=== PATIENT | male | born 1955 | race Caucasian/White ===

== ENCOUNTER 2019-06-20 09:37 | Outpatient (CLI) | payer MEDICARE, SELFPAY ==
--- NOTE | 2019-06-20 | ECG_ITS ---
Measurements Intervals [place] Rate: 71 P: 79 GA: 168 QRS: 39 QRSD: 111 T: 60 QT: 314 QTc: 342 Interpretive Statements SINUS RHYTHM INTRAVENTRICULAR CONDUCTION DELAY BASELINE ARTIFACT- I, II BORDERLINE ECG Electronically Signed On 06-20-2019 11:06:35 JEWELRY ESTIMATOR by Harvey Addison D.O.
--- NOTE | ~2019-06-20 | XR_ITS ---
XR chest 2V DATE: 06/20/2019 13:40 INDICATION: Chest pain, dyspnea TECHNIQUE: PA and lateral views COMPARISON: 03/24/2019 PA and lateral chest FINDINGS: Normal heart size. Aortic arch calcification. Chronic discoid scarring in the right lower l cecilia. No pulmonary infiltrate or consolidation, pleural effusion or pulmonary vascular congestion or pneumo thorax is detected. Normal heart size. Aortic arch calcification. Status post anterior lower cervical spine surgical fusion. IMPRESSION: Chronic discoid scarring in the right lower lung; no active cardiac pulmonary disease or significant change since 03/24/2019 Reviewed, dictated and finalized at location A. R [facility]
[2019-06-20 10:08] LABS: Basophils Absolute Auto 0.1 K/mm3 (0.0-0.1); Eosinophils Absolute Auto 0.3 K/mm3 (0-0.3); Eosinophils Percent Auto 3.4 % (0-4.4); Hematocrit 44.9 % (42.0-52.0); Immature Granulocyte Absolute 0.06 K/mm3 (0.00-0.031); Immature Granulocyte Percent A 0.7 % (0-0.5); Lymphocytes Absolute Auto 2.34 K/mm3 (0.9-3.2); Lymphocytes Percent Auto 28.2 % (18.3-44.2); Mean Corpuscular HGB Conc 33.4 g/dl (32-36); Mean Corpuscular Hemoglobin 29.1 pg (26-34); Mean Platelet Volume 9.3 fl (7.4-10.4); Monocytes Absolute Auto 0.6 K/mm3 (0.1-0.6); Monocytes Percent Auto 7.6 % (2.6-8.5); Neutrophils Absolute Auto 4.9 K/mm3 (1.3-6.7); Neutrophils Percent Auto 59.1 % (45.5-73.1); Platelet Count Result 245 k/mm3 (150-375); Red Blood Count 5.16 M/mm3 (4.6-6.20); Red Cell Distribution Width 13.1 % (11.5-14.5); White Blood Count 8.3 K/mm3 (4.5-10.0)
[2019-06-20 10:20] LABS: Alanine Aminotransferase 19 U/L (4-50); Alkaline Phosphatase 100 U/L (38-126); Aspartate Amino Transferase 18 U/L (17-59); Bilirubin,Total 0.6 mg/dL (0.2-1.3); Blood Urea Nitrogen 19 mg/dL (9-20); Calcium 9.3 mg/dL (8.4-10.2); Carbon Dioxide 32 mmol/L (22-30); Chloride 91 mmol/L (98-107); Estimated Glomerular Filt Rate > 60; Glucose 345 mg/dL (75-110); Potassium 3.3 mmol/L (3.4-5.0); Sodium 132 mmol/L (137-145)
== END 2019-06-20 09:38 | disposition home or self-care (01) ==
LOC: ANHLAB 09:43
PROVIDERS: PCP Family Medicine; Visit Provider Family Medicine
DX: R07.9 Chest pain, unspecified (principal); R91.8 Other nonspecific abnormal finding of lung field; R00.2 Palpitations; R06.00 Dyspnea, unspecified
CPT/HCPCS: 36415; 71046; 80053; 84443; 85025; 85380; 93005

== ENCOUNTER 2019-07-09 18:57 | Emergency (ER) | payer MEDICARE, SELFPAY ==
[2019-07-09 18:59] VITALS: BP 162/89; PULSE 97; RESP 20; TEMP 36.9; O2SAT 94
--- NOTE | 2019-07-09 18:59 | ED.GENADULT ---
HPI - General Adult General Chief complaint: Skin/Abscess/Foreign Body Stated complaint: rash Time Seen by Provider: 07/09/19 19:10 Source: patient Mode of arrival: ambulatory Limitations: no limitations History of Present Illness HPI narrative: 64-year-old male patient presents to the [facility] with complaints of a rash to the left side of the groin for the past month. Patient states he presents today because it has not gone away and it continues to burn and itch. Patient states he also has a rash to the tip of the penis as well. Patient has seen his primary doctor for this and was put on 2 antifungal creams. Patient states it is not helping. Patient states he puts on the cream along with some regular lotion. Patient denies any fevers. Related Data Home Medications Medication Instructions Recorded Confirmed aspirin [Aspirin Low Dose] 81 mg PO DAILY 03/24/19 03/24/19 clopidogrel 75 mg PO DAILY 03/24/19 03/24/19 losartan-hydrochlorothiazide 1 tablet PO DAILY 03/24/19 03/24/19 metformin 1,000 mg PO BID 03/24/19 03/24/19 metoprolol succinate 50 mg PO DAILY 03/24/19 03/24/19 sitagliptin [Januvia] 100 mg PO DAILY 03/24/19 03/24/19 albuterol sulfate 0.63 mg INHALATION Q4H 07/09/19 07/09/19 clotrimazole-betamethasone applic TOPICAL 07/09/19 nystatin TOPICAL 07/09/19 Allergies Allergy/AdvReac Type Severity Reaction Status Date / Time atropine Allergy Unknown Verified 03/19/15 15:51 codeine Allergy Unknown Verified 03/19/15 15:51 hydrocodone Allergy Unknown Verified 03/19/15 15:51 morphine Allergy Unknown Verified 03/19/15 15:52 olmesartan Allergy Unknown Verified 03/19/15 15:51 Tetanus Vaccines and Toxoid Allergy Unknown Verified 03/19/15 15:52 Review of Systems Review of Systems: Narrative: CONSTITUTIONAL: Denies fever, chills, or sweats. EYES: Denies visual changes, redness, or discharge. ENT: Denies rhinorrhea, congestion, sore throat, or otalgia. CARDIOVASCULAR: Denies chest pain, palpitations, or edema. RESPIRATORY: Denies cough or dyspnea. GASTROINTESTINAL: Denies abdominal pain, nausea, vomiting, or diarrhea. GENITOURINARY: Denies dysuria or hematuria. SKIN: Positive rash with itching and burning pain to the left side of groin x1 month MUSCULOSKELETAL: Denies back pain, joint pain, or myalgia. NEUROLOGIC: Denies headache, numbness, or weakness. PSYCHIATRIC: Denies anxiety or depression. [facility] Past Medical History Medical History (Updated 07/09/19 @ 19:19 by BRODY Yarbrough) Anxiety Asthma COPD (chronic obstructive pulmonary disease) Depression Diabetes Diverticulitis Hypercholesterolemia Hypertension Musculoskeletal disorder Cervical fusion, amputation left ring finger, arthritis Pneumonia Sleep apnea Surgical History Surgical History (Updated 07/09/19 @ 19:04 by BRODY Yarbrough) History of cardiac cath 2017 with heart stents History of cholecystectomy Family History Family History Sibling Cerebrovascular accident Patient's sister is Mother Family history of diabetes mellitus in first degree relative Patient's mother is Father Patient's father is Social History Social History Alcohol intake: never Comments At the time of my signature I agree with nursing past medical history, surgical, social, and family history. There is no relevant family history pertinent to the presenting complaint. Exam Narrative: Exam Narrative: GENERAL: Well-appearing, well-nourished, and in no acute distress. HEAD: Normocephalic, atraumatic. EYES: PERRLA and EOMI. ENT: Nares clear, no rhinorrhea or epistaxis. Mucous membranes moist. NECK: Supple. No lymphadenopathy CHEST: Clear to auscultation. No respiratory distress. HEART: Regular rate and rhythm. No murmur heard. Normal peripheral pulses. ABDOMEN: Soft, nontender,
== END 2019-07-09 19:21 | disposition home or self-care (01) ==
PROVIDERS: Emergency Provider Nurse Practitioner Family; PCP Family Medicine
DX: B35.6 Tinea cruris (principal); J44.9 Chronic obstructive pulmonary disease, unspecified; E11.9 Type 2 diabetes mellitus without complications; E78.00 Pure hypercholesterolemia, unspecified; I10 Essential (primary) hypertension; G47.30 Sleep apnea, unspecified
CPT/HCPCS: 99213; G0463

== ENCOUNTER 2020-04-19 09:04 | Emergency (ER) | payer MEDICARE, SELFPAY ==
--- NOTE | ~2020-04-19 | XR_ITS ---
XR chest 2V DATE: 04/19/2020 09:30 INDICATION: Shortness of breath TECHNIQUE: PA and lateral views COMPARISON: 06/20/2019 2 view chest FINDINGS: Normal heart size. There is aortic arch calcification. Moderate hyperinflation of the lungs. No pulmonary infiltrate or consolidation, pleural effusion or p ulmonary vascular congestion or pneumothorax. Status post lower anterior cervical spine surgical fusion IMPRESSION: Moderate hyperinflation; no active cardiac pulmonary disease Aortic atherosclerosis No significant change since 06/20/2019 Reviewed, dictated and finalized at location A. ER
[2020-04-19 09:13] VITALS: BP 109/71; PULSE 77; RESP 16; TEMP 36.2; O2SAT 91
--- NOTE | 2020-04-19 09:14 | ED.GENADULT ---
HPI - General Adult General Chief complaint: Upper Respiratory Infection Stated complaint: difficulty breathing Time Seen by Provider: 04/19/20 09:15 Source: patient and RN notes reviewed Mode of arrival: ambulatory Limitations: no limitations History of Present Illness HPI narrative: 64-year-old male presents with complains of shortness of breath upon awaken this morning. Delta reports he stopped taking mediations for COPD and Asthma over a year ago due to inability to afford them. No treatment. Denies cough and chest congestion. No rhinorrhea and nasal congestion. No high fevers, drooling, neck or throat swelling. No chest pain, wheezing, or shortness of breath. No exacerbation factors. Denies nausea, vomiting, and abdominal pain. Tolerating liquids well. The patient reports he have not been diagnosed with COVID-19. The patient reports he is not waiting for the results of a COVID-19 lab test. The patient reports he do not have fever, chills, weakness, or fatigue. The patient reports he do not have a new or worsening cough or shortness of breath. The patient reports he do not have any loss of taste, sore throat, nausea, vomiting, abdominal pain, and diarrhea. Denies recent traveling. Denies concerns for COVID-19 or exposures been home with limited outdoor exposure except for essential household needs and return home. At this time, patient is not suspected of having COVID-19. Some parts of this dictation were generated by voice recognition software and may contain typographical and/or grammatical inaccuracies. Related Data Home Medications Medication Instructions Recorded Confirmed aspirin [Aspirin Low Dose] 81 mg PO DAILY 03/24/19 03/24/19 clopidogrel 75 mg PO DAILY 03/24/19 03/24/19 losartan-hydrochlorothiazide 1 tablet PO DAILY 03/24/19 03/24/19 metformin 1,000 mg PO BID 03/24/19 03/24/19 metoprolol succinate 50 mg PO DAILY 03/24/19 03/24/19 sitagliptin [Januvia] 100 mg PO DAILY 03/24/19 03/24/19 albuterol sulfate 0.63 mg INHALATION Q4H 07/09/19 07/09/19 clotrimazole-betamethasone applic TOPICAL 07/09/19 nystatin TOPICAL 07/09/19 Allergies Allergy/AdvReac Type Severity Reaction Status Date / Time atropine Allergy Unknown Verified 03/19/15 15:51 codeine Allergy Unknown Verified 03/19/15 15:51 hydrocodone Allergy Unknown Verified 03/19/15 15:51 morphine Allergy Unknown Verified 03/19/15 15:52 olmesartan Allergy Unknown Verified 03/19/15 15:51 Tetanus Vaccines and Toxoid Allergy Unknown Verified 03/19/15 15:52 Review of Systems Review of Systems: Narrative: CONSTITUTIONAL: Denies fever, chills, sweats. EYES: Denies visual changes, redness, discharge. ENT: Denies rhinorrhea, congestion, sore throat, otalgia. CARDIOVASCULAR: Denies chest pain, palpitations, edema. RESPIRATORY: Denies wheezing, cough. Complains of dyspnea. GASTROINTESTINAL: Denies abdominal pain, nausea, vomiting, diarrhea. GENITOURINARY: Denies dysuria, hematuria, abnormal discharge. SKIN: Denies rash or itching. MUSCULOSKELETAL: Denies acute back pain, joint pain, or myalgia. NEUROLOGIC: Denies numbness or focal weakness. PSYCHIATRIC: Denies anxiety or depression. All systems reviewed & are unremarkable except as noted in HPI and below PMFSH Past Medical History Medical History (Updated 04/20/20 @ 00:00 by Background Daemon) Amputation of finger of left hand Anxiety Asthma Cervical vertebral fusion COPD (chronic obstructive pulmonary disease) Depression Diabetes Diverticulitis Hypercholesterolemia Hypertension Musculoskeletal disorder Cervical fusion, amputation left ring finger, arthritis Pneumonia Sleep apnea Surgical History Surgical History (Updated 04/19/20 @ 09:25 by BRODY Whaley) H/O surgical amputation of finger History of cardiac cath 2017 with heart stents History of cholecystectomy Family History Family History Sibling Cer
--- NOTE | 2020-04-19 09:15 | ECG_ITS ---
Measurements Intervals [place] Rate: 75 P: 54 AL: 144 QRS: 59 QRSD: 97 T: 64 QT: 356 QTc: 398 Interpretive Statements SINUS RHYTHM NORMAL ECG Electronically Signed On 04-19-2020 15:42:34 SENIOR CENTER DIRECTOR by Harvey Addison D.O.
[2020-04-19] MEDS: ALBUTEROL SULFATE NEB 2.5 MG/3 ML INH INHALATION (09:59)
--- NOTE | 2020-04-19 10:03 | PC.NURSE ---
At 0950 patient was ambulated about express care and O2 sats went from 89% to 92%.
[2020-04-19 10:11] VITALS: PULSE 83; RESP 22; O2SAT 94
--- NOTE | 2020-04-19 10:40 | PC.NURSE ---
At 1030 Ptient continues to be 94% sat on room air. Sats at 92% with ambulation.
== END 2020-04-19 10:35 | disposition home or self-care (01) ==
PROVIDERS: Emergency Provider Nurse Practitioner Family; PCP Family Medicine
DX: J44.9 Chronic obstructive pulmonary disease, unspecified (principal); R91.8 Other nonspecific abnormal finding of lung field; I70.0 Atherosclerosis of aorta; Z79.82 Long term (current) use of aspirin; E78.00 Pure hypercholesterolemia, unspecified; I10 Essential (primary) hypertension; G47.30 Sleep apnea, unspecified; Z95.5 Presence of coronary angioplasty implant and graft; Z87.891 Personal history of nicotine dependence
CPT/HCPCS: 71046; 93005; 94640; 96372; 99213; G0463; J1100

== ENCOUNTER 2020-11-24 18:49 | Emergency (ER) | payer MEDICARE, SELFPAY ==
[2020-11-24 18:53] VITALS: BP 180/82; PULSE 106; RESP 20; TEMP 37.6; O2SAT 92
--- NOTE | 2020-11-24 19:01 | ED.DENTAL ---
HPI - Dental/Oral General Chief complaint: Dental/Oral Stated complaint: toothache/eye irritation Source: patient Mode of arrival: ambulatory Limitations: no limitations History of Present Illness HPI Narrative: 65-year-old male presents to [facility] with complaints of right upper tooth pain for the past 3 days. Patient has been taking [id number] ibuprofen with minimal relief. Patient reports he has not seen a dentist in the past 10 years. Patient denies nausea, vomiting, diarrhea, body aches or chills. Patient reports he thought he was running a fever yesterday. MD Complaint: tooth pain Location: Tooth # (5 and 6) Onset (ago): day(s) (3) Duration: constant Severity: mild Relieving factors: nothing Treatment prior to arrival: none Related Data Home Medications Medication Instructions Recorded Confirmed aspirin [Aspirin Low Dose] 81 mg PO DAILY 03/24/19 03/24/19 clopidogrel 75 mg PO DAILY 03/24/19 03/24/19 losartan-hydrochlorothiazide 1 tablet PO DAILY 03/24/19 03/24/19 metformin 1,000 mg PO BID 03/24/19 03/24/19 metoprolol succinate 50 mg PO DAILY 03/24/19 03/24/19 sitagliptin [Januvia] 100 mg PO DAILY 03/24/19 03/24/19 clotrimazole-betamethasone applic TOPICAL 07/09/19 Allergies Allergy/AdvReac Type Severity Reaction Status Date / Time atropine Allergy Unknown Verified 03/19/15 15:51 codeine Allergy Unknown Verified 03/19/15 15:51 hydrocodone Allergy Unknown Verified 03/19/15 15:51 morphine Allergy Unknown Verified 03/19/15 15:52 olmesartan Allergy Unknown Verified 03/19/15 15:51 Tetanus Vaccines and Toxoid Allergy Unknown Verified 03/19/15 15:52 Review of Systems Constitutional: Constitutional: Denies chills, Denies fatigue, Reports fever(s) and Denies weakness ENT: Denies dysphagia, Denies dizziness, Denies epistaxis and Denies sore throat Comments: Right upper tooth pain Cardiovascular: Cardiovascular: Denies chest pain, Denies rapid heart rate and Denies slow heart rate Respiratory: Respiratory: Denies cough, Denies dyspnea and Denies wheezing Gastrointestinal: Gastrointestinal: Denies abdominal pain, Denies diarrhea, Denies nausea and Denies vomiting Integumentary/Breasts: Skin/Breast: Denies rash Neurologic: Denies dizziness PMFSH Past Medical History Medical History Amputation of finger of left hand Anxiety Asthma Cervical vertebral fusion COPD (chronic obstructive pulmonary disease) Depression Diabetes Diverticulitis Hypercholesterolemia Hypertension Musculoskeletal disorder Cervical fusion, amputation left ring finger, arthritis Pneumonia Sleep apnea Surgical History Surgical History H/O surgical amputation of finger History of cardiac cath 2017 with heart stents History of cholecystectomy Family History Family History Sibling Cerebrovascular accident Patient's sister is Mother Family history of diabetes mellitus in first degree relative Patient's mother is Father Patient's father is Social History Social History Smoking status: Former smoker Tobacco type: cigarettes Second hand tobacco smoke exposure: No Smoking end date: 05/22/89 Alcohol intake: never Substance use: never Additional living arrangements comments: spouse Gender identity (if verbalized by the patient): Male Comments At time of signature, I agree with nursing past medical, surgical, social and family history. There is no relevant family history pertinent to the presenting complaint. Exam Const: General: no acute distress Nutritional Appearance: well nourished Orientation/consciousness: patient oriented x3 HENMT: General nose exam: Normal nares present Mouth: Yes lip normal and Yes moist muc
== END 2020-11-24 19:18 | disposition home or self-care (01) ==
PROVIDERS: Emergency Provider Nurse Practitioner Family; PCP Family Medicine
DX: K08.89 Other specified disorders of teeth and supporting structures (principal); J45.909 Unspecified asthma, uncomplicated; J44.9 Chronic obstructive pulmonary disease, unspecified; E11.9 Type 2 diabetes mellitus without complications; E78.00 Pure hypercholesterolemia, unspecified; I10 Essential (primary) hypertension; G47.30 Sleep apnea, unspecified; Z89.022 Acquired absence of left finger(s); Z79.82 Long term (current) use of aspirin
CPT/HCPCS: 99213; G0463

== ENCOUNTER 2020-11-25 02:59 | Emergency (ER) | payer MEDICARE, SELFPAY ==
[2020-11-25 03:07] VITALS: BP 190/97; PULSE 85; RESP 16; TEMP 37.3; O2SAT 92
--- NOTE | 2020-11-25 03:32 | PC.NURSE ---
Pt. amb out of triage w/ steady gait. pt. NAD.
== END 2020-11-25 04:45 | disposition left against medical advice (07) ==
PROVIDERS: PCP Family Medicine
DX: K08.89 Other specified disorders of teeth and supporting structures (principal)
CPT/HCPCS: 99199

== ENCOUNTER 2020-12-19 15:13 | Emergency (ER) | payer MEDICARE, SELFPAY ==
--- NOTE | ~2020-12-19 | XR_ITS ---
EXAMINATION: [id number] INDICATION: Bilateral rib pain after fall TECHNIQUE: A frontal view of the chest and 3 views of the bilateral ribs were obtained. COMPARISON: 04/19/2020 FINDINGS: The lungs are free of acute opacities. There is chronic atelectasis or scarring of the left lung base. There is no pleural effusion or pneumothorax. The cardiomediastinal silhouette is normal. No displaced rib fracture is identified. There are changes of anterior fusion procedure in the lower cervical spine. IMPRESSION: 1. No acute cardiopulmonary abnormality or evidence of displaced rib fracture. Reviewed, dictated and finalized at location A.
[2020-12-19 15:17] VITALS: BP 143/68; PULSE 85; RESP 20; TEMP 37; O2SAT 93
--- NOTE | 2020-12-19 16:43 | ED.FALL ---
HPI - Fall General Chief Complaint: Fall Stated Complaint: fall Source: patient and RN notes reviewed Limitations: no limitations History of Present Illness HPI Narrative: The patient, ex-smoker/nondrinker on several meds including Plavix, presents with rib discomfort after fall. Patient states he was outside slipped down and off 1 or 2 steps of a trailer striking his right lateral ribs. He complains of mild pain and bruising from her injury 4 hours ago that is worse with movement, better with rest or elevation. No other injury, bleeding, deformity, shortness of breath , hematuria, kidney pain or abdominal pains Related Data Home Medications Medication Instructions Recorded Confirmed aspirin [Aspirin Low Dose] 81 mg PO DAILY 03/24/19 03/24/19 clopidogrel 75 mg PO DAILY 03/24/19 03/24/19 losartan-hydrochlorothiazide 1 tablet PO DAILY 03/24/19 03/24/19 metformin 1,000 mg PO BID 03/24/19 03/24/19 metoprolol succinate 50 mg PO DAILY 03/24/19 03/24/19 sitagliptin [Januvia] 100 mg PO DAILY 03/24/19 03/24/19 clotrimazole-betamethasone applic TOPICAL 07/09/19 Allergies Allergy/AdvReac Type Severity Reaction Status Date / Time atropine Allergy Unknown Verified 03/19/15 15:51 codeine Allergy Unknown Verified 03/19/15 15:51 hydrocodone Allergy Unknown Verified 03/19/15 15:51 morphine Allergy Unknown Verified 03/19/15 15:52 olmesartan Allergy Unknown Verified 03/19/15 15:51 Tetanus Vaccines and Toxoid Allergy Unknown Verified 03/19/15 15:52 Review of Systems Review of Systems: General/Constitutional: No weight loss,fever Eyes: N0: Redness,discharge Ears/Nose/Throat: No: Epistaxis,ear discharge Respiratory: Denies: Hemoptysis Gastrointestinal: No Vomiting, Bleeding-rectal Skin: No Lumps, eruption Neurologic: No Focal Weakness,Sz Hematologic: Denies: Petechiae/Purpura Psychiatric: No: Suicida ideationl All Other Systems: Reviewed and Negative [facility] Past Medical History Medical History Amputation of finger of left hand Anxiety Asthma Cervical vertebral fusion COPD (chronic obstructive pulmonary disease) Depression Diabetes Diverticulitis Hypercholesterolemia Hypertension Musculoskeletal disorder Cervical fusion, amputation left ring finger, arthritis Pneumonia Sleep apnea Surgical History Surgical History H/O surgical amputation of finger History of cardiac cath 2017 with heart stents History of cholecystectomy Family History Family History Sibling Cerebrovascular accident Patient's sister is Mother Family history of diabetes mellitus in first degree relative Patient's mother is Father Patient's father is Social History Social History Smoking status: Former smoker Tobacco type: cigarettes Second hand tobacco smoke exposure: No Smoking end date: 05/22/89 Alcohol intake: never Substance use: never Additional living arrangements comments: spouse Gender identity (if verbalized by the patient): Male Comments At time of signature, agree with nursing past medical, surgical, social and family history. There is no relevant family history pertinent to the presenting complaint Exam Narrative: General Appearance: Well appearing, No distress Conjunctiva clear mouth/Throat: Normal appearing, Normal lips, Supple Respiratory: Airway patent, No respiratory distress Cardiovascular: RRR Skin: Warm, Dry; radiated right ribs T9-T11 along axillary line Abdomen: Soft, Non-tender, including right upper quadrant Musculoskeletal: Full ROM Neurological: A&O x3, CN II-X intact Psychiatric: Normal mood, Normal affect Course Vital Signs Vital signs: Vital Signs Temperature 98.6 F 12/19/20 15:17 Pulse
== END 2020-12-19 16:50 | disposition home or self-care (01) ==
PROVIDERS: Emergency Provider Emergency Medicine; PCP Family Medicine
DX: S20.311A Abrasion of right front wall of thorax, initial encounter (principal); W10.9XXA Fall (on) (from) unspecified stairs and steps, initial encounter; Z87.891 Personal history of nicotine dependence; J45.909 Unspecified asthma, uncomplicated; J44.9 Chronic obstructive pulmonary disease, unspecified; E11.9 Type 2 diabetes mellitus without complications; E78.00 Pure hypercholesterolemia, unspecified; I10 Essential (primary) hypertension; G47.30 Sleep apnea, unspecified; Z89.022 Acquired absence of left finger(s); Z79.82 Long term (current) use of aspirin
CPT/HCPCS: 71111; 99213; G0463

== ENCOUNTER 2021-02-21 10:03 | Emergency (ER) | payer MEDICARE, SELFPAY ==
--- NOTE | ~2021-02-21 | XR_ITS ---
XR chest 2V 02/21/2021 10:31 Indication: Cough with shortness of breath Procedure: 2 view chest Comparison: Comparison to multiple prior studies sequentially, with oldest reviewed study dated 02/19. Findings: There is chronic bibasilar atelectasis/scarring. Stable cardiomediastinal silhouette. No ac jass focal pneumonia, edema or effusion. No acute osseous abnormality. Impression: 1: Chronic bibasilar atelectasis/scarring. Reviewed, dictated and finalized at location A. Impression: 1: Chronic bibasilar atelectasis/scarring.
--- NOTE | 2021-02-21 10:07 | ED.URI ---
HPI - URI/Sore Throat General Chief Complaint: Upper Respiratory Infection Stated Complaint: ear pain/neil/fatigue/difficulty breathing Time Seen by Provider: 02/21/21 10:08 Source: patient and RN notes reviewed History of Present Illness HPI Narrative: Patient is 65-year-old male who presents the urgent care with complaints of bilateral ear fullness, shortness of breath and fatigue. Patient states that started 3 days ago. States that he has been using his 4 L of oxygen at home as normal but denies of any ambulatory oxygen. Patient states his levels normally remain around 90%. Reports of using his inhaler as well. Denies of fever, chills, nausea, vomiting. Denies of any other illness in the home. States that he has had a Covid vaccine. No other acute complaints. No acute distress noted. Patient aware of the plan of care. Some parts of this dictation were generated by voice recognition software and may contain typographical and/or grammatical inaccuracies. Related Data Home Medications Medication Instructions Recorded Confirmed aspirin [Aspirin Low Dose] 81 mg PO DAILY 03/24/19 03/24/19 clopidogrel 75 mg PO DAILY 03/24/19 03/24/19 losartan-hydrochlorothiazide 1 tablet PO DAILY 03/24/19 03/24/19 metformin 1,000 mg PO BID 03/24/19 03/24/19 metoprolol succinate 50 mg PO DAILY 03/24/19 03/24/19 sitagliptin [Januvia] 100 mg PO DAILY 03/24/19 03/24/19 clotrimazole-betamethasone applic TOPICAL 07/09/19 Allergies Allergy/AdvReac Type Severity Reaction Status Date / Time atropine Allergy Unknown Nausea and Verified 02/21/21 10:09 Vomiting codeine Allergy Unknown Palpitation Verified 02/21/21 10:09 s hydrocodone Allergy Unknown Nausea and Verified 02/21/21 10:09 Vomiting morphine Allergy Unknown Nausea and Verified 02/21/21 10:09 Vomiting olmesartan Allergy Unknown Other Verified 02/21/21 10:09 Tetanus Vaccines and Toxoid Allergy Unknown Other Verified 02/21/21 10:09 Review of Systems Review of Systems: CONSTITUTIONAL: Denies fever, chills, or sweats. Patient reports of fatigue EYES: Denies visual changes, redness, or discharge. ENT: Denies rhinorrhea, congestion, sore throat. Patient reports of bilateral ear pain CARDIOVASCULAR: Denies chest pain, palpitations, or edema. RESPIRATORY: Reports of dyspnea without cough GASTROINTESTINAL: Denies abdominal pain, nausea, vomiting, or diarrhea. GENITOURINARY: Denies dysuria or hematuria. SKIN: Denies rash or itching. MUSCULOSKELETAL: Denies back pain, joint pain, or myalgia. NEUROLOGIC: Denies headache, numbness, or weakness. All other systems reviewed are negative, except as documented in HPI. [facility] Past Medical History Medical History Amputation of finger of left hand Anxiety Asthma Cervical vertebral fusion COPD (chronic obstructive pulmonary disease) Depression Diabetes Diverticulitis Hypercholesterolemia Hypertension Musculoskeletal disorder Cervical fusion, amputation left ring finger, arthritis Pneumonia Sleep apnea Surgical History Surgical History H/O surgical amputation of finger History of cardiac cath 2017 with heart stents History of cholecystectomy Family History Family History Sibling Cerebrovascular accident Patient's sister is Mother Family history of diabetes mellitus in first degree relative Patient's mother is Father Patient's father is Social History Social History Smoking status: Former smoker Tobacco type: cigarettes Second hand tobacco smoke exposure: No Smoking end date: 05/22/89 Alcohol intake: never Substance use: never Additional living arrangements comments: spouse Gender identity (if verbalized by the patient): Male
[2021-02-21 10:13] VITALS: BP 164/82; PULSE 86; RESP 16; TEMP 36.8; O2SAT 84
--- NOTE | 2021-02-21 12:59 | PC.NURSE ---
Patient is unable to verify medication list at this time.
== END 2021-02-21 11:00 | disposition home or self-care (01) ==
PROVIDERS: Emergency Provider Nurse Practitioner Family; PCP Family Medicine
DX: J44.9 Chronic obstructive pulmonary disease, unspecified (principal); Z87.891 Personal history of nicotine dependence; E11.9 Type 2 diabetes mellitus without complications; E78.00 Pure hypercholesterolemia, unspecified; I10 Essential (primary) hypertension; G47.30 Sleep apnea, unspecified; M19.90 Unspecified osteoarthritis, unspecified site; Z95.5 Presence of coronary angioplasty implant and graft; Z89.022 Acquired absence of left finger(s); Z79.82 Long term (current) use of aspirin
CPT/HCPCS: 71046; 99213; G0463

== ENCOUNTER 2021-03-08 09:18 | Inpatient (IN) | payer MEDICARE, SELFPAY ==
[2021-03-08] VITALS (28 sets, daily range): BP systolic 150–195; BP diastolic 69–107; PULSE 77–99; RESP 16–36; TEMP 36.7–37.3; O2SAT 86–99; BMI 38.9
--- NOTE | ~2021-03-08 | CT_ITS ---
EXAMINATION: CTA chest PE protocol DATE: 03/11/2021 11:26 INDICATION: Hypoxia. TECHNIQUE: Computed tomography angiography (CTA) of the chest was performed with 100 mL Omnipaque-350 intravenous contrast timed to evaluate the pulmonary arteries. Coronal maximum intensity projection 3D-reconstructions were created by the technologist. Automated exposure control and iterative reconst ruction technique were employed. The dose-length product was 744.56 mGy-cm. COMPARISON: Chest CT 03/10/2019 FINDINGS: There is moderate emphysema. There is mild atelectasis bilaterally with a dependent and low er lung predominance. There is a 3 mm nodule in left upper lobe, likely benign. No pleural effusion. The heart size is normal. There are coronary artery calcifications. No pericardial effusion. The cent ral pulmonary arteries are enlarged, consistent with pulmonary artery hypertension. There is no pulmo nary embolus. There is mild right hilar lymphadenopathy, likely reactive. There is mild thoracic spon dylosis. There are bridging endplate osteophytes at multiple levels in the spine, consistent with dif fuse idiopathic skeletal hyperostosis (DISH). There are changes of anterior fusion procedure in cervi page spine. IMPRESSION: 1. No pulmonary embolus. 2. Moderate emphysema. Reviewed, dictated and finalized at location A.
--- NOTE | ~2021-03-08 | US_ITS ---
EXAMINATION: US venous doppler [facility] DATE: 03/08/2021 17:38 INDICATION: Bilateral lower limb edema TECHNIQUE: Choudhury scale images without and with compression and Doppler images of the bilateral lower e xtremity veins were obtained. COMPARISON: 12/04/2009 FINDINGS: The right common femoral vein, profunda femoral vein, femoral vein, popliteal vein, peroneal trunk, p osterior tibial veins, and greater saphenous vein are patent. The left common femoral vein, profunda femoral vein, femoral vein, popliteal vein, peroneal trunk, po sterior tibial veins, and greater saphenous vein are patent. IMPRESSION: 1. Patent bilateral lower extremity veins. No evidence of deep venous thrombosis. Reviewed, dictated and finalized at location A. IMPRESSION: 1. Patent bilateral lower extremity veins. No evidence of deep venous thrombosi s.
--- NOTE | ~2021-03-08 | XR_ITS ---
EXAMINATION: XR chest 1V portable DATE: 03/09/2021 09:17 INDICATION: Respiratory failure. TECHNIQUE: A single frontal view of the chest was obtained. COMPARISON: Chest single view 03/08/2021, chest CT 03/10/2019 FINDINGS: There are lucencies in the lungs, consistent with emphysema. There is mild atelectasis in t he mid and lower lung zones. No pleural effusion or pneumothorax. The heart size is normal. There is prominent extrapleural fat in left lateral costophrenic angle. There are changes of anterior fusion p rocedure in cervical spine. IMPRESSION: 1. Mild atelectasis in the mid and lower lung zones. 2. Emphysema. Reviewed, dictated and finalized at location A.
--- NOTE | ~2021-03-08 | XR_ITS ---
XR chest 1V portable 03/08/2021 09:58 Indication: Shortness of breath. Procedure: AP portable chest Comparison: Comparison to multiple prior studies sequentially, with oldest reviewed study dated 07/2018. Findings: Diffuse bilateral airspace disease. Heart size normal. Small left pleural effusion. No pneu mothorax. Impression: 1: Diffuse bilateral airspace disease may represent edema or pneumonia. Reviewed, dictated and finalized at location B. Impression: 1: Diffuse bilateral airspace disease may represent edema or pneumonia.
--- NOTE | 2021-03-08 09:39 | ECG_ITS ---
Measurements Intervals [place] Rate: 94 P: 62 GA: 149 QRS: 79 QRSD: 102 T: 70 QT: 329 QTc: 411 Interpretive Statements SINUS RHYTHM BASELINE ARTIFACT- I, II, AVR, V1 NORMAL ECG Electronically Signed On 03-08-2021 9:48:36 CDT by Harvey Addison D.O.
[2021-03-08 10:09] LABS: Alveolar/Arterial O2 Gradient 85.7 mmHg; Base Excess ABG 4.9 mEq/l (+/-2.0); Carboxyhemoglobin 1.1 % THb (0-2.0); Fractional Inspired Oxygen 40 %; HCO3 ABG 37.3 mEq/l (22.0-26.0); Methemoglobin ABG 0.6 %THb (0-1.5); Oxygen Content ABG 23.9 %vol (16.0-22.0); Oxygen Saturation ABG 95.2 % (95.0-100.0); PO2 ABG 93.2 mmHg (80.0-100.0); PO2 FiO2 Ratio Arterial Blood 2.33 %; Reduced Hemoglobin 4.3 %THb (0-5.0); Total Hemoglobin 18.1 g/dL (12.0-18.0)
[2021-03-08 10:10] LABS: pH ABG 7.224 (7.350-7.450)
[2021-03-08 10:11] LABS: Device NASAL CANNULA; Modified Allen's Test Pass; PCO2 ABG 92.4 mmHg (35.0-45.0); Site Drawn RIGHT RADIAL
[2021-03-08 10:12] LABS: Basophils Absolute Auto 0.1 K/mm3 (0.0-0.1); Basophils Percent Auto 0.7 % (0.2-1.2); Eosinophils Absolute Auto 0.2 K/mm3 (0-0.3); Eosinophils Percent Auto 2.2 % (0-4.4); Hematocrit 56.4 % (42.0-52.0); Hemoglobin 17.2 g/dL (14.0-18.0); Immature Granulocyte Absolute 0.04 K/mm3 (0.00-0.031); Immature Granulocyte Percent A 0.5 % (0-0.5); Mean Corpuscular HGB Conc 30.5 g/dl (32-36); Mean Corpuscular Hemoglobin 30.3 pg (26-34); Mean Corpuscular Volume 99.5 fl (80-100); Mean Platelet Volume 9.7 fl (7.4-10.4); Monocytes Absolute Auto 0.9 K/mm3 (0.1-0.6); Neutrophils Absolute Auto 6.9 K/mm3 (1.3-6.7); Neutrophils Percent Auto 78.6 % (45.5-73.1); Platelet Count Result 160 k/mm3 (150-375); Red Blood Count 5.67 M/mm3 (4.6-6.20); Red Cell Distribution Width 15.6 % (11.5-14.5); White Blood Count 8.7 K/mm3 (4.5-10.0)
[2021-03-08 10:34] LABS: Blood Urea Nitrogen 20 mg/dL (9-20); Calcium 9.4 mg/dL (8.4-10.2); Carbon Dioxide > 40 mmol/L (22-30); Chloride 93 mmol/L (98-107); Estimated CRCL calculation 100 ml/min; Estimated Glomerular Filt Rate > 60; Glucose 279 mg/dL (65-110); Sodium 139 mmol/L (137-145)
[2021-03-08 10:54] LABS: NT Pro B Type Natriuretic Pept 245 pg/mL (5-100)
--- NOTE | 2021-03-08 11:27 | ED.SOB ---
HPI - SOB/Dyspnea General Chief Complaint: Shortness of Breath/Dyspnea Stated Complaint: diff breathing Time Seen by Provider: 03/08/21 09:22 History of Present Illness HPI Narrative: Patient is a 65-year-old male who presents ER with shortness of breath. Ongoing for couple weeks. Initially prescribed antibiotics and steroids at an urgent care. Symptoms have persisted. Typically wears oxygen at night but he is now alert 24 hours a day. No chest pain or chest pressure. Does have orthopnea. Endorses new swelling to the lower extremities. Reports over the last 2 days he has had runny nose with sore throat and productive cough. No documented fevers, no chills. He is vaccinated against Covid. No known Covid contacts. Related Data Home Medications Medication Instructions Recorded Confirmed aspirin [Aspirin Low Dose] 81 mg PO DAILY 03/24/19 03/24/19 clopidogrel 75 mg PO DAILY 03/24/19 03/24/19 losartan-hydrochlorothiazide 1 tablet PO DAILY 03/24/19 03/24/19 metformin 1,000 mg PO BID 03/24/19 03/24/19 metoprolol succinate 50 mg PO DAILY 03/24/19 03/24/19 sitagliptin [Januvia] 100 mg PO DAILY 03/24/19 03/24/19 clotrimazole-betamethasone applic TOPICAL 07/09/19 Allergies Allergy/AdvReac Type Severity Reaction Status Date / Time atropine Allergy Unknown Nausea and Verified 03/08/21 09:35 Vomiting olmesartan Allergy Unknown Other Verified 03/08/21 09:35 Tetanus Vaccines and Toxoid Allergy Unknown Other Verified 03/08/21 09:35 codeine AdvReac Unknown Palpitation Verified 03/08/21 12:14 s hydrocodone AdvReac Unknown Nausea and Verified 03/08/21 12:14 Vomiting morphine AdvReac Unknown Nausea and Verified 03/08/21 12:14 Vomiting Review of Systems Review of Systems: All systems reviewed & are unremarkable except as noted in HPI and below Constitutional: Constitutional: Denies chills, Reports fatigue and Denies fever(s) ENT: Reports nasal congestion and Denies sore throat Cardiovascular: Cardiovascular: Denies chest pain, Denies rapid heart rate and Denies radiating jaw, neck or arm pain Respiratory: Respiratory: Reports cough, Reports dyspnea and Denies wheezing Gastrointestinal: Gastrointestinal: Denies abdominal pain, Denies nausea and Denies vomiting Musculoskeletal: Musculoskeletal: Denies back pain and Denies muscle cramps [facility] Past Medical History Medical History (Updated 03/08/21 @ 17:08 by Juan Adkins MD) Anxiety Asthma Chronic obstructive pulmonary disease Chronic respiratory failure with hypoxia, on home O2 therapy P.r.n. oxygen, mainly at nighttime. Coronary artery disease Status post stent x3. Depression Diverticulitis Hypercholesterolemia Hypertension Obstructive sleep apnea Intolerant to CPAP. Pneumonia Type 2 diabetes mellitus Surgical History Surgical History (Updated 03/08/21 @ 12:35 by Sue Mayfield PA-C) Amputation of finger of left hand (05/2008) History of cardiac catheterization (07/2017) Stent x3 [facility]. History of fusion of cervical spine History of laparoscopic cholecystectomy (02/2003) Family History Family History Sibling Cerebrovascular accident Mother No problems noted. Father No problems noted. Other Cancer Diabetes mellitus Hypertension Social History Social History (Updated 03/08/21 @ 12:35 by Sue Mayfield PA-C) Social History: Surrogate decision maker: Code status: Smoking packs per day: 1 Smoking cigarettes per day: 20.0 Years smoked: 20 Smoking pack-years: 20.00 Smoking status: Former smoker Second hand tobacco smoke exposure: No Alcohol intake: never Substance use: never Additional living arrangements comments: Shares a home with his . Additional occupation/education comments: Disabled. Spiritual care concerns: No Exam Narrative: GENER
--- NOTE | 2021-03-08 12:37 | PC.NURSE ---
made contact with [place] [facility] for a roomtray at [phone]
--- NOTE | 2021-03-08 13:00 | PM.IMHP ---
H&P: HPI History of Present Illness Date/Time: 03/08/21 13:00 Chief Complaint: Shortness of breath. Narrative: This is a 65-year-old male with chronic hypoxic respiratory failure on p.r.n. oxygen, COPD, sleep apnea, coronary artery disease, hypertension, diabetes who presented to the emergency department earlier today from home for evaluation of shortness of breath. He has not felt great for the past 2 to 3 weeks with fatigue and increasing shortness of breath. He was seen at a local [facility] on 02/21/2021 with similar complaints, was diagnosed with a COPD exacerbation, and was discharged with a prescription for prednisone. Unfortunately his symptoms have persisted and is to the point where he is now wearing his oxygen almost 24 hours a day, when typically he would only wear it at nighttime. He also endorses orthopnea, lower extremity edema, rhinorrhea, rarely productive cough, and mild sore throat. ABG done on arrival to the emergency department demonstrated hypoxia and hypercarbia and he has since been started on a BiPAP with improvement. Chest x-ray showed diffuse bilateral airspace disease and it is noted that a chest x-ray done at urgent care on the was unremarkable. He has not had fever. No chest pain or pleuritic pain. No nausea or vomiting. He did receive the COVID vaccination and has no known sick contacts. Review of Systems Review of Systems: Twelve systems were reviewed. Diabetes is fairly well controlled. Sugars have been running high since being started on prednisone. No concerns for aspiration. No history of venous thromboembolism. Except as documented, all other systems were reviewed and are negative. [facility] Past Medical History Medical History (Updated 03/08/21 @ 23:43 by Sue Mayfield PA-C) Anxiety Asthma Chronic obstructive pulmonary disease Chronic respiratory failure with hypoxia, on home O2 therapy P.r.n. oxygen, mainly at nighttime. Coronary artery disease Status post stent x3. Depression Diverticulitis Hypercholesterolemia Hypertension Obstructive sleep apnea Intolerant to CPAP. Type 2 diabetes mellitus Hemoglobin A1c was 7.4% on 03/08/2021. Surgical History Surgical History Amputation of finger of left hand (05/2008) History of cardiac catheterization (07/2017) Stent x3 [facility]. History of fusion of cervical spine History of laparoscopic cholecystectomy (02/2003) Family History Family History Sibling Cerebrovascular accident Mother No problems noted. Father No problems noted. Other Cancer Diabetes mellitus Hypertension Social History Social History (Updated 03/08/21 @ 23:36 by Sue Mayfield PA-C) Social History: Surrogate decision maker: Marcelle Pollock, . Code status: Full code. Smoking packs per day: 1 Smoking cigarettes per day: 20.0 Years smoked: 20 Smoking pack-years: 20.00 Smoking status: Former smoker Second hand tobacco smoke exposure: No Alcohol intake: never Substance use: never Additional living arrangements comments: Lives in [place] with his . Additional occupation/education comments: Disabled. Meds Home Medications and Allergies Home Medications Medication Instructions Recorded Confirmed Type aspirin [Aspirin Low Dose] 81 mg PO DAILY 03/24/19 03/08/21 History clopidogrel 75 mg PO DAILY 03/24/19 03/08/21 History losartan-hydrochlorothiazide 1 tablet PO DAILY 03/24/19 03/08/21 History metformin 1,000 mg PO BID 03/24/19 03/08/21 History metoprolol succinate 50 mg PO DAILY 03/24/19 03/08/21 History sitagliptin [Januvia] 100 mg PO DAILY 03/24/19 03/08/21 History clotrimazole-betamethasone 1 applic TOPICAL DAILY 07/09/19 03/08/21 History albuterol sulfate [ProAir HFA] 1 - 2 puff INHALATION QID #8.5 gm 04/19/20 03/08/21 Rx
--- NOTE | 2021-03-08 13:18 | PC.NURSE ---
Spoke with MD Adkins, do not need blood cultures prior to abx administration.
--- NOTE | 2021-03-08 14:21 | ADMGEN ---
This patient, Delta Pollock, was admitted to IMU Room 209-01 at 1400 on 03/08/2021. Patient/family oriented to hospital policies and general routines including ID bracelet, bed and alarms, visiting hours, pain management, procedures, bathroom and other care routines, personal items, smoking policy, room service/diet, and visiting hours. Information on how to activate the Rapid Response Team has been discussed. Patient/Family are encouraged to report perceived risks to care and to ask questions if they do not understand what they are told or what they should do.
[2021-03-08 16:09] LABS: Alveolar/Arterial O2 Gradient 89.7 mmHg; Base Excess ABG 8.8 mEq/l (+/-2.0); Carboxyhemoglobin 1.2 % THb (0-2.0); Fractional Inspired Oxygen 35 %; HCO3 ABG 40.1 mEq/l (22.0-26.0); Methemoglobin ABG 0.6 %THb (0-1.5); Oxygen Content ABG 21.9 %vol (16.0-22.0); Oxyhemoglobin 88.3 % THb (90.0-100.0); PO2 ABG 60.6 mmHg (80.0-100.0); PO2 FiO2 Ratio Arterial Blood 1.73 %; Reduced Hemoglobin 9.9 %THb (0-5.0); Total Hemoglobin 17.7 g/dL (12.0-18.0)
[2021-03-08 16:12] LABS: PCO2 ABG 85.4 mmHg (35.0-45.0)
[2021-03-08 16:13] LABS: Device NON-INVASIVE VENT; Modified Allen's Test Pass; Site Drawn LEFT RADIAL
[2021-03-08 16:14] LABS: Non-Invasive Expiratory Pressure 8 CMH2O; Non-Invasive Inspiratory Pressure 16 CMH2O; Non-Invasive Vent Rate 20 /MIN
[2021-03-08 17:20] LABS: Glucose Point of Care 190 mg/dl (65-105)
[2021-03-08 19:49] LABS: Hemoglobin A1C 7.4 % (<5.7)
[2021-03-08 19:52] LABS: D Dimer 0.69 ug/mL (<0.48)
[2021-03-08 20:19] LABS: Glucose Point of Care 112 mg/dl (65-105)
[2021-03-08 21:32] LABS: Procalcitonin 0.1 ng/mL
[2021-03-08 21:35] LABS: Alanine Aminotransferase 21 U/L (4-50); Albumin Level 3.7 g/dL (3.5-5.1); Alkaline Phosphatase 83 U/L (38-126); Aspartate Amino Transferase 19 U/L (17-59); Bilirubin,Total 0.5 mg/dL (0.2-1.3); CRP 5.2 mg/dL (<1.0); Lactate Dehydrogenase 427 U/L (313-618); Magnesium 2.4 mg/dL (1.6-2.3)
[2021-03-08 21:52] LABS: Alveolar/Arterial O2 Gradient 127.8 mmHg; Base Excess ABG 11.2 mEq/l (+/-2.0); Carboxyhemoglobin 1.1 % THb (0-2.0); Fractional Inspired Oxygen 40 %; HCO3 ABG 41.3 mEq/l (22.0-26.0); Methemoglobin ABG 0.4 %THb (0-1.5); Oxygen Content ABG 22.2 %vol (16.0-22.0); Oxygen Saturation ABG 91.9 % (95.0-100.0); PO2 ABG 68.4 mmHg (80.0-100.0); PO2 FiO2 Ratio Arterial Blood 1.71 %; Reduced Hemoglobin 6.5 %THb (0-5.0); Total Hemoglobin 17.2 g/dL (12.0-18.0); pH ABG 7.345 (7.350-7.450)
[2021-03-08 21:53] LABS: Device NON-INVASIVE VENT; Modified Allen's Test Pass; PCO2 ABG 77.4 mmHg (35.0-45.0); Site Drawn LEFT RADIAL
[2021-03-08 21:54] LABS: Non-Invasive Expiratory Pressure 6 CMH2O; Non-Invasive Inspiratory Pressure 18 CMH2O; Non-Invasive Vent Rate 20 /MIN
[2021-03-09] VITALS (22 sets, daily range): BP systolic 121–142; BP diastolic 55–84; PULSE 71–89; RESP 20–27; TEMP 36.1–37.1; O2SAT 90–97
[2021-03-09] MEDS: FUROSEMIDE INJ 40 MG/4 ML VIAL IV PUSH ×2 (00:29→18:56)
[2021-03-09 05:28] LABS: Hematocrit 53.6 % (42.0-52.0); Hemoglobin 16.9 g/dL (14.0-18.0); Mean Corpuscular HGB Conc 31.5 g/dl (32-36); Mean Corpuscular Hemoglobin 30.6 pg (26-34); Mean Corpuscular Volume 97.1 fl (80-100); Mean Platelet Volume 9.9 fl (7.4-10.4); Platelet Count Result 153 k/mm3 (150-375); Red Blood Count 5.52 M/mm3 (4.6-6.20); Red Cell Distribution Width 14.9 % (11.5-14.5); White Blood Count 9.9 K/mm3 (4.5-10.0)
[2021-03-09 05:56] LABS: Blood Urea Nitrogen 17 mg/dL (9-20); Calcium 9.2 mg/dL (8.4-10.2); Carbon Dioxide > 40 mmol/L (22-30); Chloride 91 mmol/L (98-107); Estimated CRCL calculation 89 ml/min; Estimated Glomerular Filt Rate > 60; Glucose 155 mg/dL (65-110); Potassium 3.4 mmol/L (3.4-5.0); Sodium 138 mmol/L (137-145)
[2021-03-09 06:16] LABS: Alveolar/Arterial O2 Gradient 132.9 mmHg; Base Excess ABG 13.7 mEq/l (+/-2.0); Fractional Inspired Oxygen 40 %; HCO3 ABG 42.6 mEq/l (22.0-26.0); Oxygen Content ABG 22.9 %vol (16.0-22.0); Oxygen Saturation ABG 94.4 % (95.0-100.0); PO2 ABG 73.6 mmHg (80.0-100.0); PO2 FiO2 Ratio Arterial Blood 1.84 %; Total Hemoglobin 17.5 g/dL (12.0-18.0); pH ABG 7.412 (7.350-7.450)
[2021-03-09 06:19] LABS: Modified Allen's Test Pass; PCO2 ABG 68.4 mmHg (35.0-45.0); Site Drawn LEFT RADIAL
[2021-03-09 06:21] LABS: Device NON-INVASIVE VENT; Inspiratory Pressure 20 cmH2O
[2021-03-09 09:08] LABS: Expiratory Pressure 8 cmH2O
[2021-03-09] MEDS: ASPIRIN 81 MG ENTERIC TABLET PO (09:11)
[2021-03-09] MEDS: CLOPIDOGREL BISULFATE 75 MG TABLET PO (09:12)
[2021-03-09] MEDS: hydroCHLOROthiazide 25 MG TABLET PO (09:13)
[2021-03-09] MEDS: METOPROLOL SUCCINATE EXT REL 50 MG TABCR PO (09:13)
[2021-03-09] MEDS: LOSARTAN POTASSIUM 100 MG TABLET PO (09:13)
[2021-03-09 09:32] LABS: Glucose Point of Care 186 mg/dl (65-105)
[2021-03-09] MEDS: ALBUTEROL SULFATE NEB 2.5 MG/0.5 ML INH INHALATION ×3 (11:13→20:59)
[2021-03-09 13:11] LABS: Glucose Point of Care 225 mg/dl (65-105)
[2021-03-09] MEDS: INSULIN ASPART (*BKC) 100 UNITS/ML SUB-Q ×2 (13:46→18:55)
--- NOTE | 2021-03-09 15:34 | PM.IMPN ---
Progress Note: A&P Assessment and Plan (1) Acute on chronic respiratory failure with hypoxia and hypercapnia: Code(s): J96.21 - Acute and chronic respiratory failure with hypoxia; J96.22 - Acute and chronic respiratory failure with hypercapnia Status: Acute Assessment and Plan: Patient normally was oxygen as needed mostly at night chronically. He has been vaccinated against COVID. He presents with increasing shortness of breath with ABG showing 7.22/92/93 on 5 L. he was started on BiPAP which he tolerated overnight. Blood gas this morning showing 7.41/68/74. He is been able to come off the BiPAP today. Chest x-ray on admission showed diffuse bilateral airspace disease. His BNP was 245. Lower extremity venous Doppler was negative for DVT. He had good urine output with the 1 dose of Lasix. Blood pressure stable. Renal function tolerated Lasix. Repeat chest x-ray shows improvement. Continue IV Lasix. Follow up on echo results. Continue BiPAP at night. Wean oxygen as tolerated (2) Pulmonary infiltrates on CXR: Code(s): R91.8 - Other nonspecific abnormal finding of lung field Status: Acute Assessment and Plan: As above. COVID swab is pending. Consider CHF exacerbation versus COVID versus bacterial pneumonia. Wean oxygen as tolerated. No cultures obtained. Continue abx for now. Order sputum (3) Person under investigation for COVID-19: Code(s): Z20.822 - Contact with and (suspected) exposure to COVID-19 Status: Acute Assessment and Plan: Patient has been swabbed for COVID. Continue isolation precautions. (4) Chronic obstructive pulmonary disease: Code(s): J44.9 - Chronic obstructive pulmonary disease, unspecified Status: Acute Assessment and Plan: Patient with COPD with chronic respiratory failure. Patient only on albuterol HFA listed on home medications. Will add Symbicort. (5) Obstructive sleep apnea: Code(s): G47.33 - Obstructive sleep apnea (adult) (pediatric) Status: Acute Assessment and Plan: Patient has a history of sleep apnea but is unable to tolerate noninvasive ventilation. He did tolerate BiPAP last night. Will see if he can continue to tolerate BiPAP at night and with naps (6) Type 2 diabetes mellitus: Code(s): E11.9 - Type 2 diabetes mellitus without complications Status: Acute Assessment and Plan: The patient's blood glucose was reviewed on 03/09 Glucose remains reasonably well controlled. Continue AccuCheks covering with sliding scale. Hypoglycemia protocol available as needed. Continue to monitor (7) Coronary artery disease: Code(s): I25.10 - Atherosclerotic heart disease of [place] coronary artery without angina pectoris Status: Acute Assessment and Plan: Stable. Resume aspirin, Plavix and metoprolol. Not on a statin for unclear reasons. Clarify with patient. (8) Hypertension: Code(s): I10 - Essential (primary) hypertension Status: Chronic Assessment and Plan: Patient's blood pressure was reviewed on 03/09 Blood pressure remains well controlled. Will resume some home medications. Monitor closely. (9) DVT prophylaxis: Code(s): Z29.9 - Encounter for prophylactic measures, unspecified Status: Acute Assessment and Plan: Lovenox Subjective Date/time seen: 03/09/21 15:34 Interval history: 65yo male with DM, chronic respiratory failure and COPD here for SOB. SOB much better. No CP. COugh improved today. UTD on COVID vaccine. Did wear the BiPAP last night. Exam Narrative: AF 98.1 129/67 76 20 95% 10L HFNC Gen - NARD sittiing at the side of the bed Chest - bibasilar inspiratory crackles, nml RR, no conversational dyspnea CV - RRR S1/S2. Tele showing no significant dysrhythmias Abd - Soft, NT/ND, Positive BS Ext - 2+ pedal edema Psych - Nml mood and affect Skin - Warm and dry Objecti
[2021-03-09 17:13] LABS: Glucose Point of Care 203 mg/dl (65-105)
[2021-03-09] MEDS: ENOXAPARIN 40 MG/0.4 ML SYRINGE SUB-Q (18:56)
[2021-03-09 20:38] LABS: Glucose Point of Care 224 mg/dl (65-105)
[2021-03-10] VITALS (24 sets, daily range): BP systolic 128–141; BP diastolic 49–79; PULSE 71–88; RESP 12–24; TEMP 36.7–37.2; O2SAT 92–100
[2021-03-10] MEDS: ACETAMINOPHEN 325 MG TABLET 650 MG PO ×2 (01:53→18:56)
[2021-03-10] MEDS: ALBUTEROL SULFATE NEB 2.5 MG/0.5 ML INH INHALATION ×4 (02:29→20:58)
[2021-03-10 05:05] LABS: Hematocrit 52.6 % (42.0-52.0); Mean Corpuscular HGB Conc 32.3 g/dl (32-36); Mean Corpuscular Hemoglobin 30.7 pg (26-34); Mean Corpuscular Volume 94.9 fl (80-100); Mean Platelet Volume 9.4 fl (7.4-10.4); Platelet Count Result 142 k/mm3 (150-375); Red Blood Count 5.54 M/mm3 (4.6-6.20); White Blood Count 8.2 K/mm3 (4.5-10.0)
[2021-03-10 05:36] LABS: Albumin Level 3.7 g/dL (3.5-5.1); Blood Urea Nitrogen 20 mg/dL (9-20); CRP 5.1 mg/dL (<1.0); Carbon Dioxide > 40 mmol/L (22-30); Chloride 89 mmol/L (98-107); Estimated CRCL calculation 81 ml/min; Estimated Glomerular Filt Rate > 60; Glucose 142 mg/dL (65-110); Lactate Dehydrogenase 400 U/L (313-618); Magnesium 1.6 mg/dL (1.6-2.3); Phosphorus 4.1 mg/dL (2.5-4.5); Potassium 2.8 mmol/L (3.4-5.0); Sodium 136 mmol/L (137-145)
[2021-03-10] MEDS: POTASSIUM CHLORIDE 20 MEQ TABLET 40 MEQ PO (06:34)
[2021-03-10] MEDS: MAGNESIUM SULF 2 GM/WATER 50ML 2 GM/50 ML BAG IVPB (06:34)
[2021-03-10 08:14] LABS: Glucose Point of Care 219 mg/dl (65-105)
[2021-03-10] MEDS: CLOPIDOGREL BISULFATE 75 MG TABLET PO (09:41)
[2021-03-10] MEDS: hydroCHLOROthiazide 25 MG TABLET PO (09:41)
[2021-03-10] MEDS: ASPIRIN 81 MG ENTERIC TABLET PO (09:41)
[2021-03-10] MEDS: LOSARTAN POTASSIUM 100 MG TABLET PO (09:41)
[2021-03-10] MEDS: METOPROLOL SUCCINATE EXT REL 50 MG TABCR PO (09:41)
[2021-03-10] MEDS: ENOXAPARIN 40 MG/0.4 ML SYRINGE SUB-Q (09:42)
[2021-03-10] MEDS: INSULIN ASPART (*BKC) 100 UNITS/ML SUB-Q ×2 (09:42→13:40)
[2021-03-10] MEDS: FUROSEMIDE INJ 40 MG/4 ML VIAL IV PUSH ×2 (10:17→18:53)
--- NOTE | 2021-03-10 11:12 | PM.IMPN ---
Progress Note: A&P Assessment and Plan (1) Acute on chronic respiratory failure with hypoxia and hypercapnia: Code(s): J96.21 - Acute and chronic respiratory failure with hypoxia; J96.22 - Acute and chronic respiratory failure with hypercapnia Status: Acute Assessment and Plan: Patient normally has oxygen as needed mostly at night chronically. He has been vaccinated against COVID. He presents with increasing shortness of breath with ABG showing 7.22/92/93 on 5 L. Chest x-ray on admission showed diffuse bilateral airspace disease. He was started on BiPAP and follow-up ABG 7.41/68/74. He was able to come off the BiPAP; now refusing BiPAP at night. BNP was 245. Lower extremity venous Doppler was negative for DVT. Started on lasix IV with good urine output and negative fluid balance. Blood pressure stable. Renal function stable. Repeat chest x-ray shows improvement but still with elevated oxygen requirements. Echo pending. Continue IV Lasix. Encourage BiPAP use at night. Wean oxygen as tolerated. Still awaiting COVID results (2) Pulmonary infiltrates on CXR: Code(s): R91.8 - Other nonspecific abnormal finding of lung field Status: Acute Assessment and Plan: As above. COVID swab is still pending. Consider CHF exacerbation versus COVID versus bacterial pneumonia. Wean oxygen as tolerated. No cultures obtained. Continue abx for now. (3) Person under investigation for COVID-19: Code(s): Z20.822 - Contact with and (suspected) exposure to COVID-19 Status: Acute Assessment and Plan: Patient has been swabbed for COVID. Continue isolation precautions. (4) Chronic obstructive pulmonary disease: Code(s): J44.9 - Chronic obstructive pulmonary disease, unspecified Status: Acute Assessment and Plan: Patient with COPD with chronic respiratory failure. Patient only on albuterol HFA listed on home medications. Symbicort added. No indication for IV steroids at this time. (5) Obstructive sleep apnea: Code(s): G47.33 - Obstructive sleep apnea (adult) (pediatric) Status: Acute Assessment and Plan: Patient has a history of sleep apnea but is unable to tolerate noninvasive ventilation. He did tolerate BiPAP on admission but is now refusing. Encourage BiPAP use. (6) Type 2 diabetes mellitus: Code(s): E11.9 - Type 2 diabetes mellitus without complications Status: Acute Assessment and Plan: A1c 7.4. The patient's blood glucose was reviewed on 03/10 Glucose remains elevated in the 200s although 142 when fasting. Metformin on hold. Continue AccuCheks covering with sliding scale. Hypoglycemia protocol available as needed. Continue to monitor. Resume (7) Coronary artery disease: Code(s): I25.10 - Atherosclerotic heart disease of [place] coronary artery without angina pectoris Status: Acute Assessment and Plan: Stable. Continue aspirin, Plavix and metoprolol. Not on a statin because they make him nauseous. (8) Hypertension: Code(s): I10 - Essential (primary) hypertension Status: Chronic Assessment and Plan: Patient's blood pressure was reviewed on 03/10 Blood pressure remains well controlled. Continue current medications. Monitor closely. (9) DVT prophylaxis: Code(s): Z29.9 - Encounter for prophylactic measures, unspecified Status: Acute Assessment and Plan: Lovenox Subjective Date/time seen: 03/10/21 11:12 Interval history: 65yo male with DM, chronic respiratory failure and COPD here for SOB. Lynn refused bipap last night. He feels worse today. He feels nauseous after taking the potassium pills. Still able to eat breakfast. COVID test still pending. He denies any anosmia or dysgeusia. Complains of left arm pain but this is where the IV potassium is running. Does complain of malaise Exam Narrative: AF 99.0 136/75 82
[2021-03-10 13:25] LABS: Glucose Point of Care 275 mg/dl (65-105)
--- NOTE | 2021-03-10 15:42 | ECHO_ITS ---
Patient Info Name: Delta Pollock Age: 65 years : 1955 Gender: Male Ht: 68 in Wt: 256 lbs BSA: 2.41 m2 HR: 80 bpm BP: 135 / 75 mmHg Heart Rhythm: Sinus Rhythm Exam Date: 03/10/2021 9:22 AM Exam Location: [facility] Pulmonary Patient Status: Inpatient Admit Date: 03/08/2021 Staff Ordering Physician: Sue Mayfield PA-C Student Records Specialist: Collin Michaud, SANTO, RT Attending Provider: Cherry Olmstead MD Referring Physician: Chaparro OAKLEY; Exam Type: CA echo doppler color flow Study Info Indications I50.9 - Heart failure, unspecified Complete two-dimensional, color flow and Doppler transthoracic echocardiogram is performed. Strain analysis performed. Summary 1. Complete two-dimensional, color flow and Doppler transthoracic echocardiogram is performed. 2. Left ventricular size and thickness are normal. The overall left ventricular function is borderline decreased. Visual ejection fraction was 50-55%, measured 51%. Global longitudinal strain was moderately diminished at -13% consistent with systolic dysfunction. Normal diastolic function. No segmental wall motion abnormalities. 3. No significant valve disease. 4. Right ventricular systolic pressure cannot be estimated in the study. 5. Normal sinus rhythm. 6. Technically difficult study; endocardium not seen well in all views. Left Ventricle Left ventricular chamber dimension is normal. Left ventricular systolic function is mildly reduced, estimated at 50-55%. There is no increased left ventricular wall thickness. Left ventricular septal wall motion is normal. The left ventricular diastolic function is normal. Right Ventricle Right ventricular chamber dimension is normal. Right ventricular systolic function is normal. Left Atria Left atrial chamber dimension is normal. Right Atria Right atrial chamber dimension is normal. Aortic Valve The aortic valve is trileaflet. There is no aortic valve sclerosis. There is no aortic valve stenosis. There is no aortic valve regurgitation. Pulmonic Valve The pulmonic valve is normal. There is no pulmonic valve stenosis. There is no pulmonic regurgitation. Mitral Valve The mitral valve has normal leaflets. There is no mitral valve stenosis. There is no mitral valve regurgitation. Tricuspid Valve The tricuspid valve leaflets are normal. There is no significant tricuspid valve stenosis. There is trace tricuspid valve regurgitation. No pulmonary hypertension, estimated pulmonary arterial systolic pressure is Empty. Pericardium/Pleural The pericardium appears normal. There is no pericardial effusion. Inferior Vena Cava Normal inferior vena cava with >50% collapse upon inspiration consistent with Empty right atrial pressure, Empty. Aorta The aortic root size at the sinus of Valsalva is normal. The prox ascending aorta size is normal. Left Ventricular Outflow Tract Name Value Normal LVOT 2D LVOT Diameter 2.0 cm LVOT Doppler LVOT Peak Gradient 6 mmHg LVOT Mean Gradient 2 mmHg LVOT VTI 19 cm
[2021-03-10 16:19] LABS: SARS-CoV-2 RNA PCR Negative (Negative)
[2021-03-10 16:52] LABS: Glucose Point of Care 159 mg/dl (65-105)
[2021-03-10 20:38] LABS: Glucose Point of Care 168 mg/dl (65-105)
[2021-03-11] VITALS (27 sets, daily range): BP systolic 102–119; BP diastolic 42–59; PULSE 61–99; RESP 16–26; TEMP 36.1–37.2; O2SAT 89–100
[2021-03-11] MEDS: ALBUTEROL SULFATE NEB 2.5 MG/0.5 ML INH INHALATION ×4 (02:15→20:49)
--- NOTE | 2021-03-11 04:15 | PC.NURSE ---
At 0300 this nurse noticed patients oxygen saturations were 84% on 10 Liters High Flow Nasal Cannula. This nurse went to assess patient. Oxygen titrated to 12L HFNC without improvement in oxygen saturations. Patient asked what his oxygen flow was at and I stated 12 Liters. I once again educated patient on the benefits of Bipap. Patient continuing to refuse Bipap. Patient now stating he wants to leave AMA despite my education. Patient stated If I'm not getting any better, then I want to go home, I don't want anymore treatment . Physician, Dr. Babin, notified and updated on patient condition at 0319. Patient's oxygen saturations now 82% with good pleth noted on monitor at 0330. This nurse went into patients room and continued to educate patient on need for the Bipap. Patient still resistant stating he wants to leave AMA. Patient oxygen sats now 84%. This nurse once again educated the patient on the need for Bipap, patient agrees to use the Bipap for one hour. Bipap applied at 0400 and physician updated. Bipap settings are 20/8 Rate of 20 with 35% FiO2. Oxygen saturations on monitor now showing 93% on Bipap.
[2021-03-11 05:09] LABS: Basophils Absolute Auto 0.1 K/mm3 (0.0-0.1); Basophils Percent Auto 0.7 % (0.2-1.2); Eosinophils Absolute Auto 0.1 K/mm3 (0-0.3); Eosinophils Percent Auto 1.6 % (0-4.4); Hematocrit 55.6 % (42.0-52.0); Hemoglobin 17.8 g/dL (14.0-18.0); Immature Granulocyte Absolute 0.04 K/mm3 (0.00-0.031); Immature Granulocyte Percent A 0.5 % (0-0.5); Lymphocytes Absolute Auto 0.88 K/mm3 (0.9-3.2); Lymphocytes Percent Auto 9.9 % (18.3-44.2); Mean Corpuscular Hemoglobin 30.5 pg (26-34); Mean Corpuscular Volume 95.4 fl (80-100); Mean Platelet Volume 9.5 fl (7.4-10.4); Monocytes Absolute Auto 1.1 K/mm3 (0.1-0.6); Monocytes Percent Auto 11.8 % (2.6-8.5); Neutrophils Absolute Auto 6.7 K/mm3 (1.3-6.7); Neutrophils Percent Auto 75.5 % (45.5-73.1); Platelet Count Result 147 k/mm3 (150-375); Red Blood Count 5.83 M/mm3 (4.6-6.20); Red Cell Distribution Width 15.2 % (11.5-14.5); White Blood Count 8.9 K/mm3 (4.5-10.0)
[2021-03-11 05:40] LABS: Alanine Aminotransferase 19 U/L (4-50); Albumin Level 3.8 g/dL (3.5-5.1); Alkaline Phosphatase 80 U/L (38-126); Aspartate Amino Transferase 24 U/L (17-59); Bilirubin,Total 1.3 mg/dL (0.2-1.3); Blood Urea Nitrogen 21 mg/dL (9-20); Calcium 9.1 mg/dL (8.4-10.2); Carbon Dioxide > 40 mmol/L (22-30); Chloride 85 mmol/L (98-107); Estimated CRCL calculation 72 ml/min; Estimated Glomerular Filt Rate > 60; Glucose 153 mg/dL (65-110); Sodium 135 mmol/L (137-145)
[2021-03-11] MEDS: ENOXAPARIN 40 MG/0.4 ML SYRINGE SUB-Q (08:45)
[2021-03-11] MEDS: POTASSIUM CHLORIDE 20 MEQ TABLET 40 MEQ PO (08:45)
[2021-03-11] MEDS: LOSARTAN POTASSIUM 100 MG TABLET PO (08:45)
[2021-03-11] MEDS: hydroCHLOROthiazide 25 MG TABLET PO (08:45)
[2021-03-11] MEDS: METOPROLOL SUCCINATE EXT REL 50 MG TABCR PO (08:45)
[2021-03-11] MEDS: CLOPIDOGREL BISULFATE 75 MG TABLET PO (08:46)
[2021-03-11] MEDS: ASPIRIN 81 MG ENTERIC TABLET PO (08:46)
[2021-03-11 08:52] LABS: Glucose Point of Care 187 mg/dl (65-105)
--- NOTE | 2021-03-11 12:01 | PC.NURSE ---
On 03/11/21, the student, [Guerita Keating], provided care and completed [facility] documentation on this patient. I have reviewed the student's documentation and agree with the findings.
[2021-03-11 12:11] LABS: Glucose Point of Care 222 mg/dl (65-105)
[2021-03-11] MEDS: INSULIN ASPART (*BKC) 100 UNITS/ML SUB-Q (12:40)
--- NOTE | 2021-03-11 14:01 | PC.NURSE ---
This patient, Delta Pollock, was received from [imu ] on 03/11/21 at 1355. Patient/family oriented to unit policies and routines
--- NOTE | 2021-03-11 14:09 | PM.IMPN ---
Progress Note: A&P Assessment and Plan (1) Acute on chronic respiratory failure with hypoxia and hypercapnia: Code(s): J96.21 - Acute and chronic respiratory failure with hypoxia; J96.22 - Acute and chronic respiratory failure with hypercapnia Status: Acute Assessment and Plan: Patient normally has oxygen as needed mostly at night chronically. He has been vaccinated against COVID. He presents with increasing shortness of breath with ABG showing 7.22/92/93 on 5 L. Chest x-ray on admission showed diffuse bilateral airspace disease. He was started on BiPAP and follow-up ABG 7.41/68/74. He was able to come off the BiPAP. Not using the BiPAP often here. Encouraged use. BNP was 245. Lower extremity venous Doppler was negative for DVT. Started on lasix IV with good urine output and negative fluid balance. Blood pressure stable. Renal function stable. Repeat chest x-ray shows improvement but still with elevated oxygen requirements. Echo showing EF 50-55% with normal diastolic function. CTA chest ordered but negative for PE. COVID negative. Encourage BiPAP use at night. Wean oxygen as tolerated. Will change to oral Lasix and continue to wean O2 as toelrated. (2) Pulmonary infiltrates on CXR: Code(s): R91.8 - Other nonspecific abnormal finding of lung field Status: Acute Assessment and Plan: As above. COVID negative. CXR findings consistent with CHF exacerbation. CT chest does not reveal any infiltrates to suggest bacterial pneumonia. Wean oxygen as tolerated. Will stop Rocephin (3) CHF (congestive heart failure): Code(s): I50.9 - Heart failure, unspecified Status: Acute Assessment and Plan: CHF exacerbation on admission. As above (4) Chronic obstructive pulmonary disease: Code(s): J44.9 - Chronic obstructive pulmonary disease, unspecified Status: Acute Assessment and Plan: Patient with COPD with chronic respiratory failure. Patient only on albuterol HFA listed on home medications. Symbicort added. No indication for IV steroids at this time. (5) Obstructive sleep apnea: Code(s): G47.33 - Obstructive sleep apnea (adult) (pediatric) Status: Acute Assessment and Plan: Patient has a history of sleep apnea but is unable to tolerate noninvasive ventilation. He did tolerate BiPAP on admission but is only using this intermittently. Encourage BiPAP use. (6) Type 2 diabetes mellitus: Code(s): E11.9 - Type 2 diabetes mellitus without complications Status: Acute Assessment and Plan: A1c 7.4. The patient's blood glucose was reviewed on 03/11 Glucose remains elevated in the 200s although 153 when fasting. Metformin on hold. Continue AccuCheks covering with sliding scale. Hypoglycemia protocol available as needed. Continue to monitor. Continue Januvia (7) Coronary artery disease: Code(s): I25.10 - Atherosclerotic heart disease of [place] coronary artery without angina pectoris Status: Acute Assessment and Plan: Stable. Continue aspirin, Plavix and metoprolol. Not on a statin because they make him nauseous. (8) Hypertension: Code(s): I10 - Essential (primary) hypertension Status: Chronic Assessment and Plan: Patient's blood pressure was reviewed on 03/11 Blood pressure remains well controlled. Continue current medications. Monitor closely. (9) DVT prophylaxis: Code(s): Z29.9 - Encounter for prophylactic measures, unspecified Status: Acute Assessment and Plan: Lovenox (10) Person under investigation for COVID-19: Code(s): Z20.822 - Contact with and (suspected) exposure to COVID-19 Status: Acute Assessment and Plan: COVID negative Subjective Date/time seen: 03/11/21 14:09 Interval history: 65yo male with DM, chronic respiratory failure and COPD here for SOB. No problems overnight. SOB better. Slight cough. No C
--- NOTE | 2021-03-11 14:12 | PC.NURSE ---
This patient, Delta Pollock, was transferred to [[facility] ] on 03/11/21 at 1400. Personal belongings sent with patient. Report given to [ alexandro la]. Appropriate documentation sent with patient.
[2021-03-11] MEDS: acetaZOLAMIDE SODIUM FOR INJ 500 MG VIAL 250 MG IV PUSH (15:54)
[2021-03-11 17:31] LABS: Glucose Point of Care 127 mg/dl (65-105)
[2021-03-11] MEDS: ACETAMINOPHEN 325 MG TABLET 650 MG PO (18:20)
[2021-03-11 22:19] LABS: Glucose Point of Care 139 mg/dl (65-105)
[2021-03-12] VITALS (15 sets, daily range): BP systolic 115; BP diastolic 53; PULSE 71–93; RESP 16–18; TEMP 36.4; O2SAT 86–95
[2021-03-12 06:24] LABS: Anion Gap 6 mmol/L (8-16); Blood Urea Nitrogen 20 mg/dL (9-20); Calcium 9.3 mg/dL (8.4-10.2); Carbon Dioxide 37 mmol/L (22-30); Chloride 92 mmol/L (98-107); Estimated CRCL calculation 72 ml/min; Estimated Glomerular Filt Rate > 60; Glucose 151 mg/dL (65-110); Potassium 3.1 mmol/L (3.4-5.0); Sodium 135 mmol/L (137-145)
[2021-03-12 08:29] LABS: Glucose Point of Care 147 mg/dl (65-105)
[2021-03-12] MEDS: ASPIRIN 81 MG ENTERIC TABLET PO (08:58)
[2021-03-12] MEDS: LOSARTAN POTASSIUM 100 MG TABLET PO (08:58)
[2021-03-12] MEDS: METOPROLOL SUCCINATE EXT REL 50 MG TABCR PO (08:58)
[2021-03-12] MEDS: ENOXAPARIN 40 MG/0.4 ML SYRINGE SUB-Q (08:59)
[2021-03-12] MEDS: FUROSEMIDE 40 MG TABLET PO (08:59)
[2021-03-12] MEDS: hydroCHLOROthiazide 25 MG TABLET PO (08:59)
[2021-03-12] MEDS: CLOPIDOGREL BISULFATE 75 MG TABLET PO (08:59)
[2021-03-12] MEDS: ACETAMINOPHEN 325 MG TABLET 650 MG PO (09:02)
--- NOTE | 2021-03-12 09:11 | WPDCDIQUERY2 ---
CDI Query Clarification Request - Pulmonary infiltrates on CXR : and CXR findings consistent with CHF exacerbation has been documented - Consider CHF exacerbation documented Please clarify if CHF has been ruled in or ruled out. If it has been ruled in, please also clarify type and acuity.
[2021-03-12] MEDS: ALBUTEROL SULFATE NEB 2.5 MG/0.5 ML INH INHALATION (09:25)
--- NOTE | 2021-03-12 11:43 | HOMEO2EVAL ---
Evaluation was performed at [facility] Home Oxygen Evaluation RC: Home Oxygen (O2) Evaluation Start: 03/12/21 08:16 Freq: ONCE Status: Active Protocol: RPE Activity Type Activity Date Activity User E-Sign Co-Sign Detail Recorded Client Recorded Date Recorded By Document 03/12/21 10:45 MINI [email or web address] 03/12/21 11:43 MINI Document 03/12/21 10:46 MINI [email or web address] 03/12/21 11:43 MINI Document 03/12/21 10:47 MINI [email or web address] 03/12/21 11:43 MINI Document 03/12/21 10:48 MINI [email or web address] 03/12/21 11:43 MINI Document 03/12/21 10:50 MINI [email or web address] 03/12/21 11:43 MINI Document 03/12/21 11:00 MINI [email or web address] 03/12/21 11:43 MINI 03/12/21 03/12/21 03/12/21 10:45 10:46 10:47 Home O2 Evaluation Test Phase Resting Resting Resting Oxygen Delivery Room Air Nasal Cannula Nasal Cannula Oxygen Flow Rate (L/min) 2 3 Pulse Oximetry (90-100 %) 86 L 87 L 87 L Ambulation Distance (feet) Home Oxygen Evaluation Comments Treatment Charges O2 Evaluation - Inpatient 03/12/21 03/12/21 03/12/21 10:48 10:50 11:00 Home O2 Evaluation Test Phase Resting Exercise Resting Oxygen Delivery Nasal Cannula Nasal Cannula Nasal Cannula Oxygen Flow Rate (L/min) 4 4 4 Pulse Oximetry (90-100 %) 90 91 92 Ambulation Distance (feet) 300 Home Oxygen Evaluation Comments HOME O2 REQUIRED AT 4L REST AND 4L WITH EXERTION Treatment Charges
--- NOTE | 2021-03-12 11:44 | PCRCNOTE ---
PT HAS [facility] FOR HOME O2 PROVIDER. WILL CONTACT THEM FOR TRANSPORT TANK TO BE BROUGHT TO PT ROOM PRIOR TO D/C. WILL FAX UPDATED EVAL AND ORDER IF NEEDED TO ENSURE PT HAS ALL REQUIRED HOME O2 EQUIPMENT.
[2021-03-12 12:04] LABS: Glucose Point of Care 199 mg/dl (65-105)
--- NOTE | 2021-03-12 12:34 | PM.DS ---
DS: Admitting Diagnosis Discharge Date 03/12/21 Admitting Diagnosis Shortness of breath DS: Discharge Diagnosis Discharge Diagnosis (1) Acute on chronic respiratory failure with hypoxia and hypercapnia: Code(s): J96.21 - Acute and chronic respiratory failure with hypoxia; J96.22 - Acute and chronic respiratory failure with hypercapnia Status: Acute Assessment and Plan: Patient normally uses oxygen as needed but mostly 2L at night chronically. He has been vaccinated against COVID. He presented with increasing shortness of breath with ABG showing 7.22/92/93 on 5 L. Chest x-ray on admission showed diffuse bilateral airspace disease. He was started on BiPAP and follow-up ABG 7.41/68/74. He was able to come off the BiPAP. He was feeling better and began to refuse BiPAP at night here. We encouraged use. BNP was 245. Lower extremity venous Doppler was negative for DVT. Started on Lasix IV with good urine output and negative fluid balance. Blood pressure stable. Renal function stable. Repeat chest x-ray shows improvement but still with elevated oxygen requirements. Echo showing EF 50-55% with normal diastolic function. CTA chest ordered but negative for PE. COVID was negative. Atkinson that his acute respiratory failure related to CHF and from noncompliance with his BiPAP. He was requesting discharge and he had home O2 evaluation requiring 4L at rest and with activity. Encouraged him to comply with using this amount of O2 24/7 and set up an appointment to see the primary care doctor to have a re-evaluation. He voices understanding (2) Pulmonary infiltrates on CXR: Code(s): R91.8 - Other nonspecific abnormal finding of lung field Status: Acute Assessment and Plan: As above. COVID negative. CXR findings consistent with CHF exacerbation. CT chest does not reveal any infiltrates to suggest bacterial pneumonia. He was treated with Rocephin and Azithromycn but narrowed to Azithro only and he completed 5 days. (3) CHF (congestive heart failure): Code(s): I50.9 - Heart failure, unspecified Status: Acute Assessment and Plan: CHF exacerbation on admission probably diastolic dysfunction and/or related to acute/chronic resp failure. As above (4) Chronic obstructive pulmonary disease: Code(s): J44.9 - Chronic obstructive pulmonary disease, unspecified Status: Acute Assessment and Plan: Patient with COPD with chronic respiratory failure. Patient only on albuterol HFA listed on home medications. Symbicort added. No indication for IV steroids during this admission (5) Obstructive sleep apnea: Code(s): G47.33 - Obstructive sleep apnea (adult) (pediatric) Status: Acute Assessment and Plan: Patient has a history of sleep apnea but is unable to tolerate noninvasive ventilation. He did tolerate BiPAP on admission but has refused this since (6) Type 2 diabetes mellitus: Code(s): E11.9 - Type 2 diabetes mellitus without complications Status: Acute Assessment and Plan: A1c 7.4. The patient's blood glucose was monitored closely with AccuCheks covering with sliding scale. Hypoglycemia protocol available as needed. (7) Coronary artery disease: Code(s): I25.10 - Atherosclerotic heart disease of [place] coronary artery without angina pectoris Status: Acute Assessment and Plan: Stable. We continued aspirin, Plavix and metoprolol. Not on a statin because they make him nauseous. (8) Hypertension: Code(s): I10 - Essential (primary) hypertension Status: Chronic Assessment and Plan: Patient's blood pressure was monitored closely and remained well controlled. We continued current medications. DS: Summary Hospital Course Reason for hospitalization: 65yo male with DM, chronic respiratory failure and COPD here for SOB. Please see H&P for details Hospital Course: Please see above for de
[2021-03-12] MEDS: POTASSIUM CHLORIDE 20 MEQ TABLET 40 MEQ PO (12:46)
== END 2021-03-12 14:50 | disposition home or self-care (01) | DRG 189 ==
LOC: ANHED 09:42 → ANHIMU 12:33 → ANH3MEDSUR 03-12 12:49 → ANHIMU 03-16 08:52
PROVIDERS: Physician Assistant; Admitting Provider Internal Medicine; Emergency Provider Emergency Medicine; PCP Family Medicine; Visit Provider Internal Medicine
DX: J96.21 Acute and chronic respiratory failure with hypoxia (principal); Z20.822 Contact with and (suspected) exposure to COVID-19; I11.0 Hypertensive heart disease with heart failure; I50.9 Heart failure, unspecified; J96.22 Acute and chronic respiratory failure with hypercapnia; Z23 Encounter for immunization; R91.8 Other nonspecific abnormal finding of lung field; J44.9 Chronic obstructive pulmonary disease, unspecified; G47.33 Obstructive sleep apnea (adult) (pediatric); E11.9 Type 2 diabetes mellitus without complications; I25.10 Atherosclerotic heart disease of native coronary artery without angina pectoris; Z79.84 Long term (current) use of oral hypoglycemic drugs; Z79.899 Other long term (current) drug therapy; Z87.891 Personal history of nicotine dependence; Z91.19 Patient's noncompliance with other medical treatment and regimen; Z95.5 Presence of coronary angioplasty implant and graft; Z99.81 Dependence on supplemental oxygen
CPT/HCPCS: 36415; 36600; 71045; 71275; 80048; 80053; 80069; 80076; 82375; 82728; 82805; 82948; 83036; 83050; 83615; 83735; 83880; 84145; 84484; 85025; 85027; 85380; 86140; 90471; 90653; 93005; 93306; 93970; 94002; 94003; 94618; 94640; 96365; 99285; A9270; C9803; G0008; G0378; J0456; J0696; J1120; J1650; J1815; J1940; J3475; J3480; Q9967; U0003; U0005

== ENCOUNTER 2021-08-18 07:53 | Outpatient (CLI) | payer MEDICARE, SELFPAY | END 2021-08-19 07:04 | disposition home or self-care (01) | LOC: ANHCSM 07:54 | PROVIDERS: PCP Family Medicine; Visit Provider Nurse Practitioner Adult Health | DX: G47.10 Hypersomnia, unspecified (principal) | CPT/HCPCS: 99199 ==

== ENCOUNTER 2022-02-19 11:48 | Observation (INO) | payer MEDICARE, SELFPAY ==
[2022-02-19] VITALS (25 sets, daily range): BP systolic 100–144; BP diastolic 49–86; PULSE 63–106; RESP 11–30; TEMP 36.4–37.2; O2SAT 91–100; BMI 36.7
--- NOTE | ~2022-02-19 | XR_ITS ---
EXAMINATION: XR chest 1V portable DATE: 02/19/2022 12:39 INDICATION: Dyspnea. TECHNIQUE: A single frontal view of the chest was obtained. COMPARISON: Chest single view 03/09/2021, chest 2 views 02/21/2021, chest CT 03/11/2021 FINDINGS: There are lucencies in the lungs, consistent with emphysema. There is mild atelectasis in t he lower lung zones. There is prominent extrapleural fat in left lateral costophrenic angle. No pleur al effusion or pneumothorax. The heart size is normal. IMPRESSION: 1. Emphysema. 2. Mild atelectasis in the lower lung zones. Reviewed, dictated and finalized at location A.
--- NOTE | 2022-02-19 11:57 | ECG_ITS ---
Measurements Intervals [place] Rate: 65 P: 75 UT: 165 QRS: 34 QRSD: 97 T: 56 QT: 368 QTc: 384 Interpretive Statements SINUS RHYTHM COMPARED TO ECG 03/08/2021 09:30:33 NO SIGNIFICANT CHANGES Electronically Signed On 02-20-2022 17:18:50 CDT by Jame Hernandez M.D.
[2022-02-19 12:23] LABS: Basophils Absolute Auto 0.1 K/mm3 (0.0-0.1); Basophils Percent Auto 0.5 % (0.2-1.2); Eosinophils Absolute Auto 0.3 K/mm3 (0-0.3); Eosinophils Percent Auto 2.6 % (0-4.4); Hemoglobin 14.8 g/dL (14.0-18.0); Immature Granulocyte Absolute 0.04 K/mm3 (0.00-0.031); Immature Granulocyte Percent A 0.4 % (0-0.5); Lymphocytes Absolute Auto 1.46 K/mm3 (0.9-3.2); Lymphocytes Percent Auto 15.2 % (18.3-44.2); Mean Corpuscular HGB Conc 31.5 g/dl (32-36); Mean Corpuscular Hemoglobin 30.2 pg (26-34); Mean Corpuscular Volume 95.9 fl (80-100); Mean Platelet Volume 9.4 fl (7.4-10.4); Monocytes Percent Auto 10.4 % (2.6-8.5); Neutrophils Absolute Auto 6.8 K/mm3 (1.3-6.7); Neutrophils Percent Auto 70.9 % (45.5-73.1); Platelet Count Result 211 k/mm3 (150-375); Red Cell Distribution Width 14.3 % (11.5-14.5); White Blood Count 9.6 K/mm3 (4.5-10.0)
[2022-02-19 12:29] LABS: Alveolar/Arterial O2 Gradient 138.1 mmHg; Fractional Inspired Oxygen 40 %; HCO3 ABG 36.5 mEq/l (22.0-26.0); Methemoglobin ABG 0.3 %THb (0-1.5); Oxygen Content ABG 19.3 %vol (16.0-22.0); Oxygen Saturation ABG 94.5 % (95.0-100.0); Oxyhemoglobin 93.5 % THb (90.0-100.0); PO2 ABG 75.3 mmHg (80.0-100.0); PO2 FiO2 Ratio Arterial Blood 1.88 %; Reduced Hemoglobin 5.2 %THb (0-5.0); Total Hemoglobin 14.7 g/dL (12.0-18.0); pH ABG 7.385 (7.350-7.450)
[2022-02-19 12:33] LABS: Modified Allen's Test Pass; PCO2 ABG 62.4 mmHg (35.0-45.0); Site Drawn LEFT RADIAL
[2022-02-19 12:35] LABS: Alanine Aminotransferase 18 U/L (6-50); Albumin Level 4.3 g/dL (3.5-5.1); Alkaline Phosphatase 113 U/L (38-126); Aspartate Amino Transferase 18 U/L (17-59); Bilirubin,Total 0.8 mg/dL (0.2-1.3); Blood Urea Nitrogen 19 mg/dL (9-20); Calcium 9.1 mg/dL (8.4-10.2); Carbon Dioxide > 40 mmol/L (22-30); Chloride 91 mmol/L (98-107); Estimated CRCL calculation 81 ml/min; Estimated Glomerular Filt Rate > 60; Glucose 162 mg/dL (65-110); Potassium 3.6 mmol/L (3.4-5.0); Sodium 138 mmol/L (137-145)
[2022-02-19 12:36] LABS: Lactic Acid Reflex 0.7 mmol/L (0.7-2.0)
[2022-02-19 12:48] LABS: Device NASAL CANNULA
[2022-02-19] MEDS: IPRATROPIUM BR 0.02% INH SOLN 0.5 MG/2.5 ML VIAL 1.5 MG INHALATION (12:56)
[2022-02-19] MEDS: ALBUTEROL SULFATE NEB 2.5 MG/3 ML INH 15 MG INHALATION (12:56)
[2022-02-19] MEDS: methylPREDNISolone SOD SUCC 125 MG VIAL IV PUSH (13:19)
[2022-02-19] MEDS: FUROSEMIDE INJ 40 MG/4 ML VIAL IV PUSH (13:19)
[2022-02-19 13:50] LABS: NT Pro B Type Natriuretic Pept 81 pg/mL (5-100); Troponin I < 0.012 ng/mL (0.000-0.034)
[2022-02-19 15:08] LABS: SARS-CoV-2 RNA PCR Negative
--- NOTE | 2022-02-19 16:35 | ADMGEN ---
This patient, Delta Pollock, was admitted to Medical Room 243-01. Patient/family oriented to hospital policies and general routines including ID bracelet, bed and alarms, visiting hours, pain management, procedures, bathroom and other care routines, personal items, smoking policy, room service/diet, and visiting hours. Information on how to activate the Rapid Response Team has been discussed. Patient/Family are encouraged to report perceived risks to care and to ask questions if they do not understand what they are told or what they should do.
[2022-02-19 17:15] LABS: Glucose Point of Care 212 mg/dl (65-105)
--- NOTE | 2022-02-19 22:35 | ED.GENADULT ---
HPI - General Adult General Chief complaint: Shortness of Breath/Dyspnea Stated complaint: SOB Time Seen by Provider: 02/19/22 12:06 History of Present Illness HPI narrative: This is a 66-year-old male presenting to ED with worsening breathing over the last 2 days. patient has history of severe COPD is not as 4 L home oxygen. Patient notes he has an increased cough. He has swelling of his lower extremities. Patient denies chest pain, fever chills, nausea vomiting or diarrhea. Patient notes that he is not sleeping well although he has obstructive sleep apnea and does not wear a BiPAP. Related Data Home Medications Medication Instructions Recorded Confirmed aspirin 81 mg tablet,delayed 81 mg PO DAILY 03/24/19 02/19/22 release (Betzy Low Dose Aspirin) clopidogrel 75 mg tablet 75 mg PO DAILY 03/24/19 02/19/22 losartan 100 1 tablet PO DAILY 03/24/19 02/19/22 mg-hydrochlorothiazide 25 mg tablet metformin 1,000 mg tablet 1,000 mg PO BID 03/24/19 02/19/22 metoprolol succinate 50 mg capsule 50 mg PO DAILY 03/24/19 02/19/22 sprinkle, ext. release 24 hr sitagliptin 100 mg tablet (Januvia) 100 mg PO DAILY 03/24/19 02/19/22 clotrimazole-betamethasone 1 1 applic topical DAILY 07/09/19 02/19/22 %-0.05 % topical cream Allergies Allergy/AdvReac Type Severity Reaction Status Date / Time atropine Allergy Unknown Nausea and Verified 03/08/21 09:35 Vomiting olmesartan Allergy Unknown Other Verified 03/08/21 09:35 Tetanus Vaccines and Toxoid Allergy Unknown Other Verified 03/08/21 09:35 codeine AdvReac Unknown Palpitation Verified 03/08/21 12:14 s hydrocodone AdvReac Unknown Nausea and Verified 03/08/21 12:14 Vomiting morphine AdvReac Unknown Nausea and Verified 03/08/21 12:14 Vomiting [facility] Past Medical History Medical History Anxiety Asthma Chronic obstructive pulmonary disease Chronic respiratory failure with hypoxia, on home O2 therapy P.r.n. oxygen, mainly at nighttime. Coronary artery disease Status post stent x3. Depression Diverticulitis Hypercholesterolemia Hypertension Obstructive sleep apnea Intolerant to CPAP. Type 2 diabetes mellitus Hemoglobin A1c was 7.4% on 03/08/2021. 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 History of fusion of cervical spine History of laparoscopic cholecystectomy (02/2003) Family History Family History Sibling Cerebrovascular accident Mother No problems noted. Father No problems noted. Other Cancer Diabetes mellitus Hypertension Social History Social History Social History: Surrogate decision maker: Marcelle Pollock, . Code status: Full code. Smoking packs per day: 1 Smoking cigarettes per day: 20.0 Years smoked: 20 Smoking pack-years: 20.00 Smoking status: Former smoker Second hand tobacco smoke exposure: No Alcohol intake: never Substance use: never Substance use type: does not use Additional living arrangements comments: Lives in [place] with his . Additional occupation/education comments: Disabled. Spiritual care concerns: No Exam Narrative: APPEARANCE: No apparent distress. Head atraumatic. EYES: PERRLA/EOMI, NOSE: Normal no drainage NECK: Supple, Trachea midline RESPIRATORY: Decreased lung sounds bilaterally. Bibasilar crackles. CARDIOVASCULAR: S1S2 appreciated , +1 pitting edema of the ankles ABDOMINAL: Soft, nontender, nondistended, MUSCULOSKELETAl: No obvious deformities NEURO: Alert. Moving 4/4 extremities SKIN:: Warm, dry. Normal color PSYCHIATRIC: Normal affect Course Vital Signs Vital sig
[2022-02-20] VITALS (14 sets, daily range): BP systolic 122–132; BP diastolic 54–66; PULSE 72–100; RESP 16–18; TEMP 36.5–36.6; O2SAT 90–97
[2022-02-20 05:08] LABS: Basophils Percent Auto 0.2 % (0.2-1.2); Hematocrit 42.6 % (42.0-52.0); Hemoglobin 13.6 g/dL (14.0-18.0); Immature Granulocyte Percent A 0.8 % (0-0.5); Lymphocytes Absolute Auto 0.86 K/mm3 (0.9-3.2); Lymphocytes Percent Auto 7.2 % (18.3-44.2); Mean Corpuscular HGB Conc 31.9 g/dl (32-36); Mean Corpuscular Hemoglobin 29.8 pg (26-34); Mean Corpuscular Volume 93.2 fl (80-100); Mean Platelet Volume 9.6 fl (7.4-10.4); Monocytes Absolute Auto 0.7 K/mm3 (0.1-0.6); Monocytes Percent Auto 5.7 % (2.6-8.5); Neutrophils Absolute Auto 10.3 K/mm3 (1.3-6.7); Neutrophils Percent Auto 86.1 % (45.5-73.1); Platelet Count Result 212 k/mm3 (150-375); Red Blood Count 4.57 M/mm3 (4.6-6.20); Red Cell Distribution Width 13.9 % (11.5-14.5); White Blood Count 11.9 K/mm3 (4.5-10.0)
[2022-02-20 05:26] LABS: Lactic Acid Reflex 2.6 mmol/L (0.7-2.0)
[2022-02-20 05:29] LABS: Alanine Aminotransferase 19 U/L (6-50); Alkaline Phosphatase 98 U/L (38-126); Anion Gap 9 mmol/L (8-16); Aspartate Amino Transferase 20 U/L (17-59); Bilirubin,Total 0.6 mg/dL (0.2-1.3); Blood Urea Nitrogen 26 mg/dL (9-20); Calcium 8.8 mg/dL (8.4-10.2); Carbon Dioxide 35 mmol/L (22-30); Chloride 91 mmol/L (98-107); Estimated CRCL calculation 77 ml/min; Estimated Glomerular Filt Rate > 60; Glucose 264 mg/dL (65-110); Lactate Dehydrogenase 158 U/L (120-246); Magnesium 1.8 mg/dL (1.6-2.3); Potassium 3.2 mmol/L (3.4-5.0); Sodium 135 mmol/L (137-145)
[2022-02-20] MEDS: methylPREDNISolone SOD SUCC 125 MG VIAL 60 MG IV PUSH ×3 (05:35→21:01)
[2022-02-20 08:04] LABS: Reflex Lactic Acid Yes or No Add Lactic
[2022-02-20 08:21] LABS: Glucose Point of Care 244 mg/dl (65-105)
[2022-02-20] MEDS: BETAMETHASONE/CLOTRIMAZOLE CR 15 GM TUBE 1 APPLIC TOPICAL (08:24)
[2022-02-20] MEDS: LOSARTAN POTASSIUM 100 MG TABLET PO (08:25)
[2022-02-20] MEDS: CLOPIDOGREL BISULFATE 75 MG TABLET PO (08:25)
[2022-02-20] MEDS: POTASSIUM CHLORIDE 10 MEQ TABLET.ER PO (08:25)
[2022-02-20] MEDS: METOPROLOL SUCCINATE EXT REL 50 MG TABCR PO (08:25)
[2022-02-20] MEDS: hydroCHLOROthiazide 25 MG TABLET PO (08:25)
[2022-02-20] MEDS: ASPIRIN 81 MG ENTERIC TABLET PO (08:25)
[2022-02-20] MEDS: LORATADINE 10 MG TABLET PO (08:26)
[2022-02-20] MEDS: FLUTICASONE PROPIONATE 0.05% NA SPR 16 GM BTL (*BKC) 1 SPRAY NASAL ×2 (08:26→16:11)
[2022-02-20] MEDS: INSULIN ASPART (*BKC) 100 UNITS/ML SUB-Q ×3 (08:27→16:12)
[2022-02-20] MEDS: FUROSEMIDE INJ 40 MG/4 ML VIAL IV PUSH (08:35)
[2022-02-20 08:36] LABS: Lactic Acid 1.1 mmol/L (0.7-2.0)
[2022-02-20 08:50] LABS: Hemoglobin A1C 7.2 % (<5.7)
--- NOTE | 2022-02-20 10:59 | PM.IMHP ---
H&P: HPI History of Present Illness Date/Time: 02/20/22 10:59 Chief Complaint: Shortness of breath Narrative: ED-HPI narrative: This is a 66-year-old male presenting to ED with worsening breathing over the last 2 days. patient has history of severe COPD is not as 4 L home oxygen.? Patient notes he has an increased cough.? He has swelling of his lower extremities.? ? Patient denies chest pain, fever chills, nausea vomiting or diarrhea.? Patient notes that he is not sleeping well although he has obstructive sleep apnea and does not wear a BiPAP. 66-year-old male with history of chronic respiratory failure on home oxygen 4 L presented emergency department with complaint shortness of breath lower extremity edema, patient has history severe COPD and congestive heart failure, patient is being treated with Solu-Medrol bronchodilator will add azithromycin to cover for atypical, patient also has history of sleep apnea he does not have a BiPAP will do overnight [facility]nea[facility] will consult health facilities surveyor further recommendation, patient also had congestive heart failure etiology uncertain continue to diurese the patient to further evaluate will do cardiac echo and further recommendation to follow, patient with history of diabetes will continue Januvia and monitor with sliding scale, will have a PT OT evaluate the patient patient will benefit going to acute rehab. patient is admitted inpatient with exacerbation of COPD and congestive heart failure being treated with IV methylprednisone and being diuresed with IV Lasix. Review of Systems Review of Systems: Twelve systems were reviewed. Diabetes is fairly well controlled. Sugars have been running high since being started on prednisone. No concerns for aspiration. No history of venous thromboembolism. Except as documented, all other systems were reviewed and are negative. [facility] Past Medical History Medical History Anxiety Asthma Chronic obstructive pulmonary disease Chronic respiratory failure with hypoxia, on home O2 therapy P.r.n. oxygen, mainly at nighttime. Coronary artery disease Status post stent x3. Depression Diverticulitis Hypercholesterolemia Hypertension Obstructive sleep apnea Intolerant to CPAP. Type 2 diabetes mellitus Hemoglobin A1c was 7.4% on 03/08/2021. 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 History of fusion of cervical spine History of laparoscopic cholecystectomy (02/2003) Family History Family History Sibling Cerebrovascular accident Mother No problems noted. Father No problems noted. Other Cancer Diabetes mellitus Hypertension Social History Social History Social History: Surrogate decision maker: Marcelle Pollock, . Code status: Full code. Smoking packs per day: 1 Smoking cigarettes per day: 20.0 Years smoked: 20 Smoking pack-years: 20.00 Smoking status: Former smoker Second hand tobacco smoke exposure: No Alcohol intake: never Substance use: never Substance use type: does not use Additional living arrangements comments: Lives in [place] with his . Additional occupation/education comments: Disabled. Spiritual care concerns: No Meds Home Medications and Allergies Home Medications Medication Instructions Recorded Confirmed Type aspirin 81 mg tablet,delayed 81 mg PO DAILY 03/24/19 02/19/22 History release (Betzy Low Dose Aspirin) clopidogrel 75 mg tablet 75 mg PO DAILY 03/24/19 02/19/22 History losartan 100 1 tablet PO DAILY 03/24/19 02/19/22 History mg-hydrochlorothiazide 25 mg tablet metformin 1,000 mg tab
[2022-02-20 11:46] LABS: Glucose Point of Care 284 mg/dl (65-105)
[2022-02-20] MEDS: ENOXAPARIN 40 MG/0.4 ML SYRINGE SUB-Q (12:46)
[2022-02-20 16:10] LABS: Glucose Point of Care 324 mg/dl (65-105)
[2022-02-20] MEDS: FLUTICASONE/SALMETEROL 115-21 MCG INHALER 1 PUFF 2 PUFF INHALATION (20:25)
[2022-02-20 20:51] LABS: Glucose Point of Care 424 mg/dl (65-105)
[2022-02-20] MEDS: INSULIN GLARGINE (*BKC) 100 UNITS/ML 20 UNITS SUB-Q (21:02)
[2022-02-20] MEDS: INSULIN ASPART (*BKC) 100 UNITS/ML 6 UNITS SUB-Q (21:02)
[2022-02-21] VITALS (16 sets, daily range): BP systolic 118–126; BP diastolic 60–72; PULSE 61–88; RESP 16–22; TEMP 36.4–36.6; O2SAT 83–97
--- NOTE | 2022-02-21 | ECHO_ITS ---
Patient Info Name: Delta Pollock Age: 66 years : 1955 Gender: Male Ht: 68 in Wt: 241 lbs BSA: 2.33 m2 HR: 75 bpm BP: 132 / 54 mmHg Heart Rhythm: Sinus Rhythm Exam Date: 02/21/2022 11:30 AM Exam Location: [facility] Pulmonary Patient Status: Inpatient Admit Date: 02/20/2022 Staff Ordering Physician: Renetta Pena MD Textile Coating Machine Operator: Collin Michaud, JEANCS, RT Attending Provider: Maxwell Molina MD Exam Type: CA echo doppler color flow Study Info Indications I50.9 - Heart failure, unspecified Complete two-dimensional, color flow and Doppler transthoracic echocardiogram is performed. Strain analysis performed. Summary 1. Complete two-dimensional, color flow and Doppler transthoracic echocardiogram is performed. 2. Technically difficult exam with reduced image quality. 3. Grossly normal left ventricular size thickness and systolic function. 4. Normal diastolic function. 5. No significant valvular dysfunction. 6. Compared with examination from 1 year ago there are no differences. Left Ventricle Left ventricular chamber dimension is normal. Left ventricular systolic function is normal, estimated at 55-60%. The left ventricular diastolic function is normal. Right Ventricle Right ventricular chamber dimension is normal. Left Atria Left atrial chamber dimension is normal. Right Atria Right atrial chamber dimension is normal. Aortic Valve The aortic valve is normal. Pulmonic Valve The pulmonic valve is not well visualized. Mitral Valve The mitral valve has normal leaflets. Tricuspid Valve The tricuspid valve leaflets are not well visualized. Pericardium/Pleural The pericardium appears normal. Aorta The aortic root size at the sinus of Valsalva is normal. Left Ventricular Outflow Tract Name Value Normal LVOT 2D LVOT Diameter 2.1 cm LVOT Doppler LVOT Peak Gradient 7 mmHg LVOT Mean Gradient 4 mmHg LVOT VTI 26 cm LVOT VTI/AV VTI Ratio 0.8 LVOT Stroke Volume 89 ml LVOT CO 7.6 l/min LVOT CI 3.3 l/min/m2 Mitral Valve Name Value Normal MV Doppler MV Decel [place] 350 cm/s2 MV PHT 73 ms MV Area (PHT) 3.0 cm2 4.0-5.0 MV Diastolic Function MV E Peak Velocity 88 cm/s MV A Peak Velocity 79 cm/s MV E/A 1.1 MV Decel Time 251 ms MV Annular TDI MV E
--- NOTE | 2022-02-21 05:56 | PC.NURSE ---
Patient with no IV access after multiple nurses attempted. Patient not given 0600 solu medrol at this time due to no access. Will notify IV specialist for new IV.
[2022-02-21 06:08] LABS: Hematocrit 46.6 % (42.0-52.0); Mean Corpuscular HGB Conc 32.2 g/dl (32-36); Mean Corpuscular Hemoglobin 30.5 pg (26-34); Mean Corpuscular Volume 94.9 fl (80-100); Mean Platelet Volume 9.6 fl (7.4-10.4); Platelet Count Result 278 k/mm3 (150-375); Red Blood Count 4.91 M/mm3 (4.6-6.20); Red Cell Distribution Width 14.1 % (11.5-14.5); White Blood Count 21.6 K/mm3 (4.5-10.0)
[2022-02-21 06:18] LABS: Potassium 3.4 mmol/L (3.4-5.0)
[2022-02-21 06:26] LABS: Anion Gap 10 mmol/L (8-16); Blood Urea Nitrogen 28 mg/dL (9-20); Carbon Dioxide 38 mmol/L (22-30); Chloride 89 mmol/L (98-107); Estimated CRCL calculation 77 ml/min; Estimated Glomerular Filt Rate > 60; Glucose 231 mg/dL (65-110); Magnesium 2.1 mg/dL (1.6-2.3); Sodium 137 mmol/L (137-145)
[2022-02-21] MEDS: FLUTICASONE/SALMETEROL 115-21 MCG INHALER 1 PUFF 2 PUFF INHALATION (07:46)
[2022-02-21 08:37] LABS: Glucose Point of Care 224 mg/dl (65-105)
[2022-02-21] MEDS: methylPREDNISolone SOD SUCC 125 MG VIAL 60 MG IV PUSH (08:44)
[2022-02-21] MEDS: INSULIN ASPART (*BKC) 100 UNITS/ML SUB-Q ×3 (08:45→16:51)
[2022-02-21] MEDS: POTASSIUM CHLORIDE 20 MEQ TABLET 40 MEQ PO (09:29)
[2022-02-21] MEDS: FLUTICASONE PROPIONATE 0.05% NA SPR 16 GM BTL (*BKC) 1 SPRAY NASAL ×2 (09:30→16:51)
[2022-02-21] MEDS: FUROSEMIDE INJ 40 MG/4 ML VIAL IV PUSH (09:30)
[2022-02-21] MEDS: LORATADINE 10 MG TABLET PO (09:31)
[2022-02-21] MEDS: ENOXAPARIN 40 MG/0.4 ML SYRINGE SUB-Q (09:31)
[2022-02-21] MEDS: hydroCHLOROthiazide 25 MG TABLET PO (09:31)
[2022-02-21] MEDS: CLOPIDOGREL BISULFATE 75 MG TABLET PO (09:31)
[2022-02-21] MEDS: METOPROLOL SUCCINATE EXT REL 50 MG TABCR PO (09:31)
[2022-02-21] MEDS: ASPIRIN 81 MG ENTERIC TABLET PO (09:32)
[2022-02-21] MEDS: POTASSIUM CHLORIDE 10 MEQ TABLET.ER PO (09:32)
[2022-02-21] MEDS: LOSARTAN POTASSIUM 100 MG TABLET PO (09:32)
[2022-02-21] MEDS: BETAMETHASONE/CLOTRIMAZOLE CR 15 GM TUBE 1 APPLIC TOPICAL (09:33)
[2022-02-21 11:07] LABS: D Dimer 0.48 ug/mL (<0.48)
[2022-02-21 12:09] LABS: Glucose Point of Care 311 mg/dl (65-105)
--- NOTE | 2022-02-21 12:35 | PM.CNPUL ---
Assessment and Plan Assessment and plan (1) COPD exacerbation: Code(s): J44.1 - Chronic obstructive pulmonary disease with (acute) exacerbation Status: Acute Assessment and Plan: GOLD group D COPD patient with apical predominant centrilobular emphysema dating back to CT chest 03/09/2019, no PFTs available, on 4 L of oxygen at home. Patient presents now with COPD exacerbation with shortness of breath x 4-5 days, mild increase in a productive cough and phlegm production. Patient presented with chronic hypercarbic and hypoxemic respiratory failure with a blood gas of 7.38/62/75 on 4 L NC. his D-dimer is at the upper limit of normal. BNP is 81, COVID RT PCR test is negative. 02/21 Patient has improved on Solu-Medrol 60 Q8 (started on 02/19), advair 115-21 at 2 puffs BID and albuterol inhaler. Azithromycin started on 02/20. today he tells me he is back to normal. No wheezing on exam. I will change him to prednisone 40 mg p.o. q.day starting today, and place him on a long-acting beta agonist and long-acting muscarinic antagonist and have prescribed Anoro Ellipta 62.5-25 at 1 puff q.day. I will continue p.r.n. albuterol inhaler. he is on 4 L nasal cannula saturations 98%. Will follow with you. (2) Chronic respiratory failure with hypoxia and hypercapnia: Code(s): J96.11 - Chronic respiratory failure with hypoxia; J96.12 - Chronic respiratory failure with hypercapnia Status: Acute Assessment and Plan: Patient has chronic respiratory failure from COPD with an elevated PaCO2 (7.38/62/75 on 4 L) and elevated bicarb greater than 40 and would benefit from noninvasive ventilation to prevent deterioration say and future hospitalizations. The patient has been placed on BiPAP but these settings are uncomfortable. I placed patient on an AVAPS mode and adjusted the settings for comfort which resulted in a rate of 20, tidal volume 500, EPAP 7, minimal inspiratory pressure 8, maximal inspiratory pressure 25, inspiratory time 1.2 second, rise of 5 which is our slowest setting and 36 % FiO2. I will perform an overnight oximetry on these studies and obtain an ABG prior to removal in the morning. History of Present Illness History of Present Illness Consult date: 02/21/22 Chief complaint: COPD Narrative: 02/21/2022: This is a new pulmonary consult for COPD exacerbation with chronic hypercarbic and hypoxemic respiratory failure. 66-year-old man with a history of COPD on 4 L nasal cannula ( moderate apical predominant centrilobular emphysema on 03/11/2021, I have no PFTs), obstructive sleep apnea for 20 years and last wore a home CPAP machine 10 years ago, hypertension, diabetes, hyperlipidemia, coronary artery disease status post stent X3 mid LAD 07/2017, CHF. At bed baseline the patient states that he has no respiratory limitations it activities of daily living but he does things very slowly. He states he can walk 1 mi with this 4 L oxygen.Patient smoked tobacco from age [age] at 1/2 pack per day for a total of 7 and half pack years, patient was exposed to secondhand smoke through his father. Patient denies vaping, illicit drug use, sandblasting, welding, asbestos were, professional painting or steel roller structural mill. Patient is a retired truck shop mechanic. Patient presented to [facility] Emergency Department on 02/19/2022 with 5 stents 6 days worsening shortness of breath at rest and with ambulation. He denied fever, chills, rigors, phlegm production or wheezing. Patient usually wears 4 L nasal cannula and when he checked his home pulse oximetry on 4 L nasal cannula remained 90-91%. Patient did note leg swelling. In the emergency department patient had a white blood cell count of 9.6, 2.6% [id number]/uL, hemoglobin of 14.8, creatinine of 1.00, serum bicarbonate greater than 40 a BNP of 81, troponin negative, COVID RT PCR study negative, ABG on 4 L was a pH of 7.38/62/75 and CXR With mild atelecta
--- NOTE | 2022-02-21 13:56 | PM.IMPN ---
Progress Note: A&P Assessment and Plan (1) CHF (congestive heart failure): Code(s): I50.9 - Heart failure, unspecified Status: Acute Assessment and Plan: patient with history of coronary artery disease status post stent, patient denies any chest pain, now with a exacerbation of CHF etiology uncertain will do the cardiac echo further evaluate, continue to diurese the patient further recommendation to follow. (2) Acute and chronic respiratory failure with hypercapnia: Code(s): J96.22 - Acute and chronic respiratory failure with hypercapnia Status: Acute Assessment and Plan: ED-HPI narrative: This is a 66-year-old male presenting to ED with worsening breathing over the last 2 days. patient has history of severe COPD is not as 4 L home oxygen.? Patient notes he has an increased cough.? He has swelling of his lower extremities.? ? Patient denies chest pain, fever chills, nausea vomiting or diarrhea.? Patient notes that he is not sleeping well although he has obstructive sleep apnea and does not wear a BiPAP. 02/21/2022 interval history: 66-year-old male with history of chronic respiratory failure on home oxygen 4 L presented emergency department with complaint shortness of breath lower extremity edema, patient has history severe COPD and congestive heart failure, patient had being treated with Solu-Medrol bronchodilator will add azithromycin to cover for atypical, today patient was seen by Dr. Melchor mounter clarinets, as patient symptoms are improving, his solumederol was tapered to prednisone 40mg PO daily, patient ddimer is normal, patient also has history of sleep apnea he does not have a BiPAP will do overnight ApneaLink will consult mounter clarinets further recommendation, patient also had congestive heart failure etiology uncertain continue to diurese the patient to further evaluate, cardiac echo is pending and further recommendation to follow, patient with history of diabetes will continue Januvia and monitor with sliding scale, will have a PT OT evaluate the patient patient will benefit going to acute rehab. (3) COPD (chronic obstructive pulmonary disease): Code(s): J44.9 - Chronic obstructive pulmonary disease, unspecified Status: Acute Assessment and Plan: patient with history of COPD now in exacerbation patient been treated with methylprednisone and bronchodilator will add azithromycin to cover for atypical will continue to monitor as patient's symptoms improved will taper the Solu-Medrol (4) Hypertension: Code(s): I10 - Essential (primary) hypertension Status: Chronic Assessment and Plan: will continue home regimen and monitor (5) Coronary artery disease: Code(s): I25.10 - Atherosclerotic heart disease of [place] coronary artery without angina pectoris Status: Acute Assessment and Plan: patient with history of coronary artery disease status post stent, denies any complaint of chest pain Subjective Date/time seen: 02/21/22 13:56 02/21/2022 interval history: 66-year-old male with history of chronic respiratory failure on home oxygen 4 L presented emergency department with complaint shortness of breath lower extremity edema, patient has history severe COPD and congestive heart failure, patient had being treated with Solu-Medrol bronchodilator will add azithromycin to cover for atypical, today patient was seen by Dr. Melchor mounter clarinets, as patient symptoms are improving, his solumederol was tapered to prednisone 40mg PO daily, patient ddimer is normal, patient also has history of sleep apnea he does not have a BiPAP will do overnight ApneaLink will consult mounter clarinets further recommendation, patient also had congestive heart failure etiology uncertain continue to diurese the patient to further evaluate, cardiac echo is pending and further recommendation to follow, patient with history of diabetes will continue Januvia and monitor with sliding scal
[2022-02-21] MEDS: predniSONE 20 MG TABLET 40 MG PO (15:30)
[2022-02-21 16:50] LABS: Glucose Point of Care 370 mg/dl (65-105)
[2022-02-21] MEDS: INSULIN GLARGINE (*BKC) 100 UNITS/ML 20 UNITS SUB-Q (20:32)
[2022-02-21 21:00] LABS: Glucose Point of Care 423 mg/dl (65-105)
[2022-02-21] MEDS: INSULIN ASPART (*BKC) 100 UNITS/ML 6 UNITS SUB-Q (22:04)
[2022-02-22] VITALS (11 sets, daily range): BP systolic 126; BP diastolic 57; PULSE 53–89; RESP 21–24; TEMP 36.1; O2SAT 86–100
[2022-02-22] MEDS: ACETAMINOPHEN 325 MG TABLET 650 MG PO (01:05)
[2022-02-22 05:03] LABS: Hematocrit 46.9 % (42.0-52.0); Mean Corpuscular Hemoglobin 30.4 pg (26-34); Mean Corpuscular Volume 94.9 fl (80-100); Mean Platelet Volume 9.5 fl (7.4-10.4); Platelet Count Result 263 k/mm3 (150-375); Red Blood Count 4.94 M/mm3 (4.6-6.20); Red Cell Distribution Width 14.2 % (11.5-14.5); White Blood Count 20.4 K/mm3 (4.5-10.0)
[2022-02-22 05:18] LABS: Blood Urea Nitrogen 39 mg/dL (9-20); Calcium 9.4 mg/dL (8.4-10.2); Carbon Dioxide > 40 mmol/L (22-30); Chloride 86 mmol/L (98-107); Estimated CRCL calculation 70 ml/min; Estimated Glomerular Filt Rate > 60; Glucose 206 mg/dL (65-110); Magnesium 2.2 mg/dL (1.6-2.3); Potassium 3.3 mmol/L (3.4-5.0); Sodium 133 mmol/L (137-145)
[2022-02-22 06:17] LABS: Thyroid Stimulating Hormone Reflex 0.701 uIU/mL (0.465-4.68)
[2022-02-22 07:24] LABS: Alveolar/Arterial O2 Gradient 110.1 mmHg; Base Excess ABG 13.3 mEq/l (+/-2.0); Fractional Inspired Oxygen 36 %; Modified Allen's Test Pass; Oxygen Content ABG 20.6 %vol (16.0-22.0); Oxygen Saturation ABG 96.1 % (95.0-100.0); Oxyhemoglobin 94.9 % THb (90.0-100.0); PCO2 ABG 57.5 mmHg (35.0-45.0); PO2 ABG 79.9 mmHg (80.0-100.0); PO2 FiO2 Ratio Arterial Blood 2.22 %; Site Drawn RIGHT RADIAL; Total Hemoglobin 15.4 g/dL (12.0-18.0)
[2022-02-22 08:00] LABS: Glucose Point of Care 173 mg/dl (65-105)
--- NOTE | 2022-02-22 08:33 | PM.PNPUL ---
Progress Note: A&P Assessment and Plan (1) COPD exacerbation: Code(s): J44.1 - Chronic obstructive pulmonary disease with (acute) exacerbation Status: Acute Assessment and Plan: GOLD group D COPD patient with apical predominant centrilobular emphysema dating back to CT chest 03/09/2019, no PFTs available, on 4 L of oxygen at home. Patient presents now with COPD exacerbation with shortness of breath x 4-5 days, mild increase in a productive cough and phlegm production. Patient presented with chronic hypercarbic and hypoxemic respiratory failure with a blood gas of 7.38/62/75 on 4 L NC. his D-dimer is at the upper limit of normal. BNP is 81, COVID RT PCR test is negative. 02/21 Patient has improved on Solu-Medrol 60 Q8 (started on 02/19), advair 115-21 at 2 puffs BID and albuterol inhaler. Azithromycin started on 02/20. today he tells me he is back to normal. No wheezing on exam. I will change him to prednisone 40 mg p.o. q.day starting today, and place him on a long-acting beta agonist and long-acting muscarinic antagonist and have prescribed Anoro Ellipta 62.5-25 at 1 puff q.day. I will continue p.r.n. albuterol inhaler. he is on 4 L nasal cannula saturations 98%. 02/22 Currently the patient states that he is breathing close to his baseline. He denies fever, chills, cough or phlegm. His white blood cell count is 20.4. His creatinine is 1.1. TSH is 0.7. From a pulmonary perspective patient is ready to be discharged on these pulmonary medications: azithromycin 250 mg p.o. q.day x2 days (last dose 02/24/2022) Prednisone 40 mg PO Q day X 1 day (last dose 02/23) Beta agonist and muscarinic antagonist that insurance will cover (Anoro Ellipta 62.5/25 at 1 puff Q day, stiolto respimat 2.5/2.5 at 1 puff BID, bevespi aerosphere 9 mcg/4.8 at 2 puffs BID, combivent respimat at 2 puffs Q 4 HR or separate albuterol and atrovent inhalers at 2 puffs Q 4 HR) rescue albuterol 2 puffs q.4 hours p.r.n. shortness of breath or wheezing oxygen at rest and with ambulation per formal home O2 assessment which I have ordered today. When naps and sleeps: Oxygen 4 L while he is waiting for his noninvasive ventilator to be approved. Once machine is delivered when naps and sleeps: Noninvasive ventilator with the AVAPS-AE mode on approved: respiratory rate of 20, tidal volume 500, minimum EPAP 5, maximum EPAP 15, minimal inspiratory pressure 6, maximal inspiratory pressure 25, maximum pressure 40, inspiratory time 1.2 second, rise of 5 (slowest) and 4 L bleed in. Follow up in the Pulmonary Clinic in 3-4 weeks. I gave him our business card and informed our building illuminating engineer. Discussed with Dr. Pena. Will sign off. Call with questions. (2) Chronic respiratory failure with hypoxia and hypercapnia: Code(s): J96.11 - Chronic respiratory failure with hypoxia; J96.12 - Chronic respiratory failure with hypercapnia Status: Acute Assessment and Plan: Patient has chronic respiratory failure from COPD with an elevated PaCO2 (7.38/62/75 on 4 L) and elevated bicarb greater than 40 and would benefit from noninvasive ventilation to prevent deterioration say and future hospitalizations. 02/21 The patient has been placed on BiPAP but these settings are uncomfortable. I placed patient on an AVAPS mode and adjusted the settings for comfort which resulted in a rate of 20, tidal volume 500, EPAP 7, minimal inspiratory pressure 8, maximal inspiratory pressure 25, inspiratory time 1.2 second, rise of 5 which is our slowest setting and 36 % FiO2. I will perform an overnight oximetry on these studies and obtain an ABG prior to removal in the morning. 02/22 The patient wore the hospital noninvasive ventilator with the AVAPS mode with the above settings and did well. He said he slept and feels refreshed this morning. Patient had an ABG prior to removal of the machine with a pH of 7.46/58/80. Patient had an overnight oximetry on the above setting
[2022-02-22] MEDS: UMECLIDINIUM/VILANTEROL 62.5-25 MCG ELLIPTA 1 PUFF INHALATION (08:35)
[2022-02-22] MEDS: LOSARTAN POTASSIUM 100 MG TABLET PO (09:38)
[2022-02-22] MEDS: FLUTICASONE PROPIONATE 0.05% NA SPR 16 GM BTL (*BKC) 1 SPRAY NASAL (09:38)
[2022-02-22] MEDS: predniSONE 20 MG TABLET 40 MG PO (09:40)
[2022-02-22] MEDS: LORATADINE 10 MG TABLET PO (09:40)
[2022-02-22] MEDS: ENOXAPARIN 40 MG/0.4 ML SYRINGE SUB-Q (09:40)
[2022-02-22] MEDS: hydroCHLOROthiazide 25 MG TABLET PO (09:40)
[2022-02-22] MEDS: METOPROLOL SUCCINATE EXT REL 50 MG TABCR PO (09:40)
[2022-02-22] MEDS: ASPIRIN 81 MG ENTERIC TABLET PO (09:40)
[2022-02-22] MEDS: CLOPIDOGREL BISULFATE 75 MG TABLET PO (09:40)
[2022-02-22] MEDS: FUROSEMIDE INJ 40 MG/4 ML VIAL IV PUSH (09:40)
[2022-02-22] MEDS: POTASSIUM CHLORIDE 10 MEQ TABLET.ER PO (09:41)
[2022-02-22] MEDS: BETAMETHASONE/CLOTRIMAZOLE CR 15 GM TUBE 1 APPLIC TOPICAL (09:42)
--- NOTE | 2022-02-22 09:47 | HOMEO2EVAL ---
Evaluation was performed at [facility] Home Oxygen Evaluation RC: Home Oxygen (O2) Evaluation Start: 02/22/22 08:31 Freq: ONCE Status: Active Protocol: RPE Activity Type Activity Date Activity User E-sign Co-sign Detail Recorded Client Recorded Date Recorded By Document 02/22/22 09:32 KRM [email or web address] 02/22/22 09:47 KRM Document 02/22/22 09:33 KRM [email or web address] 02/22/22 09:47 KRM Document 02/22/22 09:35 KRM [email or web address] 02/22/22 09:47 KRM Document 02/22/22 09:40 KRM [email or web address] 02/22/22 09:47 KRM Document 02/22/22 09:46 KRM [email or web address] 02/22/22 09:47 KRM 02/22/22 02/22/22 02/22/22 09:32 09:33 09:35 Home O2 Evaluation Test Phase Resting Resting Resting Oxygen Delivery Room Air Nasal Cannula Nasal Cannula Oxygen Flow Rate (L/min) 1 2 Pulse Oximetry (90-100 %) 86 L 88 L 89 L Pulse Rate (60-100 beats/min) 72 72 70 Activity Tolerance Ambulation Distance (feet) Ambulation Distance (meters) Home Oxygen Evaluation Comments Treatment Charges 02/22/22 02/22/22 09:40 09:46 Home O2 Evaluation Test Phase Resting Exercise Oxygen Delivery Nasal Cannula Nasal Cannula Oxygen Flow Rate (L/min) 3 3 Pulse Oximetry (90-100 %) 91 93 Pulse Rate (60-100 beats/min) 69 89 Activity Tolerance Excellent Ambulation Distance (feet) 200 Ambulation Distance (meters) 60.95 Home Oxygen Evaluation Comments 3LPM at rest and with activity. Treatment Charges O2 Evaluation - Inpatient
--- NOTE | 2022-02-22 09:57 | PCRCNOTE ---
FAXED TRILOGY ORDER AND UPDATED O2 RX TO [facility] [place]. PT. IS ALREADY ESTABLISHED WITH [facility] [place] WITH HIS O2.
--- NOTE | 2022-02-22 10:17 | PM.DS ---
DS: Admitting Diagnosis Discharge Date 02/22/2022 Admitting Diagnosis shortness of breath DS: Discharge Diagnosis Discharge Diagnosis (1) CHF (congestive heart failure): Code(s): I50.9 - Heart failure, unspecified Status: Acute Assessment and Plan: patient with history of coronary artery disease status post stent, patient denies any chest pain, now with a exacerbation of CHF etiology uncertain will do the cardiac echo further evaluate, continue to diurese the patient further recommendation to follow. (2) Acute and chronic respiratory failure with hypercapnia: Code(s): J96.22 - Acute and chronic respiratory failure with hypercapnia Status: Acute Assessment and Plan: ED-HPI narrative: This is a 66-year-old male presenting to ED with worsening breathing over the last 2 days. patient has history of severe COPD is not as 4 L home oxygen.? Patient notes he has an increased cough.? He has swelling of his lower extremities.? ? Patient denies chest pain, fever chills, nausea vomiting or diarrhea.? Patient notes that he is not sleeping well although he has obstructive sleep apnea and does not wear a BiPAP. 02/21/2022 interval history: 66-year-old male with history of chronic respiratory failure on home oxygen 4 L presented emergency department with complaint shortness of breath lower extremity edema, patient has history severe COPD and congestive heart failure, patient had being treated with Solu-Medrol bronchodilator will add azithromycin to cover for atypical, today patient was seen by Dr. Melchor oil scout, as patient symptoms are improving, his solumederol was tapered to prednisone 40mg PO daily, patient ddimer is normal, patient also has history of sleep apnea he does not have a BiPAP will do overnight ApneaLink will consult oil scout further recommendation, patient also had congestive heart failure etiology uncertain continue to diurese the patient to further evaluate, cardiac echo is pending and further recommendation to follow, patient with history of diabetes will continue Januvia and monitor with sliding scale, will have a PT OT evaluate the patient patient will benefit going to acute rehab. (3) COPD (chronic obstructive pulmonary disease): Code(s): J44.9 - Chronic obstructive pulmonary disease, unspecified Status: Acute Assessment and Plan: patient with history of COPD now in exacerbation patient been treated with methylprednisone and bronchodilator will add azithromycin to cover for atypical will continue to monitor as patient's symptoms improved will taper the Solu-Medrol (4) Hypertension: Code(s): I10 - Essential (primary) hypertension Status: Chronic Assessment and Plan: will continue home regimen and monitor (5) Coronary artery disease: Code(s): I25.10 - Atherosclerotic heart disease of [place] coronary artery without angina pectoris Status: Acute Assessment and Plan: patient with history of coronary artery disease status post stent, denies any complaint of chest pain DS: Summary Hospital Course Reason for hospitalization: ED-HPI narrative: This is a 66-year-old male presenting to ED with worsening breathing over the last 2 days. patient has history of severe COPD is not as 4 L home oxygen.? Patient notes he has an increased cough.? He has swelling of his lower extremities.? ? Patient denies chest pain, fever chills, nausea vomiting or diarrhea.? Patient notes that he is not sleeping well although he has obstructive sleep apnea and does not wear a BiPAP. ?66-year-old male with history of chronic respiratory failure on home oxygen 4 L presented emergency department with complaint shortness of breath lower extremity edema, patient has history severe COPD and congestive heart failure, patient is being treated with Solu-Medrol bronchodilator will add azithromycin to cover for atypical, patient also has history of sleep apnea he does no
[2022-02-22 12:10] LABS: Glucose Point of Care 374 mg/dl (65-105)
[2022-02-22] MEDS: INSULIN ASPART (*BKC) 100 UNITS/ML SUB-Q (12:40)
--- NOTE | 2022-02-22 14:44 | WPDCDIQUERY2 ---
CDI Query Clarification Request CHF (congestive heart failure): ?Code(s): I50.9 - Heart failure, unspecified ?Status:?Acute ?Assessment and Plan: ?patient with history of coronary artery disease status post stent,? patient denies any chest pain, now with a exacerbation of CHF etiology uncertain will do the cardiac echo further evaluate, continue to diurese the patient further recommendation to follow. 02/21 ECHO results show: -Normal diastolic function. ?- Left ventricular systolic function is normal, estimated at 55-60%. ? -The left ventricular diastolic function is normal. Please clarify if CHF (Congestive Heart Failure has been ruled out or ruled in. <Ciarra Honeycutt - Last Filed: 02/22/22 14:50> Clarified Diagnosis (1) Chronic respiratory failure with hypoxia and hypercapnia: Code(s): J96.11 - Chronic respiratory failure with hypoxia; J96.12 - Chronic respiratory failure with hypercapnia <Ciarra Honeycutt - Last Filed: 02/22/22 14:50> Status: Acute <Ciarra Honeycutt - Last Filed: 02/22/22 14:50> Assessment and Plan: patient presented with a shortness of breath was suspected to have congestive heart failure however cardiac echo showed preserved LV function and normal diastolic function, congestive heart failure was ruled out. <Renetta Pena MD - Last Filed: 03/20/22 18:40> Assessment and Plan: patient presenting complaint with shortness of breath suspected congestive heart failure however patient's systolic function is preserved with ejection fraction 55-60% and normal diastolic function, congestive heart failure was ruled out <Renetta Pena MD - Last Filed: 03/20/22 18:40>
[2022-02-24 01:55] LABS: Device BIPAP
== END 2022-02-22 14:30 | disposition home or self-care (01) ==
LOC: ANHED 16:27 → ANH2MED 18:11
PROVIDERS: Emergency Medicine; Internal Medicine Pulmonary Disease; Nurse Practitioner; Admitting Provider Internal Medicine; Emergency Provider Emergency Medicine; PCP Family Medicine; Visit Provider Family Medicine
DX: J44.1 Chronic obstructive pulmonary disease with (acute) exacerbation (principal); J96.22 Acute and chronic respiratory failure with hypercapnia; I50.9 Heart failure, unspecified; Z79.82 Long term (current) use of aspirin; I25.10 Atherosclerotic heart disease of native coronary artery without angina pectoris; E78.00 Pure hypercholesterolemia, unspecified; G47.33 Obstructive sleep apnea (adult) (pediatric); E11.9 Type 2 diabetes mellitus without complications; Z87.891 Personal history of nicotine dependence; I11.0 Hypertensive heart disease with heart failure; Z20.822 Contact with and (suspected) exposure to COVID-19
CPT/HCPCS: 36415; 36600; 71045; 80048; 80053; 82104; 82375; 82805; 82948; 83036; 83050; 83605; 83615; 83735; 83880; 84443; 84484; 85025; 85027; 85380; 87040; 93005; 93306; 94002; 94618; 94640; 94762; 96365; 96366; 96372; 96374; 96375; 96376; 97161; 99285; A9270; C9803; G0378; J0456; J1650; J1815; J1940; J2930; J7060; J7512; U0003; U0005

== ENCOUNTER 2022-03-23 07:59 | Outpatient (CLI) | payer MEDICARE, SELFPAY ==
--- NOTE | 2022-03-23 09:32 | WPDPFTINT ---
PFT Procedure Performed PFT Procedure Performed Spirometry with Pre/Post Bronchodilator Plethysmography (Lung Vol) Diffusing Cap (DLCO) Flow Vol Loop PFT Interpretation Lung volumes were measured with the body plethysmography method. The diminished lung volumes are indicative of a mild restrictive respiratory disease. Spirometry showed diminished expiratory flow rates and diminished FEV1 to FVC ratio 66%, indicative of coexisting obstructive airway disease. Following administration of a bronchodilator there was no significant increase in expiratory flow rates. Lung diffusion capacity is mildly reduced at 59% predicted. The flow volume loop is consistent with small airway disease. Impression: Probable combined restrictive respiratory and obstructive airway disease with no response to bronchodilators on this testing. Mild reduction in lung diffusion capacity.
== END 2022-03-23 08:00 | disposition home or self-care (01) ==
LOC: ANHPFT 08:01
PROVIDERS: PCP Family Medicine; Visit Provider Internal Medicine Pulmonary Disease
DX: R06.00 Dyspnea, unspecified (principal); R94.2 Abnormal results of pulmonary function studies
CPT/HCPCS: 94060; 94726; 94729

== ENCOUNTER 2022-08-01 11:00 | Emergency (ER) | payer MEDICARE, SELFPAY ==
--- NOTE | ~2022-08-01 | XR_ITS ---
EXAMINATION: XR chest 2V DATE: 08/01/2022 11:48 INDICATION: Shortness of breath. TECHNIQUE: Frontal and lateral views of the chest were obtained. COMPARISON: Chest single view 02/19/2022 FINDINGS: There is mild atelectasis in the lower lung zones. No pleural effusion or pneumothorax. The heart size is normal. There are changes of anterior fusion procedure in cervical spine. IMPRESSION: 1. Mild atelectasis in the lower lung zones. Reviewed, dictated and finalized at location A.
[2022-08-01 11:06] VITALS: PULSE 76; RESP 20; TEMP 36.4; O2SAT 94
--- NOTE | 2022-08-01 11:12 | ECG_ITS ---
Measurements Intervals [place] Rate: 79 P: 53 SD: 168 QRS: 23 QRSD: 108 T: 48 QT: 364 QTc: 418 Interpretive Statements SINUS RHYTHM MINIMAL Q WAVES- INFERIOR LEADS BORDERLINE ECG COMPARED TO ECG 02/19/2022 12:13:06 NO SIGNIFICANT CHANGES Electronically Signed On 08-01-2022 12:53:34 CDT by Harvey Addison D.O.
--- NOTE | 2022-08-01 11:25 | ED.GENADULT ---
HPI - General Adult General Chief complaint: Shortness of Breath/Dyspnea Stated complaint: sob Time Seen by Provider: 08/01/22 11:12 History of Present Illness HPI narrative: 67-year-old male presented to the emergency department for evaluation of increased shortness of breath. Patient states that the symptoms have been worsening since Monday. Patient states he has had cough congestion fevers and chills. Patient denies any current chest pain. Patient does have a prior history of COPD does use breathing treatments. Patient is normally on 4 L of oxygen at all times. Patient has history of congestive heart failure, COPD, type 2 diabetes Patient denies ever having COVID. Related Data Home Medications Medication Instructions Recorded Confirmed aspirin 81 mg tablet,delayed 81 mg PO DAILY 03/24/19 03/15/22 release (Betzy Low Dose Aspirin) clopidogrel 75 mg tablet 75 mg PO DAILY 03/24/19 03/15/22 losartan 100 1 tablet PO DAILY 03/24/19 03/15/22 mg-hydrochlorothiazide 25 mg tablet metformin 1,000 mg tablet 1,000 mg PO BID 03/24/19 03/15/22 metoprolol succinate 50 mg capsule 50 mg PO DAILY 03/24/19 03/15/22 sprinkle, ext. release 24 hr sitagliptin phosphate 100 mg 100 mg PO DAILY 03/24/19 03/15/22 tablet (Januvia) Allergies Allergy/AdvReac Type Severity Reaction Status Date / Time atropine Allergy Unknown Nausea and Verified 03/15/22 11:18 Vomiting olmesartan Allergy Unknown Other Verified 03/15/22 11:18 Tetanus Vaccines and Toxoid Allergy Unknown Other Verified 03/15/22 11:18 codeine AdvReac Unknown Palpitation Verified 03/15/22 11:18 s hydrocodone AdvReac Unknown Nausea and Verified 03/15/22 11:18 Vomiting morphine AdvReac Unknown Nausea and Verified 03/15/22 11:18 Vomiting Review of Systems Review of Systems: All systems reviewed & are unremarkable except as noted in HPI and below PMFSH Past Medical History Medical History Anxiety Asthma Chronic obstructive pulmonary disease Chronic respiratory failure with hypoxia, on home O2 therapy P.r.n. oxygen, mainly at nighttime. Coronary artery disease Status post stent x3. Depression Diverticulitis Hypercholesterolemia Hypertension Obstructive sleep apnea Intolerant to CPAP. Type 2 diabetes mellitus Hemoglobin A1c was 7.4% on 03/08/2021. 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 History of fusion of cervical spine History of laparoscopic cholecystectomy (02/2003) Family History Family History Sibling Cerebrovascular accident Mother No problems noted. Father No problems noted. Other Cancer Diabetes mellitus Hypertension Social History Social History (Updated 03/15/22 @ 11:21 by Teresa Pop MA) Social History: Surrogate decision maker: Marcelle Pollock, . Code status: Full code. Smoking packs per day: 1 Smoking cigarettes per day: 20.0 Years smoked: 20 Smoking pack-years: 20.00 Smoking status: Former smoker Tobacco type: cigarettes Second hand tobacco smoke exposure: Yes Smoking end date: 05/22/89 Alcohol intake: former Substance use: never Substance use type: does not use Living arrangements: with family Additional living arrangements comments: Lives in [place] with his . Occupation/Education: retired Additional occupation/education comments: Disabled. Spiritual care concerns: No Exam Narrative: APPEARANCE: Well appearing, no pain, no distress, well-nourished. HEAD: normocephalic, atraumatic. EYES: PERRLA/EOMI, conjunctivae clear. NOSE: Normal no drainage EARS:TMS clear with good light reflex. Cerumen in right ear THROAT:
[2022-08-01 12:06] LABS: Basophils Absolute Auto 0.1 K/mm3 (0.0-0.1); Basophils Percent Auto 0.8 % (0.2-1.2); Eosinophils Absolute Auto 0.1 K/mm3 (0-0.3); Eosinophils Percent Auto 1.9 % (0-4.4); Hematocrit 42.1 % (42.0-52.0); Hemoglobin 13.8 g/dL (14.0-18.0); Immature Granulocyte Absolute 0.03 K/mm3 (0.00-0.031); Immature Granulocyte Percent A 0.4 % (0-0.5); Lymphocytes Absolute Auto 1.04 K/mm3 (0.9-3.2); Lymphocytes Percent Auto 14.4 % (18.3-44.2); Mean Corpuscular HGB Conc 32.8 g/dl (32-36); Mean Corpuscular Hemoglobin 28.6 pg (26-34); Mean Corpuscular Volume 87.3 fl (80-100); Mean Platelet Volume 9.8 fl (7.4-10.4); Monocytes Absolute Auto 0.8 K/mm3 (0.1-0.6); Monocytes Percent Auto 10.5 % (2.6-8.5); Neutrophils Absolute Auto 5.2 K/mm3 (1.3-6.7); Platelet Count Result 177 k/mm3 (150-375); Red Blood Count 4.82 M/mm3 (4.6-6.20); Red Cell Distribution Width 13.8 % (11.5-14.5); White Blood Count 7.2 K/mm3 (4.5-10.0)
[2022-08-01 12:40] LABS: Alanine Aminotransferase 23 U/L (6-50); Albumin Level 3.9 g/dL (3.5-5.1); Alkaline Phosphatase 86 U/L (38-126); Anion Gap 3 mmol/L (8-16); Aspartate Amino Transferase 19 U/L (17-59); Bilirubin,Total 0.6 mg/dL (0.2-1.3); Blood Urea Nitrogen 19 mg/dL (9-20); Calcium 8.5 mg/dL (8.4-10.2); Carbon Dioxide 36 mmol/L (22-30); Chloride 97 mmol/L (98-107); Estimated CRCL calculation 95 ml/min; Estimated Glomerular Filt Rate > 60; Glucose 205 mg/dL (65-110); Potassium 3.4 mmol/L (3.4-5.0); Sodium 136 mmol/L (137-145)
[2022-08-01 12:47] LABS: NT Pro B Type Natriuretic Pept < 20 pg/mL (19.9-100)
[2022-08-01 13:32] VITALS: O2SAT 96
[2022-08-01 14:02] LABS: Influenza A QL RT-PCR Negative (Negative); Influenza B QL RT-PCR Negative (Negative); RSV RNA, RT-PCR Negative (Negative); SARS-CoV-2 RNA PCR Positive
[2022-08-01 14:45] VITALS: BP 136/77; PULSE 87; RESP 18; O2SAT 95
== END 2022-08-01 14:46 | disposition home or self-care (01) ==
PROVIDERS: Emergency Provider Emergency Medicine; PCP Family Medicine
DX: U07.1 COVID-19 (principal); J44.9 Chronic obstructive pulmonary disease, unspecified; I10 Essential (primary) hypertension; E11.9 Type 2 diabetes mellitus without complications; I25.10 Atherosclerotic heart disease of native coronary artery without angina pectoris; Z87.891 Personal history of nicotine dependence
CPT/HCPCS: 36415; 71046; 80053; 83880; 85025; 87637; 93005; 96365; 99284; J0131

== ENCOUNTER 2022-11-30 13:50 | Emergency (ER) | payer MEDICARE, SELFPAY ==
--- NOTE | 2022-11-30 13:55 | ED.GENADULT ---
HPI - General Adult General Chief complaint: Headache Stated complaint: Headache, knot on head, pain in ear Source: patient and RN notes reviewed Mode of arrival: ambulatory Limitations: no limitations History of Present Illness HPI narrative: Patient is a 67-year-old male who presents to the [facility] with complaints of headache and right external ear pain. patient states that his headache has been ongoing for over a month. He has intermittent blurred vision with the headache is present. Patient also states that he noticed a few bumps on his head. Denies any drainage from the areas. Denies redness or warmth. He complains of severe swelling near his right ear. Denies recent fevers or chills. Patient reports extensive past medical history. Related Data Home Medications Medication Instructions Recorded Confirmed aspirin 81 mg tablet,delayed 81 mg PO DAILY 03/24/19 11/30/22 release (Betzy Low Dose Aspirin) clopidogrel 75 mg tablet 75 mg PO DAILY 03/24/19 11/30/22 losartan 100 1 tablet PO DAILY 03/24/19 11/30/22 mg-hydrochlorothiazide 25 mg tablet metoprolol succinate 50 mg capsule 50 mg PO DAILY 03/24/19 11/30/22 sprinkle, ext. release 24 hr sitagliptin phosphate 100 mg 100 mg PO DAILY 03/24/19 11/30/22 tablet (Januvia) Allergies Allergy/AdvReac Type Severity Reaction Status Date / Time atropine Allergy Unknown Nausea and Verified 11/30/22 14:08 Vomiting olmesartan Allergy Unknown Other Verified 11/30/22 14:08 Tetanus Vaccines and Toxoid Allergy Unknown Other Verified 11/30/22 14:08 codeine AdvReac Unknown Palpitation Verified 11/30/22 14:08 s hydrocodone AdvReac Unknown Nausea and Verified 11/30/22 14:08 Vomiting morphine AdvReac Unknown Nausea and Verified 11/30/22 14:08 Vomiting Review of Systems Review of Systems: CONSTITUTIONAL: Denies fever, chills, or sweats. EYES: Denies redness or discharge. ENT: Denies sore throat. Reports right external ear pain. Denies ear drainage. CARDIOVASCULAR: Denies chest pain, palpitations, or edema. RESPIRATORY: Denies cough or dyspnea. GASTROINTESTINAL: Denies abdominal pain, nausea, vomiting, or diarrhea. GENITOURINARY: Denies dysuria or hematuria. SKIN: Denies rash or itching. Reports bumps to scalp. MUSCULOSKELETAL: Denies back pain, joint pain, or myalgia. NEUROLOGIC: Reports headache, but denies numbness and weakness. Pertinent positives per HPI. [facility] Past Medical History Medical History Anxiety Asthma Chronic obstructive pulmonary disease Chronic respiratory failure with hypoxia, on home O2 therapy P.r.n. oxygen, mainly at nighttime. Coronary artery disease Status post stent x3. Depression Diverticulitis Hypercholesterolemia Hypertension Obstructive sleep apnea Intolerant to CPAP. Type 2 diabetes mellitus Hemoglobin A1c was 7.4% on 03/08/2021. 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 History of fusion of cervical spine History of laparoscopic cholecystectomy (02/2003) Family History Family History Sibling Cerebrovascular accident Mother No problems noted. Father No problems noted. Other Cancer Diabetes mellitus Hypertension Social History Social History Social History: Surrogate decision maker: Marcelle Pollock, . Code status: Full code. Smoking packs per day: 1 Smoking cigarettes per day: 20.0 Years smoked: 20 Smoking pack-years: 20.00 Smoking status: Former smoker Tobacco type: cigarettes Second hand tobacco smoke exposure: Yes Smoking end date: 05/22/89 Alcohol intake: former
[2022-11-30 14:00] VITALS: BP 124/61; PULSE 80; RESP 16; TEMP 36.6; O2SAT 88
== END 2022-11-30 14:30 | disposition short-term general hospital (02) ==
PROVIDERS: Emergency Provider Nurse Practitioner; PCP Family Medicine
DX: K11.1 Hypertrophy of salivary gland (principal); Z87.891 Personal history of nicotine dependence; J44.9 Chronic obstructive pulmonary disease, unspecified; I25.10 Atherosclerotic heart disease of native coronary artery without angina pectoris; Z95.5 Presence of coronary angioplasty implant and graft; E78.00 Pure hypercholesterolemia, unspecified; I10 Essential (primary) hypertension; G47.33 Obstructive sleep apnea (adult) (pediatric); E11.9 Type 2 diabetes mellitus without complications; Z79.82 Long term (current) use of aspirin
CPT/HCPCS: 87081; 87880; 99213; G0463

== ENCOUNTER 2022-11-30 14:54 | Emergency (ER) | payer MEDICARE, SELFPAY ==
[2022-11-30 15:10] VITALS: BP 120/58; PULSE 73; RESP 24; TEMP 36.3; O2SAT 90
[2022-11-30 15:42] VITALS: O2SAT 92
--- NOTE | 2022-11-30 16:55 | PC.NURSE ---
pt was seen leaving the ED, asked pt if he was leaving pt continued walking and yelled yes . crosscutter rolled glass aware
== END 2022-11-30 16:55 | disposition left against medical advice (07) ==
LOC: ANHED 17:14
PROVIDERS: PCP Family Medicine
DX: R51.9 Headache, unspecified (principal)
CPT/HCPCS: 99199

== ENCOUNTER 2022-12-08 14:43 | Outpatient (CLI) | payer MEDICARE, SELFPAY ==
--- NOTE | ~2022-12-08 | CT_ITS ---
EXAMINATION: CT soft tissue neck w con DATE: 12/08/2022 15:32 INDICATION: Mass of right parotid gland. TECHNIQUE: Computed tomography (CT) of the neck was performed with 75 mL Omnipaque-350 intravenous co ntrast. Automated exposure control and iterative reconstruction technique were employed. The dose-matt gth product was 567.10 mGy-cm. COMPARISON: None FINDINGS: The visualized portions of the lung apices demonstrate emphysema. There are likely changes of ocular lens replacement surgeries. There are no pathologically enlarged lymph nodes. There is plaq ue in the proximal internal carotid arteries with less than 50% stenosis relative to normal distal ar jose j lumen diameters. There is a sialolith in right parotid gland. There is no abnormal mass. There i s multifocal dental disease. There are changes of anterior fusion procedure at C5-C6. There is mild c ervical spondylosis. IMPRESSION: 1. No abnormal parotid mass. Reviewed, dictated and finalized at location A.
[2022-12-08 15:15] LABS: Estimated Glomerular Filt Rate > 60
== END 2022-12-08 14:44 | disposition home or self-care (01) ==
PROVIDERS: PCP Family Medicine; Visit Provider Family Medicine
DX: R22.1 Localized swelling, mass and lump, neck (principal)
CPT/HCPCS: 70491; Q9967

== ENCOUNTER 2023-03-25 16:30 | Emergency (ER) | payer MEDICARE, SELFPAY ==
[2023-03-25] VITALS (10 sets, daily range): BP systolic 97–113; BP diastolic 52–64; PULSE 74–93; RESP 14–26; TEMP 36.7; O2SAT 96–99
--- NOTE | ~2023-03-25 | XR_ITS ---
EXAMINATION: XR chest 2V DATE: 03/25/2023 16:58 INDICATION: Syncope TECHNIQUE: frontal and lateral views of the chest were obtained. COMPARISON: Chest radiograph dated 08/01/[address] dated 03/11/2021 FINDINGS: Hyperexpansion of lungs with increased lucency and architectural distortion in the bilateral upper jasiel ng zones and bronchovascular crowding in the infrahilar regions consistent with emphysema better appr eciated on the prior CT. Again seen is a prominent left paracardial fat pad and lateral sided subpleu ral fat at the left lower lung zone. Persistent linear discoid atelectasis/scarring the right lower l cecilia zone. No pulmonary edema, pleural effusion or pneumothorax. Heart size is normal. Coronary artery stenting. Plate-screw fixation for lower cervical anterior spinal fusion. IMPRESSION: 1. Emphysema with chronic opacities at the bilateral lower lung zones corresponding to discoid atelec tasis/scarring on the right and prominent paracardial and subpleural fat on the left. Reviewed, dictated and finalized at location A. IMPRESSION: 1. Emphysema with chronic opacities at the bilateral lower lung zones correspon ding to discoid atelectasis/scarring on the right and prominent paracardial and subpleural fat on the left.
--- NOTE | 2023-03-25 16:32 | ECG_ITS ---
Measurements Intervals [place] Rate: 90 P: 46 [place]: 157 QRS: 31 QRSD: 109 T: 45 QT: 348 QTc: 426 Interpretive Statements SINUS RHYTHM MINIMAL Q WAVES- INFERIOR LEADS BORDERLINE ECG COMPARED TO ECG 08/01/2022 11:21:05 NO SIGNIFICANT CHANGES Electronically Signed On 03-25-2023 16:55:02 CDT by Harvey Addison D.O.
[2023-03-25 16:53] LABS: Basophils Absolute Auto 0.1 K/mm3 (0.0-0.1); Basophils Percent Auto 0.7 % (0.2-1.2); Eosinophils Absolute Auto 0.2 K/mm3 (0-0.3); Eosinophils Percent Auto 1.8 % (0-4.4); Hematocrit 45.3 % (42.0-52.0); Hemoglobin 14.3 g/dL (14.0-18.0); Immature Granulocyte Absolute 0.03 K/mm3 (0.00-0.031); Immature Granulocyte Percent A 0.3 % (0-0.5); Lymphocytes Absolute Auto 1.83 K/mm3 (0.9-3.2); Lymphocytes Percent Auto 20.3 % (18.3-44.2); Mean Corpuscular HGB Conc 31.6 g/dl (32-36); Mean Corpuscular Hemoglobin 29.4 pg (26-34); Mean Platelet Volume 9.5 fl (7.4-10.4); Monocytes Absolute Auto 0.9 K/mm3 (0.1-0.6); Monocytes Percent Auto 9.7 % (2.6-8.5); Neutrophils Absolute Auto 6.1 K/mm3 (1.3-6.7); Neutrophils Percent Auto 67.2 % (45.5-73.1); Platelet Count Result 199 k/mm3 (150-375); Red Blood Count 4.87 M/mm3 (4.6-6.20); Red Cell Distribution Width 14.2 % (11.5-14.5)
[2023-03-25 17:05] LABS: INR 0.9; Prothrombin Time 12.6 Seconds (11.1-14.7)
[2023-03-25 17:06] LABS: Partial Thromboplastin Time 23.5 SECONDS (22.3-36.8)
[2023-03-25 17:08] LABS: Alanine Aminotransferase 21 U/L (6-50); Albumin Level 3.9 g/dL (3.5-5.1); Alkaline Phosphatase 85 U/L (38-126); Aspartate Amino Transferase 25 U/L (17-59); Bilirubin,Total 0.7 mg/dL (0.2-1.3); Blood Urea Nitrogen 37 mg/dL (9-20); Calcium 9.3 mg/dL (8.4-10.2); Carbon Dioxide > 40 mmol/L (22-30); Chloride 90 mmol/L (98-107); Estimated CRCL calculation 53 ml/min; Estimated Glomerular Filt Rate 47; Glucose 248 mg/dL (65-110); Lipase 154 U/L (23-300); Potassium 3.2 mmol/L (3.4-5.0); Sodium 135 mmol/L (137-145)
[2023-03-25 17:15] LABS: NT Pro B Type Natriuretic Pept < 20 pg/mL (19.9-100); Troponin I < 0.012 ng/mL (0.000-0.034)
[2023-03-25] MEDS: SODIUM CHLORIDE 0.9% IV 1,000 ML 999 ML IV CONT (17:32)
--- NOTE | 2023-03-25 17:38 | ED.SYNCOPE ---
HPI - Syncope General Chief Complaint: Syncope Stated Complaint: syncope Time Seen by Provider: 03/25/23 16:45 History of Present Illness HPI narrative: Patient is a 67-year-old male with a history of hypertension, COPD on 4 L O2, CAD presenting after syncopal episode. Patient states that he stood up from a sitting position when he suddenly felt lightheaded. States that he started to pass out so he lowered himself to the floor and landed on his knees and hands. States that he did not completely lose consciousness. The sensation passed with rest and they called EMS. No chest pain, palpitations, shortness of breath. No nausea or vomiting. States that he is always on 4 L of oxygen and his breathing feels normal. Currently, he denies any complaints. States that he feels well. States that he has had decreased p.o. intake lately. No fevers or chills, cough, abdominal pain, diarrhea, leg swelling. Related Data Home Medications Medication Instructions Recorded Confirmed aspirin 81 mg tablet,delayed 81 mg PO DAILY 03/24/19 11/30/22 release (Betzy Low Dose Aspirin) clopidogrel 75 mg tablet 75 mg PO DAILY 03/24/19 11/30/22 losartan 100 1 tablet PO DAILY 03/24/19 11/30/22 mg-hydrochlorothiazide 25 mg tablet metoprolol succinate 50 mg capsule 50 mg PO DAILY 03/24/19 11/30/22 sprinkle, ext. release 24 hr sitagliptin phosphate 100 mg 100 mg PO DAILY 03/24/19 11/30/22 tablet (Januvia) Allergies Allergy/AdvReac Type Severity Reaction Status Date / Time atropine Allergy Unknown Nausea and Verified 11/30/22 15:41 Vomiting olmesartan Allergy Unknown Other Verified 11/30/22 15:41 Tetanus Vaccines and Toxoid Allergy Unknown Other Verified 11/30/22 14:08 codeine AdvReac Unknown Palpitation Verified 11/30/22 15:41 s hydrocodone AdvReac Unknown Nausea and Verified 11/30/22 15:41 Vomiting morphine AdvReac Unknown Nausea and Verified 11/30/22 15:41 Vomiting Review of Systems Review of Systems: All systems reviewed & are unremarkable except as noted in HPI and below PMFSH Past Medical History Medical History Anxiety Asthma Chronic obstructive pulmonary disease Chronic respiratory failure with hypoxia, on home O2 therapy P.r.n. oxygen, mainly at nighttime. Coronary artery disease Status post stent x3. Depression Diverticulitis Hypercholesterolemia Hypertension Obstructive sleep apnea Intolerant to CPAP. Type 2 diabetes mellitus Hemoglobin A1c was 7.4% on 03/08/2021. 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 History of fusion of cervical spine History of laparoscopic cholecystectomy (02/2003) Family History Family History Sibling Cerebrovascular accident Mother No problems noted. Father No problems noted. Other Cancer Diabetes mellitus Hypertension Social History Social History Social History: Surrogate decision maker: Marcelle Pollock, . Code status: Full code. Smoking packs per day: 1 Smoking cigarettes per day: 20.0 Years smoked: 20 Smoking pack-years: 20.00 Smoking status: Former smoker Tobacco type: cigarettes Second hand tobacco smoke exposure: Yes Smoking end date: 05/22/89 Alcohol intake: former Substance use: never Substance use type: does not use Living arrangements: with family Additional living arrangements comments: Lives in [place] with his . Occupation/Education: retired Additional occupation/education comments: Disabled. Spiritual care concerns: No Exam Narrative: GENERAL: Chronically ill-appearing, in no ac
[2023-03-25] MEDS: ALBUTEROL SULFATE NEB 2.5 MG/3 ML INH 10 MG INHALATION (17:47)
[2023-03-25] MEDS: IPRATROPIUM BR 0.02% INH SOLN 0.5 MG/2.5 ML VIAL INHALATION (17:47)
[2023-03-25] MEDS: POTASSIUM CHLORIDE 20 MEQ ER TABLET 40 MEQ PO (18:58)
== END 2023-03-25 19:08 | disposition home or self-care (01) ==
PROVIDERS: Emergency Provider Emergency Medicine; PCP Family Medicine
DX: I95.1 Orthostatic hypotension (principal); I10 Essential (primary) hypertension; I25.10 Atherosclerotic heart disease of native coronary artery without angina pectoris; J43.9 Emphysema, unspecified; J96.11 Chronic respiratory failure with hypoxia; E11.9 Type 2 diabetes mellitus without complications; E78.00 Pure hypercholesterolemia, unspecified; G47.33 Obstructive sleep apnea (adult) (pediatric); Z99.81 Dependence on supplemental oxygen; Z95.5 Presence of coronary angioplasty implant and graft; Z87.891 Personal history of nicotine dependence; Z98.1 Arthrodesis status; Z90.49 Acquired absence of other specified parts of digestive tract; Z89.022 Acquired absence of left finger(s); Z79.82 Long term (current) use of aspirin; Z79.84 Long term (current) use of oral hypoglycemic drugs; R94.31 Abnormal electrocardiogram [ECG] [EKG]
CPT/HCPCS: 36415; 71046; 80053; 83690; 83880; 84484; 85025; 85610; 85730; 93005; 94640; 96360; 99284; A9270; J7030

== ENCOUNTER 2023-04-04 10:04 | Emergency (ER) | payer MEDICARE, SELFPAY ==
[2023-04-04] VITALS (18 sets, daily range): BP systolic 125–160; BP diastolic 61–85; PULSE 79–96; RESP 18–34; TEMP 36.6; O2SAT 81–99
--- NOTE | ~2023-04-04 | XR_ITS ---
XR chest 2V DATE: 04/04/2023 10:44 INDICATION: Shortness of breath TECHNIQUE: AP and lateral views COMPARISON: 03/2023 2 view chest FINDINGS: There are increased bilateral mid and particularly bilateral basilar infiltrates and/atelec tasis since 03/2023. Cannot exclude small pleural effusions. Heart size appears within normal range. Is aortic arch calcification and mild aortic unfolding. Mild pulmonary vascular congestion is suggested. Status post anterior cervical spine fusion at C6-7. Osteopenia. IMPRESSION: Increased bilateral pulmonary infiltrates since 03/2023 Reviewed, dictated and finalized at location L. OLOGY LABORATORY DIRECTOR
--- NOTE | 2023-04-04 10:05 | ECG_ITS ---
Measurements Intervals [place] Rate: 87 P: 57 [place]: 152 QRS: 45 QRSD: 101 T: 54 QT: 325 QTc: 391 Interpretive Statements SINUS RHYTHM DELAYED PRECORDIAL R/S TRANSITION BASELINE WANDER- I, II, III, AVR, AVL, AVF, V3, V5 BORDERLINE ECG COMPARED TO ECG 03/25/2023 16:36:27 NO SIGNIFICANT CHANGES Electronically Signed On 04-04-2023 10:46:58 DYE AUTOMATION OPERATOR by Harvey Addison D.O.
[2023-04-04 11:05] LABS: Basophils Absolute Auto 0.1 K/mm3 (0.0-0.1); Basophils Percent Auto 0.6 % (0.2-1.2); Eosinophils Absolute Auto 0.2 K/mm3 (0-0.3); Eosinophils Percent Auto 1.8 % (0-4.4); Hematocrit 42.3 % (42.0-52.0); Hemoglobin 13.1 g/dL (14.0-18.0); Immature Granulocyte Absolute 0.04 K/mm3 (0.00-0.031); Immature Granulocyte Percent A 0.5 % (0-0.5); Lymphocytes Absolute Auto 1.35 K/mm3 (0.9-3.2); Lymphocytes Percent Auto 15.8 % (18.3-44.2); Mean Corpuscular Hemoglobin 29.5 pg (26-34); Mean Corpuscular Volume 95.3 fl (80-100); Monocytes Absolute Auto 0.7 K/mm3 (0.1-0.6); Monocytes Percent Auto 7.6 % (2.6-8.5); Neutrophils Absolute Auto 6.3 K/mm3 (1.3-6.7); Neutrophils Percent Auto 73.7 % (45.5-73.1); Platelet Count Result 206 k/mm3 (150-375); Red Blood Count 4.44 M/mm3 (4.6-6.20); Red Cell Distribution Width 14.6 % (11.5-14.5); White Blood Count 8.6 K/mm3 (4.5-10.0)
[2023-04-04 11:14] LABS: INR 0.9; Prothrombin Time 13.1 Seconds (11.1-14.7)
[2023-04-04 11:15] LABS: Partial Thromboplastin Time 24.4 SECONDS (22.3-36.8)
[2023-04-04 11:26] LABS: NT Pro B Type Natriuretic Pept 74 pg/mL (19.9-100); Troponin I < 0.012 ng/mL (0.000-0.034)
[2023-04-04 11:49] LABS: Alanine Aminotransferase 19 U/L (6-50); Alkaline Phosphatase 89 U/L (38-126); Anion Gap 7 mmol/L (8-16); Aspartate Amino Transferase 18 U/L (17-59); Bilirubin,Total 0.6 mg/dL (0.2-1.3); Blood Urea Nitrogen 19 mg/dL (9-20); Carbon Dioxide 39 mmol/L (22-30); Chloride 93 mmol/L (98-107); Estimated CRCL calculation 87 ml/min; Estimated Glomerular Filt Rate > 60; Glucose 279 mg/dL (65-110); Sodium 139 mmol/L (137-145)
--- NOTE | 2023-04-04 12:15 | ED.SOB ---
HPI - SOB/Dyspnea General Chief Complaint: Shortness of Breath/Dyspnea Stated Complaint: SOB, fluid retention Time Seen by Provider: 04/04/23 12:06 History of Present Illness HPI Narrative: Patient is a 67-year-old male who presents emergency department this morning complaining of shortness of breath the patient is a he does have a history of CHF and was on a water pill, he was taken off of it because it was stopping his potassium. patient does wear home oxygen, 4 L and states that he has not needed to increase his oxygen intake. Patient denies any chest pain, nausea, vomiting, abdominal pain, dysuria, hematuria, constipation, diarrhea, melena, hematochezia, fevers or chills. He also denies any headaches, dizziness, lightheadedness, blurry visions, dizziness, focal weakness, numbness and or tingling. There are no other modifying, alleviating, or precipitating factors at this time. Related Data Home Medications Medication Instructions Recorded Confirmed aspirin 81 mg tablet,delayed 81 mg PO DAILY 03/24/19 11/30/22 release (Betzy Low Dose Aspirin) clopidogrel 75 mg tablet 75 mg PO DAILY 03/24/19 11/30/22 losartan 100 1 tablet PO DAILY 03/24/19 11/30/22 mg-hydrochlorothiazide 25 mg tablet metoprolol succinate 50 mg capsule 50 mg PO DAILY 03/24/19 11/30/22 sprinkle, ext. release 24 hr sitagliptin phosphate 100 mg 100 mg PO DAILY 03/24/19 11/30/22 tablet (Januvia) Allergies Allergy/AdvReac Type Severity Reaction Status Date / Time atropine Allergy Unknown Nausea and Verified 04/04/23 10:39 Vomiting olmesartan Allergy Unknown Other Verified 04/04/23 10:39 Tetanus Vaccines and Toxoid Allergy Unknown Other Verified 04/04/23 10:39 codeine AdvReac Unknown Palpitation Verified 04/04/23 10:39 s hydrocodone AdvReac Unknown Nausea and Verified 04/04/23 10:39 Vomiting morphine AdvReac Unknown Nausea and Verified 04/04/23 10:39 Vomiting Review of Systems Review of Systems: All systems are reviewed and are negative unless stated otherwise in the HPI. COUNTS INCLUDE 234 BEDS AT THE [facility] Past Medical History Medical History Anxiety Asthma Chronic obstructive pulmonary disease Chronic respiratory failure with hypoxia, on home O2 therapy P.r.n. oxygen, mainly at nighttime. Coronary artery disease Status post stent x3. Depression Diverticulitis Hypercholesterolemia Hypertension Obstructive sleep apnea Intolerant to CPAP. Type 2 diabetes mellitus Hemoglobin A1c was 7.4% on 03/08/2021. 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 History of fusion of cervical spine History of laparoscopic cholecystectomy (02/2003) Family History Family History Sibling Cerebrovascular accident Mother No problems noted. Father No problems noted. Other Cancer Diabetes mellitus Hypertension Social History Social History Social History: Surrogate decision maker: Marcelle Pollock, . Code status: Full code. Smoking packs per day: 1 Smoking cigarettes per day: 20.0 Years smoked: 20 Smoking pack-years: 20.00 Smoking status: Former smoker Tobacco type: cigarettes Second hand tobacco smoke exposure: Yes Smoking end date: 05/22/89 Alcohol intake: former Substance use: never Substance use type: does not use Living arrangements: with family Additional living arrangements comments: Lives in [place] with his . Occupation/Education: retired Additional occupation/education comments: Disabled. Spiritual care concerns: No Exam Narrative: General: Alert, awake, afebrile, in no acute distress. HEENT:
== END 2023-04-04 14:33 | disposition home or self-care (01) ==
PROVIDERS: Student in an Organized Health Care Education/Training Program; Emergency Provider Emergency Medicine; PCP Family Medicine
DX: J18.9 Pneumonia, unspecified organism (principal); R91.8 Other nonspecific abnormal finding of lung field; I11.0 Hypertensive heart disease with heart failure; I50.9 Heart failure, unspecified; J44.9 Chronic obstructive pulmonary disease, unspecified; I25.10 Atherosclerotic heart disease of native coronary artery without angina pectoris; E11.9 Type 2 diabetes mellitus without complications; Z87.891 Personal history of nicotine dependence; Z99.81 Dependence on supplemental oxygen
CPT/HCPCS: 36415; 71046; 80053; 83880; 84484; 85025; 85610; 85730; 93005; 99284

== ENCOUNTER 2023-05-16 07:37 | Outpatient (CLI) | payer MEDICARE, SELFPAY ==
[2023-05-16] VITALS (7 sets, daily range): PULSE 82–103; O2SAT 86–92
--- NOTE | 2023-05-16 09:28 | HOMEO2EVAL ---
Evaluation was performed at [facility] Home Oxygen Evaluation RC: Home Oxygen (O2) Evaluation Start: 05/16/23 09:25 Freq: Status: Active Protocol: RPE Activity Type Activity Date Activity User E-sign Co-sign Detail Recorded Client Recorded Date Recorded By Document 05/16/23 08:30 [email or web address] [email or web address] 05/16/23 09:28 MINI Document 05/16/23 08:31 [email or web address] [email or web address] 05/16/23 09:28 MINI Document 05/16/23 08:32 [email or web address] [email or web address] 05/16/23 09:28 MINI Document 05/16/23 08:33 [email or web address] [email or web address] 05/16/23 09:28 MINI Document 05/16/23 08:36 [email or web address] [email or web address] 05/16/23 09:28 MINI Document 05/16/23 08:37 [email or web address] [email or web address] 05/16/23 09:28 MINI Document 05/16/23 08:45 MINI [email or web address] 05/16/23 09:28 MINI 05/16/23 05/16/23 05/16/23 08:30 08:31 08:32 Home O2 Evaluation [Oxygen] -Test Phase Resting Resting Resting -Oxygen Delivery Room Air Nasal Cannula Nasal Cannula -Oxygen Flow Rate (L/min) 2 3 [Pulse Oximetry] -Pulse Oximetry (90-100 %) 87 L 87 L 87 L [Pulse Rate] -Pulse Rate (60-100 beats/min) [Exercise] -Ambulation Distance (feet) -Ambulation Distance (meters) [Comments] -Home Oxygen Evaluation Comments [Charges] -Evaluation Charges 05/16/23 05/16/23 05/16/23 08:33 08:36 08:37 Home O2 Evaluation [Oxygen] -Test Phase Resting Exercise Exercise -Oxygen Delivery Nasal Cannula Nasal Cannula Nasal Cannula -Oxygen Flow Rate (L/min) 4 4 5 [Pulse Oximetry] -Pulse Oximetry (90-100 %) 91 86 L 89 L [Pulse Rate] -Pulse Rate (60-100 beats/min) 86 101 H 103 H [Exercise] -Ambulation Distance (feet) 400 -Ambulation Distance (meters) 121.91 [Comments] -Home Oxygen Evaluation Comments PT REQUIRES 4 L REST AND 5 L WITH ACTIVITY [Charges] -Evaluation Charges O2 Evaluation by Pulmonary 05/16/23 08:45 Home O2 Evaluation [Oxygen] -Test Phase Resting -Oxygen Delivery Nasal Cannula -Oxygen Flow Rate (L/min) 4 [Pulse Oximetry] -Pulse Oximetry (90-100 %) 92 [Pulse Rate] -Pulse Rate (60-100 beats/min) 82 [Exercise] -Ambulation Distance (feet) -Ambulation Distance (meters) [Comments] -Home Oxygen Evaluation Comments [Charges] -Evaluation Charges
--- NOTE | 2023-05-16 12:25 | P.PCNPFT_ITS ---
PFT Procedure Performed PFT Procedure Performed Spirometry with Pre/Post Bronchodilator Plethysmography (Lung Vol) Diffusing Cap (DLCO) Flow Vol Loop PFT Interpretation This is a pulmonary function test with pre and post-bronchodilator spirometry, plethysmography and diffusing capacity. The test was performed and results interpreted in accordance with the 2019 and 2005 ATS/ERS Task Force guidelines respectively using the Global Lung Function Initiative-2012 reference equations. Patient demonstrated good effort and cooperation. Reproducibility criteria were met. The quality of the pre bronchodilator spirometry maneuver was Grade A and post bronchodilator spirometry maneuver was Grade A. Findings: Spirometry: There is decreased maximal expiratory airflow at all lung volumes with concave expiratory flow tracing. The contour the inspiratory flow tracing is normal. The pre bronchodilator FVC is 1.91 L, 47% predicted. The pre bronchodilator FEV1 is 0.90 L, 29% predicted. The pre bronchodilator FEV1: FVC ratio is 47%. The post bronchodilator FVC is 1.83 L, representing a 4% decrease. The post bronchodilator FEV1 is 1.13 L, representing a 26% increase. The post bronchodilator FEV1: FVC ratio is 62%. Plethysmography: The total lung capacity is 4.30 L, 65% predicted. The functional residual capacity is 2.69 L, 77% predicted. The residual volume is 2.27 L, 99% predicted. Plethysmography: The diffusing capacity unadjusted for hemoglobin and carboxyhemoglobin is 8.6, 33% predicted. The diffusing capacity adjusted for alveolar volume is 3.18, 77% predicted. In comparison to previous pulmonary function testing on 03/23/2022 the post bronchodilator FVC has decreased from 2.80 L to 1.83 L. The post bronchodilator FEV1 is decreased from 1.83 L to 1.13 L. The total lung capacity has decreased from 5.17 L to 4.30 L. The functional residual capacity is increased from 2.30 L to 2.69 L. The residual volume unchanged from 2.18 L to 2.27 L. The diffusing capacity unadjusted for hemoglobin and carboxyhemoglobin is decreased from 15.6 to 8.6. The diffusing capacity adjusted for alveolar volume is unchanged from 3.68 to 3.18. Impression: There is a combined obstructive and restrictive ventilatory abnormality. There are no guidelines to assign the severity of obstruction and restriction with a combined abnormality. In my opinion, given the moderately concave expiratory flow tracing, decreased FEV1: FVC ratio and moderate restrictive abnormality I would state there is a severe obstructive abnormality and a moderate restrictive abnormality resulting in a very severe decrease in the FEV1. There is significant improvement after inhaling a single dose of al buterol. The diffusing capacity unadjusted for hemoglobin and carboxyhemoglobin is severely decreased and normalizes when adjusted for alveolar volume. When compared to prior pulmonary function testing on 03/23/2022 there has been a greater than anticipated time dependent decrease in the FVC, FEV1, total lung capacity and diffusing capacity unadjusted for hemoglobin and carboxyhemoglobin. There has been a greater than anticipated time dependent increase in the functional residual capacity with no significant change in the residual volume or diffusing capacity adjusted for alveolar volume. Clinical correlation is recommended.
== END 2023-05-16 07:38 | disposition home or self-care (01) ==
LOC: ANHPFT 07:38
PROVIDERS: PCP Family Medicine; Visit Provider Internal Medicine Pulmonary Disease
DX: J44.9 Chronic obstructive pulmonary disease, unspecified (principal)
CPT/HCPCS: 94060; 94618; 94726; 94729

== ENCOUNTER 2023-05-29 15:57 | Emergency (ER) | payer OTHER, MEDICARE, SELFPAY ==
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
[2023-05-29 16:12] VITALS: BP 129/70; PULSE 96; RESP 20; TEMP 36.9; O2SAT 90
== END 2023-05-29 16:39 | disposition home or self-care (01) ==
PROVIDERS: Emergency Provider Nurse Practitioner; PCP Family Medicine
DX: S81.802A Unspecified open wound, left lower leg, initial encounter (principal); V49.9XXA Car occupant (driver) (passenger) injured in unspecified traffic accident, initial encounter; J44.9 Chronic obstructive pulmonary disease, unspecified; Z99.81 Dependence on supplemental oxygen; I25.10 Atherosclerotic heart disease of native coronary artery without angina pectoris; Z95.5 Presence of coronary angioplasty implant and graft; E78.00 Pure hypercholesterolemia, unspecified; I10 Essential (primary) hypertension; G47.33 Obstructive sleep apnea (adult) (pediatric); E11.9 Type 2 diabetes mellitus without complications; Z87.891 Personal history of nicotine dependence; Z79.82 Long term (current) use of aspirin
CPT/HCPCS: 99213; G0463

== ENCOUNTER 2023-07-27 13:37 | Outpatient (CLI) | payer MEDICARE, SELFPAY ==
--- NOTE | ~2023-07-27 | CT_ITS ---
EXAMINATION:CT diagnostic chest wo con DATE: 07/27/2023 14:03 INDICATION: Other disorders of lung. TECHNIQUE: Computed tomography (CT) of the chest was performed without intravenous contrast. Automate d exposure control and iterative reconstruction technique were employed. The dose-length product (DLP ) was 227.82 mGy-cm. COMPARISON: Chest CT 03/11/2021 FINDINGS: There is moderate emphysema. There is mild atelectasis bilaterally. There are calcified ple ural plaques on the right. There is a stable 3 mm nodule in right upper lobe, likely benign. There is a stable 4 mm nodule in right middle lobe, likely benign. No pleural effusion. There is ectasia of a scending aorta measuring 4.0 cm. The heart size is normal. There are coronary artery calcifications. No pericardial effusion. Calcified mediastinal lymph nodes are consistent with old granulomatous dise ase. Partially visualized is a 2.4 cm cyst of right kidney. There are bridging endplate osteophytes a t multiple levels in the spine, consistent with diffuse idiopathic skeletal hyperostosis (DISH). Ther e are changes of anterior fusion procedure in cervical spine. There is mild thoracic spondylosis. IMPRESSION: 1. Moderate emphysema. Reviewed, dictated and finalized at location [facility] IMPRESSION: 1. Moderate emphysema.
== END 2023-07-27 13:38 | disposition home or self-care (01) ==
LOC: ANHIMG 13:41
PROVIDERS: PCP Family Medicine; Visit Provider Internal Medicine Pulmonary Disease
DX: J98.4 Other disorders of lung (principal); J43.9 Emphysema, unspecified
CPT/HCPCS: 71250

== ENCOUNTER 2024-05-15 20:21 | Observation (INO) | payer MEDICARE, SELFPAY ==
[2024-05-15] VITALS (22 sets, daily range): BP systolic 124–142; BP diastolic 66–86; PULSE 82–109; RESP 16–34; TEMP 36.4–37.3; O2SAT 75–100; BMI 35.6
--- NOTE | ~2024-05-15 | XR_ITS ---
EXAMINATION: XR chest 1V portable DATE: 05/15/2024 21:00 INDICATION: Shortness of breath. TECHNIQUE: A single frontal view of the chest was obtained. COMPARISON: Chest 2 views 04/04/2023, chest CT 07/27/2023 FINDINGS: There are lucencies in the lungs, consistent with emphysema. There is mild atelectasis in t he lower lung zones. No pleural effusion or pneumothorax. The heart size is normal. IMPRESSION: 1. Emphysema. 2. Mild atelectasis in the lower lung zones. Reviewed, dictated and finalized at location A. [employer]
--- NOTE | 2024-05-15 20:35 | PC.NURSE ---
pt brought back to room 8 upon arrival.
--- NOTE | 2024-05-15 20:35 | ED.SOB ---
HPI - SOB/Dyspnea General Chief Complaint: Shortness of Breath/Dyspnea Stated Complaint: cannot increase o2 above 85% Time Seen by Provider: 05/15/24 20:33 Source: patient Mode of arrival: ambulatory Limitations: no limitations History of Present Illness HPI Narrative: 68 YEARS OLD WHITE MALE CAME TO THE ED BY PRIVATE CAR COMPLAINING OF PROGRESSIVE SHORTNESS OF BREATH AND DRY COUGH FOR THE LAST 3 DAYS. HISTORY OF COPD ON 4 L OXYGEN BY NASAL CANNULA ALL THE TIME. PATIENT DENIES ANY FEVER OR CHILLS NAUSEA OR VOMITING CHEST PAIN OR BACK PAIN. HISTORY OF COPD, DIABETES, HYPERTENSION, HYPERLIPIDEMIA, CORONARY STENTS. PATIENT CURRENTLY ON ASPIRIN AND PLAVIX. HE DENIES CIGARETTE SMOKING. Related Data Home Medications ?Medication ?Instructions ?Recorded ?Confirmed ?Last Taken ?Type aspirin 81 mg tablet,delayed 81 mg PO DAILY 03/24/19 04/17/24 Unknown History release (Betzy Low Dose Aspirin) clopidogrel 75 mg tablet 75 mg PO DAILY 03/24/19 04/17/24 Unknown History losartan 100 1 tablet PO DAILY 03/24/19 04/17/24 Unknown History mg-hydrochlorothiazide 25 mg tablet metoprolol succinate 50 mg capsule 50 mg PO DAILY 03/24/19 04/17/24 Unknown History sprinkle, ext. release 24 hr Allergies Allergy/AdvReac Type Severity Reaction Status Date / Time atropine Allergy Unknown Nausea and Verified 05/15/24 21:26 Vomiting olmesartan Allergy Unknown Other Verified 05/15/24 21:26 Tetanus Vaccines and Toxoid Allergy Unknown Other Verified 05/15/24 21:26 codeine AdvReac Unknown Palpitation Verified 05/15/24 21:26 s hydrocodone AdvReac Unknown Nausea and Verified 05/15/24 21:26 Vomiting morphine AdvReac Unknown Nausea and Verified 05/15/24 21:26 Vomiting Review of Systems Review of Systems: All systems reviewed & are unremarkable except as noted in HPI and below PMFSH Past Medical History Medical History Coronary artery disease Status post stent x3. Chronic respiratory failure with hypoxia, on home O2 therapy P.r.n. oxygen, mainly at nighttime. Chronic obstructive pulmonary disease Obstructive sleep apnea Intolerant to CPAP. Type 2 diabetes mellitus Hemoglobin A1c was 7.4% on 03/08/2021. Depression Anxiety Diverticulitis Asthma Hypertension Hypercholesterolemia Surgical History Surgical History History of laparoscopic cholecystectomy (02/2003) History of cardiac catheterization (07/2017) Stent x3 [facility]. 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 Father No problems noted. Other Cancer Diabetes mellitus Hypertension Social History Social History Social History: Surrogate decision maker: Marcelle Pollock, . Code status: Full code. Smoking packs per day: 1 Smoking cigarettes per day: 20.0 Years smoked: 20 Smoking pack-years: 20.00 Smoking status: Former smoker Tobacco type: cigarettes Second hand tobacco smoke exposure: Yes Smoking end date: 05/22/89 Alcohol intake: former Substance use: never Substance use type: does not use Living arrangements: with family Additional living arrangements comments: Lives in [place] with his . Occupation/Education: retired Additional occupation/education comments: Disabled. Spiritual care concerns: No Exam Narrative: GENERAL APPEARANCE: WELL-DEVELOPED, WELL-NOURISHED SKIN: NORMAL COLOR HEAD: NORMOCEPHALIC, NONTRAUMATIC EYES: CLEAR CONJUNCTIVA ENT: OROPHARYNX NORMAL, EARS NORMAL, NOSE NORMAL NECK: SUPPLE, NONTENDER CHEST AND RESPIRATORY: EXPIRATORY WHEEZING AND RHONCHI BILATERALLY HEART: REGULAR RATE/RHYTHM ABDOMEN: SOFT, NONTENDER, NO ORGANOMEGALY, QUIET BOWEL SOUNDS MUSCULOSKELETAL: NORMAL RANGE OF MOTION, NONTENDER BACK NEUROLOGIC: ALERT AND ORIENTED ?3, UNDERCOVER COP IS NORMAL TESTED, NO GROSS MOTOR DEFICIT Course Vital Signs Vital signs: Vital Signs Temperature 37.3 C 05/15/24 20:34 Pulse Rate 109 H 05/15/24 20:34 Respiratory Rate 26 H 05/15/24 20:34 Blood Pressure 135/66 05/15/24 20:34 Pulse Oximetry 75 L 05/15/24 20:34 Temperature 37.3 C 05/15/24 20:34 Pulse Rate 97 05/15/24 22:16 Respiratory Rate 27 H 05/15/24 22:16 Blood Pressure 95/68 L 05/15/24 22:16 Pulse Oximetry 92 05/15/24 22:30 Oxygen Delivery Nasal Cannula 05/15/24 22:30 Oxygen Flow Rate 4 05/15/24 22:30 MDM - SOB/Dyspnea MDM Narrative Medical decision making narrative: PATIENT CAME TO THE ED WITH PROGRESSIVE SHORTNESS OF BREATH OVER THE LAST 3 DAYS VITAL SIGNS SHOWING HEART RATE OF 109, RESPIRATION 26, SATURATION 75% ON NON-REBREATHER MASK. PHYSICAL EXAMINATION SHOWING LABORED BREATHING, RESTLESSNESS, DIMINUTION OF AIR ENTRY BILATERALLY WITH EXPIRATORY WHEEZING AND RHONCHI DIFFERENTIAL DIAGNOSIS INCLUDES COPD EXACERBATION, PNEUMONIA, UPPER RESPIRATORY VIRAL INFECTION, DEHYDRATION, ELECTROLYTE IMBALANCE, CORONARY ARTERY DISEASE, PLEURAL EFFUSION BLOOD WORKUP TODAY INCLUDES CBC, CMP, TROPONIN, PT PTT SHOWED POTASSIUM OF 3.0, ANION GAP 2, BUN 24, CREATININE 1.7, GLUCOSE 241, BNP 250 OTHERWISE INSIGNIFICANT ABNORMALITY ABG ON NON-REBREATHER SHOWED PH 7.4 PCO2 44.7 PO2 108, BICARB 31.7, OXYGEN SATURATION 98.2% ON 15 L CHEST X-RAY SHOWED EMPHYSEMA EKG SHOWED NORMAL SINUS RHYTHM AT 92 BEATS PER MINUTE, NONSPECIFIC T-WAVE ABNORMALITY, NO PREVIOUS EKG AVAILABLE FOR COMPARISON Differential Diagnosis Differential diagnosis: Likely acute exacerbation of chronic obstructive airways disease, congestive heart failure, community acquired pneumonia and asthma with exacerbation Medical Records Attestation: I reviewed the patient's medical records. Lab Data Attestation: I reviewed the patient's lab results. 05/15/24 21:19 05/15/24 21:19 Labs: Lab Results 05/15/24 Range/Units 21:19 WBC 9.6 (4.5-10.0) K/mm3 RBC 4.01 L (4.6-6.20) M/mm3 Hgb 12.1 L (14.0-18.0) g/dL Hct 35.9 L (42.0-52.0) % MCV 89.5 (80-100) fl MCH 30.2 (26-34) pg MCHC 33.7 (32-36) g/dl RDW 13.9 (11.5-14.5) % Plt Count 206 (150-375) k/mm3 MPV 9.2 (7.4-10.4) fl Immature Gran % (Auto) 0.7 H (0-0.5) % Neut % (Auto) 79.8 H (45.5-73.1) % Lymph % (Auto) 7.3 L (18.3-44.2) % [place] % (Auto) 10.0 H (2.6-8.5) % Eos % (Auto) 1.7 (0-4.4) % Baso % (Auto) 0.5 (0.2-1.2) % Lymph # (Auto) 0.70 L (0.9-3.2) K/mm3 [place] # (Auto) 1.0 H (0.1-0.6) K/mm3 Eos # (Auto) 0.2 (0-0.3) K/mm3 Baso # (Auto) 0.1 (0.0-0.1) K/mm3 Abs Immat Gran (auto) 0.07 H (0.00-0.031) K/mm3 Absolute Neuts (auto) 7.6 H (1.3-6.7) K/mm3 Absolute Nucleated RBC 0.000 (0.0-0.012) K/mm3 Nucleated RBC % 0.0 (0.0-0.2) % PT 13.7 (11.1-14.7) Seconds INR 1.0 APTT 26.8 (22.3-36.8) Seconds Sodium 136 L (137-145) mmol/L Potassium 3.0 L (3.4-5.0) mmol/L Chloride 99 (98-107) mmol/L Carbon Dioxide 35 H (22-30) mmol/L Anion Gap 2 L (4-12) mmol/L BUN 24 H (9-20) mg/dL Creatinine 1.70 H (0.7-1.3) mg/dL Estim Creat Clear Calc Not Reportable Estimated GFR 40 L (59 - ) Glucose 241 H (65-110) mg/dL Lactic Acid 1.2 (0.7-2.0) mmol/L Calcium 9.3 (8.4-10.2) mg/dL Magnesium 1.9 (1.6-2.3) mg/dL Total Bilirubin 0.7 (0.2-1.3) mg/dL AST 23 (17-59) U/L ALT 19 (6-50) U/L Alkaline Phosphatase 61 (38-126) U/L Troponin I < 0.012 (0.000-0.034) ng/mL NT-Pro-B Natriuret Pep 250 H (19.9-100) pg/mL Total Protein 7.0 (6.3-8.2) g/dL Albumin 3.9 (3.5-5.1) g/dL Influenza A (RT-PCR) Negative (Negative) Influenza B (RT-PCR) Negative (Negative) RSV (RT-PCR) Negative (Negative) SARS-CoV-2 RNA (RT-PCR) Negative (Negative) ABG Data ABG results: 05/15/24 21:03 Puncture Site Left radial ABG pH 7.468 H ABG pCO2 44.7 ABG pO2 108.4 H ABG PO2/FiO2 Ratio 1.20 ABG HCO3 31.7 H ABG O2 Saturation 98.2 ABG O2 Content 18.1 ABG Base Excess 7.1 A-a Gradient 487.5 Oxyhemoglobin 97.7 Total Hemoglobin 13.1 O2 Delivery Device Non-rebreather mask O2 Liters/Min 15.0 FiO2 90 Imaging Data Radiologist's impression: Impressions Chest X-Ray 05/15/24 21:09 IMPRESSION: 1. Emphysema. 2. Mild atelectasis in the lower lung zones. ECG Data EKG #1: Attestation: I personally reviewed and interpreted this ECG as follows: ECG completion date: 05/15/24 Interpretation: NORMAL SINUS RHYTHM AT 92 BEATS PER MINUTE, NONSPECIFIC T-WAVE ABNORMALITY, NO PREVIOUS EKG AVAILABLE FOR COMPARISON Critical Care Time Critical Care Time Critical Care Time: No Discharge Plan Discharge Patient Disposition: Still a Patient Additional Instructions: ADMIT TO HOSPITALIST Patient Language: [place] Prescriptions: No Action clopidogrel 75 mg Tablet 75 mg PO DAILY aspirin [Betzy Low Dose Aspirin] 81 mg Tablet,Delayed Release (Dr/Ec) 81 mg PO DAILY losartan-hydrochlorothiazide 100-25 mg Tablet 1 tablet PO DAILY metoprolol succinate 50 mg Capsule,Sprinkle,Er 24hr 50 mg PO DAILY fluticasone propionate [Allergy Relief (fluticasone)] 50 mcg/actuation spray,suspension 1 spray NASAL BID Qty: 16 0RF Rx Instructions: administer into each nostril umeclidinium-vilanterol 62.5-25 mcg/actuation blister with device 1 inh inhalation DAILY Qty: 60 3RF albuterol sulfate 90 mcg/actuation HFA aerosol inhaler 2 inh inhalation Q4H PRN (Reason: shortness of breath or wheezing) Qty: 8.5 3RF ipratropium-albuterol 0.5 mg-3 mg(2.5 mg base)/3 mL solution for nebulization 3 ml inhalation QID Qty: 90 6RF doxycycline hyclate 100 mg capsule 100 mg PO DAILY Qty: 14 0RF prednisone 10 mg tablet 40 mg PO DAILY Qty: 20 0RF Follow-up/Referrals: Sebastian,Cintia Fatima MD [Non-Staff] -
--- NOTE | 2024-05-15 20:36 | ECG_ITS ---
Test Date: 2024-05-15 21:34:57 Measurements Intervals [place] Rate: 92 P: 64 UT: 160 QRS: 6 QRSD: 111 T: 62 QT: 276 QTc: 341 Interpretive Statements SINUS RHYTHM MODERATE INTRAVENTRICULAR CONDUCTION DELAY [110+ ms QRS DURATION] NONSPECIFIC T-WAVE ABNORMALITY ABNORMAL ECG No previous ECG available for comparison Electronically Signed On 05-16-2024 08:40:30 COMMERCIAL TIRE SERVICE TECHNICIAN by Shay Marcelino M.D.
[2024-05-15] MEDS: IPRATROPIUM 0.5 MG/ALBUTEROL SULFATE 2.5 MG AMPUL.NEB 3 ML INHALATION (20:59)
[2024-05-15 21:13] LABS: Alveolar/Arterial O2 Gradient 487.5 mmHg; Base Excess ABG 7.1 mEq/l (+/-2.0); Fractional Inspired Oxygen 90 %; HCO3 ABG 31.7 mEq/l (22.0-26.0); Oxygen Content ABG 18.1 %vol (16.0-22.0); Oxygen Saturation ABG 98.2 % (95.0-100.0); Oxyhemoglobin 97.7 % THb (90.0-100.0); PCO2 ABG 44.7 mmHg (35.0-45.0); PO2 ABG 108.4 mmHg (80.0-100.0); Total Hemoglobin 13.1 g/dL (12.0-18.0); pH ABG 7.468 (7.350-7.450)
[2024-05-15 21:17] LABS: Device NON-REBREATHER MASK; Modified Allen's Test Pass; Site Drawn LEFT RADIAL
[2024-05-15] MEDS: methylPREDNISolone SOD SUCC 125 MG VIAL IV PUSH (21:26)
[2024-05-15 21:27] LABS: Basophils Absolute Auto 0.1 K/mm3 (0.0-0.1); Basophils Percent Auto 0.5 % (0.2-1.2); Eosinophils Absolute Auto 0.2 K/mm3 (0-0.3); Eosinophils Percent Auto 1.7 % (0-4.4); Hematocrit 35.9 % (42.0-52.0); Hemoglobin 12.1 g/dL (14.0-18.0); Immature Granulocyte Absolute 0.07 K/mm3 (0.00-0.031); Immature Granulocyte Percent A 0.7 % (0-0.5); Lymphocytes Percent Auto 7.3 % (18.3-44.2); Mean Corpuscular HGB Conc 33.7 g/dl (32-36); Mean Corpuscular Hemoglobin 30.2 pg (26-34); Mean Corpuscular Volume 89.5 fl (80-100); Mean Platelet Volume 9.2 fl (7.4-10.4); Neutrophils Absolute Auto 7.6 K/mm3 (1.3-6.7); Neutrophils Percent Auto 79.8 % (45.5-73.1); Platelet Count Result 206 k/mm3 (150-375); Red Blood Count 4.01 M/mm3 (4.6-6.20); Red Cell Distribution Width 13.9 % (11.5-14.5); White Blood Count 9.6 K/mm3 (4.5-10.0)
[2024-05-15 21:39] LABS: Partial Thromboplastin Time 26.8 Seconds (22.3-36.8); Prothrombin Time 13.7 Seconds (11.1-14.7)
[2024-05-15 21:40] LABS: Alanine Aminotransferase 19 U/L (6-50); Albumin Level 3.9 g/dL (3.5-5.1); Alkaline Phosphatase 61 U/L (38-126); Anion Gap 2 mmol/L (4-12); Aspartate Amino Transferase 23 U/L (17-59); Bilirubin,Total 0.7 mg/dL (0.2-1.3); Blood Urea Nitrogen 24 mg/dL (9-20); Calcium 9.3 mg/dL (8.4-10.2); Carbon Dioxide 35 mmol/L (22-30); Chloride 99 mmol/L (98-107); Estimated Glomerular Filt Rate 40; Glucose 241 mg/dL (65-110); Lactic Acid Reflex 1.2 mmol/L (0.7-2.0); Magnesium 1.9 mg/dL (1.6-2.3); Sodium 136 mmol/L (137-145)
[2024-05-15 21:52] LABS: NT Pro B Type Natriuretic Pept 250 pg/mL (19.9-100); Troponin I < 0.012 ng/mL (0.000-0.034)
[2024-05-15 22:03] LABS: Influenza A QL RT-PCR Negative (Negative); Influenza B QL RT-PCR Negative (Negative); RSV RNA, RT-PCR Negative (Negative); SARS-CoV-2 RNA PCR Negative (Negative)
[2024-05-15] MEDS: SODIUM CHLORIDE 0.9% IV 1,000 ML 999 ML IV CONT (22:30)
--- NOTE | 2024-05-15 22:39 | PM.IMHP ---
H&P: HPI History of Present Illness Date/Time: 05/15/24 22:39 Chief Complaint: Shortness of breath Narrative: This is a 68-year-old male with past medical history significant for chronic hypoxic respiratory failure on home oxygen 4 L continuous, obstructive sleep apnea not on CPAP due to poor tolerance, type diabetes mellitus, COPD/emphysema, hypertension, coronary artery disease. Patient presents to the emergency room due to shortness of breath, denies fevers rigors chills denies productive cough. This has been going on for the last 3 days or so. Preliminary workup was significant for creatinine of 1.7 and potassium of 3. Patient tested negative for influenza type A influenza type B COVID and RSV. Patient has been placed in observation for further evaluation management and treatment. EXAMINATION: XR chest 1V portable DATE: 05/15/2024 21:00 INDICATION: Shortness of breath. TECHNIQUE: A single frontal view of the chest was obtained. COMPARISON: Chest 2 views 04/04/2023, chest CT 07/27/2023 FINDINGS: There are lucencies in the lungs, consistent with emphysema. There is mild atelectasis in the lower lung zones. No pleural effusion or pneumothorax. The heart size is normal. IMPRESSION: 1. Emphysema. 2. Mild atelectasis in the lower lung zones. Review of Systems Review of Systems: Shortness of breath PMFSH Past Medical History Medical History Coronary artery disease Status post stent x3. Chronic respiratory failure with hypoxia, on home O2 therapy P.r.n. oxygen, mainly at nighttime. Chronic obstructive pulmonary disease Obstructive sleep apnea Intolerant to CPAP. Type 2 diabetes mellitus Hemoglobin A1c was 7.4% on 03/08/2021. Depression Anxiety Diverticulitis Asthma Hypertension Hypercholesterolemia Surgical History Surgical History History of laparoscopic cholecystectomy (02/2003) History of cardiac catheterization (07/2017) Stent x3 [facility]. 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 Father No problems noted. Other Cancer Diabetes mellitus Hypertension Social History Social History Social History: Surrogate decision maker: Marcelle Pollock, . Code status: Full code. Smoking packs per day: 1 Smoking cigarettes per day: 20.0 Years smoked: 20 Smoking pack-years: 20.00 Smoking status: Former smoker Tobacco type: cigarettes Second hand tobacco smoke exposure: Yes Smoking end date: 05/22/89 Alcohol intake: former Substance use: never Substance use type: does not use Do You Feel Safe in your Home?: Yes Lack of Transportation: No Lack of Food: Never True Current Housing: I Have Housing Concerned About Future Housing: No Difficulty Paying Gas/Electric Bills: No Difficulty Paying for Meds: No Currently Unemployed: No Education: Decline to Answer Difficulty w/ Childcare or Family Care: No Living arrangements: with family Additional living arrangements comments: Lives in [place] with his . Occupation/Education: retired Additional occupation/education comments: Disabled. Spiritual care concerns: No Meds Home Medications and Allergies Home Medications ?Medication ?Instructions ?Recorded ?Confirmed ?Type aspirin 81 mg tablet,delayed 81 mg PO DAILY 03/24/19 05/16/24 History release (Betzy Low Dose Aspirin) clopidogrel 75 mg tablet 75 mg PO DAILY 03/24/19 05/16/24 History losartan 100 1 tablet PO DAILY 03/24/19 05/16/24 History mg-hydrochlorothiazide 25 mg tablet metoprolol succinate 50 mg capsule 50 mg PO DAILY 03/24/19 05/16/24 History sprinkle, ext. release 24 hr fluticasone propionate 50 1 spray intranasal BID #16 mL 04/19/20 05/16/24 Rx mcg/actuation nasal spray,suspension (Allergy Relief (fluticasone)) albuterol sulfate 90 mcg/actuation 2 inh inhalation Q4H PRN shortness 05/01/23 05/16/24 Rx aerosol inhaler of breath or wheezing #8.5 grams umeclidinium 62.5 mcg-vilanterol 1 inh inhalation DAILY #60 ea 05/01/23 05/16/24 Rx 25 mcg/actuation powdr for inhalation ipratropium 0.5 mg-albuterol 3 mg 3 ml inhalation QID #90 mL 04/17/24 05/16/24 Rx (2.5 mg base)/3 mL nebulization soln diclofenac sodium 75 mg 75 mg PO Q12H PRN pain 05/16/24 05/16/24 History tablet,delayed release fenofibrate 160 mg tablet 160 mg PO DAILY 05/16/24 05/16/24 History furosemide 40 mg tablet 40 mg PO DAILY 05/16/24 05/16/24 History glipizide 10 mg tablet, extended 20 mg PO DAILY 05/16/24 05/16/24 History release 24 hr montelukast 10 mg tablet 10 mg PO QPM 05/16/24 05/16/24 History potassium chloride 20 mEq 40 meq PO DAILY 05/16/24 05/16/24 History tablet,extended release rosuvastatin 40 mg tablet 40 mg PO DAILY 05/16/24 05/16/24 History Allergies Allergy/AdvReac Type Severity Reaction Status Date / Time atropine Allergy Unknown Nausea and Verified 05/15/24 21:26 Vomiting olmesartan Allergy Unknown Other Verified 05/15/24 21:26 Tetanus Vaccines and Toxoid Allergy Unknown Other Verified 05/15/24 21:26 codeine AdvReac Unknown Palpitation Verified 05/15/24 21:26 s hydrocodone AdvReac Unknown Nausea and Verified 05/15/24 21:26 Vomiting morphine AdvReac Unknown Nausea and Verified 05/15/24 21:26 Vomiting Vital Signs Vital Signs - 24 hr 05/15/24 20:34 05/15/24 20:37 05/15/24 20:38 Temperature 99.1 F Pulse Rate 109 H 103 H Respiratory Rate 26 H Blood Pressure 135/66 Pulse Oximetry 75 L 98 Oxygen Delivery Non-Rebreather Mask Oxygen Flow Rate 15 05/15/24 20:46 05/15/24 21:01 05/15/24 21:07 Temperature Pulse Rate 104 H 97 Respiratory Rate 33 H 31 H 33 H Blood Pressure 142/83 H 132/75 Pulse Oximetry 100 100 Oxygen Delivery Oxygen Flow Rate 05/15/24 21:17 05/15/24 21:30 05/15/24 21:34 Temperature Pulse Rate 98 101 H 94 Respiratory Rate 31 H 21 H 30 H Blood Pressure 131/66 Pulse Oximetry 97 Oxygen Delivery Oxygen Flow Rate 05/15/24 21:45 05/15/24 21:46 05/15/24 22:00 Temperature Pulse Rate 95 96 95 Respiratory Rate 25 H 24 H 30 H Blood Pressure 128/70 Pulse Oximetry 96 96 97 Oxygen Delivery Oxygen Flow Rate 05/15/24 22:01 05/15/24 22:15 05/15/24 22:16 Temperature Pulse Rate 94 99 97 Respiratory Rate 34 H 32 H 27 H Blood Pressure 124/70 95/68 L Pulse Oximetry 96 91 92 Oxygen Delivery Oxygen Flow Rate 05/15/24 22:30 Temperature Pulse Rate Respiratory Rate Blood Pressure Pulse Oximetry 92 Oxygen Delivery Nasal Cannula Oxygen Flow Rate 4 Exam Narrative: sitting by the edge of stretcher Const: General: comfortable, no acute distress, well developed, alert, awake, ill appearing chronically and obese Nutritional Appearance: obese Orientation/consciousness: patient oriented x3 Other: O2 NC on 4 L HENMT: Head: normal to inspection, normocephalic and atraumatic Ears: hearing grossly normal bilaterally Face/Nose/Sinus: normal facial exam Face and sinus: normal facial exam Eyes: General: appearance normal, both eyes and all related structures Pupils: Equal, round and reactive pupils present EOM: EOMs intact bilaterally Neck: Neck: full ROM, no lymphadenopathy and no JVD Thyroid: thyroid normal Lymphatic: no lymphadenopathy noted Resp: Effort & Inspection: normal respiratory effort and able to speak in complete sentences Auscultation: clear to auscultation bilaterally and diminished lung sounds Cardio: Jugular venous distension: no JVD Rate: regular rate Rhythm: regular rhythm Heart sounds: S1 normal heart sound present and S2 normal heart sound present GI: Inspection: Pannus present and obesity GI Palp: Yes Soft to palpation and Yes No hepatosplenomegaly present : General: Yes deferred Skin: Rashes: no rashes Wounds: no wounds Neuro: General: patient oriented x3 and CN's II-XI intact bilaterally Cranial nerves: Yes CN's II-XII intact bilaterally and Yes Equal, round and reactive pupils present Cognition (Neuro): normal cognition Speech: normal speech Gait exam (Neuro): Normal gait present Motor exam (neuro): 5/5 motor strength present throughout Extrem: General: normal to inspection, full ROM, no joint enlargement and no pedal edema H&P: Results Labs Labs: Short CBC 05/15/24 Range/Units 21:19 WBC 9.6 (4.5-10.0) K/mm3 Hgb 12.1 L (14.0-18.0) g/dL Hct 35.9 L (42.0-52.0) % Plt Count 206 (150-375) k/mm3 BMP 05/15/24 21:19 Sodium 136 L Potassium 3.0 L Chloride 99 Carbon Dioxide 35 H BUN 24 H Creatinine 1.70 H Glucose 241 H Calcium 9.3 Cardiac Enzymes 05/15/24 Range/Units 21:19 Troponin I < 0.012 (0.000-0.034) ng/mL Liver Function 05/15/24 Range/Units 21:19 Total Bilirubin 0.7 (0.2-1.3) mg/dL AST 23 (17-59) U/L ALT 19 (6-50) U/L Alkaline Phosphatase 61 (38-126) U/L Albumin 3.9 (3.5-5.1) g/dL Assessment and Plan Assessment and plan (1) Acute exacerbation of chronic obstructive pulmonary disease: Code(s): J44.1 - Chronic obstructive pulmonary disease with (acute) exacerbation Status: Acute Assessment and Plan: Placed in observation Breathing treatments Systemic steroids (2) BAUDILIO (acute kidney injury): Code(s): N17.9 - Acute kidney failure, unspecified Status: Acute Assessment and Plan: Holding hydrochlorothiazide Holding losartan Holding Lasix Patient receiving NS Repeat BMP in a.m. (3) Acute hypokalemia: Code(s): E87.6 - Hypokalemia Status: Acute Assessment and Plan: Replace as needed (4) Chronic hypoxic respiratory failure: Code(s): J96.11 - Chronic respiratory failure with hypoxia Status: Acute Assessment and Plan: On home oxygen 4 L by nasal cannula continuous (5) Type 2 diabetes mellitus: Code(s): E11.9 - Type 2 diabetes mellitus without complications Status: Acute Assessment and Plan: Holding glipizide (6) Obstructive sleep apnea: Code(s): G47.33 - Obstructive sleep apnea (adult) (pediatric) Status: Acute Assessment and Plan: Non tolerant of CPAP Hospitalist MIPS Advance Care Plan I have confirmed that the patient's Advanced Care Plan is present, code status is documented, or surrogate decision maker is listed in patient medical record.: Yes Medication Reconciliation I have utilized all available resources to obtain, update and review the patients current medications (includes all prescriptions, OTC, herbals, cannabis, and nutritional supplements).: Yes
[2024-05-15] MEDS: POTASSIUM CHLORIDE 20 MEQ PACKET (FOR LIQUID) 40 MEQ PO (22:42)
[2024-05-15] MEDS: SODIUM CHLORIDE 0.9% IV 1,000 ML 150 ML IV CONT (23:48)
--- NOTE | 2024-05-15 23:56 | ADMGEN ---
This patient, Detla Pollock, was admitted to Medical Room 346-01. Patient/family oriented to hospital policies and general routines including ID bracelet, bed and alarms, visiting hours, pain management, procedures, bathroom and other care routines, personal items, smoking policy, room service/diet, and visiting hours. Information on how to activate the Rapid Response Team has been discussed. Patient/Family are encouraged to report perceived risks to care and to ask questions if they do not understand what they are told or what they should do.
[2024-05-16] VITALS (14 sets, daily range): BP systolic 103–117; BP diastolic 47–54; PULSE 60–85; RESP 18–20; TEMP 36.3–36.8; O2SAT 93–95
[2024-05-16] MEDS: methylPREDNISolone SOD SUCC 125 MG VIAL 60 MG IV PUSH (05:10)
[2024-05-16] MEDS: SODIUM CHLORIDE 0.9% IV 1,000 ML 150 ML IV CONT ×2 (05:11→13:19)
[2024-05-16] MEDS: IPRATROPIUM 0.5 MG/ALBUTEROL SULFATE 2.5 MG AMPUL.NEB 3 ML INHALATION ×3 (07:26→21:40)
[2024-05-16] MEDS: UMECLIDINIUM/VILANTEROL 62.5-25 MCG ELLIPTA 1 PUFF INHALATION (07:27)
[2024-05-16 07:33] LABS: Anion Gap 4 mmol/L (4-12); Blood Urea Nitrogen 26 mg/dL (9-20); Calcium 8.7 mg/dL (8.4-10.2); Carbon Dioxide 32 mmol/L (22-30); Chloride 101 mmol/L (98-107); Estimated CRCL calculation 50 ml/min; Estimated Glomerular Filt Rate 47; Glucose 308 mg/dL (65-110); Potassium 3.6 mmol/L (3.4-5.0); Sodium 137 mmol/L (137-145)
[2024-05-16] MEDS: POTASSIUM CHLORIDE 20 MEQ ER TABLET 40 MEQ PO ×2 (08:24→16:55)
[2024-05-16] MEDS: ASPIRIN 81 MG ENTERIC TABLET PO (08:25)
[2024-05-16] MEDS: FENOFIBRATE 160 MG TABLET PO (08:25)
[2024-05-16] MEDS: FLUTICASONE PROPIONATE 0.05% NA SPR 16 GM BTL (*BKC) 1 SPRAY NASAL ×2 (08:25→16:55)
[2024-05-16] MEDS: METOPROLOL SUCCINATE EXT REL 50 MG TABCR PO (08:25)
[2024-05-16] MEDS: ROSUVASTATIN 20 MG TABLET 40 MG PO (08:25)
[2024-05-16] MEDS: CLOPIDOGREL BISULFATE 75 MG TABLET PO (08:25)
[2024-05-16 09:13] LABS: Glucose Point of Care 336 mg/dl (65-105)
[2024-05-16] MEDS: INSULIN ASPART (*BKC) 100 UNITS/ML SUB-Q ×2 (09:14→17:15)
[2024-05-16 10:45] LABS: Hemoglobin A1C 8.2 % (<5.7)
[2024-05-16] MEDS: predniSONE 20 MG TABLET 40 MG PO (11:49)
--- NOTE | 2024-05-16 12:03 | P.PNIM_ITS ---
Progress Note: A&P Assessment and Plan (1) Acute exacerbation of chronic obstructive pulmonary disease: Code(s): J44.1 - Chronic obstructive pulmonary disease with (acute) exacerbation Status: Acute Assessment and Plan: Placed in observation Breathing treatments Systemic steroids 05/16/24: * At baseline supplemental oxygen need of 4L. * Continue to monitor labs and VS. * Continue Duonebs and prn Albulterol * Decrease steroids from methylprednisolone 240 mg to 40 mg daily and will need a taper regimen for home at discharge. (2) BAUDILIO (acute kidney injury): Code(s): N17.9 - Acute kidney failure, unspecified Status: Resolved Assessment and Plan: Holding hydrochlorothiazide Holding losartan Holding Lasix Patient receiving NS Repeat BMP in a.m. 05/16/24: * Resolved (3) Acute hypokalemia: Code(s): E87.6 - Hypokalemia Status: Resolved Assessment and Plan: Replace as needed 05/16/24: * Resolved (4) Chronic hypoxic respiratory failure: Code(s): J96.11 - Chronic respiratory failure with hypoxia Status: Chronic Assessment and Plan: On home oxygen 4 L by nasal cannula continuous 05/16/24: * Continue home dose of oxygen. * Monitor VS * Continue breathing treatments. (5) Type 2 diabetes mellitus: Code(s): E11.9 - Type 2 diabetes mellitus without complications Status: Acute Assessment and Plan: Holding glipizide 05/16/24: * SSI as pt is on high dose IV steroids. * Hypoglycemic protocol * Glucose checks AC and HS. * Resume home meds upon discharge. (6) Obstructive sleep apnea: Code(s): G47.33 - Obstructive sleep apnea (adult) (pediatric) Status: Acute Assessment and Plan: Non tolerant of CPAP 05/16/24: * Monitor oximetry at HS Time Spent With Patient Time with patient: 15 - 25 minutes Subjective Date/time seen: 05/16/24 12:03 Interval history: This pt was examined today at bedside and he reports no change in his overall condition. He reportedly continues to feel dyspneic and is noted to still be on his home flow of oxygen at 4L NC. He has no other complaints but his glucose today is noted to be >300. This is likely due to the Methylprednisolone of 60 mg Q6 hrs that he was placed on from ER. This is changed to 40 mg po daily today and he is placed on temporary SSI for coverage. Anticipate discharge to home tomorrow. His creatinine and Potassium have improved since his overall admission. Review of Systems Review of Systems: All systems reviewed & are unremarkable except as noted in HPI and below Exam Const: General: comfortable and no acute distress Other: Obese male pt lying supine at this time in no acute distress. HENMT: Mouth: Yes moist mucous membranes Eyes: General: appearance normal, both eyes and all related structures Neck: Neck: supple and no JVD Resp: Effort & Inspection: normal respiratory effort Auscultation: clear to auscultation bilaterally Cardio: Rate: regular rate GI: Inspection: non-distended GI Palp: Yes Soft to palpation, No Tenderness to palpation present (GI) and No Guarding due to palpation present (GI) Auscultation: normal bowel sounds Skin: General skin exam: normal color Lesions: no lesions noted Neuro: General: gait normal Speech: normal speech Motor exam (neuro): 5/5 motor strength present throughout Sensory Exam: normal sensation Extrem: General: normal to inspection and no edema Psych: Mental Status: mental status grossly normal Affect: normal affect Objective Data Vital Signs Vital Signs: Vital Signs - 24 hr 05/15/24 20:34 05/15/24 20:37 05/15/24 20:38 Temperature 99.1 F Pulse Rate 109 H 103 H Respiratory Rate 26 H Blood Pressure 135/66 Pulse Oximetry 75 L 98 Oxygen Delivery Non-Rebreather Mask Oxygen Flow Rate 15 Fraction of Inspired Oxygen 05/15/24 20:46 05/15/24 21:01 05/15/24 21:07 Temperature Pulse Rate 104 H 97 Respiratory Rate 33 H 31 H 33 H Blood Pressure 142/83 H 132/75 Pulse Oximetry 100 100 Oxygen Delivery Oxygen Flow Rate Fraction of Inspired Oxygen 05/15/24 21:17 05/15/24 21:30 05/15/24 21:34 Temperature Pulse Rate 98 101 H 94 Respiratory Rate 31 H 21 H 30 H Blood Pressure 131/66 Pulse Oximetry 97 Oxygen Delivery Oxygen Flow Rate Fraction of Inspired Oxygen 05/15/24 21:45 05/15/24 21:46 05/15/24 22:00 Temperature Pulse Rate 95 96 95 Respiratory Rate 25 H 24 H 30 H Blood Pressure 128/70 Pulse Oximetry 96 96 97 Oxygen Delivery Oxygen Flow Rate Fraction of Inspired Oxygen 05/15/24 22:01 05/15/24 22:15 05/15/24 22:16 Temperature Pulse Rate 94 99 97 Respiratory Rate 34 H 32 H 27 H Blood Pressure 124/70 130/86 Pulse Oximetry 96 91 92 Oxygen Delivery Oxygen Flow Rate Fraction of Inspired Oxygen 05/15/24 22:17 05/15/24 22:30 05/15/24 22:30 Temperature Pulse Rate 95 91 Respiratory Rate 28 H 23 H Blood Pressure Pulse Oximetry 92 92 92 Oxygen Delivery Nasal Cannula Oxygen Flow Rate 4 Fraction of Inspired Oxygen 05/15/24 22:45 05/15/24 22:55 05/15/24 23:00 Temperature 97.6 F Pulse Rate 85 90 87 Respiratory Rate 19 16 28 H Blood Pressure 138/82 Pulse Oximetry 95 100 94 Oxygen Delivery Oxygen Flow Rate Fraction of Inspired Oxygen 05/15/24 23:15 05/15/24 23:32 05/16/24 00:02 Temperature 98.2 F Pulse Rate 82 82 72 Respiratory Rate 22 H 22 H 20 Blood Pressure 138/82 117/52 L Pulse Oximetry 94 94 95 Oxygen Delivery Oxygen Flow Rate Fraction of Inspired Oxygen 05/16/24 00:13 05/16/24 06:00 05/16/24 07:26 Temperature 97.4 F L Pulse Rate 65 Respiratory Rate 18 Blood Pressure 112/48 L Pulse Oximetry 95 94 93 Oxygen Delivery Nasal Cannula Nasal Cannula Oxygen Flow Rate 4 4 Fraction of Inspired Oxygen 36 05/16/24 07:26 05/16/24 07:38 05/16/24 08:20 Temperature Pulse Rate 60 62 Respiratory Rate 20 20 Blood Pressure Pulse Oximetry 93 Oxygen Delivery Nasal Cannula Oxygen Flow Rate 4 Fraction of Inspired Oxygen 05/16/24 08:25 Temperature Pulse Rate 62 Respiratory Rate Blood Pressure Pulse Oximetry Oxygen Delivery Oxygen Flow Rate Fraction of Inspired Oxygen Intake/Output Intake/Output: Intake & Output 05/13/24 05/14/24 05/15/24 05/16/24 23:59 23:59 23:59 23:59 Intake Total 1962 Output Total 650 Balance 1312 Meds/Results Medications: Active Medications Generic Name Dose Route Start Last Admin Trade Name Freq PRN Reason Stop Dose Admin Acetaminophen 650 mg 05/15/24 22:43 Acetaminophen 325 Mg Tablet PO Q4H PRN Mild Pain (1-3) or Fever Albuterol 2.5 mg 05/15/24 22:43 Albuterol Sulfate Neb 2.5 Mg/3 Ml Inh INHALATION Q2H PRN Dyspnea Albuterol/Ipratropium 3 ml 05/16/24 02:00 05/16/24 07:26 Ipratropium 0.5 Mg/Albuterol Sulfate 2.5 Mg Ampul.Neb 3 Ml INHALATION 3 ml Q6HRT GOLDY Administration Aspirin 81 mg 05/16/24 09:00 05/16/24 08:25 Aspirin 81 Mg Enteric Tablet PO 81 mg DAILY GOLDY Administration Clopidogrel Bisulfate 75 mg 05/16/24 09:00 05/16/24 08:25 Clopidogrel Bisulfate 75 Mg Tablet PO 75 mg DAILY GOLDY Administration Dextrose 12.5 gm 05/16/24 08:11 Dextrose 50% 25 Gm/50 Ml Syringe IV PUSH PRN PRN Hypoglycemia Protocol Fenofibrate 160 mg 05/16/24 09:00 05/16/24 08:25 Fenofibrate 160 Mg Tablet PO 160 mg DAILY GOLDY Administration Fluticasone Propionate 1 spray 05/16/24 09:00 05/16/24 08:25 Fluticasone Propionate 0.05% Na Spr 16 Gm Btl (*Bkc) NASAL 1 spray BID GOLDY Administration Glucagon 1 mg 05/16/24 08:11 Glucagon For Inj 1 Mg Vial IM PRN PRN Hypoglycemia Protocol Glucose 15 gm 05/16/24 08:11 Glucose Oral Gel 15 Gm Of Glucse In 37.5 Gm Tube PO PRN PRN Hypoglycemia Protocol Sodium Chloride 1,000 mls @ 150 mls/hr 05/15/24 22:45 05/16/24 05:11 Normal Saline Iv IV CONT 150 mls/hr .Q6H40M GOLDY Administration Dextrose 1,000 mls @ 100 mls/hr 05/16/24 08:11 Dextrose 5% 1,000 Ml IVPB PRN PRN Hypoglycemia Protocol Insulin Aspart 1 - 2 units 05/16/24 21:00 Insulin Aspart (*Bkc) 100 Units/Ml SUB-Q HS GOLDY Protocol Insulin Aspart 2 - 5 units 05/16/24 09:15 05/16/24 09:14 Insulin Aspart (*Bkc) 100 Units/Ml SUB-Q 4 units TIDWM GOLDY Administration Protocol Metoprolol Succinate 50 mg 05/16/24 09:00 05/16/24 08:25 Metoprolol Succinate Ext Rel 50 Mg Tabcr PO 50 mg DAILY GOLDY Administration Montelukast Sodium 10 mg 05/16/24 18:00 Montelukast Sodium 10 Mg Tablet PO QPM [facility] Potassium Chloride 40 meq 05/16/24 09:00 05/16/24 08:24 Potassium Chloride 20 Meq Er Tablet PO 40 meq BID GOLDY Administration Prednisone 40 mg 05/17/24 08:00 Prednisone 20 Mg Tablet PO DAILY@0800 [facility] Rosuvastatin Calcium 40 mg 05/16/24 09:00 05/16/24 08:25 Rosuvastatin 20 Mg Tablet PO 40 mg DAILY GOLDY Administration Umeclidinium/Vilanterol 1 puff 05/16/24 08:00 05/16/24 07:27 Umeclidinium/Vilanterol 62.5-25 Mcg Ellipta INHALATION 1 puff DAILYRT GOLDY Administration Radiology Results: ITS Impressions Chest X-Ray 05/15/24 21:09 IMPRESSION: 1. Emphysema. 2. Mild atelectasis in the lower lung zones. Labs Labs: Laboratory Results - last 24 hr 05/15/24 05/15/24 05/16/24 21:03 21:19 06:53 WBC 9.6 RBC 4.01 L Hgb 12.1 L Hct 35.9 L MCV 89.5 MCH 30.2 MCHC 33.7 RDW 13.9 Plt Count 206 MPV 9.2 Immature Gran % (Auto) 0.7 H Neut % (Auto) 79.8 H Lymph % (Auto) 7.3 L [place] % (Auto) 10.0 H Eos % (Auto) 1.7 Baso % (Auto) 0.5 Lymph # (Auto) 0.70 L [place] # (Auto) 1.0 H Eos # (Auto) 0.2 Baso # (Auto) 0.1 Abs Immat Gran (auto) 0.07 H Absolute Neuts (auto) 7.6 H Absolute Nucleated RBC 0.000 Nucleated RBC % 0.0 PT 13.7 INR 1.0 APTT 26.8 Puncture Site Left radial ABG pH 7.468 H ABG pCO2 44.7 ABG pO2 108.4 H ABG PO2/FiO2 Ratio 1.20 ABG HCO3 31.7 H ABG O2 Saturation 98.2 ABG O2 Content 18.1 ABG Base Excess 7.1 A-a Gradient 487.5 Oxyhemoglobin 97.7 Total Hemoglobin 13.1 O2 Delivery Device Non-rebreather mask O2 Liters/Min 15.0 FiO2 90 Sodium 136 L 137 Potassium 3.0 L 3.6 Chloride 99 101 Carbon Dioxide 35 H 32 H Anion Gap 2 L 4 BUN 24 H 26 H Creatinine 1.70 H 1.50 H Estim Creat Clear Calc Not Reportable 50 Estimated GFR 40 L 47 L Glucose 241 H 308 H POC Capillary Glucose Hemoglobin A1c 8.2 H Lactic Acid 1.2 Calcium 9.3 8.7 Magnesium 1.9 2.0 Total Bilirubin 0.7 AST 23 ALT 19 Alkaline Phosphatase 61 Troponin I < 0.012 NT-Pro-B Natriuret Pep 250 H Total Protein 7.0 Albumin 3.9 Influenza A (RT-PCR) Negative Influenza B (RT-PCR) Negative RSV (RT-PCR) Negative SARS-CoV-2 RNA (RT-PCR) Negative 05/16/24 09:11 WBC RBC Hgb Hct MCV MCH MCHC RDW Plt Count MPV Immature Gran % (Auto) Neut % (Auto) Lymph % (Auto) [place] % (Auto) Eos % (Auto) Baso % (Auto) Lymph # (Auto) [place] # (Auto) Eos # (Auto) Baso # (Auto) Abs Immat Gran (auto) Absolute Neuts (auto) Absolute Nucleated RBC Nucleated RBC % PT INR APTT Puncture Site ABG pH ABG pCO2 ABG pO2 ABG PO2/FiO2 Ratio ABG HCO3 ABG O2 Saturation ABG O2 Content ABG Base Excess A-a Gradient Oxyhemoglobin Total Hemoglobin O2 Delivery Device O2 Liters/Min FiO2 Sodium Potassium Chloride Carbon Dioxide Anion Gap BUN Creatinine Estim Creat Clear Calc Estimated GFR Glucose POC Capillary Glucose 336 H Hemoglobin A1c Lactic Acid Calcium Magnesium Total Bilirubin AST ALT Alkaline Phosphatase Troponin I NT-Pro-B Natriuret Pep Total Protein Albumin Influenza A (RT-PCR) Influenza B (RT-PCR) RSV (RT-PCR) SARS-CoV-2 RNA (RT-PCR) Quality If No VTE Prophylaxis Answer both mechanical and pharmacologic: Reason no mechanical VTE proph: low risk/not indicated Reason no pharmacologic proph: low risk/not indicated
[2024-05-16 12:30] LABS: Glucose Point of Care 416 mg/dl (65-105)
[2024-05-16] MEDS: INSULIN ASPART (*BKC) 100 UNITS/ML 8 UNITS SUB-Q (13:00)
[2024-05-16] MEDS: MONTELUKAST SODIUM 10 MG TABLET PO (16:55)
[2024-05-16 17:24] LABS: Glucose Point of Care 366 mg/dl (65-105)
[2024-05-16 21:39] LABS: Glucose Point of Care 335 mg/dl (65-105)
[2024-05-17] VITALS (7 sets, daily range): BP systolic 137; BP diastolic 60; PULSE 65–75; RESP 16–18; TEMP 36.4; O2SAT 93–99; BMI 35.6
[2024-05-17] MEDS: IPRATROPIUM 0.5 MG/ALBUTEROL SULFATE 2.5 MG AMPUL.NEB 3 ML INHALATION ×2 (03:17→09:23)
[2024-05-17] MEDS: SODIUM CHLORIDE 0.9% IV 1,000 ML 150 ML IV CONT ×2 (04:09→04:10)
[2024-05-17 07:03] LABS: Basophils Percent Auto 0.2 % (0.2-1.2); Eosinophils Percent Auto 0.1 % (0-4.4); Hematocrit 32.4 % (42.0-52.0); Hemoglobin 10.6 g/dL (14.0-18.0); Immature Granulocyte Absolute 0.12 K/mm3 (0.00-0.031); Immature Granulocyte Percent A 0.8 % (0-0.5); Lymphocytes Absolute Auto 1.15 K/mm3 (0.9-3.2); Lymphocytes Percent Auto 7.7 % (18.3-44.2); Mean Corpuscular HGB Conc 32.7 g/dl (32-36); Mean Corpuscular Hemoglobin 29.4 pg (26-34); Mean Platelet Volume 9.7 fl (7.4-10.4); Monocytes Absolute Auto 1.3 K/mm3 (0.1-0.6); Monocytes Percent Auto 8.5 % (2.6-8.5); Neutrophils Absolute Auto 12.3 K/mm3 (1.3-6.7); Neutrophils Percent Auto 82.7 % (45.5-73.1); Platelet Count Result 225 k/mm3 (150-375); Red Cell Distribution Width 13.8 % (11.5-14.5); White Blood Count 14.9 K/mm3 (4.5-10.0)
[2024-05-17 07:15] LABS: Alanine Aminotransferase 19 U/L (6-50); Albumin Level 3.6 g/dL (3.5-5.1); Alkaline Phosphatase 57 U/L (38-126); Anion Gap 0 mmol/L (4-12); Aspartate Amino Transferase 27 U/L (17-59); Bilirubin,Total 0.4 mg/dL (0.2-1.3); Blood Urea Nitrogen 32 mg/dL (9-20); Calcium 8.5 mg/dL (8.4-10.2); Carbon Dioxide 28 mmol/L (22-30); Chloride 103 mmol/L (98-107); Estimated CRCL calculation 54 ml/min; Estimated Glomerular Filt Rate 50; Glucose 218 mg/dL (65-110); Potassium 3.5 mmol/L (3.4-5.0); Sodium 131 mmol/L (137-145)
--- NOTE | 2024-05-17 08:07 | P.PNIM_ITS ---
Subjective Date/time seen: 05/17/24 08:07 Objective Data Vital Signs Vital Signs: Vital Signs - 24 hr 05/16/24 08:20 05/16/24 08:25 05/16/24 14:00 Temperature 97.6 F Pulse Rate 62 75 Respiratory Rate 18 Blood Pressure 103/47 L Pulse Oximetry 93 95 Oxygen Delivery Nasal Cannula Oxygen Flow Rate 4 05/16/24 14:30 05/16/24 14:39 05/16/24 20:00 Temperature Pulse Rate 72 71 Respiratory Rate 18 18 Blood Pressure Pulse Oximetry 94 Oxygen Delivery Nasal Cannula Oxygen Flow Rate 4 05/16/24 21:19 05/16/24 21:40 05/16/24 21:40 Temperature 97.9 F Pulse Rate 70 85 Respiratory Rate 18 20 Blood Pressure 115/54 L Pulse Oximetry 95 95 Oxygen Delivery Nasal Cannula Oxygen Flow Rate 4 05/16/24 21:46 05/17/24 03:17 05/17/24 06:00 Temperature 97.6 F Pulse Rate 78 67 75 Respiratory Rate 20 16 18 Blood Pressure 137/60 Pulse Oximetry 99 Oxygen Delivery Oxygen Flow Rate Intake/Output Intake/Output: Intake & Output 05/14/24 05/15/24 05/16/24 05/17/24 23:59 23:59 23:59 23:59 Intake Total 5192 452.5 Output Total 2075 800 Balance 3117 -347.5 Meds/Results Medications: Active Medications Generic Name Dose Route Start Last Admin Trade Name Freq PRN Reason Stop Dose Admin Acetaminophen 650 mg 05/15/24 22:43 Acetaminophen 325 Mg Tablet PO Q4H PRN Mild Pain (1-3) or Fever Albuterol 2.5 mg 05/15/24 22:43 Albuterol Sulfate Neb 2.5 Mg/3 Ml Inh INHALATION Q2H PRN Dyspnea Albuterol/Ipratropium 3 ml 05/16/24 02:00 05/17/24 03:17 Ipratropium 0.5 Mg/Albuterol Sulfate 2.5 Mg Ampul.Neb 3 Ml INHALATION 3 ml Q6HRT GOLDY Administration Aspirin 81 mg 05/16/24 09:00 05/16/24 08:25 Aspirin 81 Mg Enteric Tablet PO 81 mg DAILY GOLDY Administration Clopidogrel Bisulfate 75 mg 05/16/24 09:00 05/16/24 08:25 Clopidogrel Bisulfate 75 Mg Tablet PO 75 mg DAILY GOLDY Administration Dextrose 12.5 gm 05/16/24 08:11 Dextrose 50% 25 Gm/50 Ml Syringe IV PUSH PRN PRN Hypoglycemia Protocol Fenofibrate 160 mg 05/16/24 09:00 05/16/24 08:25 Fenofibrate 160 Mg Tablet PO 160 mg DAILY GOLDY Administration Fluticasone Propionate 1 spray 05/16/24 09:00 05/16/24 16:55 Fluticasone Propionate 0.05% Na Spr 16 Gm Btl (*Bkc) NASAL 1 spray BID GOLDY Administration Glucagon 1 mg 05/16/24 08:11 Glucagon For Inj 1 Mg Vial IM PRN PRN Hypoglycemia Protocol Glucose 15 gm 05/16/24 08:11 Glucose Oral Gel 15 Gm Of Glucse In 37.5 Gm Tube PO PRN PRN Hypoglycemia Protocol Sodium Chloride 1,000 mls @ 100 mls/hr 05/15/24 22:45 05/17/24 04:10 Normal Saline Iv IV CONT 150 mls/hr .Q10H GLODY Administration Dextrose 1,000 mls @ 100 mls/hr 05/16/24 08:11 Dextrose 5% 1,000 Ml IVPB PRN PRN Hypoglycemia Protocol Insulin Aspart 4 - 8 units 05/17/24 12:00 Insulin Aspart (*Bkc) 100 Units/Ml SUB-Q TIDWM GOLDY Protocol Insulin Aspart 1 - 3 units 05/17/24 21:00 Insulin Aspart (*Bkc) 100 Units/Ml SUB-Q HS GOLDY Protocol Metoprolol Succinate 50 mg 05/16/24 09:00 05/16/24 08:25 Metoprolol Succinate Ext Rel 50 Mg Tabcr PO 50 mg DAILY GOLDY Administration Montelukast Sodium 10 mg 05/16/24 18:00 05/16/24 16:55 Montelukast Sodium 10 Mg Tablet PO 10 mg QPM GOLDY Administration Potassium Chloride 40 meq 05/16/24 09:00 05/16/24 16:55 Potassium Chloride 20 Meq Er Tablet PO 40 meq BID GOLDY Administration Prednisone 40 mg 05/17/24 08:00 Prednisone 20 Mg Tablet PO DAILY@0800 GOLDY Rosuvastatin Calcium 40 mg 05/16/24 09:00 05/16/24 08:25 Rosuvastatin 20 Mg Tablet PO 40 mg DAILY GOLDY Administration Umeclidinium/Vilanterol 1 puff 05/16/24 08:00 05/16/24 07:27 Umeclidinium/Vilanterol 62.5-25 Mcg Ellipta INHALATION 1 puff DAILYRT GOLDY Administration Radiology Results: ITS Impressions Chest X-Ray 05/15/24 21:09 IMPRESSION: 1. Emphysema. 2. Mild atelectasis in the lower lung zones. Labs Labs: Laboratory Results - last 24 hr 05/15/24 05/16/24 05/16/24 21:19 09:11 12:26 WBC RBC Hgb Hct MCV MCH MCHC RDW Plt Count MPV Immature Gran % (Auto) Neut % (Auto) Lymph % (Auto) [place] % (Auto) Eos % (Auto) Baso % (Auto) Lymph # (Auto) [place] # (Auto) Eos # (Auto) Baso # (Auto) Abs Immat Gran (auto) Absolute Neuts (auto) Absolute Nucleated RBC Nucleated RBC % Sodium Potassium Chloride Carbon Dioxide Anion Gap BUN Creatinine Estim Creat Clear Calc Estimated GFR Glucose POC Capillary Glucose 336 H 416 H Hemoglobin A1c 8.2 H Calcium Magnesium Total Bilirubin AST ALT Alkaline Phosphatase Total Protein Albumin 05/16/24 05/16/24 05/17/24 16:58 21:23 06:35 WBC 14.9 H RBC 3.60 L Hgb 10.6 L Hct 32.4 L MCV 90.0 MCH 29.4 MCHC 32.7 RDW 13.8 Plt Count 225 MPV 9.7 Immature Gran % (Auto) 0.8 H Neut % (Auto) 82.7 H Lymph % (Auto) 7.[address] [place] % (Auto) 8.5 Eos % (Auto) 0.1 Baso % (Auto) 0.2 Lymph # (Auto) 1.15 [place] # (Auto) 1.3 H Eos # (Auto) 0.0 Baso # (Auto) 0.0 Abs Immat Gran (auto) 0.12 H Absolute Neuts (auto) 12.3 H Absolute Nucleated RBC 0.000 Nucleated RBC % 0.0 Sodium 131 L Potassium 3.5 Chloride 103 Carbon Dioxide 28 Anion Gap 0 L BUN 32 H Creatinine 1.40 H Estim Creat Clear Calc 54 Estimated GFR 50 L Glucose 218 H POC Capillary Glucose 366 H 335 H Hemoglobin A1c Calcium 8.5 Magnesium 2.0 Total Bilirubin 0.4 AST 27 ALT 19 Alkaline Phosphatase 57 Total Protein 6.0 L Albumin 3.6
[2024-05-17 08:28] LABS: Glucose Point of Care 220 mg/dl (65-105)
[2024-05-17] MEDS: ROSUVASTATIN 20 MG TABLET 40 MG PO (08:38)
[2024-05-17] MEDS: ASPIRIN 81 MG ENTERIC TABLET PO (08:38)
[2024-05-17] MEDS: CLOPIDOGREL BISULFATE 75 MG TABLET PO (08:38)
[2024-05-17] MEDS: POTASSIUM CHLORIDE 20 MEQ ER TABLET 40 MEQ PO (08:38)
[2024-05-17] MEDS: METOPROLOL SUCCINATE EXT REL 50 MG TABCR PO (08:38)
[2024-05-17] MEDS: FENOFIBRATE 160 MG TABLET PO (08:39)
[2024-05-17] MEDS: FLUTICASONE PROPIONATE 0.05% NA SPR 16 GM BTL (*BKC) 1 SPRAY NASAL (08:39)
[2024-05-17] MEDS: predniSONE 20 MG TABLET 40 MG PO (08:39)
[2024-05-17] MEDS: INSULIN ASPART (*BKC) 100 UNITS/ML SUB-Q (09:06)
[2024-05-17] MEDS: UMECLIDINIUM/VILANTEROL 62.5-25 MCG ELLIPTA 1 PUFF INHALATION (09:23)
--- NOTE | 2024-05-17 09:31 | PM.DS ---
DS: Admitting Diagnosis Discharge Date 05/17/2024 Admitting Diagnosis Acute exacerbation of COPD, BAUDILIO Hypokalemia Chronic Resp. Failure T2DM ALYSHA DS: Discharge Diagnosis Discharge Diagnosis Plan Acute exacerbation of COPD - steroid taper and continue routine COPD nebs/inhalers. BAUDILIO - Markedly improved - continue to hold losartan/hctz until seen by pcp. Hypokalemia - resolved. Chronic Resp. Failure - stable on home 4L T2DM - with steroid induced hyperglycemia: Resume glipizide. Patient declines having me set up for prn insulin, does check glucose at home, a1c is 8.2. Will be seeing simulation educator in near future. Continue to monitor with increased frequency of glucose monitoring. Contact PCP or present for care if uptrending. ALYSHA- Doesn't tolerate cpap. DS: Summary Hospital Course Reason for hospitalization: Acute exacerbation of COPD Hospital Course: Please see admission and progress notes for further information. Delta Pollock is a 68 year old male presenting with acute shortness of breath over the three days preceding admission. There were not findings of pneumonia. There were findings consistent with COPD exacerbation. He was dehydrated with Serum creatinine of 1.7. Several of his home medications were held, including hctz, lasix, and diclofenac. In regards to his baudilio, creatinine is now 1.4 and he is doing well. I recommend to continue to hold the hctz at this time and repeat labs in one week. His BP has been stable and wdl. In regards to his acute on chronic hypoxic resp. failure and exac. COPD, he is doing well today, is on his home 4L of supp. oxygen, and states he feels at his baseline and has no qualms with discharge. In fact, he requests discharge today. I will send in for a steroid taper and he will need to continue his home regimen otherwise. Close f/u with pcp is certainly recommended. As to his DM, I offered and counseled that short term insulin would be a reasonable option, but he would rather discuss this with his PCP than have me initiate. He is on glipizide. He is setting up short term f/u with simulation educator in the near future which I agree is a good idea. Status at Discharge Functional status at discharge: independent ambulation Time Spent with Patient Time attestation: Total time spent providing and/or coordinating discharge services: Time spent: Greater than 30 minutes Exam Narrative: GENERAL APPEARANCE: Appears to be in no acute distress. HEAD: normocephalic atraumatic EYES: PERRL, EOMI. Vision grossly intact. ENT: Hearing grossly intact, no nasal discharge NECK: Neck supple, trachea midline. CARDIAC: Normal S1/S2. Rhythm is regular. No murmurs, rubs, or gallops. No cyanosis or pallor. Extremities are warm and well perfused. LUNGS: Clear but diminished. Normal work of breathing. Respirations even and unlabored. ABDOMEN: BS positive x 4 quadrants. Soft, nondistended, nontender. No guarding or rebound. MSK: No joint tenderness/swelling, fair strength in all extremities. PERIPHERAL VASCULAR: Peripheral pulses palpable. Normal perfusion, cap refill <2 seconds. No edema. NEURO: Follows commands. No focal deficits. SKIN: [place] without lesions or eruptions. PSYCH: Stable, no paranoia or delusional thinking. DS: Data Data Completed and Pending Labs on day of discharge: Labs from last 24 hours 05/17/24 05/17/24 05/16/24 08:22 06:35 21:23 WBC 14.9 H RBC 3.60 L Hgb 10.6 L Hct 32.4 L MCV 90.0 MCH 29.4 MCHC 32.7 RDW 13.8 Plt Count 225 MPV 9.7 Immature Gran % (Auto) 0.8 H Neut % (Auto) 82.7 H Lymph % (Auto) 7.7 L [place] % (Auto) 8.5 Eos % (Auto) 0.1 Baso % (Auto) 0.2 Lymph # (Auto) 1.15 [place] # (Auto) 1.3 H Eos # (Auto) 0.0 Baso # (Auto) 0.0 Abs Immat Gran (auto) 0.12 H Absolute Neuts (auto) 12.3 H Absolute Nucleated RBC 0.000 Nucleated RBC % 0.0 Sodium 131 L Potassium 3.5 Chloride 103 Carbon Dioxide 28 Anion Gap 0 L BUN 32 H Creatinine 1.40 H Estim Creat Clear Calc 54 Estimated GFR 50 L Glucose 218 H POC Capillary Glucose 220 H 335 H Hemoglobin A1c Calcium 8.5 Magnesium 2.0 Total Bilirubin 0.4 AST 27 ALT 19 Alkaline Phosphatase 57 Total Protein 6.0 L Albumin 3.6 05/16/24 05/16/24 05/15/24 16:58 12:26 21:19 WBC RBC Hgb Hct MCV MCH MCHC RDW Plt Count MPV Immature Gran % (Auto) Neut % (Auto) Lymph % (Auto) [place] % (Auto) Eos % (Auto) Baso % (Auto) Lymph # (Auto) [place] # (Auto) Eos # (Auto) Baso # (Auto) Abs Immat Gran (auto) Absolute Neuts (auto) Absolute Nucleated RBC Nucleated RBC % Sodium Potassium Chloride Carbon Dioxide Anion Gap BUN Creatinine Estim Creat Clear Calc Estimated GFR Glucose POC Capillary Glucose 366 H 416 H Hemoglobin A1c 8.2 H Calcium Magnesium Total Bilirubin AST ALT Alkaline Phosphatase Total Protein Albumin Preliminary micro results at discharge 05/15/24 21:19 Blood Culture - Preliminary Blood 05/15/24 21:30 Blood Culture - Preliminary Blood Imaging Radiologist's impression: EXAMINATION: XR chest 1V portable DATE: 05/15/2024 21:00 INDICATION: Shortness of breath. TECHNIQUE: A single frontal view of the chest was obtained. COMPARISON: Chest 2 views 04/04/2023, chest CT 07/27/2023 FINDINGS: There are lucencies in the lungs, consistent with emphysema. There is mild atelectasis in the lower lung zones. No pleural effusion or pneumothorax. The heart size is normal. Discharge Plan Discharge Attending physician on discharge: Jet Babin Consulting providers: Bhupinder Martinez Discharging Clinician: Bhupinder Martinez Anticipated Discharge Date/Time: 05/17/24 12:05 Patient Disposition: Home, Self-Care Activity: may shower, as tolerated and no preference Diet: diabetic Discharge Instructions: - Follow up with your primary care provider in the next 1-2 weeks. - Please check your blood glucose at least twice daily. Contact PCP if trends are greater than 250. - Take all medications as prescribed. You will need to hold your losartan/hctz for one week, then f/u with your PCP to review. - If anything other than steady improvement please contact your PCP or seek evaluation urgently. - Please follow all discharge directions as written, call for any questions or need for clarification. - Thank you for choosing [facility] for your healthcare needs Patient Instructions: Clopidogrel (By mouth) Patient Language: Togolese Stand Alone Forms: General Discharge Information Follow-up/Referrals: Wilmer,Bhavna Mantilla, CARDIOVASCULAR LAB DIRECTOR [Primary Care Provider] - 1 Week (COPD exacerbation, T2DM.) Discharge Medications: New prednisone 10 mg tablet 10 mg PO DAILY Qty: 33 0RF Rx Instructions: Please take 4 tablets daily x 2 days, then 3 tablets daily x 4 days, 2 tablets daily x 4 days, 1 tablet daily x 4 days, then one half tablet daily x 2 days. Continued clopidogrel 75 mg Tablet 75 mg PO DAILY aspirin [Betzy Low Dose Aspirin] 81 mg Tablet,Delayed Release (Dr/Ec) 81 mg PO DAILY metoprolol succinate 50 mg Capsule,Sprinkle,Er 24hr 50 mg PO DAILY fluticasone propionate [Allergy Relief (fluticasone)] 50 mcg/actuation spray,suspension 1 spray NASAL BID Qty: 16 0RF Rx Instructions: administer into each nostril umeclidinium-vilanterol 62.5-25 mcg/actuation blister with device 1 inh inhalation DAILY Qty: 60 3RF albuterol sulfate 90 mcg/actuation HFA aerosol inhaler 2 inh inhalation Q4H PRN (Reason: shortness of breath or wheezing) Qty: 8.5 3RF ipratropium-albuterol 0.5 mg-3 mg(2.5 mg base)/3 mL solution for nebulization 3 ml inhalation QID Qty: 90 6RF furosemide 40 mg tablet 40 mg PO DAILY glipizide 10 mg tablet extended release 24hr 20 mg PO DAILY diclofenac sodium 75 mg tablet,delayed release (DR/EC) 75 mg PO Q12H PRN (Reason: pain) montelukast 10 mg tablet 10 mg PO QPM rosuvastatin 40 mg tablet 40 mg PO DAILY fenofibrate 160 mg tablet 160 mg PO DAILY potassium chloride 20 mEq tablet extended release 40 meq PO DAILY Discontinued losartan-hydrochlorothiazide 100-25 mg Tablet 1 tablet PO DAILY Other Ambulatory Orders: Basic Metabolic Panel (Routine) Timeframe: 1 Week Location: Determined by Patient Ordered By: Bhupinder Martinez Complete Blood Count no Diff (Routine) Timeframe: 1 Week Location: Determined by Patient Ordered By: Bhupinder Martinez Date of admission: 05/15/24 22:43 Primary Care Provider: WilmerBhavna Admitting Provider: Tasha Ocampo V. Attending physician on admission: Angelina Taylor Condition: Stable
[2024-05-17 12:12] LABS: Glucose Point of Care 268 mg/dl (65-105)
--- NOTE | 2024-05-20 15:31 | PCCDE ---
05/20/24 Spoke with Patient and . They report have seen glucose >200 Reviewed Discharge notes with them (have not seen >250 - but have seen 240) Pt already tried reaching HCP for Rx of previous Ozempic however n/a in office. They will call again and ask for whoever is covering to discuss repeated glucose >200, still completing Prednisone regimen. Advised re: outpatient opportunity when ready (and explained that we are not emergent care - confirmed they have my number) FJ
== END 2024-05-17 12:10 | disposition home or self-care (01) ==
LOC: ANHED 21:59 → ANH3MED 05-16 00:17
PROVIDERS: Admitting Provider Internal Medicine; Emergency Provider Emergency Medicine; Visit Provider Nurse Practitioner Adult Health
DX: J44.1 Chronic obstructive pulmonary disease with (acute) exacerbation (principal); J43.9 Emphysema, unspecified; N17.9 Acute kidney failure, unspecified; E87.6 Hypokalemia; J96.21 Acute and chronic respiratory failure with hypoxia; E11.65 Type 2 diabetes mellitus with hyperglycemia; T38.0X5A Adverse effect of glucocorticoids and synthetic analogues, initial encounter; G47.33 Obstructive sleep apnea (adult) (pediatric); I25.10 Atherosclerotic heart disease of native coronary artery without angina pectoris; F32.A Depression, unspecified; F41.9 Anxiety disorder, unspecified; I10 Essential (primary) hypertension; E78.00 Pure hypercholesterolemia, unspecified; Z20.822 Contact with and (suspected) exposure to COVID-19; Z99.81 Dependence on supplemental oxygen; Z79.51 Long term (current) use of inhaled steroids; Z79.82 Long term (current) use of aspirin; Z79.84 Long term (current) use of oral hypoglycemic drugs; Z79.899 Other long term (current) drug therapy; Z87.891 Personal history of nicotine dependence; Z95.5 Presence of coronary angioplasty implant and graft; Z98.1 Arthrodesis status; Z90.49 Acquired absence of other specified parts of digestive tract
CPT/HCPCS: 36415; 36600; 71045; 80048; 80053; 82805; 82948; 83036; 83605; 83735; 83880; 84484; 85018; 85025; 85610; 85730; 87040; 87637; 93005; 94640; 96361; 96374; 96376; 99285; A9270; G0378; J1815; J2919; J7030; J7512

== ENCOUNTER 2024-06-26 12:10 | Outpatient (CLI) | payer MEDICARE, SELFPAY ==
--- NOTE | ~2024-06-26 | XR_ITS ---
Clinical Indication: Shortness of breath PA and lateral views of the chest: Comparison: 05/15/2024 Findings: Bibasilar hazy airspace disease is present. Cardiomediastinal silhouette is within normal limits. Bones and soft tissues are unremarkable. Impression: Probable bibasilar pulmonary edema/atelectasis versus possibly pneumonia. Reviewed, dictated and finalized at [facility]. PIERCER OPERATOR Impression: Probable bibasilar pulmonary edema/atelectasis versus possibly pneumonia.
== END 2024-06-26 12:11 | disposition home or self-care (01) ==
DX: R09.89 Other specified symptoms and signs involving the circulatory and respiratory systems (principal); R91.8 Other nonspecific abnormal finding of lung field
CPT/HCPCS: 71046

== ENCOUNTER 2024-07-02 19:38 | Emergency (ER) | payer MEDICARE, SELFPAY ==
[2024-07-02 19:55] VITALS: BP 143/72; PULSE 80; RESP 20; TEMP 36.6; O2SAT 94
--- NOTE | 2024-07-02 20:01 | ED_ITS ---
HPI - URI/Sore Throat General Chief Complaint: Upper Respiratory Infection Stated Complaint: Trouble Breathing Source: patient and RN notes reviewed Mode of arrival: ambulatory Limitations: no limitations History of Present Illness HPI Narrative: Patient is a 68-year-old male who presents to the [facility] with complaints of head congestion, nasal congestion, and rhinorrhea for the past 3 days. Patient states that it is hard to breathe out of his nose due to the congestion. He also endorses a frequent nonproductive cough. Patient has history of COPD and wears 4 L oxygen via nasal cannula at all times. he denies any increase in his shortness of breath. Denies chest pain. Unsure of any known sick contacts. Denies recent fever. Related Data Home Medications ?Medication ?Instructions ?Recorded ?Confirmed ?Last Taken ?Type aspirin 81 mg tablet,delayed 81 mg PO DAILY 03/24/19 05/16/24 Unknown History release (Betzy Low Dose Aspirin) clopidogrel 75 mg tablet 75 mg PO DAILY 03/24/19 05/16/24 Unknown History metoprolol succinate 50 mg capsule 50 mg PO DAILY 03/24/19 05/16/24 Unknown History sprinkle, ext. release 24 hr diclofenac sodium 75 mg 75 mg PO Q12H PRN pain 05/16/24 05/16/24 Unknown History tablet,delayed release fenofibrate 160 mg tablet 160 mg PO DAILY 05/16/24 05/16/24 Unknown History furosemide 40 mg tablet 40 mg PO DAILY 05/16/24 05/16/24 Unknown History glipizide 10 mg tablet, extended 20 mg PO DAILY 05/16/24 05/16/24 Unknown History release 24 hr montelukast 10 mg tablet 10 mg PO QPM 05/16/24 05/16/24 Unknown History potassium chloride 20 mEq 40 meq PO DAILY 05/16/24 05/16/24 Unknown History tablet,extended release rosuvastatin 40 mg tablet 40 mg PO DAILY 05/16/24 05/16/24 Unknown History Allergies Allergy/AdvReac Type Severity Reaction Status Date / Time atropine Allergy Unknown Nausea and Verified 05/15/24 21:26 Vomiting olmesartan Allergy Unknown Other Verified 05/15/24 21:26 Tetanus Vaccines and Toxoid Allergy Unknown Other Verified 05/15/24 21:26 codeine AdvReac Unknown Palpitation Verified 05/15/24 21:26 s hydrocodone AdvReac Unknown Nausea and Verified 05/15/24 21:26 Vomiting morphine AdvReac Unknown Nausea and Verified 05/15/24 21:26 Vomiting Review of Systems Review of Systems: CONSTITUTIONAL: Denies fever, chills, or sweats. EYES: Denies visual changes, redness, or discharge. ENT: Denies otalgia and sore throat. Reports nasal congestion and drainage. CARDIOVASCULAR: Denies chest pain, palpitations, or edema. RESPIRATORY: Reports cough but denies dyspnea. GASTROINTESTINAL: Denies abdominal pain, nausea, vomiting, or diarrhea. GENITOURINARY: Denies dysuria or hematuria. SKIN: Denies rash or itching. MUSCULOSKELETAL: Denies back pain, joint pain, or myalgia. NEUROLOGIC: Reports headache but denies numbness or weakness. Pertinent positives per HPI. [facility] Past Medical History Medical History Coronary artery disease Status post stent x3. Chronic respiratory failure with hypoxia, on home O2 therapy P.r.n. oxygen, mainly at nighttime. Chronic obstructive pulmonary disease Obstructive sleep apnea Intolerant to CPAP. Type 2 diabetes mellitus Hemoglobin A1c was 7.4% on 03/08/2021. Depression Anxiety Diverticulitis Asthma Hypertension Hypercholesterolemia Surgical History Surgical History History of laparoscopic cholecystectomy (02/2003) History of cardiac catheterization (07/2017) Stent x3 [facility]. 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 Father No problems noted. Other Cancer Diabetes mellitus Hypertension Social History Social History Social History: Surrogate decision maker: Marcelle Pollock, . Code status: Full code. Smoking packs per day: 1 Smoking cigarettes per day: 20.0 Years smoked: 20 Smoking pack-years: 20.00 Smoking status: Former smoker Tobacco type: cigarettes Second hand tobacco smoke exposure: Yes Smoking end date: 05/22/89 Alcohol intake: former Substance use: never Substance use type: does not use Do You Feel Safe in your Home?: Yes Lack of Transportation: No Lack of Food: Never True Current Housing: I Have Housing Concerned About Future Housing: No Difficulty Paying Gas/Electric Bills: No Difficulty Paying for Meds: No Currently Unemployed: No Education: Decline to Answer Difficulty w/ Childcare or Family Care: No Living arrangements: with family Additional living arrangements comments: Lives in [place] with his . Occupation/Education: retired Additional occupation/education comments: Disabled. Spiritual care concerns: No Comments At the time of my signature, I reviewed and agree with the nursing past medical, surgical, social, and family history. There is no relevant family history pertinent to the patient complaint. Exam Narrative: GENERAL: This is a well-nourished, well-developed patient, in no apparent distress. HEAD: normocephalic, atraumatic. EYES: Sclera clear/white. Vision is grossly intact. EARS: External ears normal, auditory canals clear and without drainage, TMs normal without perforation. Hearing grossly intact. NOSE: External nose normal. +congestion. Sinus tenderness. THROAT: Mucous membranes moist, posterior pharynx clear. NECK: Neck supple, non-tender without lymphadenopathy, masses or thyromegaly. CARDIOVASCULAR: Regular rate and rhythm without murmurs, gallops, or rubs. RESPIRATORY: Clear to auscultation. Breath sounds equal bilaterally. No wheezes, rales, or rhonchi. GASTROINTESTINAL: Abdomen soft, non-tender, nondistended. Bowel sounds are active. No hepato-splenomegaly, or palpable masses. No guarding. SKIN: warm, intact with no suspicious lesions or rash, good texture and turgor. NEURO: awake, alert, and oriented to person, place and time. There were no obvious focal neurologic abnormalities. Course Course Level of Care: Express Care Visit Vital Signs Vital signs: Vital Signs Temperature 98 F 07/02/24 19:55 Pulse Rate 80 07/02/24 19:55 Respiratory Rate 20 07/02/24 19:55 Blood Pressure 143/72 H 07/02/24 19:55 Pulse Oximetry 94 07/02/24 19:55 Oxygen Delivery Nasal Cannula 07/02/24 19:55 Oxygen Flow Rate 4 07/02/24 19:55 Temperature 98 F 07/02/24 19:55 Pulse Rate 80 07/02/24 19:55 Respiratory Rate 20 07/02/24 19:55 Blood Pressure 143/72 H 07/02/24 19:55 Pulse Oximetry 94 07/02/24 19:55 Oxygen Delivery Nasal Cannula 07/02/24 19:55 Oxygen Flow Rate 4 07/02/24 19:55 Reviewed MDM - URI/Sore Throat MDM Narrative Medical decision making narrative: Go to the ER for any new or worsening symptoms. Avoid smoking/second-hand smoke. Continue to take Tylenol or Motrin for pain. Increase your Vitamin C intake. Use a humidifier or vaporizer at night. Take Medications as prescribed. Drink plenty of water. 8-10 glasses per day. Use flonase 2 times per day for 5 days then as needed Take mucinex 2 times per day and be sure to take with 8oz of water. Follow up with Primary provider if not getting better. Differential Diagnosis Differential diagnosis: Likely upper respiratory infection, sinusitis, viral infection, influenza and other (covid) Lab Data Attestation: I reviewed the patient's lab results. Critical Care Time Critical Care Time Critical Care Time: No Discharge Plan Discharge Clinical Impression: Acute bacterial sinusitis Patient Disposition: Home, Self-Care Condition: Stable Instructions: Antibiotic Form, Sinusitis (ED), COPD (Chronic Obstructive Pulmonary Disease) (ED) Additional Instructions: Go to the ER for any new or worsening symptoms. Avoid smoking/second-hand smoke. Continue to take Tylenol or Motrin for pain. Increase your Vitamin C intake. Use a humidifier or vaporizer at night. Take Medications as prescribed. Drink plenty of water. 8-10 glasses per day. Use flonase 2 times per day for 5 days then as needed Take mucinex 2 times per day and be sure to take with 8oz of water. Follow up with Primary provider if not getting better. Patient Language: Syriac Prescriptions: New azithromycin 250 mg tablet See Rx Instructions .ROUTE .COMPLEX Qty: 6 0RF Rx Instructions: For 250 mg dose pack: take 500 mg today (day 1), then 250 mg for 4 days (days 2-5) prednisone 50 mg tablet 50 mg PO DAILY 5 Days Qty: 5 0RF fluticasone propionate [24 Hour Allergy Relief] 50 mcg/actuation spray,suspension 1 spray intranasal DAILY Qty: 16 0RF Rx Instructions: administer into each nostril No Action clopidogrel 75 mg Tablet 75 mg PO DAILY aspirin [Betzy Low Dose Aspirin] 81 mg Tablet,Delayed Release (Dr/Ec) 81 mg PO DAILY metoprolol succinate 50 mg Capsule,Sprinkle,Er 24hr 50 mg PO DAILY fluticasone propionate [Allergy Relief (fluticasone)] 50 mcg/actuation spray,suspension 1 spray NASAL BID Qty: 16 0RF Rx Instructions: administer into each nostril umeclidinium-vilanterol 62.5-25 mcg/actuation blister with device 1 inh inhalation DAILY Qty: 60 3RF albuterol sulfate 90 mcg/actuation HFA aerosol inhaler 2 inh inhalation Q4H PRN (Reason: shortness of breath or wheezing) Qty: 8.5 3RF ipratropium-albuterol 0.5 mg-3 mg(2.5 mg base)/3 mL solution for nebulization 3 ml inhalation QID Qty: 90 6RF furosemide 40 mg tablet 40 mg PO DAILY glipizide 10 mg tablet extended release 24hr 20 mg PO DAILY diclofenac sodium 75 mg tablet,delayed release (DR/EC) 75 mg PO Q12H PRN (Reason: pain) montelukast 10 mg tablet 10 mg PO QPM rosuvastatin 40 mg tablet 40 mg PO DAILY fenofibrate 160 mg tablet 160 mg PO DAILY potassium chloride 20 mEq tablet extended release 40 meq PO DAILY prednisone 10 mg tablet 10 mg PO DAILY Qty: 33 0RF Rx Instructions: Please take 4 tablets daily x 2 days, then 3 tablets daily x 4 days, 2 tablets daily x 4 days, 1 tablet daily x 4 days, then one half tablet daily x 2 days. azithromycin 250 mg tablet See Rx Instructions PO .COMPLEX Qty: 6 0RF Rx Instructions: take 500 mg today (day 1), then 250 mg for 4 days (days 2-5) PO guaifenesin 600 mg tablet extended release 12hr 1,200 mg PO BID Qty: 60 2RF Follow-up/Referrals: PHYSICIAN,APPLICATION OPERATIONS ENGINEER [Primary Care Provider] - Time of Disposition: 20:08
[2024-07-02 20:02] VITALS: O2SAT 94
[2024-07-02 20:10] LABS: EDCOVIDSCREEN Negative (Negative); EDINFLUASCREEN Negative (Negative); EDINFLUBSCREEN Negative (Negative)
== END 2024-07-02 20:11 | disposition home or self-care (01) ==
PROVIDERS: Emergency Provider Nurse Practitioner
DX: J01.90 Acute sinusitis, unspecified (principal); Z20.822 Contact with and (suspected) exposure to COVID-19; I25.10 Atherosclerotic heart disease of native coronary artery without angina pectoris; J44.9 Chronic obstructive pulmonary disease, unspecified; E11.9 Type 2 diabetes mellitus without complications; Z79.4 Long term (current) use of insulin; I10 Essential (primary) hypertension; E78.00 Pure hypercholesterolemia, unspecified; G47.33 Obstructive sleep apnea (adult) (pediatric); Z91.198 Patient's noncompliance with other medical treatment and regimen for other reason; Z99.81 Dependence on supplemental oxygen; Z95.5 Presence of coronary angioplasty implant and graft; Z79.82 Long term (current) use of aspirin; Z87.891 Personal history of nicotine dependence
CPT/HCPCS: 87426; 87804; 99213; G0463

== ENCOUNTER 2024-07-08 17:17 | Emergency (ER) | payer MEDICARE, SELFPAY ==
[2024-07-08 17:26] VITALS: BP 144/63; PULSE 72; RESP 18; TEMP 36.1; O2SAT 94
--- OUTSIDE RECORDS SUMMARY | 2024-07-08 18:43 | XMS_ITS | Data Portability ---
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 Available methocarb lindsey 750 mg tablet active Not Available Not Available No t Available levofloxa art 0.5 % eye drops Instill 1 drop every 4 hours by ophthalm ic route for 7 days. 05/08 completed Not Available Not Available Not Available tamsulosi n 0.4 mg capsule TAKE 1 CAPSULE BY MOUTH EVERYDAY AT BEDTIME active Not Available Not Available No t Available trazodone 100 mg tablet TAKE 1 TABLET BY MOUTH AT BEDTIME NEEDED FOR INSOMNIA 12/31 completed Not Available Not Available Not Available meclizine 25 mg tablet TAKE 1 TABLET BY MOUTH THREE TIMES A DAY NEEDED 12/31 completed Not Available Not Available Not Available diazepam 2 mg tablet TAKE 1 TABLET BY MOUTH TWICE A DAY 12/31 completed Not Available Not Available Not Available benzonata te 100 mg capsule TAKE 1 CAPSULE BY MOUTH TWICE A DAY FOR COUGH active Not Available Not Available No t Available cephalexi n 500 mg capsule TAKE 1 CAPSULE BY MOUTH FOUR TIMES A DAY FOR 7 DAYS 06/28 completed Not Available Not Available Not Available pantopraz ole 40 mg tablet,de layed release TAKE 1 TABLET BY MOUTH EVERY DAY active Not Available Not Available No t Available simvastat in 20 mg tablet Take 1 tablet every day by oral route. 11/03 completed Not Available Not Available Not Available naproxen sodium 550 mg tablet TK 1 T PO BID PRN 05/28 completed Not Available Not Available Not Available neomycin- polymyxin -dexameth 3.5 mg/mL-10, 000 unit/mL-0 .1% eye drops 10/15 completed Not Available Not Available Not Available tobramyci n 0.3 % eye drops INSTILL 1 GTT INTO AFFECTED EYE QID 09/19 completed Not Available Not Available Not Available triamcino lone acetonide 0.1 % topical ointment Apply 1 applicat ion twice a day by topical route as needed for 7 days. 12/31 completed Not Available Not Available Not Available nystatin 100,000 unit/gram topical cream APPLY TO THE AFFECTED AREA(S) BY TOPICAL ROUTE 2 TIMES PER DAY 08/12 completed Not Available Not Available Not Available clotrimaz ole-betam ethasone 1 %-0.05 % topical cream APPLY TO AFFECTED AREA TWICE A DAY FOR 2 WEEKS 10/12 completed Not Available Not Available Not Available prednison e 50 mg tablet TAKE 1 TABLET BY MOUTH DAILY FOR 5 DAYS active Not Available Not Available No t Available polymyxin B sulfate 10,000 unit-trim ethoprim 1 mg/mL eye drops 07/16 completed Not Available Not Available Not Available metoprolo l tartrate 50 mg tablet 1 po bid 12/31 completed Not Available Not Available Not Available Combivent 18 mcg-103 mcg/actua tion aerosol inhaler Inhale 2 puffs every 6 hours by inhalati on route as directed . 2012 active Not Available Not Available Not Avai lable nystatin- triamcino lone 100,000 unit/g-0. 1 % topical cream APPLY TO THE AFFECTED AREA(S) BY TOPICAL ROUTE 2 TIMES PER DAY IN THE MORNING AND EVENING prn rash 2022 active Not Available Not Available Not Avai lable nitroglyc dleaney 0.4 mg sublingua l tablet PLACE 1 TABLET UNDER THE TONGUE TWICE A DAY VIA SUBLINGU AL ROUTE NEEDED FOR CHEST PAIN 2023 active Not Available Not Available Not Avai lable Micardis 40 mg tablet Take 1 tablet every day by oral route as directed . 01/17 completed Not Available Not Available Not Available gabapenti n 300 mg capsule 2 po qhs and 1 po qAM 12/31 completed Not Available Not Available Not Available diclofena c sodium 75 mg tablet,de layed release TAKE 1 TABLET BY MOUTH EVERY 12 HOURS NEEDED active Not Available Not Available No t Available cephalexi n 500 mg tablet Take 1 tablet twice a day by oral route for 7 days. 12/13 completed Not Available Not Available Not Available monteluka st 10 mg tablet TAKE 1 TABLET BY MOUTH EVERY DAY active Not Available Not Available No t Available hydrochlo rothiazid e 25 mg tablet TAKE ONE TABLET BY MOUTH ONCE DAILY 12/31 completed Not Available Not Available Not Available furosemid e 20 mg tablet Take 1 tablet every day by oral route as needed. 03/15 completed Not Available Not Available Not Available diltiazem ER 60 mg capsule,e xtended release 12 hr Take 1 capsule twice a day by oral route. 02/12 completed Too expensiv e Not Available Not Available Not Available gabapenti n 100 mg capsule Take 1 capsule every 6-8 hours by oral route as needed for 30 days. 2023 active Not Available Not Available Not Avai lable cefuroxim e axetil 500 mg tablet 1 po bid x 7 days 05/23 completed Not Available Not Available Not Available polyethyl anne glycol 3350 17 gram/dose oral powder 1 capful in 4-8 ounces liquid po qday prn constipa tion 04/24 completed Not Available Not Available Not Available levofloxa art 500 mg tablet Take 1 tablet every 24 hours by oral route for 5 days. active Not Available Not Available No t Available lovastati n 20 mg tablet Take 1 tablet every day by oral route. 05/28 completed Not Available Not Available Not Available levofloxa art 750 mg tablet Take 1 tablet every day by oral route for 5 days. 09/21 completed Not Available Not Available Not Available methylpre dnisolone 4 mg tablets in a dose pack TAKE DIRECTED active Not Available Not Available No t Available albuterol sulfate HFA 90 mcg/actua tion aerosol inhaler INHALE 1 TO 2 PUFFS BY MOUTH FOUR TIMES DAILY NEEDED active Not Available Not Available No t Available Lomotil 2.5 mg-0.025 mg tablet 1-2 tabs po q6 hours prn diarrhea 12/31 completed Not Available Not Available Not Available ketorolac 60 mg/2 mL intramusc ular solution Inject 2 mL every day by intramus cular route as directed for 1 day. 01/03 completed Not Available Not Available Not Available ketoconaz ole 2 % topical cream APPLY TO AFFECTED AREA EVERY DAY 12/31 completed Not Available Not Available Not Available lisinopri l 40 mg tablet 1 tablet by oral route. 2021 active Not Available Not Available Not Avai lable cefdinir 300 mg capsule 03/26 completed Not Available Not Available Not Available losartan 100 mg tablet TAKE 1 TABLET BY MOUTH EVERY DAY 03/25 completed Not Available Not Available Not Available fluticaso ne propionat e 50 mcg/actua tion nasal spray,ld pension USE 1 SPRAY IN EACH NOSTRIL ONCE DAILY active Not Available Not Available No t Available metformin ER 500 mg tablet,ex tended release 24 hr 02/28 completed Not Available Not Available Not Available doxycycli ne hyclate 100 mg tablet TAKE 1 TABLET BY MOUTH EVERY 12 HOURS FOR 5 DAYS 06/28 completed Not Available Not Available Not Available loratadin e 10 mg tablet TAKE 1 TABLET BY MOUTH EVERY DAY NEEDED 12/31 completed Not Available Not Available Not Available naproxen 500 mg tablet 12/31 completed Not Available Not Available Not Available amoxicill in 875 mg-potass ium clavulana te 125 mg tablet TAKE 1 TABLET BY MOUTH EVERY 12 HOURS WITH MEALS FOR 7 DAYS 02/27 completed Not Available Not Available Not Available Benicar 40 mg tablet Take 0.5 tablets every day by oral route. 07/01 completed Sample Qty: 7. Not Available Not Available Not Available azithromy art 500 mg tablet 03/26 completed Not Available Not Available Not Available ezetimibe 10 mg tablet TAKE 1 TABLET BY MOUTH EVERY DAY DIRECTED 2023 active Not Available Not Available Not Avai lable rosuvasta tin 20 mg tablet 12/02 completed Not Available Not Available Not Available rosuvasta tin 40 mg tablet TAKE 1 TABLET BY MOUTH EVERY DAY active Not Available Not Available No t Available tadalafil 20 mg tablet TAKE ONE-HALF TO ONE TABLET BY MOUTH 30 MINUTES PRIOR TO INTERCOU RSE, DO NOT EXCEED 1 TAB IN 24 HOURS 12/31 completed Not Available Not Available Not Available duloxetin e 20 mg capsule,d elayed release TAKE 1 CAPSULE BY MOUTH TWICE A DAY DIRECTED active Not Available Not Available No t Available fenofibra te 160 mg tablet TAKE 1 TABLET BY MOUTH EVERY DAY DIRECTED active Not Available Not Available No t Available isosorbid e dinitrate 08/15 completed Not Available Not Available Not Available ipratropi um-albute rol 0.2%/0.0 83% q 6 hour 2012 active Not Available Not Available Not Avai lable Viagra 08/15 completed Not Available Not Available Not Available nifedipin e 08/15 completed Not Available Not Available Not Available metformin ER 500 mg 24 hr tablet,ex tended release (gastric retention ) Take 1 tablet twice a day by oral route with meals. 02/28 completed Not Available Not Available Not Available Januvia 100 mg tablet TAKE 1 TABLET BY MOUTH EVERY DAY 05/23 completed Not Available Not Available Not Available Pataday 0.2 % eye drops INSTILL 1 DROP INTO AFFECTED EYE(S) BY OPHTHALM IC ROUTE ONCE DAILY prn 10/16 completed Not Available Not Available Not Available hydrochlo rothiazid e 12.5 mg tablet Take 1 tablet every day by oral route as directed . 04/22 completed Not Available Not Available Not Available Symbicort 160 mcg-4.5 mcg/actua tion HFA aerosol inhaler 02/28 completed Not Available Not Available Not Available Symbicort 80 mcg-4.5 mcg/actua tion HFA aerosol inhaler Inhale 2 puffs twice a day by inhalati on route. 12/31 completed Not Available Not Available Not Available Bystolic 20 mg tablet Take 1 tablet every day by oral route. 02/06 completed Sample Qty: 14. samples given of 10 mg 2 tabs daily Not Available Not Available Not Available Solu-Medr ol (PF) 125 mg/2 mL solution for injection Take 125 mg every day by injectio n route as directed for 1 day. 06/26 completed Not Available Not Available Not Available Tradjenta 5 mg tablet Take 1 tablet every day by oral route. 02/28 completed Not Available Not Available Not Available potassium chloride ER 20 mEq tablet,ex tended release TAKE 2 TABLETS BY MOUTH EVERY DAY active Not Available Not Available No t Available Anoro Ellipta 62.5 mcg-25 mcg/actua tion powder for inhalatio n TAKE 1 PUFF BY MOUTH EVERY DAY 12/31 completed Not Available Not Available Not Available Jardiance 10 mg tablet Take 1 tablet every day by oral route. 03/25 completed Not Available Not Available Not Available Jardiance 25 mg tablet Take 1 tablet every day by oral route. 10/04 completed rash Not Available Not Available Not Available Spiriva Respimat 1.25 mcg/actua tion solution for inhalatio n Inhale 2 puffs every day by inhalati on route. 12/31 completed Not Available Not Available Not Available Ozempic 1 mg/dose (2 mg/1.5 mL) subcutane ous pen injector 1 mg sc qweek 06/07 completed Not Available Not Available Not Available Rybelsus 7 mg tablet Take 1 tablet every day by oral route. 01/17 completed Not Available Not Available Not Available Rybelsus 3 mg tablet TAKE 1 TABLET BY MOUTH EVERY DAY 10/05 completed Not Available Not Available Not Available Breztri Aerospher e 160 mcg-9mcg- 4.8mcg/ac tuation HFA aerosol inhaler Inhale 2 puffs twice a day by inhalati on route as directed for 30 days. active Not Available Not Available No t Available Ozempic 1 mg/dose (4 mg/3 mL) subcutane ous pen injector INJECT 1 MG UNDER THE SKIN ONCE WEEKLY 10/12 completed Not Available Not Available Not Available Paxlovid 300 mg (150 mg x 2)-100 mg tablets in a dose pack 1 dose po bid x 5 days (GFR >60) 08/23 completed Not Available Not Available Not Available Ozempic 2 mg/dose (8 mg/3 mL) subcutane ous pen injector 2 mg sc qweek 10/12 completed Not Available Not Available Not Available Ozempic 0.25 mg or 0.5 mg (2 mg/3 mL) subcutane ous pen injector INJECT 0.5MG UNDER THE SKIN ONCE WEEK active Not Available Not Available No t Available Vitals Date Recorded Body height Body mass index (BMI) Body weight Body temperature Heart rate Respiratory rate Oxygen saturation Oxygen saturation in Arterial blood by Pulse oximetry Inhaled oxygen flow rate Pain severity - 0-10 verbal numeric rating [Score] - Reported Systolic blood pressure Diastolic blood pressure Provider Name and Address Organization Details Last Updated DateTime 4 172.72 cm 35.4 kg/m2 752624. 58 g 97 [degF] 73 /min 24 /min 93 % 93 % 4 L/min 6 120 mm[Hg] 78 mm[Hg] Rosaura Hoyt RN [facility] [employer] 4 09:42:55 Date Recorded Body height Body mass index (BMI) Body weight Body temperature Heart rate Respiratory rate Oxygen saturation Oxygen saturation in Arterial blood by Pulse oximetry Inhaled oxygen flow rate Pain severity - 0-10 verbal numeric rating [Score] - Reported Systolic blood pressure Diastolic blood pressure Provider Name and Address Organization Details Last Updated DateTime 4 172.72 cm 34.9 kg/m2 682111. 8 g 97.3 [degF] 77 /min 28 /min 97 % 97 % 4 L/min 2 130 mm[Hg] 76 mm[Hg] Rosaura Hoyt RN [facility] [employer] 4 16:48:34 Date Recorded Body height Body mass index (BMI) Body weight Body temperature Heart rate Respiratory rate Oxygen saturation Oxygen saturation in Arterial blood by Pulse oximetry Inhaled oxygen flow rate Pain severity - 0-10 verbal numeric rating [Score] - Reported Systolic blood pressure Diastolic blood pressure Provider Name and Address Organization Details Last Updated DateTime 4 172.72 cm 36.5 kg/m2 825140. 52 g 97.3 [degF] 70 /min 24 /min 97 % 97 % 4 L/min 2 144 mm[Hg] 70 mm[Hg] Rosaura Hoyt RN [facility] [employer] 4 09:33:47 Date Recorded Body height Body mass index (BMI) Body weight Body temperature Heart rate Respiratory rate Pain severity - 0-10 verbal numeric rating [Score] - Reported Oxygen saturation Oxygen saturation in Arterial blood by Pulse oximetry Inhaled oxygen flow rate Systolic blood pressure Diastolic blood pressure Provider Name and Address Organization Details Last Updated DateTime 5 172.72 cm 36.5 kg/m2 748414. 57 g 97.3 [degF] 73 /min 28 /min 3 95 % 95 % 4 L/min 142 mm[Hg] 68 mm[Hg] Rosaura Hoyt RN [place] [facility] N(i[facility] 5 09:04:50 Date Recorded Body height Body mass index (BMI) Body weight Body temperature Heart rate Respiratory rate Heart rate Oxygen saturation Oxygen saturation in Arterial blood by Pulse oximetry Inhaled oxygen flow rate Pain severity - 0-10 verbal numeric rating [Score] - Reported Systolic blood pressure Diastolic blood pressure Provider Name and Address Organization Details Last Updated DateTime 5 172.72 cm 38.2 kg/m2 640227. 13 g 97 [degF] 52 /min 24 /min 52 /min 95 % 95 % 4 L/min 3 160 mm[Hg] 80 mm[Hg] Rosaura Hoyt RN [facility] N(i)² 5 12:25:38 Social History Question Answer Notes LastModified by Organizat ion Details LastModified Time Tobacco Smoking Status Never Smoker Not Available [facility] 07/20/2022 06:06:09 Do You Have An Advance Directive? No Information not available 10/13/2023 What Is Your Level Of Alcohol Consumption? None [id number] Information not available 07/20/2022 Do You Wear A Helmet When Biking? Yes [id number] Information not available 07/20/2022 Are You Blind Or Do You Have Difficulty Seeing? No Information not available 10/13/2023 What Is Your Level Of Caffeine Consumption? Occasional [id number] Information not available 07/20/2022 What Is Your Code Status? Full Code Information not available 10/13/2023 In The 14 Days Before Symptom Onset, Have You Had Close Contact With A Laboratory-confir med COVID-19 While That Case Was Ill? No [id number] Information not available 07/20/2022 In The 14 Days Before Symptom Onset, Have You Had Close Contact With A Person Who Is Under Investigation For COVID-19 While That Person Was Ill? No [id number] Information not available 07/20/2022 Are You Currently Employed? No Information not available 10/13/2023 Are You Deaf Or Do You Have Serious Difficulty Hearing? No Information not available 10/13/2023 What Type Of Diet Are You Following? REGULAR [id number] Information not available 07/20/2022 What Is The Highest Grade Or Level Of School You Have Completed Or The Highest Degree You Have Received? [id number] Information not available 07/20/2022 Have There Been Any Changes To Your Family Or Social Situation? No [id number] Information not available 07/20/2022 Are There Any Guns Present In Your Home? No [id number] Information not available 07/20/2022 Do You Use Insect Repellent Routinely? No [id number] Information not available 07/20/2022 Where Do You Live? [place] [id number] Information not available 07/20/2022 Advance Directive- Providers Has Reviewed Directive And Consents To Follow Them (insert Provider Name With Any Objectives In Notes Field) No Information not available 10/13/2023 Presence Of Domestic Violence No Information no t available 10/13/2023 Are You Able To Care For Yourself? Yes Information not available 10/13/2023 Are You Blind Or Do Yo Have Difficulty Seeing? No Information not available 10/13/2023 Are You Deaf Or Do You Have Serious Difficulty Hearing? No Information not available 10/13/2023 General Stress Level? Moderate Information not available 10/13/2023 Live Alone Of With Others? With Others Information not available 10/13/2023 Do You Have A Medical Power Of Sheather? No Information not available 10/13/2023 What Was The Date Of Your Most Recent Tobacco Screening? 02/14/2023 [email or web address] Information not available 02/14/2023 Do You Have Any Pets? No [id number] Information not available 07/20/2022 What Is Your Relationship Status? Information not available 10/13/2023 Do You Use Your Seat Belt Or Car Seat Routinely? Yes [id number] Information not available 07/20/2022 Do You Have Smoke And Carbon Monoxide Detectors In Your Home? Yes [id number] Information not available 07/20/2022 Are You Passively Exposed To Smoke? No [id number] Information not available 07/20/2022 Do You Participate In Social Media? No Information not available 10/13/2023 Do You Feel Stressed (tense, Restless, Nervous, Or Anxious, Or Unable To Sleep At Night)? [id number] Information not available 04/30/2024 Do You Use Sunscreen Routinely? Yes [id number] Information not available 07/20/2022 Has Tobacco Cessation Counseling Been Provided? No [id number] Information not available 07/20/2022 Have You Recently Traveled Abroad? No [id number] Information not available 07/20/2022 Are You Currently In School? No [id number] Information not available 07/20/2022 Do You Have Any Dietary Restrictions? No [id number] Information not available 07/20/2022 Sex: Unknown Functional Status Question Answer Note LastModified by Organizat ion Details LastModified Time Do you have difficulty walking or climbing stairs? Yes carriers O2 with him 4L Information not available 06/26/2024 Do you have transportation difficulties? Yes Information not available 10/13/2023 Are you able to walk? YESWOREST Information not available 10/13/2023 Do you have difficulty doing errands alone? Yes Information not available 10/13/2023 Are you able to care for yourself? No has help Information n ot available 10/13/2023 Do you have difficulty dressing or bathing? Yes Information not available 10/13/2023 What is your exercise level? Occasional [id number] Information not available 07/20/2022 Mental Status Question Answer Note LastModified by Organization D etails LastModified Time Do you have difficulty concentrating, remembering or making decisions? Yes Information no t available 10/13/2023 Family History Relationship Description Onset Age of this Age Resolved Age Notes LastModified by Organization Details LastModified Time Mother Diabetes mellitus [id number] Not available 07/20/2022 06:08:21 Mother Hypertensive disorder [id number] Not available 07/20/2022 06:08:21 Mother Family history of malignant neoplasm [id number] Not available 07/20/2022 06:08:21 Sister Cerebrovascu lar accident [id number] Not available 07/20/2022 06:08:21 Sister Hypertensive disorder [id number] Not available 07/20/2022 06:08:21 Sister Heart disease [id number] Not available 07/20/2022 06:08:21 Brother Hypertensive disorder [id number] Not available 07/20/2022 06:08:21 Medical History Condition Response LUNG DISEASE/DISORDER Y COPD Y HIGH CHOLESTEROL / HYPERLIPIDEMIA Y BACK / NECK PROBLEMS Y DEPRESSION (INCLUDING POST ) Y HAVE YOU BEEN HOSPITALIZED OR SEEN IN [facility] ER IN THE PAST YEAR ? Y OBESITY Y Do you have Advance directive? N ARTHRITIS Y USE OF BLOOD THINNERS Y DIABETES, TYPE Y HEARTBURN / REFLUX Y MUSCLE,JOINT OR BONE PROBLEMS Y Abdominal Pain Y PULMONARY DISEASE Y ALZHEIMER'S DISEASE Y CHF Y HEART DISEASE/HEART PROBLEMS Y HYPERTENSION Y ANXIETY DISORDER Y Immunizations Vaccine Type Date Status Note Provider Nam e and Address Organization Details Recorded Time COVID-19, mRNA, LNP-S, PF, 100 mcg/0.5mL dose or 50 mcg/0.25mL dose 1 completed BRODY Crawford [address], [address], [place], [address], [employer] 01/01/2024 09:23:40 COVID-19, mRNA, LNP-S, bivalent, PF, 50 mcg/0.5 mL or 25mcg/0.25 mL dose 2 completed BRODY Crawford [address], [address], [place], [address], [facility] N(i[facility] 01/01/2024 09:23:40 Influenza, split virus, quadrivalent, PF 1 completed BRODY Crawford [address], [address], [place], [address], [facility] [employer] [facility] N(i[facility] 01/01/2024 09:23:40 Influenza, high-dose, quadrivalent, PF 3 completed Charles Lyon RN [facility], [facility] N(i)² 02/14/2023 11:37:42 COVID-19, mRNA, LNP-S, PF, 30 mcg/0.3 mL dose 1 completed BRODY Crawford [address], [address], [place], [address], [facility] [employer] [facility] 01/01/2024 09:23:40 COVID-19, mRNA, LNP-S, PF, 30 mcg/0.3 mL dose 1 completed BRODY Crawford [address], [address], [place], [address], [facility] [employer] [facility] 01/01/2024 09:23:40 Influenza, high-dose, quadrivalent, PF 2 completed Not Available [facility] 05/30/2023 06:42:55 pneumococcal polysaccharide PPV23 1 completed Not Available [facility] 05/30/2023 06:42:55 Influenza, split virus, quadrivalent, PF 9 completed Not Available [facility] 05/30/2023 06:42:55 Influenza, split virus, quadrivalent, PF 8 completed Not Available [facility] 05/30/2023 06:42:55 Pneumococcal conjugate PCV 13 7 completed BRODY Crawford [address] [facility], [facility] [place] [address], [place], [address], [facility] [employer] [facility] 01/01/2024 09:23:40 Influenza, split virus, quadrivalent, PF 7 completed Not Available [facility] 05/30/2023 06:42:55 Influenza, split virus, quadrivalent, preservative 6 completed Not Available [facility] 05/30/2023 06:42:55 Influenza, split virus, quadrivalent, PF 5 completed Not Available [facility] 05/30/2023 06:42:55 Past Encounters Encounter ID Performer Location Encounter Start Date Encounter Closed Date Diagnosis/Indication Diagnosis SNOMED-CT Code Diagnosis ICD10 Code Diagnosis Note [id number] [facility] [place] [address] [facility], [facility] [address] [place] [address] 11/04/2020 00:00:00 11/04/2020 13:03:50 [id number] [facility] [place] [address] [place] [address] 12/16/2020 00:00:00 12/16/2020 10:28:33 [id number] [facility] [place] [address] [place] [address] 02/24/2021 00:00:00 02/24/2021 12:26:54 [id number] [facility] [place] [address] [place] [address] 03/18/2021 00:00:00 03/18/2021 10:07:59 [id number] [facility] [place] [address] [place] [address] 03/25/2021 00:00:00 04/13/2021 11:23:04 [id number] [facility] [place] [address] [place] [address] 05/03/2021 00:00:00 05/20/2021 10:05:36 [id number] [facility] [place] [address] [place] [address] 06/30/2021 00:00:00 06/30/2021 09:58:26 [id number] [facility] [place] [address] [place] [address] 07/28/2021 00:00:00 07/28/2021 09:54:32 [id number] [facility] Podiatry [address], [facility], [place] [address] [place] [address] 09/06/2021 00:00:00 09/06/2021 11:47:31 [id number] [facility] [place] [address] [place] [address] 10/11/2021 00:00:00 10/15/2021 11:31:13 [id number] [facility] [place] [address] [place] [address] 12/13/2021 00:00:00 12/14/2021 08:36:09 [id number] [facility] [place] [address] [place] [address] 01/17/2022 00:00:00 01/17/2022 08:53:37 [id number] [facility] [place] [address] [place] [address] 02/02/2022 00:00:00 02/02/2022 18:32:20 [id number] [facility] [place] [address] [facility] [address] [place] [address] 02/28/2022 00:00:00 02/28/2022 09:30:50 [id number] [facility] [place] [address] [facility] [address] [place] [address] 03/31/2022 00:00:00 04/19/2022 21:11:48 [id number] Celestino Cortes MD [facility] Primary [facility] [place] [address] [facility] 140 [place], [place] [address] 08/23/2022 08:37:48 08/23/2022 09:07:42 Umbilical hernia 524214841 K42.9 discussed that surgery is the only detention treatment but that umbilical hernias can recur and surgery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
--- OUTSIDE RECORDS SUMMARY | 2024-07-08 18:43 | XMS_ITS | Continuity of Care Document ---
Author Organization [facility] Address [address] [place] [address] Phone Care Team Providers Care Beverage Inspection Machine Tender Name Role Phone Administrative, Provider Unavailable Unavail able Procedures Procedure Date Medical Record Copy Medical Record Copy Per Page Work/medical disability examination I M E X-ray exam of shoulder, complete 2006 Advance Directives Directive Yes / No Effective Date File Name No Information Encounters Encounter Description Practice Location Reason(s) For Visit Diagnoses Date Provider Providers Copied on Encounter [facility], [address] [place] [address], [id number], tel:[phone] [facility] No Information 2 8 Administrative Provider. [address] [place] [address], [id number], . tel:[phone] Work/medical disability examination I M E [facility], [address] [place] [address], [id number], tel:[phone] [employer] No Information 0 7 Zaid Tran. [address] [place] [address], [address], [id number], . tel:[phone] Family History Family Member Type Diagnosis Age At Onset No Information Payers Payer name Insurance type Covered democrat ID Authoriza tion(s) No Information Social History [...]
--- OUTSIDE RECORDS SUMMARY | 2024-07-08 18:43 | XMS_ITS | Continuity of Care Document ---
Author Organization formerly [facility] Address [address] [place] [address] utive [facility] [address] [place] [address] Phone Care Team Providers Care Lace Machine Operator Name Role Phone Rojas OD, Anatoliy Unavailable Unavailable Procedures Procedure Date Eye Exam Established Pt Advance Directives Directive Yes / No Effective Date File Name No Information Encounters Encounter Description Practice Location Reason(s) For Visit Diagnoses Date Provider Providers Copied on Encounter [facility], [address] [place] [address] [address], [place], [place], [id number], [place] tel:[phone] [facility] No Information [phone] Rojas OD Anatoliy. [address], [place], [address], [place]. tel:[phone] Family History Family Member Type Diagnosis Age At Onset No Information Payers Payer name Insurance type Covered democrat ID Authoriza tion(s) [place] [id number] Social History Type Description Quantity Date Captured [...]
--- OUTSIDE RECORDS SUMMARY | 2024-07-08 18:43 | XMS_ITS | Clinical Summary ---
Author Organization [facility] Address [facility] [place] [address] Care Team Providers Care Radiology Orderly Name Role Phone Cintia Cortes MD Primary Care Provider [phone] Encounters Date Type Department Care Team Description 05/02/2024 Telephone [facility] [address] [place], [place] [id number] Mamadou Chavez MD Appointment Request from Last 3 Months Social History Tobacco Use Types Packs/Day Years Used Date Smoking Tobacco: Never Assessed Sex and Gender Information Value Date Recorded Sex Assigned at Not on file Legal Sex Male 9:41 AM CDT Gender Identity Not on file Sexual Orientation Not on file Plan of Treatment Upcoming Encounters Date Type Department Care Team (Late st Contact Info) Description 09/16/2024 12:00 PM CDT Office Visit [facility] [address] [place] [address] Mamadou Chavez MD [facility] [address] [place], [place] [id number] Health Maintenance Due Date Last Done Comments Colorectal Cancer Screening Colonoscopy (10 Years) 1955 Hepatitis C 1973 DTaP, Tdap and Td Vaccines (1 - Tdap) 1974 Zoster Vaccines (1 of 2) 2005 Annual Medicare Wellness Visit 2020 COVID-19 Vaccine ( - season) 2024 04/20/2022, 05/05/2021, 08/24/2020, Additional history exists Influenza Adult (#1) 2024 03/12/2021, 02/28/2019, 03/27/2018, Additional history exists RSV Immunization or 60+ Years (1 - 1-dose 75+ series) 2030 Pneumococcal Vaccine: 65+ Years Completed 12/16/2020, 06/21/2016 Meningococcal B Vaccine Aged Out No l onger eligible based on patient's age to complete this topic Meningococcal Vaccine Aged Out No ok hollie eligible based on patient's age to complete this topic RSV Immunizations Under 20 Months Aged Out No longer eligible based on patient's age to complete this topic Insurance Care Teams Radiology Orderly Relationship Specialty Start Date End Date Cintia Cortes MD [address] [address] PCP - General FAMILY PRACTICE 12/02/22
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
--- OUTSIDE RECORDS SUMMARY | 2024-07-08 18:43 | XMS_ITS | Continuity of Care Document ---
Author Organization [facility] Address [address] [place] [address] Phone Care Team Providers Care Emergency Telecommunications Dispatcher Name Role Phone Gaby Ortega MD Unavailable [...] Diagnoses Date Provider Providers Copied on Encounter [facility], [address], [place], [place], [id number] , tel: [phone] [facility] No Information 3 Teresa Benjamin Gaby. [address], [id number] . tel: [phone] [facility], [address], [place], [place], [address] , tel: [phone] [facility] [address] Teresa Griffin. [address], [id number] . tel: [phone] [facility], [address], [place], [place], [address] , tel: [phone] [facility] No Information Sep-2 1 Vintonmely Griffin. [address] [place] [address], [place], [place], [address] . tel: [phone] [facility], [address], [place], [place], [address] , tel: [phone] [facility] No Information Sep-0 8 1 Vintonmely Griffin. [address] [place] [address], [place], [place], [address] . tel: [phone] [facility], [address], [place], [place], [address] , tel: [phone] [facility] Screening for malignant neoplasms of the prostateChronic airway obstruction, not elsewhere classifiedShortness of breathSpecial screening for malignant neoplasms, colon Sep-0 1 Teresa Sourav Gaby. [address] [place] [address], [place], [place], [address] . tel: [phone] Referring Provider: Gaby Benjamin, [facility] [place] [address], [place], [address] . tel:[phone] Family History Family Member Type Diagnosis Age At Onset No Information Payers Payer name Insurance type Covered republican ID Authormadya roddy(s) MEDICARE [place] [id number] Social History Type Description Quantity Date Captured [...]
--- OUTSIDE RECORDS SUMMARY | 2024-07-08 18:43 | XMS_ITS | Clinical Summary ---
Author Organization [facility] Address [address] [place] [address] Care Team Providers Care Material Damage Adjuster Name Role Phone Cintia Cortes MD Primary [...] (CRESTOR) 20 mg tabletIndicat ions:Atherosc lerosis of [place] coronary artery of [place] heart with stable angina pectoris (CMS/HCC) (HCC),Hyperli [...] artery disease of n ative artery of [place] heart with stable angina pectoris 11/21/2018 ALYSHA (obstructive sleep apnea) 11/21/2018 Hypertension associated with diabetes 11/21/2018 Hyperlipidemia associated with type 2 diabetes [place] 11/21/2018 Diastolic dysfunction 02/14/2018 Obesity 02/14/2018 Type 2 diabetes mellitus without complications ( [facility]) 02/03/2017 Notalgia 02/09/2015 Cervicalgia 02/06/2015 Asymmetrical [...] PCV 13 06/21/2016 Pneumococcal Polysaccharide PPV23 12/16/2020 Surgical History Surgery Date Site/Laterality Comments NECK SURGERY Neck Surgery - (Added by TW Conv) [place] CHOLECYSTECTOMY Cholecystectomy - (Added by TW Conv) CARDIAC STENT PLACEMENT CATARACT EXTRACTION, BILATERAL FINGER AMPUTATION CORONARY ANGIOPLASTY Medical History Medical History Date Comments Uncomplicated asthma Asthma - (A dded by TW Conv) Essential (primary) hypertension Hypertension - (Added by TW Conv) Aortic stenosis, severe Hyperlipidemia Diet-controlled diabetes geeta litus (CMS/[facility]) ([facility]) CAD (coronary artery disease) Sleep apnea COPD (chronic obstructive pu lmonary disease) ([facility]) Family History Medical History Relation Name Comments Pneumonia Father Cancer Mother Diabetes Other 1 Family history of diabetes mellitus - (Added by TW Conv) Stroke Other 2 Family history of cerebrovascular accident - (Added by TW Conv) Hypertension Other 3 Family history of hypertension - (Added by TW Conv) Heart disease Other 4 Family history of cardiac disorder - (Added by TW Conv) Cancer Other 5 Family history of malignant neoplasm - (Added by TW Conv) Relation Name Status Comments Father Mother (Age 58) Other 1 Other 2 Other 3 Other 4 Other 5 Social History Tobacco Use Types Packs/Day Years Used Date Smoking Tobacco: Former Smokeless Tobacco: Never Tobacco Cessation:Counseling Given: Not Answered Alcohol Use Standard Drinks/Week Comments No 0 (1 standard drink = 0.6 oz pur e alcohol) Sex and Gender Information Value Date Recorded Sex Assigned at Not on file Legal Sex Male 1:19 AM RESEARCH HOME ECONOMIST Gender Identity Not on file Sexual Orientation Not on file Obstetrics History Last Filed Vital Signs Vital Sign Reading Time Taken Comments Blood Pressure 130/72 07/18/2022 3:06 PM RESEARCH HOME ECONOMIST Pulse 80 07/18/2022 3:06 PM RESEARCH HOME ECONOMIST Temperature 36.6 C (97.9 F) 03/15/2018 1:38 PM CDT Respiratory Rate 12 06/11/2018 4:00 PM RESEARCH HOME ECONOMIST Oxygen Saturation 88% 07/18/2022 3:06 PM RESEARCH HOME ECONOMIST Inhaled Oxygen Concentration - - Weight 113.9 kg (251 lb) 07/18/2022 3:06 PM RESEARCH HOME ECONOMIST Height 172.7 cm (5' 8 ) 07/18/2022 3:06 PM RESEARCH HOME ECONOMIST Body Mass Index 38.16 07/18/2022 3:06 PM RESEARCH HOME ECONOMIST Plan of Treatment Health Maintenance Due Date Last Done Comments Albumin Creatinine Ratio, Urine 1955 Colon Cancer Screening-Colonoscopy 1955 Depression Screening 1955 Fall Risk Assessment 1955 Hemoglobin A1C 1955 Hepatitis C Screening 1955 Prostate Cancer Screening-PSA 1955 Dilated Eye Exam 1955 Foot Exam 1955 DTaP/Tdap/Td Vaccine (1 - Tdap) 1966 Hepatitis B Screening 1973 Zoster Vaccine (1 of 2) 2005 eGFR 06/11/2019 06/11/2018 Abdominal Aortic Aneurysm (A AA) Screen 2020 03/15/2018 Well Visit 65+ 2020 Lipid Panel 07/18/2023 07/18/2022, 07/21, 07/19/2019, Additional history exists Covid-19 Vaccine (2023-2 5 season) 2024 08/24/2020, 08/02/2020 Influenza Vaccine (#1) 2024 9, 03/27/2018, 03/06/2017, Additional history exists Pneumococcal vaccine 65+ Completed 12/16/2020, 05/24 Procedures Procedure Name Priority Date/Time Associated Diagnosis Comments POCT LIPID PANEL Routine 07/18/2022 3:34 PM [employer]EARCH HOME ECONOMIST Hyperlipidemia associated with type 2 diabetes mellitus (HCC) EGFR STAT 06/11/2018 12:[address] CHEST ABDOMEN PELVIS W CONTRAST ED 03/15/2018 9:26 PM CDT from Last 3 Months or Most Recently Relevant to Health Maintenance Results * POCT lipid panel (07/18/2022 3:34 PM RESEARCH HOME ECONOMIST) Cholesterol, POC 155 mg/dL HDL, POC 19 mg/dL Triglycerides, POC 411 mg/dL LDL Cholesterol POC 89 mg/dL Chol/HDL Ratio, POC N/A Non-HDL Cholesterol, POC 136 mg/dL Cholesterol Total, POC 155 mg/dL Capillary blood 07/18/2022 3 :34 PM RESEARCH HOME ECONOMIST Linda Hurtado NP POINT OF CARE TEST ORDERA BLES Edited Result - Final * eGFR (06/11/2018 12:10 PM RESEARCH HOME ECONOMIST) eGFR 94 mL/min/1.7 3 m2 KELL URBINA Comment: Interpretive Data Reference Interval Normal >/= 90 mL/min/1.73m2 Mildly decreased* 60 - 89 mL/min/1.73m2 Mildly to moderately decreased 45 - 59 mL/min/1.73m2 Moderately to severely decreased 30 - 44 mL/min/1.73m2 Severely decreased 15 - 29 mL/min/1.73m2 Kidney Failure < 15 mL/min/1.73m2 *Relative to young adult level If -Wallisian multiply value by 1.16. Estimated glomerular filtration [...] 2015. Blood specimen (specimen) 06/11/2018 12:10 PM RESEARCH HOME ECONOMIST 06/11/2018 12:26 PM RESEARCH HOME ECONOMIST Narrative KELL CIARA - 06/11/2018 4:26 PM RESEARCH HOME ECONOMIST us Saw Vides MD LAB BLOOD ORDERABLES Final Result KELL [id number] [address] Department [place] [address] * CT Chest Abdomen Pelvis W Contrast [...] Relevant to Health Maintenance Insurance MEDICARE SOLUTIONS R HMO REF R HMO REF Care Teams Material Damage Adjuster Relationship Specialty Start Date End Date Cintia Cortes MD PCP - General 11/16/11
--- NOTE | 2024-07-08 21:47 | PC.NURSE ---
Pt called multiple times to come back to a room with no answer.
--- OUTSIDE RECORDS SUMMARY | 2024-07-08 21:59 | XMS_ITS | Continuity of Care Document ---
Author Organization [facility] Address [address] [place] [address] Phone Care Team Providers Care Blindstitch Machine Operator Name Role Phone Gaby Ortega MD Unavailable [...] Diagnoses Date Provider Providers Copied on Encounter [facility], [address], [place], [place], [address] , tel: [phone] [facility] No Information 3 Teresa Benjamin Gaby. [address], [id number] . tel: [phone] [facility], [address], [place], [place], [address] , tel: [phone] [facility] 201 [address] Teresa Griffin. [address], [id number] . tel: [phone] [facility], [address], [place], [place], [address] , tel: [phone] [facility] No Information Sep-2 1 Summersmely Griffin. [address] [place] [address], [place], [place], [address] . tel: [phone] [facility], [address], [place], [place], [address] , tel: [phone] [facility] No Information Sep-0 8 1 Summersmely Griffin. [address] [place] [address], [place], [place], [address] . tel: [phone] [facility], [address], [place], [place], [address] , tel: [phone] [facility] Screening for malignant neoplasms of the prostateChronic airway obstruction, not elsewhere classifiedShortness of breathSpecial screening for malignant neoplasms, colon Sep-0 1 Teresa Sourav Gaby. [address] [place] [address], [place], [place], [address] . tel: [phone] Referring Provider: Gaby Benjamin, [facility] [place] [address], [place], [address] . tel:[phone] Family History Family Member Type Diagnosis Age At Onset No Information Payers Payer name Insurance type Covered republican ID Authormadya roddy(s) MEDICARE [place] [id number] Social History Type Description Quantity Date Captured [...]
--- OUTSIDE RECORDS SUMMARY | 2024-07-08 21:59 | XMS_ITS | Continuity of Care Document ---
Author Organization [facility] Address [address] [place] [address] Phone Care Team Providers Care Associate Veterinarian Name Role Phone Administrative, Provider Unavailable Unavail able Procedures Procedure Date Medical Record Copy Medical Record Copy Per Page Work/medical disability examination I M E X-ray exam of shoulder, complete 2006 Advance Directives Directive Yes / No Effective Date File Name No Information Encounters Encounter Description Practice Location Reason(s) For Visit Diagnoses Date Provider Providers Copied on Encounter [facility], [address] [place] [address], [id number], tel:[phone] [facility] No Information 2 8 Administrative Provider. [address] [place] [address], [id number], . tel:[phone] Work/medical disability examination I M E [facility], [address] [place] [address], [id number], tel:[phone] [facility] No Information 0 7 Zaid Tran. [address] [place] [address], [address], [id number], . tel:[phone] Family History Family Member Type Diagnosis Age At Onset No Information Payers Payer name Insurance type Covered alliance party ID Authoriza tion(s) No Information Social History [...]
--- OUTSIDE RECORDS SUMMARY | 2024-07-08 21:59 | XMS_ITS | Clinical Summary ---
Author Organization [facility] Address [facility] [place] [address] Care Team Providers Care Shank Faker Name Role Phone Cintia Cortes MD Primary Care Provider [phone] Encounters Date Type Department Care Team Description 05/02/2024 Telephone [facility] [address] [place], [place] [id number] Mamadou Chavez MD Appointment Request from Last [...] Description 09/16/2024 12:00 PM CDT Office Visit [facility] [address] [place] [address] Mamadou Chavez MD [facility] [address] [place], [place] [id number] Health Maintenance Due Date Last Done Comments [...] to complete this topic Insurance Care Teams Shank Faker Relationship Specialty Start Date End Date Cintia Cortes MD [address] [place] [address] PCP - General FAMILY PRACTICE 12/02/22
--- OUTSIDE RECORDS SUMMARY | 2024-07-08 21:59 | XMS_ITS | Referral Summary ---
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 (CMS/HCC) (HCC),Hyperli [...] artery disease of n ative artery of navajo heart with stable angina pectoris 11/21/2018 ALYSHA (obstructive sleep apnea) 11/21/2018 Hypertension associated with diabetes 11/21/2018 Hyperlipidemia associated with type 2 diabetes [place] 11/21/2018 Diastolic dysfunction 02/14/2018 Obesity 02/14/2018 Type 2 diabetes mellitus without complications ( [facility]) 02/03/2017 Notalgia 02/09/2015 Cervicalgia 02/06/2015 Asymmetrical sensorineural [...] on file Legal Sex Male 1:19 AM GIN FEEDER Gender Identity Not on file Sexual Orientation Not on file Last Filed Vital Signs Vital Sign Reading Time Taken Comments Blood Pressure 130/72 07/18/2022 3:06 PM GIN FEEDER Pulse 80 07/18/2022 3:06 PM GIN FEEDER Temperature 36.6 C (97.9 F) 03/15/2018 1:38 PM CDT Respiratory Rate 12 06/11/2018 4:00 PM GIN FEEDER Oxygen Saturation 88% 07/18/2022 3:06 PM GIN FEEDER Inhaled Oxygen Concentration - - Weight 113.9 kg (251 lb) 07/18/2022 3:06 PM GIN FEEDER Height 172.7 cm (5' 8 ) 07/18/2022 3:06 PM GIN FEEDER Body Mass Index 38.16 07/18/2022 3:06 PM GIN FEEDER Plan of Treatment Not on file Procedures Procedure Name Priority Date/Time Associated Diagnosis Comments POCT LIPID PANEL Routine 07/18/2022 3:34 PM GIN FEEDER Hyperlipidemia associated with type 2 diabetes mellitus (HCC) EGFR STAT 06/11/2018 12:[address] CHEST ABDOMEN PELVIS W CONTRAST ED 03/15/2018 9:26 PM CDT from Last 3 Months or Most Recently Relevant to Health Maintenance Results * POCT lipid panel (07/18/2022 3:34 PM GIN FEEDER) Cholesterol, POC 155 mg/dL HDL, POC 19 mg/dL Triglycerides, POC 411 mg/dL LDL Cholesterol POC 89 mg/dL Chol/HDL Ratio, POC N/A Non-HDL Cholesterol, POC 136 mg/dL Cholesterol Total, POC 155 mg/dL Capillary blood 07/18/2022 3 :34 PM GIN FEEDER Linda Hurtado NP POINT OF CARE TEST ORDERA FERNANDEZ Edited Result - Final * eGFR (06/11/2018 12:10 PM GIN FEEDER) eGFR 94 mL/min/1.7 3 m2 KELL URBINA Comment: Interpretive Data Reference Interval Normal >/= 90 mL/min/1.73m2 Mildly decreased* 60 - 89 mL/min/1.73m2 Mildly to moderately decreased 45 - 59 mL/min/1.73m2 Moderately to severely decreased 30 - 44 mL/min/1.73m2 Severely decreased 15 - 29 mL/min/1.73m2 Kidney Failure < 15 mL/min/1.73m2 *Relative to young adult level If -Tristanian multiply value by 1.16. Estimated glomerular filtration [...] 2015. Blood specimen (specimen) 06/11/2018 12:10 PM GIN FEEDER 06/11/2018 12:26 PM GIN FEEDER Narrative KELL - 06/11/2018 4:26 PM GIN FEEDER Saw Vides MD LAB BLOOD ORDERABLES Final Result KELL [id number] [address] Department [place] [address] * CT Chest Abdomen Pelvis W Contrast [...] Relevant to Health Maintenance Insurance MEDICARE SOLUTIONS Member Subscriber Plan / Payer (Ef fective 2022-) Name:Delta Pollock Relation to Subscriber:Self Name:Delta Pollock Payer ID:[id number] (NAIC) Type:[facility] Address: [place] [phone] HMO REF Member Subscriber Plan / Payer (Ef fective 2018-) Name:Delta Pollock Relation to Subscriber:Self Name:Delta Pollock Payer ID:[id number] (NAIC) Type:[facility] MEDICARE Address: [place] [phone] R HMO REF Care Teams Front End Ui Developer Relationship Specialty Start Date End Date Cintia Cortes MD PCP - General 11/16/11
--- OUTSIDE RECORDS SUMMARY | 2024-07-08 21:59 | XMS_ITS | Clinical Summary ---
Author Organization [facility] Address [address] [place] [address] Care Team Providers Care Wire Stitcher Operator Name Role Phone Cintia Cortes MD Primary [...] (CRESTOR) 20 mg tabletIndicat ions:Atherosc lerosis of [place] coronary artery of [place] heart with stable angina pectoris (CMS/HCC) (HCC),Hyperli [...] artery disease of n ative artery of [place] heart with stable angina pectoris 11/21/2018 ALYSHA (obstructive sleep apnea) 11/21/2018 Hypertension associated with diabetes 11/21/2018 Hyperlipidemia associated with type 2 diabetes [place] 11/21/2018 Diastolic dysfunction 02/14/2018 Obesity 02/14/2018 Type 2 diabetes mellitus without complications ( [facility]) 02/03/2017 Notalgia 02/09/2015 Cervicalgia 02/06/2015 Asymmetrical sensorineural [...] Neck Surgery - (Added by TW Conv) MA CHOLECYSTECTOMY Cholecystectomy - (Added by TW Conv) CARDIAC STENT PLACEMENT CATARACT EXTRACTION, BILATERAL FINGER AMPUTATION CORONARY ANGIOPLASTY Medical History Medical History Date Comments Uncomplicated asthma Asthma - (A dded by TW Conv) Essential (primary) hypertension Hypertension - (Added by TW Conv) Aortic stenosis, severe Hyperlipidemia Diet-controlled diabetes geeta litus (CMS/[facility]) ([facility]) CAD (coronary artery disease) Sleep apnea COPD (chronic obstructive pu lmonary disease) ([facility]) Family History Medical History Relation Name Comments [...] on file Legal Sex Male 1:19 AM CAMPUS RECEPTIONIST Gender Identity Not on file Sexual Orientation Not on file Obstetrics History Last Filed Vital Signs Vital Sign Reading Time Taken Comments Blood Pressure 130/72 07/18/2022 3:06 PM CAMPUS RECEPTIONIST Pulse 80 07/18/2022 3:06 PM CAMPUS RECEPTIONIST Temperature 36.6 C (97.9 F) 03/15/2018 1:38 PM CDT Respiratory Rate 12 06/11/2018 4:00 PM CAMPUS RECEPTIONIST Oxygen Saturation 88% 07/18/2022 3:06 PM CAMPUS RECEPTIONIST Inhaled Oxygen Concentration - - Weight 113.9 kg (251 lb) 07/18/2022 3:06 PM CAMPUS RECEPTIONIST Height 172.7 cm (5' 8 ) 07/18/2022 3:06 PM CAMPUS RECEPTIONIST Body Mass Index 38.16 07/18/2022 3:06 PM CAMPUS RECEPTIONIST Plan of Treatment Health Maintenance Due Date [...] POCT LIPID PANEL Routine 07/18/2022 3:34 PM CAMPUS RECEPTIONIST Hyperlipidemia associated with type 2 diabetes mellitus (HCC) EGFR STAT 06/11/2018 12:[address] CHEST ABDOMEN PELVIS W CONTRAST ED 03/15/2018 9:26 PM CDT from Last 3 Months or Most Recently Relevant to Health Maintenance Results * POCT lipid panel (07/18/2022 3:34 PM CAMPUS RECEPTIONIST) Cholesterol, POC 155 mg/dL HDL, POC 19 mg/dL Triglycerides, POC 411 mg/dL LDL Cholesterol POC 89 mg/dL Chol/HDL Ratio, POC N/A Non-HDL Cholesterol, POC 136 mg/dL Cholesterol Total, POC 155 mg/dL Capillary blood 07/18/2022 3 :34 PM CAMPUS RECEPTIONIST Linda Hurtado NP POINT OF CARE TEST ORDERA BLES Edited Result - Final * eGFR (06/11/2018 12:10 PM CAMPUS RECEPTIONIST) eGFR 94 mL/min/1.7 3 m2 KELL URBINA Comment: Interpretive Data Reference Interval Normal >/= 90 mL/min/1.73m2 Mildly decreased* 60 - 89 mL/min/1.73m2 Mildly to moderately decreased 45 - 59 mL/min/1.73m2 Moderately to severely decreased 30 - 44 mL/min/1.73m2 Severely decreased 15 - 29 mL/min/1.73m2 Kidney Failure < 15 mL/min/1.73m2 *Relative to young adult level If -Kazakh multiply value by 1.16. Estimated glomerular filtration [...] 2015. Blood specimen (specimen) 06/11/2018 12:10 PM CAMPUS RECEPTIONIST 06/11/2018 12:26 PM CAMPUS RECEPTIONIST Narrative KELL CIARA - 06/11/2018 4:26 PM CAMPUS RECEPTIONIST us Saw Vides MD LAB BLOOD ORDERABLES Final Result KLEL [id number] [address] Department [place] [address] * CT Chest Abdomen Pelvis [...] HMO REF R HMO REF Care Teams Wire Stitcher Operator Relationship Specialty Start Date End Date Cintia Cortes MD PCP - General 11/16/11
--- OUTSIDE RECORDS SUMMARY | 2024-07-08 21:59 | XMS_ITS | Continuity of Care Document ---
Author Organization [facility] Address [address] [place] [address] utive [facility] [address] [place] [address] Phone Care Team Providers Care Epic Ambulatory Analyst Name Role Phone Rojas OD, Anatoliy Unavailable Unavailable Procedures Procedure Date Eye Exam Established Pt Advance Directives Directive Yes / No Effective Date File Name No Information Encounters Encounter Description Practice Location Reason(s) For Visit Diagnoses Date Provider Providers Copied on Encounter [facility], [id number] [place] [address] [address], [place], [place], [id number], [place] tel:[phone] [facility] No Information [phone] Rojas OD Anatoliy. [address] , [address], [place], [address], [place]. tel:[phone] Family History Family Member Type Diagnosis Age At Onset No Information Payers Payer name Insurance type Covered democrat ID Authoriza tion(s) [place] [id number] Social History Type Description Quantity Date Captured [...]
== END 2024-07-09 00:12 | disposition left against medical advice (07) ==
LOC: ANHED 21:57
DX: R05.9 Cough, unspecified (principal)
CPT/HCPCS: 99199

== ENCOUNTER 2024-07-26 08:01 | Emergency (ER) | payer MEDICARE, SELFPAY ==
--- NOTE | 2024-07-26 08:12 | ED.DENTAL ---
HPI - Dental/Oral General Chief complaint: Dental/Oral Stated complaint: BROKEN TEETH/PAIN Time Seen by Provider: 07/26/24 08:13 Source: patient Mode of arrival: ambulatory History of Present Illness HPI Narrative: 69-year-old male history of diabetes, COPD and CHF presented for complaint of right upper and lower dental pain. Reports broken teeth. Says he has had this pain for a long time, was seen by dentist and is scheduled with oral surgeon in 2months. Pt Cannot take NSAIDs, and Says Tylenol does not help. Denies facial swelling or difficulty swallowing. MD Complaint: tooth pain Related Data Home Medications ?Medication ?Instructions ?Recorded ?Confirmed ?Last Taken ?Type aspirin 81 mg tablet,delayed 81 mg PO DAILY 03/24/19 07/26/24 Unknown History release (Betzy Low Dose Aspirin) clopidogrel 75 mg tablet 75 mg PO DAILY 03/24/19 07/26/24 Unknown History metoprolol succinate 50 mg capsule 50 mg PO DAILY 03/24/19 07/26/24 Unknown History sprinkle, ext. release 24 hr diclofenac sodium 75 mg 75 mg PO Q12H PRN pain 05/16/24 07/26/24 Unknown History tablet,delayed release fenofibrate 160 mg tablet 160 mg PO DAILY 05/16/24 07/26/24 Unknown History furosemide 40 mg tablet 40 mg PO DAILY 05/16/24 07/26/24 Unknown History glipizide 10 mg tablet, extended 20 mg PO DAILY 05/16/24 07/26/24 Unknown History release 24 hr montelukast 10 mg tablet 10 mg PO QPM 05/16/24 07/26/24 Unknown History potassium chloride 20 mEq 40 meq PO DAILY 05/16/24 07/26/24 Unknown History tablet,extended release rosuvastatin 40 mg tablet 40 mg PO DAILY 05/16/24 07/26/24 Unknown History budesonide 160 mcg-glycopyr 9 2 inh inhalation DAILY 07/02/24 07/26/24 Unknown History mcg-formot 4.8 mcg/actuation HFA inhaler (Breztri Aerosphere) duloxetine 20 mg capsule,delayed 20 mg PO DAILY 07/02/24 07/26/24 Unknown History release famotidine 20 mg tablet 20 mg PO DAILY 07/02/24 07/26/24 Unknown History losartan 100 1 tablet PO DAILY 07/02/24 07/26/24 Unknown History mg-hydrochlorothiazide 25 mg tablet metoprolol succinate 50 mg 50 mg PO DAILY 07/02/24 07/26/24 Unknown History tablet,extended release 24 hr semaglutide 0.25 mg or 0.5 mg (2 0.25 mg subcut WEEKLY 07/02/24 07/26/24 Unknown History mg/3 mL) subcutaneous pen injector (Ozempic) tamsulosin 0.4 mg capsule mg PO 07/02/24 Unknown History Allergies Allergy/AdvReac Type Severity Reaction Status Date / Time atropine Allergy Unknown Nausea and Verified 07/26/24 08:09 Vomiting olmesartan Allergy Unknown Other Verified 07/26/24 08:09 Tetanus Vaccines and Toxoid Allergy Unknown Other Verified 07/26/24 08:09 codeine AdvReac Unknown Palpitation Verified 07/26/24 08:09 s hydrocodone AdvReac Unknown Nausea and Verified 07/26/24 08:09 Vomiting morphine AdvReac Unknown Nausea and Verified 07/26/24 08:09 Vomiting Review of Systems Review of Systems: CONSTITUTIONAL: Denies body aches, fever, chills ENT: Denies rhinorrhea, congestion, sore throat, or otalgia. Reports dental pain CARDIOVASCULAR: Denies chest pain, palpitations RESPIRATORY: Denies cough or dyspnea. SKIN: Denies rash, itching, or wounds. MUSCULOSKELETAL: Denies myalgia. NEUROLOGIC: Denies headache, numbness, tingling, or weakness. [facility] Past Medical History Medical History Coronary artery disease Status post stent x3. Chronic respiratory failure with hypoxia, on home O2 therapy P.r.n. oxygen, mainly at nighttime. Chronic obstructive pulmonary disease Obstructive sleep apnea Intolerant to CPAP. Type 2 diabetes mellitus Hemoglobin A1c was 7.4% on 03/08/2021. Depression Anxiety Diverticulitis Asthma Hypertension Hypercholesterolemia Surgical History Surgical History History of laparoscopic cholecystectomy (02/2003) History of cardiac catheterization (07/2017) Stent x3 [facility]. 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 Father No problems noted. Other Cancer Diabetes mellitus Hypertension Social History Social History Social History: Surrogate decision maker: Marcelle Pollock, . Code status: Full code. Smoking packs per day: 1 Smoking cigarettes per day: 20.0 Years smoked: 20 Smoking pack-years: 20.00 Smoking status: Former smoker Tobacco type: cigarettes Second hand tobacco smoke exposure: Yes Smoking end date: 05/22/89 Alcohol intake: former Substance use: never Substance use type: does not use Do You Feel Safe in your Home?: Yes Lack of Transportation: No Lack of Food: Never True Current Housing: I Have Housing Concerned About Future Housing: No Difficulty Paying Gas/Electric Bills: No Difficulty Paying for Meds: No Currently Unemployed: No Education: Decline to Answer Difficulty w/ Childcare or Family Care: No Living arrangements: with family Additional living arrangements comments: Lives in [place] with his . Occupation/Education: retired Additional occupation/education comments: Disabled. Spiritual care concerns: No Comments At time of signature, I have reviewed and agree with nursing past medical, surgical, social and family history unless otherwise noted. Please see nursing chart for further information. There is no relevant family history pertinent to the presenting complaint Exam Narrative: GENERAL: chronically ill appearing. no acute distress. Answers minimally. HEAD: Normocephalic, atraumatic. EYES: EOMI. No redness or drainage. Conjunctivae normal. ENT: Dental pain location of right upper and lower, no significant gum swelling or apparent abscess formation. Broken and missing teeth noted. Mucous membranes pink and moist. TMs normal bilaterally. Throat normal. oft foods, cool liquids, warm tea. Gargle with warm saltwater twice a day. Chloraseptic spray and throat lozenges. Rest and stay hydrated. NECK: Normal AROM. No lymphadenopathy. no induration below mandible, no neck pain. CHEST: No respiratory distress. Clear to auscultation. on NC. HEART: Regular rate and rhythm. No murmur appreciated. SKIN: Warm, dry, no rash. Normal skin turgor. NEURO: Alert and oriented x3. Gait steady. Course Course Emergency Course: Patient is aware of diagnosis, understands and agrees to treatment plan. Anticipatory guidance given. Patient agrees to follow-up as directed and is aware of reasons to seek care at the emergency department. Portions of this record may have been created with voice recognition software Level of Care: Express Care Visit Vital Signs Vital signs: Vital Signs Temperature 98.3 F 07/26/24 08:14 Pulse Rate 81 07/26/24 08:14 Respiratory Rate 16 07/26/24 08:14 Blood Pressure 188/82 H 07/26/24 08:14 Pulse Oximetry 98 07/26/24 08:14 Temperature 98.3 F 07/26/24 08:14 Pulse Rate 81 07/26/24 08:14 Respiratory Rate 16 07/26/24 08:14 Blood Pressure 188/82 H 07/26/24 08:14 Pulse Oximetry 98 07/26/24 08:14 MDM - Dental/Oral MDM Narrative Medical decision making narrative: Pt presented with right upper and lower dental pain. Pt provided limited answers to HPI. Patients pain and complaint coupled with physical findings are consistent with dentalgia. There are no focal signs of space occupying lesions that are compromising to the airway;x Patient is non-toxic appearing. The floor of the mouth is soft with no signs of Jose's Angina; Patient is without trismus or drooling and able to swallow secretions. Discussed physical exam findings. Will send abx at this time and advised contacting dentist. Advised supportive measures and signs/symptoms to go to the ER. Pt is appropriate for outpt treatment and f/u. Differential Diagnosis Differential diagnosis: Likely gingival abscess, dental caries, toothache, dental abscess, fracture of tooth and aphthous ulcer Discharge Plan Discharge Clinical Impression: Toothache Patient Disposition: Home, Self-Care Condition: Stable Instructions: Antibiotic Form, Toothache (ED) Additional Instructions: Take antibiotic as directed May apply heat or ice to the face Gentle brushing and flossing. Rinse mouth with warm salt water at least 2 times a day. Tylenol as needed for pain Liquid lidocaine as needed for pain Follow-up with the dentist as soon as possible call today to schedule appointment, keep scheduled appointment with your oral surgeon Go to the ER for worsening symptoms or concerns Patient Language: Albanian Prescriptions: New lidocaine HCl [Lidocaine Viscous] 2 % solution 1 applic mucous membrane TID PRN (Reason: pain) Qty: 100 0RF Rx Instructions: apply with cotton swab to site of pain amoxicillin-pot clavulanate 875-125 mg tablet 1 tablet PO Q12H 7 Days Qty: 14 0RF No Action clopidogrel 75 mg Tablet 75 mg PO DAILY aspirin [Betzy Low Dose Aspirin] 81 mg Tablet,Delayed Release (Dr/Ec) 81 mg PO DAILY metoprolol succinate 50 mg Capsule,Sprinkle,Er 24hr 50 mg PO DAILY fluticasone propionate [Allergy Relief (fluticasone)] 50 mcg/actuation spray,suspension 1 spray NASAL BID Qty: 16 0RF Rx Instructions: administer into each nostril metoprolol succinate 50 mg tablet extended release 24 hr 50 mg PO DAILY losartan-hydrochlorothiazide 100-25 mg tablet 1 tablet PO DAILY famotidine 20 mg tablet 20 mg PO DAILY tamsulosin 0.4 mg capsule PO duloxetine 20 mg capsule,delayed release(DR/EC) 20 mg PO DAILY Breztri Aerosphere 160-9-4.8 mcg/actuation HFA aerosol inhaler 2 inh INHALATION DAILY Ozempic 0.25 mg or 0.5 mg (2 mg/3 mL) pen injector 0.25 mg SUBCUT WEEKLY fluticasone propionate [24 Hour Allergy Relief] 50 mcg/actuation spray,suspension 1 spray intranasal DAILY Qty: 16 0RF Rx Instructions: administer into each nostril umeclidinium-vilanterol 62.5-25 mcg/actuation blister with device 1 inh inhalation DAILY Qty: 60 3RF albuterol sulfate 90 mcg/actuation HFA aerosol inhaler 2 inh inhalation Q4H PRN (Reason: shortness of breath or wheezing) Qty: 8.5 3RF ipratropium-albuterol 0.5 mg-3 mg(2.5 mg base)/3 mL solution for nebulization 3 ml inhalation QID Qty: 90 6RF furosemide 40 mg tablet 40 mg PO DAILY glipizide 10 mg tablet extended release 24hr 20 mg PO DAILY diclofenac sodium 75 mg tablet,delayed release (DR/EC) 75 mg PO Q12H PRN (Reason: pain) montelukast 10 mg tablet 10 mg PO QPM rosuvastatin 40 mg tablet 40 mg PO DAILY fenofibrate 160 mg tablet 160 mg PO DAILY potassium chloride 20 mEq tablet extended release 40 meq PO DAILY guaifenesin 600 mg tablet extended release 12hr 1,200 mg PO BID Qty: 60 2RF Follow-up/Referrals: UNKNOWN,DOCTOR [Primary Care Provider] - Time of Disposition: 08:28
[2024-07-26 08:14] VITALS: BP 188/82; PULSE 81; RESP 16; TEMP 36.8; O2SAT 98
== END 2024-07-26 08:32 | disposition home or self-care (01) ==
PROVIDERS: Emergency Provider Nurse Practitioner Family
DX: K08.89 Other specified disorders of teeth and supporting structures (principal); Z87.891 Personal history of nicotine dependence; I11.0 Hypertensive heart disease with heart failure; I50.9 Heart failure, unspecified; J44.9 Chronic obstructive pulmonary disease, unspecified; E11.9 Type 2 diabetes mellitus without complications; Z79.84 Long term (current) use of oral hypoglycemic drugs; Z79.85 Long-term (current) use of injectable non-insulin antidiabetic drugs; I25.10 Atherosclerotic heart disease of native coronary artery without angina pectoris; Z95.5 Presence of coronary angioplasty implant and graft; E78.00 Pure hypercholesterolemia, unspecified; G47.33 Obstructive sleep apnea (adult) (pediatric); Z91.198 Patient's noncompliance with other medical treatment and regimen for other reason; Z79.82 Long term (current) use of aspirin
CPT/HCPCS: 99213; G0463

== ENCOUNTER 2024-08-17 00:24 | Emergency (ER) | payer MEDICARE, SELFPAY ==
[2024-08-17 00:25] VITALS: BP 152/73; PULSE 72; RESP 18; TEMP 36.4; O2SAT 96
--- OUTSIDE RECORDS SUMMARY | 2024-08-17 00:27 | XMS_ITS | Referral Summary ---
Author Organization [facility] Address [address] [place] [address] Care Team Providers Care Technology Architect Name Role Phone Cintia Cortes MD Primary [...] (CRESTOR) 20 mg tabletIndicat ions:Atherosc lerosis of [place] coronary artery of [place] heart with stable angina pectoris,Hype rlipidemia associated with type 2 diabetes mellitus (HCC) [...] artery disease of n ative artery of [place] heart with stable angina pectoris 11/21/2018 ALYSHA (obstructive sleep apnea) 11/21/2018 Hypertension associated with diabetes 11/21/2018 Hyperlipidemia associated with type 2 diabetes m kasey 11/21/2018 Diastolic dysfunction 02/14/2018 Obesity 02/14/2018 Type 2 diabetes mellitus without complications 0 02/03/2017 Notalgia 02/09/2015 Cervicalgia 02/06/2015 Asymmetrical sensorineural [...] on file Legal Sex Male 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 Gender Identity Not on file Sexual Orientation Not on file Last Filed Vital Signs Vital Sign Reading Time Taken Comments Blood Pressure 130/72 07/18/2022 3:06 PM KNIFE MACHINE OPERATOR Pulse 80 07/18/2022 3:06 PM KNIFE MACHINE OPERATOR Temperature 36.6 C (97.9 F) 03/15/2018 1:38 PM CDT Respiratory Rate 12 06/11/2018 4:00 PM KNIFE MACHINE OPERATOR Oxygen Saturation 88% 07/18/2022 3:06 PM KNIFE MACHINE OPERATOR Inhaled Oxygen Concentration - - Weight 113.9 kg (251 lb) 07/18/2022 3:06 PM KNIFE MACHINE OPERATOR Height 172.7 cm (5' 8 ) 07/18/2022 3:06 PM KNIFE MACHINE OPERATOR Body Mass Index 38.16 07/18/2022 3:06 PM KNIFE MACHINE OPERATOR Plan of Treatment Not on file Procedures Procedure Name Priority Date/Time Associated Diagnosis Comments POCT LIPID PANEL Routine 07/18/2022 3:34 PM KNIFE MACHINE OPERATOR Hyperlipidemia associated with type 2 diabetes mellitus (HCC) EGFR STAT 06/11/2018 12:10 PM KNIFE MACHINE OPER[address] CT CHEST ABDOMEN PELVIS W CONTRAST ED 03/15/2018 9:26 PM CDT from Last 3 Months or Most Recently Relevant to Health Maintenance Results * POCT lipid panel (07/18/2022 3:34 PM KNIFE MACHINE OPERATOR) Cholesterol, POC 155 mg/dL HDL, POC 19 mg/dL Triglycerides, POC 411 mg/dL LDL Cholesterol POC 89 mg/dL Chol/HDL Ratio, POC N/A Non-HDL Cholesterol, POC 136 mg/dL Cholesterol Total, POC 155 mg/dL Capillary blood 07/18/2022 3 :34 PM KNIFE MACHINE OPERATOR Linda Hurtado NP POINT OF CARE TEST ORDERA BLES Edited Result - Final * eGFR (06/11/2018 12:10 PM KNIFE MACHINE OPERATOR) eGFR 94 mL/min/1.7 3 m2 KELL URBINA Comment: Interpretive Data Reference Interval Normal >/= 90 mL/min/1.73m2 Mildly decreased* 60 - 89 mL/min/1.73m2 Mildly to moderately decreased 45 - 59 mL/min/1.73m2 Moderately to severely decreased 30 - 44 mL/min/1.73m2 Severely decreased 15 - 29 mL/min/1.73m2 Kidney Failure < 15 mL/min/1.73m2 *Relative to young adult level If -Togolese multiply value by 1.16. Estimated glomerular filtration [...] 2015. Blood specimen (specimen) 06/11/2018 12:10 PM KNIFE MACHINE OPERATOR 06/11/2018 12:26 PM KNIFE MACHINE OPERATOR Narrative KELL - 06/11/2018 4:26 PM KNIFE MACHINE OPERATOR us Saw Vides MD LAB BLOOD ORDERABLES Final Result KELL [id number] Department [place] [address] * CT Chest Abdomen Pelvis W Contrast [...] Most Recently Relevant to Health Maintenance Insurance [facility] MEDICARE ADVANTAGE Member Subscriber Plan / Payer (Ef fective 2022-Present) Name:Delta Pollock Relation to Subscriber:Self Name:Delta Pollock Payer ID:[id number] (NAIC) Type:[facility] MEDICARE Address: [place] [phone] R HMO REF R HMO REF Care Teams Technology Architect Relationship Specialty Start Date End Date Cintia Cortes MD PCP - General 11/16/11
--- OUTSIDE RECORDS SUMMARY | 2024-08-17 00:27 | XMS_ITS | Clinical Summary ---
Author Organization [facility] Address [address] [place] [address] Care Team Providers Care Ice Cream Vendor Name Role Phone Cintia Cortes MD Primary [...] (CRESTOR) 20 mg tabletIndicat ions:Atherosc lerosis of [place] coronary artery of [place] heart with stable angina pectoris,Hype rlipidemia associated [...] artery disease of n ative artery of [place] heart with stable angina pectoris 11/21/2018 ALYSHA [...] Neck Surgery - (Added by TW Conv) [place] CHOLECYSTECTOMY Cholecystectomy - (Added by TW Conv) CARDIAC STENT PLACEMENT CATARACT EXTRACTION, BILATERAL FINGER AMPUTATION CORONARY ANGIOPLASTY Medical History Medical History Date Comments Uncomplicated asthma Asthma - (A dded by TW Conv) Essential (primary) hypertension Hypertension - (Added by TW Conv) Aortic stenosis, severe Hyperlipidemia Diet-controlled diabetes mellitus (HCC) CAD (coronary artery disease) Sleep apnea COPD (chronic obstructive pu lmonary disease) (HCC) Family History Medical History Relation Name Comments [...] on file Legal Sex Male 1:19 AM MANAGER CULTURE Gender Identity Not on file Sexual Orientation Not on file Obstetrics History Last Filed Vital Signs Vital Sign Reading Time Taken Comments Blood Pressure 130/72 07/18/2022 3:06 PM MANAGER CULTURE Pulse 80 07/18/2022 3:06 PM MANAGER CULTURE Temperature 36.6 C (97.9 F) 03/15/2018 1:38 PM CDT Respiratory Rate 12 06/11/2018 4:00 PM MANAGER CULTURE Oxygen Saturation 88% 07/18/2022 3:06 PM MANAGER CULTURE Inhaled Oxygen Concentration - - Weight 113.9 kg (251 lb) 07/18/2022 3:06 PM MANAGER CULTURE Height 172.7 cm (5' 8 ) 07/18/2022 3:06 PM MANAGER CULTURE Body Mass Index 38.16 07/18/2022 3:06 PM MANAGER CULTURE Plan of Treatment Health Maintenance Due Date [...] Visit 65+ 2020 Lipid Panel 07/18/2023 07/18/2022, 032 08/2021, 07/19/2019, Additional history exists Covid-19 Vaccine (3 - 2023-2 5 season) 2024 08/24/2020, 08/02/2020 Influenza Vaccine (#1) 2024 9, 03/27/2018, 03/06/2017, Additional history exists Pneumococcal vaccine 65+ Completed 12/16/2020, 05/24 Procedures Procedure Name Priority Date/Time Associated Diagnosis Comments POCT LIPID PANEL Routine 07/18/2022 3:34 PM MANAGER CULTURE Hyperlipidemia associated with type 2 diabetes mellitus (HCC) EGFR STAT 06/11/2018 12:[address] CHEST ABDOMEN PELVIS W CONTRAST ED 03/15/2018 9:26 PM CDT from Last 3 Months or Most Recently Relevant to Health Maintenance Results * POCT lipid panel (07/18/2022 3:34 PM MANAGER CULTURE) Cholesterol, POC 155 mg/dL HDL, POC 19 mg/dL Triglycerides, POC 411 mg/dL LDL Cholesterol POC 89 mg/dL Chol/HDL Ratio, POC N/A Non-HDL Cholesterol, POC 136 mg/dL Cholesterol Total, POC 155 mg/dL Capillary blood 07/18/2022 3 :34 PM MANAGER CULTURE Linda Hurtado NP POINT OF CARE TEST ORDERA BLES Edited Result - Final * eGFR (06/11/2018 12:10 PM MANAGER CULTURE) eGFR 94 mL/min/1.7 3 m2 KELL URBINA Comment: Interpretive Data Reference Interval Normal >/= 90 mL/min/1.73m2 Mildly decreased* 60 - 89 mL/min/1.73m2 Mildly to moderately decreased 45 - 59 mL/min/1.73m2 Moderately to severely decreased 30 - 44 mL/min/1.73m2 Severely decreased 15 - 29 mL/min/1.73m2 Kidney Failure < 15 mL/min/1.73m2 *Relative to young adult level If -[place] Islander multiply value by 1.16. Estimated glomerular filtration [...] 2015. Blood specimen (specimen) 06/11/2018 12:10 PM MANAGER CULTURE 06/11/2018 12:26 PM MANAGER CULTURE Narrative KELL - 06/11/2018 4:26 PM MANAGER CULTURE us Saw Vides MD LAB BLOOD ORDERABLES Final Result KE[facility] [id number] [place] [address] * CT Chest Abdomen Pelvis W Contrast [...] Most Recently Relevant to Health Maintenance Insurance [facility] MEDICARE ADVANTAGE Member Subscriber Plan / Payer (Ef fective 2022-Present) Name:Delta Pollock Relation to Subscriber:Self Name:Delta Pollock Payer ID:[id number] (NAIC) Type:[facility] MEDICARE Address: [place] [phone] R HMO REF R HMO REF Care Teams Ice Cream Vendor Relationship Specialty Start Date End Date Cintia Cortes MD PCP - General 11/16/11
--- OUTSIDE RECORDS SUMMARY | 2024-08-17 00:27 | XMS_ITS | Clinical Summary ---
Author Organization [facility] Address [address] [place] [id number] Care Team Providers Care Elementary Education Teacher Name Role Phone Cintia Cortes MD Primary Care Provider Social History Tobacco Use Types Packs/Day Years Used Date Smoking Tobacco: Never Assessed Sex and Gender Information Value Date Recorded Sex Assigned at Not on file Legal Sex Male 9:41 AM CDT Gender Identity Not on file Sexual Orientation Not on file Plan of Treatment Upcoming Encounters Date Type Department Care Team (Late st Contact Info) Description 09/16/2024 12:00 PM CDT Office Visit [place] [facility] [address] [address] [place] [address] Mamadou Chavez MD [facility], [address] [place] [address] Health Maintenance Due Date Last Done Comments Colorectal Cancer Screening Colonoscopy (10 Years) 1955 Hepatitis C 1973 DTaP, Tdap and Td Vaccines (1 - Tdap) 1974 Zoster Vaccines (1 of 2) 2005 Annual Medicare Wellness Visit 2020 COVID-19 Vaccine ( season) 2024 04/20/2022, 05/05/2021, 08/24/2020, Additional history [...] patient's age to complete this topic Insurance [facility] Care Teams Elementary Education Teacher Relationship Specialty Start Date End Date Cintia Cortes MD [address] [place] [address] PCP - General FAMILY PRACTICE 12/02/22
--- OUTSIDE RECORDS SUMMARY | 2024-08-17 00:27 | XMS_ITS | Continuity of Care Document ---
Author Organization [facility] Address [address] [place] [address] utive [facility] [address] [place] [address] Phone Care Team Providers Care Buzzle Buffer Name Role Phone Rojas OD, Anatoliy Unavailable Unavailable Procedures Procedure Date Eye Exam Established Pt Advance Directives Directive Yes / No Effective Date File Name No Information Encounters Encounter Description Practice Location Reason(s) For Visit Diagnoses Date Provider Providers Copied on Encounter [facility], [id number] [place] [address] [address], [place], [place], [id number], [place] tel:[phone] [facility] No Information [phone] Rojas OD Anatoliy. [address] , [address], [place], [address], [place]. tel:[phone] Family History Family Member Type Diagnosis Age At Onset No Information Payers Payer name Insurance type Covered alliance party ID Authoriza tion(s) [place] [id number] Social History Type Description Quantity Date Captured [...]
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
--- OUTSIDE RECORDS SUMMARY | 2024-08-17 00:28 | XMS_ITS | Continuity of Care Document ---
Author Organization [facility] Address [address] [place] [address] Phone Care Team Providers Care Salt Manager Name Role Phone Gaby Ortega MD [...] Diagnoses Date Provider Providers Copied on Encounter [facility], [address], [place], [place], [id number] , tel: [phone] [facility] No Information 3 Teresa Benjamin Gaby. [address], [id number] . tel: [phone] [facility], [address], [place], [place], [address] , tel: [phone] [facility] 201 1 Teresa Griffin. [address], [id number] . tel: [phone] [facility], [address], [place], [place], [address] , tel: [phone] [facility] No Information Sep-2 1 Teresamely Griffin. [address] [place] [address], [place], [place], [address] . tel: [phone] [facility], [address], [place], [place], [id number] , tel: [phone] [facility] No Information Sep-0 8 1 Teresamely Griffin. [address] [place] [address], [place], [place], [address] . tel: [phone] [facility], [address], [place], [place], [address] , tel: [phone] [facility] Screening for malignant neoplasms of the prostateChronic airway obstruction, not elsewhere classifiedShortness of breathSpecial screening for malignant neoplasms, colon Sep-0 1 Teresa Sourav Gaby. [address] [place] [address], [place], [place], [address] . tel: [phone] Referring Provider: Gaby Benjamin, [facility] [address] [address], [place], [address] . tel:[phone] Family History Family Member Type Diagnosis Age At Onset No Information Payers Payer name Insurance type Covered libertarian ID Authormadya roddy(s) [id number] Social History Type Description Quantity Date Captured [...]
--- OUTSIDE RECORDS SUMMARY | 2024-08-17 00:28 | XMS_ITS | Continuity of Care Document ---
Author Organization [facility] Address [address] [place] [address] Phone Care Team Providers Care Brick Burner Head Name Role Phone Administrative, Provider Unavailable Unavail able Procedures Procedure Date Medical Record Copy Medical Record Copy Per Page Work/medical disability examination I M E X-ray exam of shoulder, complete 2006 Advance Directives Directive Yes / No Effective Date File Name No Information Encounters Encounter Description Practice Location Reason(s) For Visit Diagnoses Date Provider Providers Copied on Encounter [facility], [address] [place] [address], [id number], tel:[phone] [facility] No Information 2 8 Administrative Provider. [address] [place] [address], [id number], . tel:[phone] Work/medical disability examination I M E [facility], [address] [place] [address], [id number], tel:[phone] [facility] No Information 0 7 Zaid Tran. [address] [place] [address], [address], [id number], . tel:[phone] Family History Family Member Type Diagnosis Age [...]
--- NOTE | 2024-08-17 02:37 | PC.NURSE ---
pt ambulatory to triage exit with no difficulties. Pt name called out for updated vitals. Pt did not respond to call out. pt left without being seen by provider.
--- OUTSIDE RECORDS SUMMARY | 2024-08-17 03:30 | XMS_ITS | Referral Summary ---
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,Hype rlipidemia associated [...] artery disease of n ative artery of [place] heart with stable angina pectoris 11/21/2018 ALYSHA [...] on file Legal Sex Male 1:19 AM CATERING DIRECTOR Gender Identity Not on file Sexual Orientation Not on file Last Filed Vital Signs Vital Sign Reading Time Taken Comments Blood Pressure 130/72 07/18/2022 3:06 PM CATERING DIRECTOR Pulse 80 07/18/2022 3:06 PM CATERING DIRECTOR Temperature 36.6 C (97.9 F) 03/15/2018 1:38 PM CDT Respiratory Rate 12 06/11/2018 4:00 PM CATERING DIRECTOR Oxygen Saturation 88% 07/18/2022 3:06 PM CATERING DIRECTOR Inhaled Oxygen Concentration - - Weight 113.9 kg (251 lb) 07/18/2022 3:06 PM CATERING DIRECTOR Height 172.7 cm (5' 8 ) 07/18/2022 3:06 PM CATERING DIRECTOR Body Mass Index 38.16 07/18/2022 3:06 PM CATERING DIRECTOR Plan of Treatment Not on file Procedures Procedure Name Priority Date/Time Associated Diagnosis Comments POCT LIPID PANEL Routine 07/18/2022 3:34 PM CATERING DIRECTOR Hyperlipidemia associated with type 2 diabetes mellitus (HCC) EGFR STAT 06/11/2018 12:[address] CHEST ABDOMEN PELVIS W CONTRAST ED 03/15/2018 9:26 PM CDT from Last 3 Months or Most Recently Relevant to Health Maintenance Results * POCT lipid panel (07/18/2022 3:34 PM CATERING DIRECTOR) Cholesterol, POC 155 mg/dL HDL, POC 19 mg/dL Triglycerides, POC 411 mg/dL LDL Cholesterol POC 89 mg/dL Chol/HDL Ratio, POC N/A Non-HDL Cholesterol, POC 136 mg/dL Cholesterol Total, POC 155 mg/dL Capillary blood 07/18/2022 3 :34 PM CATERING DIRECTOR Linda Hurtado NP POINT OF CARE TEST ORDERA BLES Edited Result - Final * eGFR (06/11/2018 12:10 PM CATERING DIRECTOR) eGFR 94 mL/min/1.7 3 m2 KELL URBINA Comment: Interpretive Data Reference Interval Normal >/= 90 mL/min/1.73m2 Mildly decreased* 60 - 89 mL/min/1.73m2 Mildly to moderately decreased 45 - 59 mL/min/1.73m2 Moderately to severely decreased 30 - 44 mL/min/1.73m2 Severely decreased 15 - 29 mL/min/1.73m2 Kidney Failure < 15 mL/min/1.73m2 *Relative to young adult level If -Jamaican multiply value by 1.16. Estimated glomerular filtration [...] 2015. Blood specimen (specimen) 06/11/2018 12:10 PM CATERING DIRECTOR 06/11/2018 12:26 PM CATERING DIRECTOR Narrative KELL - 06/11/2018 4:26 PM CATERING DIRECTOR us Saw Vides MD LAB BLOOD ORDERABLES Final Result KELL [address] Department [place] [address] * CT Chest Abdomen Pelvis W Contrast [...] Most Recently Relevant to Health Maintenance Insurance [facility] MEDIC[facility] ADVANTAGE Member Subscriber Plan / Payer (Ef fective 2022-Present) Name:Delta Pollock Relation to Subscriber:Self Name:Delta Pollock Payer ID:[id number] (NAIC) Type:[facility] MEDICARE Address: [place] [id number] R HMO REF R HMO REF Care Teams Engine Lathe Operator Relationship Specialty Start Date End Date Cintia Cortes MD PCP - General 11/16/11
--- OUTSIDE RECORDS SUMMARY | 2024-08-17 03:31 | XMS_ITS | Clinical Summary ---
Author Organization [facility] Address [address] [place] [address] Care Team Providers Care Oil Recovery Unit Operator Name Role Phone Cintia Cortes MD [...] Description 09/16/2024 12:00 PM CDT Office Visit [facility] [address] [place] [address] Mamadou Chavez MD [facility], [address] [place] [address] Health Maintenance Due Date Last [...] patient's age to complete this topic Insurance [facility] Care Teams Oil Recovery Unit Operator Relationship Specialty Start Date End Date Cintia Cortes MD [address] [place] [address] PCP - General FAMILY PRACTICE 12/02/22
--- OUTSIDE RECORDS SUMMARY | 2024-08-17 03:31 | XMS_ITS | Continuity of Care Document ---
Author Organization [facility] Address [address] [place] [address] Phone Care Team Providers Care Cement Loader Name Role Phone Gaby Ortega MD Unavailable [...] Diagnoses Date Provider Providers Copied on Encounter [facility], [address], [place], [place], [id number] , tel: [phone] [facility] No Information 3 Teresa Benjamin Gaby. [address], [id number] . tel: [phone] [facility], [address], [place], [place], [id number] , tel: [phone] [facility] 201 1 Teresa Griffin. [address], [id number] . tel: [phone] [facility], [address], [place], [place], [id number] , tel: [phone] [facility] No Information Sep-2 1 Teresamely Griffin. [address] [place] [address], [place], [id number] . tel: [phone] [facility], [address], [place], [place], [id number] , tel: [phone] [facility] No Information Sep-0 8 1 Teresamely Griffin. [address] [place] [address], [place], [id number] . tel: [phone] [facility], [address], [place], [place], [id number] , tel: [phone] [facility] Screening for malignant neoplasms of the prostateChronic airway obstruction, not elsewhere classifiedShortness of breathSpecial screening for malignant neoplasms, colon Sep-0 1 Teresa Sourav Gaby. [address] [place] [address], [place], [id number] . tel: [phone] Referring Provider: Gaby Benjamin, [facility] [place] [address], [place], [address] . tel:[phone] Family History Family Member Type Diagnosis Age At Onset No Information Payers Payer name Insurance type Covered constitution party ID Authormadya roddy(s) MEDICARE MB [id number] Social History Type Description Quantity Date Captured [...]
--- OUTSIDE RECORDS SUMMARY | 2024-08-17 03:31 | XMS_ITS | Continuity of Care Document ---
Author Organization [facility] Address [address] [place] [address] utive [facility] [address] [place] [address] Phone Care Team Providers Care Fire Eater Name Role Phone Rojas OD, Anatoliy Unavailable Unavailable Procedures Procedure Date Eye Exam Established Pt Advance Directives Directive Yes / No Effective Date File Name No Information Encounters Encounter Description Practice Location Reason(s) For Visit Diagnoses Date Provider Providers Copied on Encounter [facility], [address] [place] [address] [address], [place], [place], [id number], [place] tel:[phone] [facility] No Information [phone] Rojas OD Anatoliy. [address], [place], [address], [place]. tel:[phone] Family History Family Member Type Diagnosis Age At Onset No Information Payers Payer name Insurance type Covered constitution party ID Authoriza tion(s) [place] [id number] Social History Type Description Quantity Date Captured [...]
--- OUTSIDE RECORDS SUMMARY | 2024-08-17 03:31 | XMS_ITS | Clinical Summary ---
Author Organization 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 OPERATOR Gender Identity Not on file Sexual Orientation Not on file Obstetrics History Last Filed Vital Signs Vital Sign Reading Time Taken Comments Blood Pressure 130/72 07/18/2022 3:06 PM MATRIX BATH OPERATOR Pulse 80 07/18/2022 3:06 PM MATRIX BATH OPERATOR Temperature 36.6 C (97.9 F) 03/15/2018 1:38 PM CDT Respiratory Rate 12 06/11/2018 4:00 PM MATRIX BATH OPERATOR Oxygen Saturation 88% 07/18/2022 3:06 PM MATRIX BATH OPERATOR Inhaled Oxygen Concentration - - Weight 113.9 kg (251 lb) 07/18/2022 3:06 PM MATRIX BATH OPERATOR Height 172.7 cm (5' 8 ) 07/18/2022 3:06 PM MATRIX BATH OPERATOR Body Mass Index 38.16 07/18/2022 3:06 PM MATRIX BATH OPERATOR Plan of Treatment Health Maintenance Due Date [...] POCT LIPID PANEL Routine 07/18/2022 3:34 PM MATRIX BATH OPERATOR Hyperlipidemia associated with type 2 diabetes mellitus (HCC) EGFR STAT 06/11/2018 12:10 [address] B[address] CT CHEST ABDOMEN PELVIS W CONTRAST ED 03/15/2018 9:26 PM CDT from Last 3 Months or Most Recently Relevant to Health Maintenance Results * POCT lipid panel (07/18/2022 3:34 PM MATRIX BATH OPERATOR) Cholesterol, POC 155 mg/dL HDL, POC 19 mg/dL Triglycerides, POC 411 mg/dL LDL Cholesterol POC 89 mg/dL Chol/HDL Ratio, POC N/A Non-HDL Cholesterol, POC 136 mg/dL Cholesterol Total, POC 155 mg/dL Capillary blood 07/18/2022 3 :34 PM MATRIX BATH OPERATOR Linda Hurtado NP POINT OF CARE TEST ORDERA BLES Edited Result - Final * eGFR (06/11/2018 12:10 PM MATRIX BATH OPERATOR) eGFR 94 mL/min/1.7 3 m2 KELL URBINA Comment: Interpretive Data Reference Interval Normal >/= 90 mL/min/1.73m2 Mildly decreased* 60 - 89 mL/min/1.73m2 Mildly to moderately decreased 45 - 59 mL/min/1.73m2 Moderately to severely decreased 30 - 44 mL/min/1.73m2 Severely decreased 15 - 29 mL/min/1.73m2 Kidney Failure < 15 mL/min/1.73m2 *Relative to young adult level If -Polish multiply value by 1.16. Estimated glomerular filtration [...] 2015. Blood specimen (specimen) 06/11/2018 12:10 PM MATRIX BATH OPERATOR 06/11/2018 12:26 PM MATRIX BATH OPERATOR Narrative KELL - 06/11/2018 4:26 PM MATRIX BATH OPERATOR us Saw Vides MD LAB BLOOD ORDERABLES Final Result KELL [address] [place] [address] * CT Chest Abdomen Pelvis W Contrast [...] Most Recently Relevant to Health Maintenance Insurance [facility] MEDICARE ADVANTAGE Member Subscriber Plan / Payer (Ef fective 2022-Present) Name:Delta Pollock Relation to Subscriber:Self Name:Delta Pollock Payer ID:[id number] (NAIC) Type:[facility] MEDIC[facility] Address: [place] [phone] R HMO REF R HMO REF Care Teams Event Security Officer Relationship Specialty Start Date End Date Cintia Cortes MD PCP - General 11/16/11
--- OUTSIDE RECORDS SUMMARY | 2024-08-17 03:31 | XMS_ITS | CONTINUITY OF CARE DOCUMENT ---
Author Name bonny draper Address Unknown Organization [facility] Address [address] [place] [address] Phone [phone] Care Team Providers Care Aviation Safety Inspector Name Role Phone Glenna Salgado MD Unavailable CELESTINO DESOUZA MD Unavailable [phone] CELESTINO DESOUZA MD Unavailable [phone] PROBLEMS Condition Status Date Provider Notes HTN [...] In-person encounter Office Visit Glenna Salgado MD [facility] - In-person encounter Office Visit Pascual Oliver MD [facility] PALPITATIONSSYNCOPE AND COLLAPSECAD;MIMI DUPLEXDiastolic dysfunctionObesityTobacco use, quit - In-person encounter Office Visit Glenna Salgado MD [facility] - In-person encounter Office Visit Glenna Salgado MD [facility] - In-person encounter Office Visit Glenna Salgado MD [facility] CAD;MIMI DUPLEXDM - type 2 VITAL SIGNS Date Observation Value Provider Body Mass Index (Ratio) 38.01 kg/m2 Brice [facility] blood pressure, diastolic 72 mm[Hg] Ma rsha O'Dagoberto blood pressure, systolic 122 mm[Hg] Mar sha O'Dagoberto oxygen saturation, oximetry 91 % Yarely O'Dagoberto respiratory rate E&M 18 /min Yarely O'Dagoberto pulse rate 83 /min Yarely O'Dagoberto weight E&M 250 [lb_av] [facility] O'Dagoberto height E&M 68 [in_i] [facility] O'Dagoberto Body Mass Index (Ratio) 36.94 kg/m2 Alvaro Oliver MD blood pressure, arnold tolic, third observation 83 mm[Hg] Pascual Oliver MD blood pressure, syst olic, third observation 137 mm[Hg] Pascual Oliver MD blood pressure, arnold tolic, second observation 87 mm[Hg] Pascual Oliver MD blood pressure, syst olic, second observation 139 mm[Hg] Pascual Oliver MD blood pressure, diastolic 80 mm[Hg] [facility] blood pressure, systolic 142 mm[Hg] Dennis mckinney [place] oxygen saturation, oximetry 92 % [facility] respiratory rate E&M 16 /min [facility] pulse rate 83 /min [facility] weight E&M 243 [lb_av] Nicky Tovar height E&M 68 [in_i] [facility] Body Mass Index (Ratio) 37.55 kg/m2 Brice [facility] blood pressure, diastolic 76 mm[Hg] [place] blood pressure, systolic 138 mm[Hg] Dennis Tovar oxygen saturation, oximetry 91 % Nicky Tovar respiratory rate E&M 18 /min Nicky Tovar pulse rate 76 /min Nicky Tovar weight E&M 247 [lb_av] Nicky Tovar height E&M 68 [in_i] [place] Tovar Body Mass Index (Ratio) 37.00 kg/m2 Todd radha Garza blood pressure, diastolic 82 mm[Hg] Lin Young blood pressure, systolic 144 mm[Hg] Samra Young oxygen saturation, oximetry 94 % Azale Young respiratory rate E&M 20 /min Maria [...] iron binding capacity, unsaturated 218 ug/dL [facility] [phone]/09/2 7 iron binding capacity, total 284 ug/dL [facility] [phone]/09/2 7 hemoglobin A1C, blood, as % of total hemoglobin 7.8 % [facility] 4.8-5.6 High 7 lipoprotein, beta, serum, point, quantitative, calculated 70 mg/dL [facility] 0-99 7 very low density lipoproteins 55 mg/dL [facility] 5-40 High 7 HDL cholesterol, serum 39 mg/dL [facility] >39 Low 7 triglyceride, serum, random 275 mg/dL [facility] 0-149 High 7 cholesterol, serum 164 mg/dL [facility] [phone]/09/2 7 basophil count, absolute 0.0 x10E3/uL [facility] [...] Estab. 7 platelet count 156 X10E3/UL [facility] 082-117 5649/09/2 7 red blood cell distribution width 14.3 [...] 3.5-5.2 7 sodium, serum 141 mmol/L [facility] [phone]/09/2 7 urea nitrogen/creatinine ratio, serum 12 [employer] [...] 2 tabs twice daily - 9 Milady Garza AMLODIPINE BESYLATE 5 MG ORAL TABLET completed [...] Oliver MD Nicky Tovar cigarette use yes Nicky Tovar smoking status Former smoker Nicky Ingr [...] Payer name Policy type / Coverage type Voca red green party ID [facility] MEDICARE COMPLETE HMO Other [id number] ADVANCE DIRECTIVES Name Date DISCUSSED - [...] study. O rders: 9 9245 HIGH Complex (CPT-23763) F VC - 01609 (55477) F RC - 65493 (25848) D LCO - 82338 (54688) A mbulatory Oximetry (CPT-25359) 6 minute walk test (CPT-42421) C omplete Echo (CPT-22578) S TR - Nuclear (CPT-73968) S leep Study Home (CPT-11890) C OMPREHENSIVE METABOLIC PANEL, W/EGFR (57631) L IPID PANEL (4450) B TYPE NATRIURETIC PEPTIDE (BNP) (04965) C BC (H/H, RBC, INDICES, WBC, PLT) (1759) H EMOGLOBIN A1c (496) H EPATIC FUNCTION PANEL (86238) Glenna Salgado MD Cardiology:Not on statin. Check [...] URINALYSIS, RANDOM, MICROALB/CREATININE HEMOGLOBIN A1c DLCO - 71979 FRC - 00404 FVC - 74906 LIPID PANEL Sleep Study Titratio n HEPATIC FUNCTION FORBES EL HEMOGLOBIN A1c CBC (H/H, RBC, INDIC ES, WBC, PLT) B TYPE NATRIURETIC P EPTIDE (BNP) LIPID PANEL COMPREHENSIVE METABO LIC PANEL, W/EGFR Sleep Study Home STR - Nuclear Complete Echo 6 minute walk test DLCO - 01572 FRC - 40842 FVC - 52653 HISTORY OF PROCEDURES Procedure Date Procedure Name Provider Procedure Notes S tatus EKG Glenna Salgado MD completed EKG Glenna Salgado MD completed EKG Glenna Salgado MD completed Cardiolite, 2 units Glenna lew MD completed SPECT Images Yenifer Monterroso MD complet ed Stress EKG Cisco Zapata MD completed FVC / MVV with bronchodilator - 59496 Glenna Salgado MD completed BLOOD COUNT HEMOGLOBIN Glenna Salgado MD completed 6 minute walk test Glenna bianchi MD completed FRC - 20884 Glenna Salgado MD completed SpO2 - 23257 Glenna Salgado MD completed DLCO - 12202 Glenna Salgado MD completed Ambulatory Oximetry Glenna lew MD completed EKG Glenna Salgado MD completed SNOMED-CT: [id number] 038196 Current Medications Documented Glenna Salgado MD completed
--- OUTSIDE RECORDS SUMMARY | 2024-08-17 03:31 | XMS_ITS | Continuity of Care Document ---
Author Organization [facility] Address [address] [place] [address] Phone Care Team Providers Care Wire Saw Operator Name Role Phone Administrative, Provider Unavailable Unavail able Procedures Procedure Date Medical Record Copy Medical Record Copy Per Page Work/medical disability examination I M E X-ray exam of shoulder, complete 2006 Advance Directives Directive Yes / No Effective Date File Name No Information Encounters Encounter Description Practice Location Reason(s) For Visit Diagnoses Date Provider Providers Copied on Encounter [facility], [address] [place] [address], [id number], tel:[phone] [facility] No Information 2 8 Administrative Provider. [address] [place] [address], [id number], . tel:[phone] Work/medical disability examination I M E [facility], [address] [place] [address], [id number], tel:[phone] [facility] No Information 0 7 Zaid Tran. [address] [place] [address], [address], [id number], . tel:[phone] Family History Family Member Type Diagnosis Age At Onset No Information Payers Payer name Insurance type Covered libertarian ID Authoriza tion(s) No Information Social History [...]
== END 2024-08-17 03:57 | disposition left against medical advice (07) ==
DX: I10 Essential (primary) hypertension (principal)
CPT/HCPCS: 99199

== ENCOUNTER 2025-01-08 08:44 | Outpatient (CLI) | payer MEDICARE, SELFPAY ==
--- OUTSIDE RECORDS SUMMARY | 2008-01-10 19:00 | XMS_ITS | Continuity of Care Document ---
Author Organization [facility] Address [address] [place] [address] Phone Care Team Providers Care Acid Recovery Operator Name Role Phone Administrative, Provider Unavailable Unavail able Procedures Procedure Date Medical Record Copy Medical Record Copy Per Page Work/medical disability examination I M E X-ray exam of shoulder, complete 2006 Advance Directives Directive Yes / No Effective Date File Name No Information Encounters Encounter Description Practice Location Reason(s) For Visit Diagnoses Date Provider Providers Copied on Encounter [facility], [address] [place] [address], [id number], tel:[phone] [facility] No Information 2 8 Administrative Provider. [address] [place] [address], [id number], . tel:[phone] Work/medical disability examination I M E [facility], [address] [place] [address], [id number], tel:[phone] [facility] No Information 0 7 Zaid Tran. [address] [place] [address], [address], [id number], . tel:[phone] Family History Family Member Type Diagnosis Age At Onset No Information Payers Payer name Insurance type Covered republican ID Authoriza tion(s) No Information Social History Type Description Quantity Date Captured Comments Sex Male Smoking Status No Information Chief Complaint And Reason For Visit No Information Reason For Referral Reason For Referral No Information History Of Present Illness Encounter Date Complaint History Of Prese nt Illness No Information Functional Status Date Functional Assessmen t No Information Instructions Date Instruction Additional Infor mation No Information Assessments Type Assessment Date No Information Patient Care Teams Name Effective Dates (start - stop) Status Members No Information
--- OUTSIDE RECORDS SUMMARY | 2009-11-26 10:45 | XMS_ITS | Continuity of Care Document ---
Author Organization [facility] Address [address] [place] [address] utive [facility] [address] [place] [address] Phone Care Team Providers Care Forklift Truck Operator Name Role Phone Rojas OD, Anatoliy Unavailable Unavailable Procedures Procedure Date Eye Exam Established Pt Advance Directives Directive Yes / No Effective Date File Name No Information Encounters Encounter Description Practice Location Reason(s) For Visit Diagnoses Date Provider Providers Copied on Encounter [facility], [id number] [place] [address] [address], [place], [place], [id number], [place] tel:[phone] [facility] No Information [phone] Rojas OD Anatoliy. [address], [place], [address], [place]. tel:[phone] Family History Family Member Type Diagnosis Age At Onset No Information Payers Payer name Insurance type Covered libertarian ID Authoriza tion(s) [place] [id number] Social History Type Description Quantity Date Captured [...]
--- OUTSIDE RECORDS SUMMARY | 2012-09-17 16:49 | XMS_ITS | Continuity of Care Document ---
Author Organization [facility] Address [address] [place] [address] Phone Care Team Providers Care Case Manager Name Role Phone Gaby Ortega MD Unavailable Unavai lable Allergies, Adverse Reactions, Alerts Substance Reaction Status Criticality hydrocodone Active No Information morphine Unknown Active No Information codeine Unknown Active No Information Medications Medication Instructions Dosage Effective Dates (start - stop) Status Comments pravastatin 20 mg Tab take 1 Tablet (20M G) by oral route every day 20 MG - Active Combivent 18 mcg-103 mcg/Actuation Aerosol Inhaler inhale 2 puff by inhalation route 3 times every day AND THEN Q 4 HOURS PRN SOB - Active Norvasc 5 mg Tab take 1 Tablet by Ora l route every day 1 Tablet - Active Advance Directives Directive Yes / No Effective Date File Name No Information Encounters Encounter Description Practice Location Reason(s) For Visit Diagnoses Date Provider Providers Copied on Encounter [facility], [address], [place], [place], [id number] , tel: [phone] [facility] No Information 3 Teresa Benjamin Gaby. [address], [id number] . tel: [phone] [facility], [address], [place], [place], [id number] , tel: [phone] [facility] 201 1 Teresa Griffin. [address], [id number] . tel: [phone] [facility], [address], [place], [place], [id number] , tel: [phone] [facility] No Information Sep-2 1 Pembinemely Griffin. [address] [place] [address], [place], [place], [id number] . tel: [phone] [facility], [address], [place], [place], [id number] , tel: [phone] [facility] No Information Sep-0 8 1 Pembinemely Griffin. [address] [place] [address], [place], [place], [id number] . tel: [phone] [facility], [address], [place], [place], [id number] , tel: [phone] [facility] Screening for malignant neoplasms of the prostateChronic airway obstruction, not elsewhere classifiedShortness of breathSpecial screening for malignant neoplasms, colon Sep-0 1 Teresa Sourav Gaby. [address] [place] [address], [place], [place], [id number] . tel: [phone] Referring Provider: Gab[facility], [facility] [address] [address], [place], [address] . tel:[phone] Family History Family Member Type Diagnosis Age At Onset No Information Payers Payer name Insurance type Covered libertarian ID Authormadya roddy(s) MEDICARE MB [id number] Social History Type Description Quantity Date Captured [...]
--- NOTE | ~2025-01-08 | MR_ITS ---
MRI of the cervical spine Clinical History: Radiculopathy Technique: Axial T2-weighted and gradient images, and sagittal T1-weighted, T2- weighted, and STIR images were acquired. Findings: There is reversal normal cervical lordosis. No acute fracture or sublocation. There is anterior fusion from C5 to C6. No suspicious bone marrow signal abnormality seen. At C2-C3, there is no disc bulge or herniation. No spinal canal stenosis, cord compression, or left neural foraminal narrowing. Possible mild right neural foraminal narrowing with mild right facet arthropathy. At C3-C4, there is no disc bulge or herniation. No spinal canal stenosis or neural foraminal narrowing. There is bilateral facet arthropathy, right worse than left, with right neural foraminal narrowing, and probable minimal left neural foraminal narrowing. At C4-C5, there is mild disc ossify complex. There is mild bilateral neural foraminal narrowing, right worse than left. At C5-C6, there is no disc bulge or herniation. No spinal canal stenosis, cord compression, or neural foraminal narrowing. At C6-C7, there is central to left paracentral disc protrusion. There is left facet arthropathy. There is mild left neural foraminal narrowing. Right neural foramen preserved. No canal stenosis or cord compression. No abnormal signal seen in the spinal cord. Paravertebral soft tissues are unremarkable. Impression: Degenerative spondylitic changes, predominantly at C3-C4 and C6-C7, as above. Anterior fusion from C5 to C6. Reviewed, dictated and finalized at [facility]. Impression: Degenerative spondylitic changes, predominantly at C3-C4 and C6-C7, as above. Anterior fusion from C5 to C6.
--- OUTSIDE RECORDS SUMMARY | 2025-01-08 08:50 | XMS_ITS | Clinical Summary ---
Author Organization [facility] Address [address] [place] [address] Care Team Providers Care Workers Compensation Paralegal Name Role Phone Cintia Cortes MD Primary Care Provider Social History Tobacco Use Types Packs/Day Years Used Date Smoking Tobacco: Never Assessed Sex and Gender Information Value Date Recorded Sex Assigned at Not on file Legal Sex Male 9:41 AM CDT Gender Identity Not on file Sexual Orientation Not on file Plan of Treatment Health Maintenance Due Date Last Done Comments Colorectal Cancer Screening Colonoscopy (10 Years) 1955 Hepatitis C 1973 DTaP, Tdap and Td Vaccines (1 - Tdap) 1974 Zoster Vaccines (1 of 2) 2005 Annual Medicare Wellness Visit 2020 COVID-19 Vaccine ( season) 2024 04/20/2022, 05/05/2021, 08/24/2020, Additional history exists RSV Immunization or 60+ Years (1 - 1-dose 75+ series) 2030 Pneumococcal Vaccine: 50+ Years Completed 12/16/2020, 06/21/2016 Meningococcal B Vaccine Aged Out No l onger eligible based on patient's age to complete this topic Meningococcal Vaccine Aged Out No ok hollie eligible based on patient's age to complete this topic RSV Immunizations Under 20 Months Aged Out No longer eligible based on patient's age to complete this topic Insurance [facility] Care Teams Workers Compensation Paralegal Relationship Specialty Start Date End Date Cintia Cortes MD [address] [place] [address] [place] [address] PCP - General FAMILY PRACTICE 12/02/22
--- OUTSIDE RECORDS SUMMARY | 2025-01-08 08:50 | XMS_ITS | Clinical Summary ---
Author Organization [facility] Address [address] [place] [address] Care Team Providers Care Umbrella Repairer Name Role Phone Cintia Cortes MD Primary [...] (CRESTOR) 20 mg tabletIndicat ions:Atherosc lerosis of jackson coronary artery of jackson heart with stable angina pectoris,Hype rlipidemia associated with type 2 diabetes mellitus (HCC) Take 1 tablet (20 mg total) by mouth daily 90 tablet 3 07/18/19 23 Active budesonide-gl ycopyr-formot ilana (BREZTRI) 160-9-4.8 mcg/actuation inhaler Inhale 2 puffs twice a day by inhalation route as directed for [address]. [address] (VOLTAREN) 75 mg EC tablet Take by mouth every 12 (twelve) hours as needed Active DULoxetine DR (CYMBALTA) 20 mg capsule TAKE 1 CAPSULE BY MOUTH TWICE A DAY DIRECTED Active ezetimibe (ZETIA) 10 mg tablet Take 1 tablet (10 mg total) by mouth daily 01/14/20 24 Active famotidine (PEPCID) 20 mg tablet Take 1 tablet (20 mg total) by mouth 2 (two) times a day Active fenofibrate (TRIGLIDE) 160 mg tablet Take 1 tablet (160 mg total) by mouth daily Act naina ibuprofen 200 mg tab/cap Take 3 capsules by mouth Active losartan (COZAAR) 25 mg tablet Take by mouth Active montelukast (SINGULAIR) 10 mg tablet Take 1 tablet every day by oral route. 11/21/19 25 Active nystatin-tria mcinolone cream APPLY TO THE AFFECTED AREA(S) BY TOPICAL ROUTE 2 TIMES PER DAY IN THE MORNING AND EVENING prn rash 08/24/19 Active omeprazole (PriLOSEC) 40 mg capsule Take by mouth daily Active pantoprazole DR (PROTONIX) 40 mg EC tablet Take 1 tablet (40 mg total) by mouth daily Act naina predniSONE (DELTASONE) 5 mg tablet Take 1 tablet (5 mg) by mouth daily 11/21/19 Active potassium chloride ER 20 mEq CR tablet 12/03/19 Active Active Problems Problem Noted Date Diagnosed Date Benign prostatic hyperplasia 12/11/2024 Erectile dysfunction due to arterial insufficien cy 12/11/2024 Overview (12/11/2024): I discussed options for treatment of his erectile dysfunction including oral agents (PDE5 inhibitors), intraurethral suppository (MUSE), intracavernosal injections, vacuum constriction device, as well as penile prosthesis surgery. The risks, benefits, and alternatives of each modality were discussed with the patient. He was given literature to review. Viral syndrome 12/11/2024 Contact dermatitis due to poison trinh 10/22/2024 Toothache 07/25/2024 Decreased breath sounds 06/25/2024 Acute urticaria 06/03/2024 Wheezing 06/03/2024 Urinary hesitancy 01/02/2024 Low back pain due to bilateral sciatica 01/01/20 Symptoms involving urinary system 01/01/2024 Cervical radiculopathy 10/13/2023 Overview (12/11/2024): 68 year old male who presents with possible c8 radiculopathy bilaterally. Whiplash injury to neck 06/06/2023 Superficial thrombophlebitis 03/28/2023 Pain of left lower extremity 02/20/2023 Hyponatremia 02/15/2023 Decreased hearing 02/14/2023 Edema of lower extremity 02/14/2023 Hypokalemia 01/11/2023 Abscess of jaw 12/08/2022 Mass of right parotid gland 12/08/2022 Abscess of scalp 12/01/2022 Congestive heart failure 11/17/2022 COVID-19 07/20/2022 Acute conjunctivitis 10/12/2021 Viral upper respiratory tract infection 10/13/19 Cough 10/12/2021 Degeneration of cervical intervertebral disc Depressive disorder 10/12/2021 Diabetes mellitus 10/12/2021 Malaise and fatigue 10/12/2021 Fever 10/12/2021 Hiatal hernia with gastroesophageal reflux 10/12 Hearing loss 10/12/2021 Impotence 10/12/2021 Nocturia 10/12/2021 Nonspecific syndrome suggestive of viral illness 10/12/2021 Sinusitis 10/12/2021 Umbilical hernia 10/12/2021 Arthralgia of both knees 09/06/2021 Dystrophia unguium 09/06/2021 Ear problem 09/06/2021 Foot callus 09/06/2021 Bronchitis 09/06/2021 Pneumonia 09/06/2021 Dry skin 2020 Atypical chest pain 07/19/2019 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 11/21/2018 ALYSHA (obstructive sleep apnea) 11/21/2018 Hypertension associated with diabetes 11/21/2018 Hyperlipidemia associated with type 2 diabetes m ellitus 11/21/2018 Diastolic dysfunction 02/14/2018 Obesity 02/14/2018 Type 2 diabetes mellitus without complications 0 02/03/2017 Notalgia 02/09/2015 Cervicalgia 02/06/2015 Asymmetrical sensorineural hearing loss 10/06/19 14 Overview (08/25/2016): SENSONEUR HEAR LOSS ASYM 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 Overview (08/25/2016): VESTIBULAR NEURONITIS Chronic otitis externa 10/05/2013 Overview (08/25/2016): CHR OTITIS EXTERNA NEC Head revolving around 04/30/2013 Unspecified cataract 07/27/2011 Pulmonary emphysema 07/27/2011 Bronchial asthma 07/27/2011 Hypertension 07/27/2011 Encounters Date Type Department Care Team Description 12/11/2024 11:00 AM CDT Office Visit [facility] Medicine Orthopaedic Surgery [address] [facility] [address] [place] [phone] Jason Glaser MD Cervical spine pain (Primary Dx); Cervical radiculopathy 12/11/2024 10:15 AM CDT - 12/11/2024 11:59 PM CDT Hospital Encounter [facility] [address] [facility] [address] [place] [address] Cervical spine pain Discharge Disposition: Discharge to home or self care 12/10/2024 9:55 AM CDT - 12/10/2024 11:59 PM CDT Hospital Encounter [facility] [address] [place] [id number] Discharge Disposition: Discharge to home or self care 12/10/2024 9:53 AM CDT - 12/10/2024 11:59 PM CDT Hospital Encounter [facility] ([facility]) [address] [place] [phone] Discharge Disposition: Discharge to home or self care 12/10/2024 9:52 AM CDT - 12/10/2024 11:59 PM CDT Hospital Encounter [facility] ([facility]) [address] [place] [address] Discharge Disposition: Discharge to home or self care 12/10/2024 9:50 AM CDT - 12/10/2024 11:59 PM CDT Hospital Encounter [facility] ([facility]) [address] [place] [phone] Discharge Disposition: Discharge to home or self care from Last 3 Months Immunizations Immunization Administration Dates Next Due Influenza, Quadrivalent, Spl it, Intramuscular 03/15/2016 Influenza, Quadrivalent, Spl it, Preservative Free, Intramuscular 02/28/2019,03/27/2018,03/06/2017,03/18 Pfizer SARS-CoV-2 Monovalent Vaccination (12+ Yrs) PURPLE 08/24/2020,08/02/2020 Pneumococcal Conjugate PCV 13 06/21/2016 Pneumococcal Polysaccharide PPV23 12/16/2020 Surgical History Surgery Date Site/Laterality Comments NECK SURGERY Neck Surgery - (Added by TW Conv) [place] CHOLECYSTECTOMY Cholecystectomy - (Added by TW Conv) CARDIAC STENT PLACEMENT CATARACT EXTRACTION, BILATERAL FINGER AMPUTATION CORONARY ANGIOPLASTY Medical History Medical History Date Comments Uncomplicated asthma Asthma - (A dded by TW Conv) Essential (primary) hypertension Hypertension - (Added by TW Conv) Aortic stenosis, severe Hyperlipidemia Diet-controlled diabetes mellitus (HCC) CAD (coronary artery disease) Sleep apnea COPD (chronic obstructive pulmonary disease) Family History Medical History Relation Name Comments [...] on file Legal Sex Male 1:19 AM PURCHASING SUPERVISOR Gender Identity Not on file Sexual Orientation Not on file Obstetrics History Last Filed Vital Signs Vital Sign Reading Time Taken Comments Blood Pressure 130/72 07/18/2022 3:06 PM PURCHASING SUPERVISOR Pulse 80 07/18/2022 3:06 PM PURCHASING SUPERVISOR Temperature 36.6 C (97.9 F) 03/15/2018 1:38 PM CDT Respiratory Rate 12 06/11/2018 4:00 PM PURCHASING SUPERVISOR Oxygen Saturation 88% 07/18/2022 3:06 PM PURCHASING SUPERVISOR Inhaled Oxygen Concentration - - Weight 108 kg (238 lb) 12/11/2024 10:37 AM CDT Height 172.7 cm (5' 8) 12/11/2024 10:37 AM CDT Body Mass Index 36.19 12/11/2024 10:37 AM CDT Plan of Treatment Health Maintenance Due Date [...] Visit 65+ 2020 Lipid Panel 07/18/2023 07/18/2022, 03/2 08/2021, 07/19/2019, Additional history exists Covid-19 Vaccine (2023-2 5 season) 2024 05/05/2021, 08/24/2020, 08/02/2020 Influenza Vaccine (#1) 2025 , 02/28/2019, 03/27/2018, Additional history exists Pneumococcal vaccine 65+ Completed 12/16/2020, 05/24 Procedures Procedure Name Priority Date/Time Associated Diagnosis Comments XR SPINE CERVICAL W FLEXION AND EXTENSION 4 VIEWS Schedule Routine, Read Routine (OP Routine) 12/11/2024 10:32 AM CDT Cervical spine pain NEURO CT OUTSIDE REFERENCE Routine 12/10/2024 9:[address] OUTSIDE REFERENCE Routine 12/10/2024 9:[address] OUTSIDE REFERENCE Routine 12/10/2024 9:[address] OUTSIDE REFERENCE Routine 12/10/2024 9:50 AM CDT POCT LIPID PANEL Routine 07/18/2022 3:34 PM PURCHASING SUPERVISOR Hyperlipidemia associated with type 2 diabetes mellitus (HCC) EGFR STAT 06/11/2018 12:[address] CHEST ABDOMEN PELVIS W CONTRAST ED 03/15/2018 9:26 PM CDT from Last 3 Months or Most Recently Relevant to Health Maintenance Results * XR Spine Cervical W Flexion And Extension 4 or 5 Views (12/11/2024 10:32 AM CDT) Anatomical Region Laterality Modality Spine N/A Computed Radiogr aphy 12/11/2024 10:5 6 AM CDT Impressions 12/11/2024 10:56 AM CDT Anterior cervical discectomy and instrumented fusion C5-C6. Electronically signed by: Sanchez Huerta M.D. Narrative 12/11/2024 10:56 AM CDT EXAMINATION: XR SPINE CERVICAL W FLEXION AND EXTENSION 4 OR 5 VIEWS HISTORY: Neck pain FINDINGS: 5 views of the cervical spine were performed with comparison made to 02/09/2015. There is reversal of the cervical lordosis. Prevertebral soft tissues appear normal. There is anterior discectomy and fusion C5-C6. There is no definite motion of the fused segments with flexion and extension. There is minimal anterolisthesis of C6 on C7 which does not change on flexion extension. There is multilevel moderate degenerative disc disease at the nonfused segments. Instrumentation appears intact. Procedure Note Sanchez Huerta MD PhD - 12/11/2024 EXAMINATION: XR SPINE CERVICAL W FLEXION AND EXTENSION 4 OR 5 VIEWS HISTORY: Neck pain FINDINGS: 5 views of the cervical spine were performed with comparison made to 02/09/2015. There is reversal of the cervical lordosis. Prevertebral soft tissues appear normal. There is anterior discectomy and fusion C5-C6. There is no definite motion of the fused segments with flexion and extension. There is minimal anterolisthesis of C6 on C7 which does not change on flexion extension. There is multilevel moderate degenerative disc disease at the nonfused segments. Instrumentation appears intact. IMPRESSION: Anterior cervical discectomy and instrumented fusion C5-C6. Electronically signed by: Sanchez Huerta M.D. us Jason Glaser MD IMG XR PROCEDURES Fi nal Result * Neuro CT Outside Reference (12/10/2024 9:55 AM CDT) Impressions [email or web address] - 12/10/2024 9:55 AM CDT These images are for Reference purposes only and have not been reviewed by [facility]. There will be no report generated by a [facility] Radiologist. Narrative [email or web address] - 12/10/2024 9:55 AM CDT EXAMINATION: Images For Reference Purposes Only Jason Glaser MD IMG CT PROCEDURES Fi nal Result Performing Organization Address [facility] Co de Phone Number [email or web address] * Neuro CT Outside Reference (12/10/2024 9:53 AM CDT) Impressions [email or web address] - 12/10/2024 9:53 AM CDT These images are for Reference purposes only and have not been reviewed by [facility]. There will be no report generated by a [facility] Radiologist. Narrative [email or web address] - 12/10/2024 9:53 AM CDT EXAMINATION: Images For Reference Purposes Only Jason Glaser MD IMG CT PROCEDURES Fi nal Result Performing Organization Address [facility] de Phone Number [email or web address] * Neuro CT Outside Reference (12/10/2024 9:52 AM CDT) Impressions [email or web address] - 12/10/2024 9:52 AM CDT These images are for Reference purposes only and have not been reviewed by [facility]. There will be no report generated by a [facility] Radiologist. Narrative [email or web address] - 12/10/2024 9:52 AM CDT EXAMINATION: Images For Reference Purposes Only Jason Glaser MD IMG CT PROCEDURES Fi nal Result Performing Organization Address [facility] de Phone Number [email or web address] * Neuro CT Outside Reference (12/10/2024 9:50 AM CDT) Impressions [email or web address] - 12/10/2024 9:50 AM CDT These images are for Reference purposes only and have not been reviewed by [facility]. There will be no report generated by a [facility] Radiologist. Narrative [email or web address] - 12/10/2024 9:50 AM CDT EXAMINATION: Images For Reference Purposes Only Jason Glaser MD IMG CT PROCEDURES Fi nal Result [email or web address] * POCT lipid panel (07/18/2022 3:34 PM PURCHASING SUPERVISOR) Cholesterol, POC 155 mg/dL HDL, POC 19 mg/dL Triglycerides, POC 411 mg/dL LDL Cholesterol POC 89 mg/dL Chol/HDL Ratio, POC N/A Non-HDL Cholesterol, POC 136 mg/dL Cholesterol Total, POC 155 mg/dL Capillary blood 07/18/2022 3 :34 PM PURCHASING SUPERVISOR Linda Hurtado NP POINT OF CARE TEST ORDERA BLES Edited Result - Final * eGFR (06/11/2018 12:10 PM PURCHASING SUPERVISOR) eGFR 94 mL/min/1.7 3 m2 KELL URBINA Comment: Interpretive Data Reference Interval Normal >/= 90 mL/min/1.73m2 Mildly decreased* 60 - 89 mL/min/1.73m2 Mildly to moderately decreased 45 - 59 mL/min/1.73m2 Moderately to severely decreased 30 - 44 mL/min/1.73m2 Severely decreased 15 - 29 mL/min/1.73m2 Kidney Failure < 15 mL/min/1.73m2 *Relative to young adult level If -Djiboutian multiply value by 1.16. Estimated glomerular filtration [...] 2015. Blood specimen (specimen) 06/11/2018 12:10 PM PURCHASING SUPERVISOR 06/11/2018 12:26 PM PURCHASING SUPERVISOR Narrative KELL URBINA - 06/11/2018 4:26 PM PURCHASING SUPERVISOR us Saw Vides MD LAB BLOOD ORDERABLES Final Result KELL URBINA [id number] Department [place] [address] * CT Chest Abdomen Pelvis W Contrast [...] Recently Relevant to Health Maintenance Insurance MEDICARE ADVANTAGE MEDICARE ADVANTAGE Care Teams Umbrella Repairer Relationship Specialty Start Date End Date Cintia Cortes MD PCP - General 11/16/11
== END 2025-01-08 08:45 | disposition home or self-care (01) ==
PROVIDERS: Visit Provider Orthopaedic Surgery Orthopaedic Surgery of the Spine
DX: M43.12 Spondylolisthesis, cervical region (principal); Z98.1 Arthrodesis status
CPT/HCPCS: 72141

== ENCOUNTER 2025-04-27 02:54 | Emergency (ER) | payer MEDICARE, SELFPAY ==
[2025-04-27 02:55] VITALS: BP 176/84; PULSE 73; RESP 22; TEMP 36.5; O2SAT 97
--- OUTSIDE RECORDS SUMMARY | 2025-04-27 02:57 | XMS_ITS | Clinical Summary ---
Author Organization [facility] Address [address] [place] [address] Care Team Providers Care Computer Hardware Designer Name Role Phone Cintia Cortes MD Primary Care Provider [phone] Social History Tobacco Use Types Packs/Day Years [...] Wellness Visit 2020 COVID-19 Vaccine ( season) 2025 04/20/2022, 05/05/2021, 08/24/2020, Additional history exists Influenza Adult (#1) 2025 03/12/2021, 02/28/2019, 03/27/2018, Additional history exists RSV Immunization or 60+ Years (1 - 1-dose 75+ series) 2030 Pneumococcal Vaccine: 50+ Years Completed 12/16/2020, 06/21/2016 Hepatitis A Vaccines Aged Out No long er eligible based on patient's age to complete this topic Meningococcal B Vaccine Aged Out No l onger eligible based on patient's age to complete this topic Meningococcal Vaccine Aged Out No ok hollie eligible based on patient's age to complete this topic RSV Immunizations Under 20 Months Aged Out No longer eligible based on patient's age to complete this topic Insurance [facility] MEDICARE Care Teams Computer Hardware Designer Relationship Specialty Start Date End Date Cintia Cortes MD [address] [place] [address] [place] [phone] PCP - General FAMILY PRACTICE 12/02/22
--- OUTSIDE RECORDS SUMMARY | 2025-04-27 02:57 | XMS_ITS | Clinical Summary ---
Author Organization [facility] Address [address] [place] [address] Care Team Providers Care Manager Inventory Management Name Role Phone Cintia Cortes MD Primary Care Provider + Allergies Active Allergy Reactions Criticality Noted Date Comments Atropine Redness,Nausea & Vomiting Low 11/21/2018 Codeine Palpitations Low 05/29/2023 Hydrocodone Nausea & Vomiting Low 05/29/2023 Hydrocodone-Acetaminophen Itching High 10/12/2021 Morphine Nausea & Vomiting Low 05/29/2023 Olmesartan Other (See comments) 05/29/2023 Opioids - Morphine Analogues Tetanus And Diphther. Tox (Pf) Rash High 02/03/2017 Tetanus Vaccines And Toxoid Other (See comments) 05/29/2023 Medications clopidogrel (PLAVIX) 75 mg tablet Take 1 tablet (75 mg total) by mouth daily Act naina metoprolol XL (TOPROL-XL) 50 mg 24 hr tablet Take 50 mg by mouth daily Active glipiZIDE XL (GLUCOTROL XL) 10 mg 24 hr tablet Take 20 mg by mouth daily 06/13/19 Active empagliflozin (JARDIANCE) 25 mg tablet Take [...] (CRESTOR) 20 mg tabletIndicat ions:Atherosc lerosis of [place] coronary artery of [place] heart with stable angina pectoris,Hype rlipidemia associated [...] THE MORNING AND EVENING prn rash 08/24/19 23 Active omeprazole (PriLOSEC) 40 mg capsule Take by mouth daily Active pantoprazole DR (PROTONIX) 40 mg EC tablet Take 1 tablet (40 mg total) by mouth daily Act naina predniSONE (DELTASONE) 5 mg tablet Take 1 tablet (5 mg) by mouth daily 11/21/19 25 Active potassium chloride ER 20 mEq CR tablet 12/03/19 25 Active Active Problems Problem Noted Date Diagnosed [...] artery disease of n ative artery of [place] heart with stable angina pectoris 11/21/2018 ALYSHA [...] Encounters Date Type Department Care Team Description 04/15/2025 Telephone [facility] Medicine Orthopaedic Surgery [address] [place] [address] Anatoliy Ram MD 04/04/2025 9:18 AM EMERY WHEEL WORKER - 04/04/2025 11:59 PM EMERY WHEEL WORKER Hospital Encounter [facility] Radiology at [facility] [address] [place] [address] Demetrius Grewal MD Cervical radiculopathy Discharge Disposition: Discharge to home or self care 02/28/2025 Telephone [facility] Medicine Orthopaedic Surgery [address] [place] [address] Myra Trinidad RMA from Last 3 Months Immunizations Immunization Administration Dates Next Due Influenza, Quadrivalent, Spl it, Intramuscular 03/15/2016 Influenza, Quadrivalent, Spl it, Preservative Free, Intramuscular 02/28/2019,03/27/2018,03/06/2017,03/18 Pfizer SARS-CoV-2 Monovalent Vaccination (12+ Yrs) PURPLE 08/24/2020,08/02/2020 Pneumococcal Conjugate PCV 13 06/21/2016 Pneumococcal Polysaccharide PPV23 12/16/2020 Surgical History Surgery Date Site/Laterality Comments NECK SURGERY Neck Surgery - (Added by Conv) [place] CHOLECYSTECTOMY Cholecystectomy - (Added by ) CARDIAC STENT PLACEMENT CATARACT EXTRACTION, BILATERAL FINGER AMPUTATION CORONARY ANGIOPLASTY TRANSFORAMINAL EPIDURAL INJE CTION CERVICAL THROACIC FIRST LEVEL LEFT 04/04/2025 Left Medical History Medical History Date Comments Uncomplicated asthma Asthma - (A dded by Conv) Essential (primary) hypertension Hypertension - (Added by Conv) Aortic stenosis, severe Hyperlipidemia Diet-controlled diabetes [...] drink = 0.6 oz pur e alcohol) Personal Safety Answer Date Recorded Have you ever been in or are you currently in a harmful physical or emotional relationship or is someone making you feel afraid or unsafe? Denies 04/04/2025 Sex and Gender Information Value Date Recorded Sex Assigned at Not on file Legal Sex Male 1:19 AM EMERY WHEEL WORKER Gender Identity Not on file Sexual Orientation Not on file Last Filed Vital Signs Vital Sign Reading Time Taken Comments Blood Pressure 149/67 04/04/2025 9:53 AM EMERY WHEEL WORKER Pulse 79 04/04/2025 9:53 AM EMERY WHEEL WORKER Temperature 36.6 C (97.9 F) 03/15/2018 1:38 PM CDT Respiratory Rate 12 06/11/2018 4:00 PM EMERY WHEEL WORKER Oxygen Saturation 94% 04/04/2025 9:33 AM EMERY WHEEL WORKER Inhaled Oxygen Concentration - - Weight 113.4 kg (250 lb) 04/04/2025 9:30 AM EMERY WHEEL WORKER Height 172.7 cm (5' 8) 04/04/2025 9:30 AM EMERY WHEEL WORKER Body Mass Index 38.01 04/04/2025 9:30 AM EMERY WHEEL WORKER Plan of Treatment Health Maintenance Due Date [...] 08/2021, 07/19/2019, Additional history exists Covid-19 Vaccine (2024-2 6 season) 2025 05/05/2021, 08/24/2020, 08/02/2020 Influenza Vaccine (#1) 2025 , 02/28/2019, 03/27/2018, Additional history exists Pneumococcal vaccine 65+ Completed 12/16/2020, 05/24 Procedures Procedure Name Priority Date/Time Associated Diagnosis Comments TRANSFORAMINAL EPIDURAL INJECTION CERVICAL THROACIC FIRST LEVEL LEFT Schedule Routine, Read Routine (OP Routine) 04/04/2025 9:51 AM EMERY WHEEL WORKER Cervical radiculopathy POCT LIPID PANEL Routine 07/18/2022 3:34 PM EMERY WHEEL WORKER Hyperlipidemia associated with type 2 diabetes mellitus (HCC) EGFR STAT 06/11/2018 12:10 [address] CHEST ABDOMEN PELVIS W CONTRAST ED 03/15/2018 9:26 PM CDT from Last 3 Months or Most Recently Relevant to Health Maintenance Results * IR Transforaminal Epidural Injection Cervical First Level Left (04/04/2025 9:51 AM EMERY WHEEL WORKER) Narrative [facility] - 04/04/2025 9:51 AM EMERY WHEEL WORKER The images from this study are not interpreted by Radiology. Please refer to the physician's procedure / OR operative note. us Jason Glaser MD IMG IR PROCEDURES Fi nal Result [facility] * POCT lipid panel (07/18/2022 3:34 PM EMERY WHEEL WORKER) Cholesterol, POC 155 mg/dL HDL, POC 19 mg/dL Triglycerides, POC 411 mg/dL LDL Cholesterol POC 89 mg/dL Chol/HDL Ratio, POC N/A Non-HDL Cholesterol, POC 136 mg/dL Cholesterol Total, POC 155 mg/dL Capillary blood 07/18/2022 3 :34 PM EMERY WHEEL WORKER Linda Hurtado SPRAYING MACHINE OPERATOR POINT OF CARE TEST ORDERA BLES Edited Result - Final * eGFR (06/11/2018 12:10 PM EMERY WHEEL WORKER) eGFR 94 mL/min/1.7 3 m2 KELL Comment: Interpretive Data Reference Interval Normal >/= 90 mL/min/1.73m2 Mildly decreased* 60 - 89 mL/min/1.73m2 Mildly to moderately decreased 45 - 59 mL/min/1.73m2 Moderately to severely decreased 30 - 44 mL/min/1.73m2 Severely decreased 15 - 29 mL/min/1.73m2 Kidney Failure < 15 mL/min/1.73m2 *Relative to young adult level If -[place] multiply value by 1.16. Estimated glomerular filtration [...] 2015. Blood specimen (specimen) 06/11/2018 12:10 PM EMERY WHEEL WORKER 06/11/2018 12:26 PM EMERY WHEEL WORKER Narrative KELL - 06/11/2018 4:26 PM EMERY WHEEL WORKER Saw Vides MD LAB BLOOD ORDERABLES Final Result [facility] [id number] Department [place] [address] * CT Chest Abdomen Pelvis [...] Relevant to Health Maintenance Insurance MEDICARE ADVANTAGE [facility] MEDICARE ADVANTAGE [employer] MEDIC[employer] ADVANTAGE Care Teams Manager Inventory Management Relationship Specialty Start Date End Date Cintia Cortes MD PCP - General 11/16/11
--- OUTSIDE RECORDS SUMMARY | 2025-04-27 02:57 | XMS_ITS | Encounter Summary ---
Author Organization [facility] Address [address] [place] [address] Phone Care Team Providers Care Torch Straightener And Heater Name Role Phone Cintia Cortes MD Primary Care Provider + Encounter Details Date Type Department Care Team (Late st Contact Info) Description 04/15/2025 Telephone [facility] [place] [place] Orthopaedic Surgery 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 Grewal. The patient confirms he was given a pain diary at the time of the injection. I have informed the patient Dr. Glaser will need the completed pain diary in order to assess the effectiveness or ineffectiveness of the administered injection and to determine next steps. The pain diary is due to be completed 04/18. The patient verbalizes understanding. ER FILLER documented in this encounter Plan of Treatment Not on file documented as of this encounter Visit Diagnoses Not on filedocumented in this encounter Care Teams Torch Straightener And Heater Relationship Specialty Start Date End Date Cintia Cortes MD PCP - General 11/16/11 documented as of this encounter
[2025-04-27 04:45] VITALS: BP 166/88; PULSE 97; RESP 20; O2SAT 97
--- NOTE | 2025-04-27 06:46 | PC.NURSE ---
Pt states his eye feels better after being flushed with normal saline. Pt states he would like to leave at this time and not be seen anymore. Pt left without being seen by provider. Pt exited ED with steady gait. Pt did not receive the eye medications ordered and both were returned to the medication pixis at this time.
== END 2025-04-27 06:46 | disposition left against medical advice (07) ==
DX: Z53.21 Procedure and treatment not carried out due to patient leaving prior to being seen by health care provider (principal)
CPT/HCPCS: 99199

== ENCOUNTER 2025-05-08 09:13 | Outpatient (CLI) | payer MEDICARE, SELFPAY ==
--- NOTE | ~2025-05-08 | CT_ITS ---
EXAMINATION:CT diagnostic chest wo con DATE: 05/08/2025 10:21 INDICATION: Pulmonary not TECHNIQUE: Computed tomography (CT) of the chest was performed without intravenous contrast. The dose-length product (DLP) was 183.43 mGy-cm. COMPARISON: July 27, 2023 FINDINGS: 5 mm right middle lobe nodule unchanged. Slightly increased nodular fibrotic appearing changes in the anterior right lung base image 76 series 4. No consolidation effusion or pneumothorax. Central and large airways are patent. 4.3 cm ascending thoracic aortic aneurysm unchanged in size. Central and main pulmonary arteries mildly enlarged as well. Heart size normal. Emphysematous changes in the upper lung torres. Extensive coronary artery calcifications/stenting. No pericardial effusion or bulky lymphadenopathy. Diffuse degenerative changes throughout the bones which appear stable. No acute process seen in the visualized portions of the upper abdomen. IMPRESSION: 1. Slightly increased nodularity in the anterior right lung base likely fibrosing changes. Correlate with follow-up chest CT in 6 months. 2. Stable right middle lobe nodule. 3. Stable mild aneurysmal dilatation of the ascending thoracic aorta. 4. Enlarged pulmonary arteries which could be associated with pulmonary arterial hypertension. Reviewed, dictated and finalized at location A. PATHOLOGIST IMPRESSION: 1. Slightly increased nodularity in the anterior right lung base likely fibrosi ng changes. Correlate with follow-up chest CT in 6 months. 2. Stable right middle lobe nodule. 3. Stable mild aneurysmal dilatation of the ascending thoracic aorta. 4. Enlarged pulmonary arteries which could be associated with pulmonary arteria l hypertension.
--- OUTSIDE RECORDS SUMMARY | 2025-05-08 10:06 | XMS_ITS | Clinical Summary ---
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 [place] [address] Anatoliy Ram MD 04/04/2025 9:18 AM DIRECTOR PRESALES - 04/04/2025 11:59 PM DIRECTOR PRESALES Hospital Encounter [facility] Radiology at [facility] [address] [place] [address] Demetrius Grewal MD Cervical radiculopathy Discharge Disposition: Discharge to home or self care 02/28/2025 Telephone [facility] Medicine Orthopaedic Surgery [address] [place] [address] Myra Trinidad RMA from Last 3 Months Immunizations Immunization Administration Dates Next Due Influenza, Quadrivalent, Spl it, Intramuscular 03/15/2016 Influenza, Quadrivalent, Spl it, Preservative Free, Intramuscular 02/28/2019,03/27/2018,03/06/2017,03/18 Pfizer SARS-CoV-2 Monovalent Vaccination (12+ Yrs) PURPLE 08/24/2020,08/02/2020 Pneumococcal Conjugate PCV 13 06/21/2016 Pneumococcal Polysaccharide PPV23 12/16/2020 Surgical History Surgery Date Site/Laterality Comments NECK SURGERY Neck Surgery - (Added by Conv) [facility] CHOLE[facility]STECTOM[facility] Cholecystectomy - (Added by ) CARDIAC [...] on file Legal Sex Male 1:19 AM DIRECTOR PRESALES Gender Identity Not on file Sexual Orientation Not on file Last Filed Vital Signs Vital Sign Reading Time Taken Comments Blood Pressure 149/67 04/04/2025 9:53 AM DIRECTOR PRESALES Pulse 79 04/04/2025 9:53 AM DIRECTOR PRESALES Temperature 36.6 C (97.9 F) 03/15/2018 1:38 PM CDT Respiratory Rate 12 06/11/2018 4:00 PM DIRECTOR PRESALES Oxygen Saturation 94% 04/04/2025 9:33 AM DIRECTOR PRESALES Inhaled Oxygen Concentration - - Weight 113.4 kg (250 lb) 04/04/2025 9:30 AM DIRECTOR PRESALES Height 172.7 cm (5' 8) 04/04/2025 9:30 AM DIRECTOR PRESALES Body Mass Index 38.01 04/04/2025 9:30 AM DIRECTOR PRESALES Plan of Treatment Health Maintenance Due Date [...] Read Routine (OP Routine) 04/04/2025 9:51 AM DIRECTOR PRESALES Cervical radiculopathy POCT LIPID PANEL Routine 07/18/2022 3:34 PM DIRECTOR PRESALES Hyperlipidemia associated with type 2 diabetes mellitus (HCC) EGFR STAT 06/11/2018 12:[address] CHEST ABDOMEN PELVIS W CONTRAST ED 03/15/2018 9:26 PM CDT from Last 3 Months or Most Recently Relevant to Health Maintenance Results * IR Transforaminal Epidural Injection Cervical First Level Left (04/04/2025 9:51 AM DIRECTOR PRESALES) Narrative [facility] - 04/04/2025 9:51 AM DIRECTOR PRESALES The images from this study are not interpreted by Radiology. Please refer to the physician's procedure / OR operative note. us Jason Glaser MD IMG IR PROCEDURES Fi nal Result [facility] * POCT lipid panel (07/18/2022 3:34 PM DIRECTOR PRESALES) Cholesterol, POC 155 mg/dL HDL, POC 19 mg/dL Triglycerides, POC 411 mg/dL LDL Cholesterol POC 89 mg/dL Chol/HDL Ratio, POC N/A Non-HDL Cholesterol, POC 136 mg/dL Cholesterol Total, POC 155 mg/dL Capillary blood 07/18/2022 3 :34 PM DIRECTOR PRESALES Linda Hurtado DISTRIBUTION TECHNICIAN POINT OF CARE TEST ORDERA BLES Edited Result - Final * eGFR (06/11/2018 12:10 PM DIRECTOR PRESALES) eGFR 94 mL/min/1.7 3 m2 KELL Comment: Interpretive Data Reference Interval Normal >/= 90 mL/min/1.73m2 Mildly decreased* 60 - 89 mL/min/1.73m2 Mildly to moderately decreased 45 - 59 mL/min/1.73m2 Moderately to severely decreased 30 - 44 mL/min/1.73m2 Severely decreased 15 - 29 mL/min/1.73m2 Kidney Failure < 15 mL/min/1.73m2 *Relative to young adult level If -Congolese multiply value by 1.16. Estimated glomerular filtration [...] 2015. Blood specimen (specimen) 06/11/2018 12:10 PM DIRECTOR PRESALES 06/11/2018 12:26 PM DIRECTOR PRESALES Narrative KELL - 06/11/2018 4:26 PM DIRECTOR PRESALES Saw Vides MD LAB BLOOD ORDERABLES Final Result [facility] [id number] Department [place] [address] * CT Chest Abdomen Pelvis [...] Relevant to Health Maintenance Insurance MEDICARE ADVANTAGE [facility] MEDICARE ADVANTAGE [facility] MEDICARE ADVANTAGE Care Teams Ios Programmer Relationship Specialty Start Date End Date Cintia Cortes MD PCP - General 11/16/11
--- OUTSIDE RECORDS SUMMARY | 2025-05-08 10:06 | XMS_ITS | Encounter Summary ---
Author Organization [facility] Address [address] [place] [address] Phone Care Team Providers Care Table Attendant Name Role Phone Cintia Cortes MD Primary Care Provider + Encounter Details Date Type Department Care Team (Late st Contact Info) Description 04/15/2025 Telephone [facility] Orthopaedic Surgery 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 The patient verbalizes understanding. H DUMPER documented in this encounter Plan of Treatment Not on file documented as of this encounter Visit Diagnoses Not on filedocumented in this encounter Care Teams Table Attendant Relationship Specialty Start Date End Date Cintia Cortes MD PCP - General 11/16/11 documented as of this encounter
== END 2025-05-08 09:14 | disposition home or self-care (01) ==
PROVIDERS: Visit Provider Physician Assistant
DX: R91.1 Solitary pulmonary nodule (principal); J44.9 Chronic obstructive pulmonary disease, unspecified; Z77.090 Contact with and (suspected) exposure to asbestos
CPT/HCPCS: 71250